=== PATIENT | male | born 1970 | race Caucasian/White ===

== ENCOUNTER 2020-08-19 16:12 | Outpatient (REF) | payer OTHER, SELFPAY | END 2020-08-19 16:13 | disposition home or self-care (01) | LOC: HO.LAB 16:12 | PROVIDERS: Visit Provider Internal Medicine | DX: Z20.828 Contact with and (suspected) exposure to other viral communicable diseases (principal) | CPT/HCPCS: C9803; U0003 ==

== ENCOUNTER 2021-03-09 08:42 | Outpatient (REF) | payer OTHER, SELFPAY ==
--- NOTE | ~2021-03-09 | XR_ITS ---
EXAMINATION: XR CHEST CLINICAL INFORMATION: Cough COMPARISON: None TECHNIQUE: 2 views of the chest were obtained. FINDINGS: No significant abnormality is noted involving the heart, lungs, mediastinum, bony thorax or soft tissues. XR/XR chest 2V IMPRESSION: Unremarkable examination.
[2021-03-09 09:56] LABS: Hematocrit 41.7 % (42-52); Mean Corpuscular HGB Conc 33.6 g/dl (31.0-36.0); Mean Corpuscular Volume 98.3 fL (80-98); Mean Platelet Volume 11.4 fL (9.4-12.4); Platelet Count 234 X10*3/uL (160-400); Red Blood Count 4.24 X10*6/uL (4.60-5.80); Red Cell Distribution Width 12.2 % (11.0-16.0); White Blood Count 4.5 X10*3/uL (4.8-10.8)
[2021-03-09 10:07] LABS: Estimated Average Glucose 85 mg/dL; Hemoglobin A1c % 4.6 %
[2021-03-09 10:30] LABS: Alanine Aminotransferase 34 U/L (0-40); Albumin Level 4.3 g/dL (3.5-5.0); Alkaline Phosphatase 73 U/L (39-117); Anion Gap 12 (12-20); Aspartate Amino Transferase 63 U/L (5-37); Bilirubin Total 1.2 mg/dL (0.0-1.0); Blood Urea Nitrogen 15 mg/dL (9-16); Calcium 9.4 mg/dL (8.4-10.2); Carbon Dioxide 26 mmol/L (22-29); Chloride 107 mmol/L (96-108); Cholesterol 158 mg/dL; Estimated Glomerular Filt Rate > 60; Glucose Fasting 99 mg/dL (60-99); HDL Cholesterol 75 mg/dL; LDL Cholesterol Calculated 62 mg/dl; Potassium 4.3 mmol/L (3.3-5.1); Sodium 141 mmol/L (135-145); Total Protein 7.3 g/dL (6.5-8.0); Triglycerides 107 mg/dL
[2021-03-09 10:43] LABS: TSH reflex Free T4 2.66 uIU/mL (0.32-4.0)
[2021-03-10 11:11] LABS: Immunoglobulin E 1002 kU/L (<OR=114)
== END 2021-03-09 08:43 | disposition home or self-care (01) ==
LOC: HO.XRAY 08:42
PROVIDERS: PCP Physician Assistant; Visit Provider Physician Assistant
DX: Z13.1 Encounter for screening for diabetes mellitus (principal); Z13.220 Encounter for screening for lipoid disorders; J45.20 Mild intermittent asthma, uncomplicated; R05 Cough; I10 Essential (primary) hypertension
CPT/HCPCS: 36415; 71046; 80053; 80061; 82785; 83036; 84443; 85027

== ENCOUNTER → 2021-05-18 13:00 | Outpatient (BNVA) | payer OTHER, SELFPAY | PROVIDERS: Referring Provider Physician Assistant; Visit Provider Nurse Practitioner Family ==

== ENCOUNTER 2021-08-17 07:23 | Day surgery (SDC) | payer OTHER, SELFPAY ==
[2021-06-30 16:10] VITALS: BMI 27.7
--- NOTE | 2021-08-16 10:30 | HO.ANESPROP2 ---
Documented by User: Martha Davison NP 08/16/21 10:30 HPI - Anesthesia Eval Consult details Narrative: 51yo M for Colonoscopy [facility] Active Problems Active Problems: All Active Problems (Updated 03/09/21 @ 11:29 by Hussain Arce PA-C) Colon cancer screening (Acute) Annual physical exam (Acute) Atopic eczema (Acute) Cough (Acute) Vaso vagal episode (Acute) Allergic conjunctivitis (Acute) Screening for hypothyroidism (Acute) Screening for hypercholesterolemia (Acute) Screening for diabetes mellitus (DM) (Acute) Asthma (Acute) Past Medical History Medical History Allergic conjunctivitis Asthma Atopic eczema Family History Family History Father No problems noted. Mother Rheumatoid arthritis Surgical History Surgical History No pertinent past surgical history Social History Social History Housing: Apartment Alcohol intake: current Patient Tobacco Use Status: Never used Tobacco e-Cigarette/Vaping Use: Never Used Second Hand Smoke Exposure: No Use of substances other than those prescribed or required for medical reasons: Yes Substance Use Frequency: Occasionally Are you DNR?: No Advance Directives: No Advance Directives Information Provided: Yes service: No Current occupational status: employed Current occupation: [employer]. Meds Allergies Allergy/AdvReac Type Severity Reaction Status Date / Time No Known Allergies Allergy Verified 08/17/21 07:35 Home Medications Medication Instructions Recorded Confirmed Last Taken Type fluorometholone 0.25 % eye 1 drp OPHTHALMIC (EYE) TID ml 02/09/21 07/21/21 Unknown History drops,suspension loteprednol etabonate 0.5 % eye drp OPHTHALMIC (EYE) 07/21/21 07/21/21 Unknown History gel drops pimecrolimus 1 % topical cream appl TOPICAL BEDTIME 07/21/21 07/21/21 Unknown History Exam Exam Date and Time: August 16, 2021 1030 Height,Weight and Vital Signs: Height 5 ft 7 in Weight 80.286 kg Assessment and Plan Assessment Anesthesia Assessment: Chart Reviewed Documented by User: Itz Hernandez 08/17/21 08:34 PMFSH Past Medical History Medical History Allergic conjunctivitis Asthma Atopic eczema Family History Family History Father No problems noted. Mother Rheumatoid arthritis Family history of problems with anesthesia: No Surgical History Surgical History No pertinent past surgical history History of Problems with Anesthesia: No Social History Social History Housing: Apartment Alcohol intake: current Patient Tobacco Use Status: Never used Tobacco e-Cigarette/Vaping Use: Never Used Second Hand Smoke Exposure: No Use of substances other than those prescribed or required for medical reasons: Yes Substance Use Frequency: Occasionally Are you DNR?: No Advance Directives: No Advance Directives Information Provided: Yes service: No Current occupational status: employed Current occupation: [employer]. Meds Allergies Allergy/AdvReac Type Severity Reaction Status Date / Time No Known Allergies Allergy Verified 08/17/21 07:35 Home Medications Medication Instructions Recorded Confirmed Last Taken Type fluorometholone 0.25 % eye 1 drp OPHTHALMIC (EYE) TID ml 02/09/21 07/21/21 Unknown History drops,suspension loteprednol etabonate 0.5 % eye drp OPHTHALMIC (EYE) 07/21/21 07/21/21 Unknown History gel drops pimecrolimus 1 % topical cream appl TOPICAL BEDTIME 07/21/21 07/21/21 Unknown History Exam Airway Mallampati Class: III TM Dist: >3cm Neck ROM: Full Loose/Missing/Broken Teeth: Yes Heart: rrr Lungs: bl breath sounds Other: eczema eye Assessment and Plan Final Anesthetic Review Family History of Problems with Anesthesia: No History of Problems with Anesthesia: No NPO: Yes Final Preanesthetic Review: Meds/Allgs Chart Reviewed Patient Risk: Intermediate Procedure Risk: Intermediate Anesthetic Plan Anesthetic Plan: MAC: Disposition: Standard PACU
[2021-08-17 07:48] VITALS: BP 122/84; PULSE 57; RESP 16; TEMP 36.2; O2SAT 96
[2021-08-17] MEDS: Lactated Ringers 1,000 ML 100 ML IVCONT (08:06)
--- NOTE | 2021-08-17 08:35 | P.HPSUR_ITS ---
Pre-Procedural Eval Section A Date of Service: 08/17/21 Section B Chief Complaint: Screening Relevant Family History (Specify if Yes): No Relevant Social History: None Present Medications: see Short Stay Collaborative assessment Medical History: Significant History (eczema, Hep C treated) History of Previous Operations: No relevant previous surgery Allergies: Allergies Allergy/AdvReac Type Severity Reaction Status Date / Time No Known Allergies Allergy Verified 08/17/21 07:35 Review of Systems Sugical H&P ROS: Negative: Constitution, Cardiovascular, Respiratory, Neurological, Psychiatric, Hem-Onc, Allergic/Immunologic, Gastrointestinal, Genitourinary, Musculoskeletal, Integumentary, Endocrine and Eyes/Ears/Nose/Throat Exam Surgical H&P Exam: Normal: HEENT, Normal: Heart, Normal: Lungs, Normal: Extrem ities, Normal: Abdomen, Normal: Skin and Normal: Neurological Plan Diagnosis/Plan: Unchanged I have reviewed the history and physical and performed a pertinent physical examination on my patient. No changes have occurred unless specified.
--- NOTE | 2021-08-17 08:44 | P.BOP_ITS ---
Brief Operative Note Date of Service: 08/17/21 Pre-op diagnosis: colon screen Post-op diagnosis: same Procedure: see op note Surgeon: America Sood MD Anesthesia: MAC Was an Quill Machine Tender used for this Procedure?: No Estimated blood loss (mL): 0 Condition: stable Disposition: PACU
--- NOTE | 2021-08-17 08:45 | W.PM.OPN ---
Operative Note Operative Note Date of Service: 08/17/21 Narrative: Operative Information Procedure Description: Colonoscopy COLONOSCOPY Instrument: Olympus variable stiffness pediatric scope 190L Colonoscopy Monitoring: Vital signs and clinical assessment, continuous EKG monitoring, Pulse oximetry, Carbon Dioxide monitoring and blood pressure monitoring were done throughout the procedure. Colon withdrawal time was 21 minutes. Procedure: The patient was placed in the left lateral decubitis position and pre-procedure medications were administered. After a digital rectal examination of the ano-rectum, the video colonoscope was inserted into the rectum and advanced through the colon to the cecum/TI. The colonoscope was slowly withdrawn in a retrograde panoramic fashion and the colon mucosa was carefully examined including a retroflexed view of the rectum. Findings and interventions are described below. Procedure Difficulty: easy Findings: Terminal Ileum-normal Cecum:normal Ascending Colon: normal Transverse Colon -normal Descending Colon: 7-9 mm sessile polyp removed with forceps, 3-4 mm sessile polyp removed with forceps Sigmoid Colon: 9-10 mm sessile polyp removed with cold snare (whole polyp not retirieved, only some small fragements in the trap) Rectum: Retroflexion with small internal hemorrhoids, grade I, x 3 sessile polyps 5-7 mm removed with forceps Anorectum - normal Colon preparation: [place] Bowel Preparation Scale Right colon; 2 Transverse colon: 3 Left colon; 2 (0 = Unprepared colon segment with mucosa not seen due to solid stool that cannot be cleared. 1 = Portion of mucosa of the colon segment seen, but other areas of the colon segment not well seen due to staining, residual stool and/or opaque liquid. 2 = Minor amount of residual staining, small fragments of stool and/or opaque liquid, but mucosa of colon segment seen well. 3 = Entire mucosa of colon segment seen well with no residual staining, small fragments of stool or opaque liquid) Impression and Post Procedure Diagnosis: polyps internal hemorrhoids Plan: High fiber diet leaflet Avoid straining at stool, epsom salts and sitz bath, anusol supps or cream Repeat Colonoscopy in 5 years due to polyps found today or earlier if clinically indicated Above findings were reviewed with the patient and relevant handouts were provided if indicated.
[2021-08-17 09:23] VITALS: BP 116/76; PULSE 63; RESP 15; TEMP 36.5; O2SAT 99
[2021-08-17 09:38] VITALS: BP 121/81; PULSE 64; RESP 16; O2SAT 97
[2021-08-17 09:53] VITALS: BP 131/87; PULSE 60; RESP 16; TEMP 36.5; O2SAT 98
== END 2021-08-17 10:47 | disposition home or self-care (01) ==
PROVIDERS: PCP Physician Assistant; Visit Provider Internal Medicine Gastroenterology
PROC: 0DJD8ZZ Inspection of Lower Intestinal Tract, Via Natural or Artificial Opening Endoscopic (ICD-10-PCS; CPT 45378; principal; 2021-08-17 08:30)
DX: Z12.11 Encounter for screening for malignant neoplasm of colon (principal); D12.4 Benign neoplasm of descending colon; K63.5 Polyp of colon; K62.1 Rectal polyp; K64.0 First degree hemorrhoids; J45.909 Unspecified asthma, uncomplicated; R74.8 Abnormal levels of other serum enzymes; Z86.19 Personal history of other infectious and parasitic diseases; Z79.899 Other long term (current) drug therapy
CPT/HCPCS: 45385; 45380; 88305

== ENCOUNTER 2021-08-31 08:01 | Outpatient (REF) | payer OTHER, SELFPAY ==
--- NOTE | ~2021-08-31 | XR_ITS ---
EXAMINATION: XR CHEST CLINICAL INFORMATION: Asthma exacerbation COMPARISON: None TECHNIQUE: 2 views of the chest were obtained. FINDINGS: No significant abnormality is noted involving the heart, lungs, mediastinum, bony thorax or soft tissues. XR/XR chest 2V IMPRESSION: Unremarkable examination.
== END 2021-08-31 08:02 | disposition home or self-care (01) ==
LOC: HO.XRAY 08:01
PROVIDERS: Absent Provider Physician Assistant; PCP Physician Assistant; Referring Provider Physician Assistant; Visit Provider Nurse Practitioner Family
DX: J45.21 Mild intermittent asthma with (acute) exacerbation (principal); D36.9 Benign neoplasm, unspecified site; Z98.890 Other specified postprocedural states
CPT/HCPCS: 71046

== ENCOUNTER 2021-11-04 13:55 | Outpatient (REF) | payer OTHER, SELFPAY | END 2021-11-04 13:56 | disposition home or self-care (01) | LOC: HO.LNP 13:55 | PROVIDERS: Visit Provider Hospitalist | DX: Z20.822 Contact with and (suspected) exposure to COVID-19 (principal); J06.9 Acute upper respiratory infection, unspecified; J45.901 Unspecified asthma with (acute) exacerbation | CPT/HCPCS: U0003; U0005 ==

== ENCOUNTER 2022-04-06 10:38 | Outpatient (REF) | payer OTHER, SELFPAY ==
[2022-04-06 12:52] LABS: Alanine Aminotransferase 23 U/L (0-40); Alkaline Phosphatase 68 U/L (39-117); Anion Gap 10 (12-20); Aspartate Amino Transferase 23 U/L (5-37); Bilirubin Total 0.8 mg/dL (0.0-1.0); Blood Urea Nitrogen 12 mg/dL (9-16); Calcium 8.8 mg/dL (8.4-10.2); Carbon Dioxide 25 mmol/L (22-29); Chloride 107 mmol/L (96-108); Estimated Glomerular Filt Rate > 60; Glucose Fasting 98 mg/dL (60-99); Potassium 3.8 mmol/L (3.3-5.1); Sodium 138 mmol/L (135-145); Total Protein 6.8 g/dL (6.5-8.0)
[2022-04-06 13:15] LABS: Prostate Specific Antigen Scr 0.19 ng/mL (<0.05-4.0)
== END 2022-04-06 10:39 | disposition home or self-care (01) ==
LOC: HO.LAB 10:38
PROVIDERS: PCP Physician Assistant; Visit Provider Physician Assistant
DX: Z12.5 Encounter for screening for malignant neoplasm of prostate (principal); Z13.29 Encounter for screening for other suspected endocrine disorder
CPT/HCPCS: 36415; 80053; 84153; 84443

== ENCOUNTER 2022-04-07 15:33 | Outpatient (REF) | payer OTHER, SELFPAY ==
[2022-04-07 15:49] LABS: MANUAL DIFF FLAG NO
[2022-04-07 15:56] LABS: Basophils Percent Auto 0.9 % (0-2); Eosinophils Absolute Auto 0.2 X10*3/uL (0.0-0.4); Eosinophils Percent Auto 3.3 % (0-4); Hematocrit 39.5 % (42.0-52.0); Hemoglobin 13.4 g/dl (14.0-18.0); Imm Gran Abs Auto 0.02 X10*3/uL (0.00-0.03); Imm Gran Pct Auto 0.4 % (0.0-0.4); Lymphocytes Absolute Auto 1.7 X10*3/uL (1.2-4.9); Lymphocytes Percent Auto 37.4 % (20-40); Mean Corpuscular HGB Conc 33.9 g/dl (31.0-36.0); Mean Corpuscular Hemoglobin 32.4 pg (27.0-33.0); Mean Corpuscular Volume 95.6 fL (80.0-98.0); Mean Platelet Volume 9.8 fL (9.4-12.4); Monocytes Absolute Auto 0.4 X10*3/uL (0.1-1.2); Monocytes Percent Auto 9.1 % (2-11); Neutrophils Absolute Auto 2.2 x10*3/uL (2.0-8.3); Neutrophils Percent Auto 48.9 % (45-73); Platelet Count 228 X10*3/uL (160-400); Red Blood Count 4.13 X10*6/uL (4.60-5.80); Red Cell Distribution Width 12.6 % (11.0-16.0); White Blood Count 4.5 X10*3/uL (4.8-10.8)
[2022-04-07 16:15] LABS: Anion Gap 13 (12-20); Blood Urea Nitrogen 15 mg/dL (9-16); Calcium 9.2 mg/dL (8.4-10.2); Carbon Dioxide 29 mmol/L (22-29); Chloride 103 mmol/L (96-108); Estimated Glomerular Filt Rate > 60; Glucose Random 119 mg/dL (60-115); Potassium 3.8 mmol/L (3.3-5.1); Sodium 141 mmol/L (135-145)
[2022-04-07 16:32] LABS: Erythrocyte Sedimentation Rate 5 MM/HR (0-15)
[2022-04-11 14:33] LABS: IgA 454 mg/dL (47-310); IgG 1242 mg/dL (600-1640); IgM 45 mg/dL (50-300)
== END 2022-04-07 15:34 | disposition home or self-care (01) ==
LOC: HO.LAB 15:33
PROVIDERS: PCP Physician Assistant; Visit Provider Hospitalist
DX: J45.40 Moderate persistent asthma, uncomplicated (principal); J30.9 Allergic rhinitis, unspecified
CPT/HCPCS: 36415; 80048; 82784; 82785; 85025; 85652; 86003

== ENCOUNTER 2022-05-12 16:02 | Outpatient (REF) | payer OTHER, SELFPAY ==
--- NOTE | 2022-05-12 17:11 | PFT_ITS ---
INDICATION: Dyspnea. SPIROMETRY: FEV1 to FVC of 82% with an FEV1 of 3.42 L, which is 98% predicted. An FVC of 4.15 L, which is 92% predicted. There was a significant response to bronchodilators noted. Maximum voluntary ventilation 101% predicted. LUNG VOLUMES: Total lung capacity 90% predicted. DIFFUSION CAPACITY: DLCO 103% predicted. COMPARISONS: None. INTERPRETATION: No obstructive nor restrictive ventilatory defects identified. No significant response to bronchodilators noted. The patient did have a significant response to bronchodilators noted. Normal lung volumes. In addition to that, normal diffusing capacity. If asthma is in differential, methacholine challenge may be helpful in assessing for hyper-reactive airways, otherwise clinical correlation warranted. Dennis Smith MD MR/MODL / [id number]
== END 2022-05-12 16:03 | disposition home or self-care (01) ==
LOC: HO.RESP 16:02
PROVIDERS: PCP Physician Assistant; Visit Provider Hospitalist
DX: J45.40 Moderate persistent asthma, uncomplicated (principal)
CPT/HCPCS: 94060; 94727; 94729

== ENCOUNTER → 2022-11-27 15:30 | Outpatient (BNVA) | payer OTHER, SELFPAY | PROVIDERS: PCP Physician Assistant; Visit Provider Hospitalist | DX: J34.2 Deviated nasal septum (principal) ==

== ENCOUNTER → 2023-02-12 14:28 | Outpatient (BNVA) | payer OTHER, SELFPAY | PROVIDERS: PCP Physician Assistant; Visit Provider Hospitalist ==

== ENCOUNTER 2023-03-23 13:25 | Outpatient (AMB) | payer OTHER, SELFPAY ==
--- NOTE | 2023-03-23 13:29 | A.OFFVIS_ITS ---
Intake Vital Signs 03/23/23 13:30 Height 5 ft 7 in Weight 185 lb BMI 29.0 Pulse 65 Pulse Source Pulse Oximeter Temp 65 F L Pulse Oximetry (%) 97 Oxygen Delivery Method Room Air Intake Visit Reasons: Asthma Electronic Typesetting Machine Operator Required: No Allergies No Known Allergies Allergy (Verified 03/23/23 13:31) HPI HPI Comments History of Present Illness Details The patient is a 52-year-old gentleman with a known history of asthma and severe a topic dermatitis and steroid dependent, who apparently has been having worsening respiratory symptoms for the last several months. he did have COVID that affected his respiratory capacity. The time he was finding in [facility]. However, after COVID in the worsening respiratory symptoms he was not able to continue regularly. In August he started developing worsening respiratory symptoms. He was evaluated at that point with a chest x-ray demonstrating no acute disease. Subsequently in the springtime again he had worsening respiratory symptoms and he went to an urgent care. He was given a rescue inhaler in addition to prednisone for an asthma exacerbation. He did not have a chest x-ray. He was tested for COVID again and he was negative. He was given a course of a signal mycin during time. At this point the patient is feeling better although he still having episodes of shortness of breath and wheezing at times. He had been prescribed Advair HFA which has been helping. He does use his rescue inhaler more than twice a week. Therefore he was sent to Pulmonary for further evaluation. On further questioning he denies any significant exposure to mold or past. He had been tested for allergy sit in the past and he was found to have many allergies any at some point he did receive allergy shots. I was many years ago. also to note in regards of the eczema the patient was evaluated by Dermatology in the past. He was placed on Dupixent which was extremely helpful clearing up his the topic dermatitis. However, he started developing back pain and some issues with kidneys and therefore he stopped the Dupixent. His side effects did improve but unfortunately the eczema return. 05/23/2022 the patient is here for a pulmonary follow-up visit. Overall the patient is doing a little better on the breztri inhaler. Although he continues to have chest tightness and wheezing. Symptoms are usually worse at nighttime. He responds to his albuterol therapy. The patient also had been using prednisone on a regular basis. He is finds that prednisone does help with his symptoms. His blood work has demonstrated evidence of eosinophilia. But now on the prednisone there is no evidence of any significant eosinophilia. He did undergo blood work demonstrating severe allergies to numerous items on the list. Some of the allergies that were most severe were to dogs, trees and dust mites. The patient has never had anaphylaxis although he has had significant swelling of his mucus membranes. Therefore I will send him to the pharmacy a epinephrine pen. We did instruct him and his significant other on how to use it correctly. the patient is IgE was close to 1000. Therefore with his chronic prednisone use his severe asthma in his severe allergies the patient needs to be placed on biologic therapy with the hope that we can wean him off the prednisone. Based on his laboratory data I do believe that Tezspire would be most effective for him. We also reviewed his pulmonary function studies demonstrating small airway disease consistent with his asthma history. 08/25/2022 the patient is here for a pulmonary follow-up visit. He still struggling with his asthma. He is not able to get off the prednisone due to his significant allergies and her significant chest tightness. The patient already tried and failed Dupixent. Although it improved his respiratory capacity it res ulting significant myalgias and arthralgias where he could not even walk. Those symptoms did get better once he stops the Dupixent. Does have the significant eosinophilia and significant elevations in his IgE. Therefore I do believe that the best option treated asthma would be to start Trezspire. however, it was denied by his insurance company. Will re-attempt to do so. If we cannot get him approved on Trezspire, then we can request and I will 5 inhibitor although it will not cover his significant allergic asthma completely. The main goal be to get him off the prednisone if able to do so. He has been on chronic prednisone and may have some degree of adrenal insufficiency. Therefore after very careful lowering the prednisone once he starts biologic therapy. Continues to use his respiratory inhalers with good adherence. 11/27/2022 the patient is here for a pulmonary follow-up visit. He is feeling a little better at this time. Unfortunately, he has not been able to start the biologic therapy. He still continues to be on prednisone. We try to get him on the new biologic, Tezspire, but was not covered by his insurance. Therefore will go ahead and try him on Xolair. He has already tried and failed multiple other biologics. The patient does have again severe asthma and requires chronic prednisone. He continues to use his maintenance inhalers with good effect. I did give information about the Xolair. I am hopeful that we can start that as soon as possible. Will still waiting for the approval from the insurance company. 02/12/2023 The patient is here for a follow up visit. Has been having worsening respiratory symptoms with chest tightness, wheezing and productive cough. Moderate in severity. No sleeping well. Using the nebulizer therapy several times a day. Has not started the biologic therapy. Will help him reach out to the pharmacy to start the process. In the meatime, he is on prednisone. We will have him start an antibiotics for bronchitis. 03/23/2023 the patient is here for pulmonary follow-up visit. He continues to wait for his biologic therapy. The patient actually has been doing fairly good. He is still on chronic prednisone however. Has been having his respiratory medications as prescribed. I did reach out to our nauseous see if she can help facilitate the process to try to get him his Xolair. The patient also may be a good candidate for Tezspire, bbut he was not from his insurance company unfortunately. No recent imaging studies to review. Will try to facilitate the biologic therapy as soon as possible. [facility] Medical History (Updated 02/12/23 @ 22:10 by Dennis Smith MD) Allergic conjunctivitis Asthma Atopic dermatitis Deviated septum Tubular adenoma Surgical History No pertinent past surgical history Family History Father No problems noted. Mother Rheumatoid arthritis Social History (Updated 03/15/22 @ 09:09 by Hussain Arce PA-C) Housing: Apartment Alcohol intake: current Alcohol intake frequency: a few times a week Alcohol type: beer Patient Tobacco Use Status: Never used Tobacco e-Cigarette/Vaping Use: Never Used Second Hand Smoke Exposure: No service: No Current occupational status: employed Current occupation: [employer] . Review of Systems Const Denies body aches, Denies chills, Denies excessive sweating, Denies fatigue, Denies fever(s) and Denies headache(s) Eyes Denies blurry vision ENT Denies dysphagia, Denies vertigo, Denies dizziness, Denies headache(s), Denies hearing loss, Reports nasal congestion, Reports nasal discharge and Denies tinnitus Card Denies chest pain, Denies chest pain with activity, Denies syncope, Denies irregular heart rhythm and Reports dyspnea on exertion Resp Reports chest congestion, Reports cough, Denies hemoptysis, Reports dyspnea on exertion and Reports wheezing GI Denies abdominal pain, Denies melena, Denies hematochezia, Denies coffee ground emesis, Denies dysphagia, Denies diarrhea, Denies nausea and Denies vomiting Musc Denies arthralgias, Denies limited range of motion, Denies muscle cramps and Denies muscle weakness Skin/Breast Denies rash and Denies skin ulcer Neuro Denies Abnormal speech present, Denies vertigo, Denies dizziness, Denies syncope, Denies headache(s), Denies memory loss and Denies seizure-like activity Psych Denies anxiety, Denies depression, Denies memory loss, Denies panic attacks and Denies paranoia Endo Denies excessive sweating, Denies fatigue, Denies flushing, Denies polydipsia and Denies polyuria Aller/Immun Reports wheezing Physical Exam Vital Signs: Last Vital Signs Temp 65 F L 03/23/23 13:30 Pulse 65 03/23/23 13:30 Pulse Ox 97 03/23/23 13:30 Oxygen Delivery Method Room Air 03/23/23 13:30 BMI result Body Mass Index 29.0 Const General: comfortable HEENT Head: Yes atraumatic Neck Neck: Yes supple Chest Chest palpation & inspection: normal inspection of the chest Resp Effort & Inspection: normal respiratory effort Auscultation: wheezes and diminished lung sounds Cardio Rate: regular rate Rhythm: regular rhythm Heart sounds: S1 normal heart sound present and S2 normal heart sound present GI Palpation (GI): Soft to palpation Skin Rashes: no rashes Neuro Speech: No Abnormal speech present Extrem General: Yes no clubbing, cyanosis or edema Assessment & Plan Assessment & Plan (1) Asthma: Comment: chronic prednisone to control symptoms Code(s): J45.909 - Unspecified asthma, uncomplicated Qualifiers: Asthma complication type: with acute exacerbation Asthma persistence: persistent Asthma severity: severe Qualified Code(s): J45.51 - Severe persistent asthma with (acute) exacerbation (2) Allergic rhinitis: Code(s): J30.9 - Allergic rhinitis, unspecified Qualifiers: Allergic rhinitis seasonality: non-seasonal Allergic rhinitis trigger: unspecified Qualified Code(s): J30.89 - Other allergic rhinitis (3) Atopic dermatitis: Code(s): L20.9 - Atopic dermatitis, unspecified Qualifiers: Atopic dermatitis type: unspecified Qualified Code(s): L20.9 - Atopic dermatitis, unspecified (4) Deviated septum: Code(s): J34.2 - Deviated nasal septum (5) Bronchitis: Code(s): J40 - Bronchitis, not specified as acute or chronic Plan continue Breztri 2 puffs twice a day short-acting beta agonist as needed continue Singulair continue prednisone with taper Still requesting Xolair, awaiting approval nebulizer provided F/U in 3-4 months Coding Level of Care Code Est Pt Level 4 (65162) Diagnoses Asthma J45.51 Asthma complication type: with acute exacerbation Asthma persistence: persistent Asthma severity: severe Allergic rhinitis J30.89 Allergic rhinitis seasonality: non-seasonal Allergic rhinitis trigger: unspecified Atopic dermatitis L20.9 Atopic dermatitis type: unspecified Deviated septum J34.2 Bronchitis J40 Time Spent (min) 18
[2023-03-23 13:30] VITALS: PULSE 65; TEMP 18.3; O2SAT 97; BMI 29.0
== END 2023-03-23 13:51 | disposition home or self-care (01) ==
PROVIDERS: PCP Physician Assistant; Visit Provider Hospitalist
DX: J45.51 Severe persistent asthma with (acute) exacerbation (principal); J30.89 Other allergic rhinitis; L20.9 Atopic dermatitis, unspecified; J34.2 Deviated nasal septum; J40 Bronchitis, not specified as acute or chronic
CPT/HCPCS: 99214

== ENCOUNTER → 2023-03-23 13:25 | Outpatient (BNVA) | payer OTHER, SELFPAY | PROVIDERS: Visit Provider Hospitalist | DX: J34.2 Deviated nasal septum (principal) ==

== ENCOUNTER 2023-05-24 08:45 | Outpatient (AMB) | payer OTHER, SELFPAY ==
[2023-05-24 08:57] VITALS: BP 122/82; PULSE 60; O2SAT 97; BMI 28.9
--- NOTE | 2023-05-24 08:57 | MHC.PC.OV ---
Vital Signs 05/24/23 08:57 Height 5 ft 7 in Weight 184 lb 8 oz BMI 28.9 BP 122/82 Blood Pressure Location Lt brachial Position Sitting Pulse 60 Pulse Source Pulse Oximeter Pulse Oximetry (%) 97 Oxygen Delivery Method Room Air Intake Visit Reasons: Annual Exam Intake Note: Patient is here today for a physical. 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 Accompanied by: Self / Same As Patient Allergies No Known Allergies Allergy (Verified 05/24/23 09:18) Medication List - Last Reconciled 05/24/23 by Hussain Arce PA-C albuterol sulfate 90 mcg/actuation 1 puff PO Q4H PRN albuterol sulfate 2.5 mg (3 mL) inhalation Q6H PRN 30 days bisacodyl (Dulcolax (bisacodyl)) 10 mg (2 x 5 mg) PO ONCE 1 day bwkyceuixf-rcfdvqex-czzpvdttjd 160-9-4.8 mcg/actuation (Breztri Aerosphere) 2 inhalations inhalation BID 30 days doxycycline monohydrate 100 mg PO BID 14 days epinephrine (EpiPen 2-Russ) 0.3 mg (0.3 mL) IM Q10M PRN 30 days fluorometholone 0.25% 1 drp ophthalmic (eye) TID fluticasone propion-salmeterol 115-21 mcg/actuation (Advair HFA) 2 puffs inhalation BID 30 days fluticasone propionate 110 mcg/actuation (Flovent HFA) 1 puff PO BID ipratropium bromide 2 sprays intranasal BID 30 days loteprednol etabonate 0.5% drps ophthalmic (eye) montelukast (Singulair) 10 mg PO BEDTIME 3 months pimecrolimus 1% 1 appl topical BEDTIME 30 days prednisone 10 mg PO DAILY triamcinolone acetonide 0.1% 1 appl topical DAILY 30 days Tobacco use date assessed: 05/24/23 Dental Screening Dental Screen Date: 05/24/23 Did you have a dental visit in the last 12 months?: Yes Did you have a dental problem in the last 6 months where you did not have access to dental care?: No Was dental information given to patient?: Patient has dentist HPI Annual Exam HPI Details Patient is a 52-year-old male here today for annual physical. Patient has a past medical history significant for moderate persistent asthma, moderate to severe atopic dermatitis. .. Atopic dermatitis: His atopic dermatitis has been fairly well controlled with topical agents. .. Moderate persistent asthma: He reports his asthma has been fairly well controlled now on new maintenance inhaler, followed by [facility] senior core java developer . .. Colorectal cancer screening: Had colonoscopy in 2019- tubular adenomatous polyp found needs repeat in 2024 Vaccines: Up-to-date with COVID vaccine, up-to-date with tetanus vaccine, UTD pneumonia vaccine, considering Shingles PFSH Medical History Deviated septum Atopic dermatitis Tubular adenoma Allergic conjunctivitis Asthma Surgical History No pertinent past surgical history Family History Father No problems noted. 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 Cognitive needs: No Hearing needs: No Vision needs: No Questionnaire PHQ-9 Over the last 2 weeks, how often have you been bothered by any of the following problems? 1. Little interest or pleasure in doing things: not at all 2. Feeling down, depressed, or hopeless: not at all 3. Trouble falling or staying asleep, or sleeping too much: not at all 4. Feeling tired or having little energy: not at all 5. Poor appetite or overeating: not at all 6. Feeling bad about yourself - or that you are a failure or have let yourself or your family down: not at all 7. Trouble concentrating on things, such as reading the newspaper or watching television: not at all 8. Moving or speaking so slowly that other people could have noticed. Or the opposite - being so fidgety or restless that you have been moving around a lot more than usual: not at all 9. Thoughts that you would be better off or of hurting yourself in some way: not at all Total score: 0 Depression Screening Interpretation: Negative [id number] - PHQ-9 Billing: Yes Source: Developed by Drs. Fco Riddle, Svetlana Desai, Earnest Henson and colleagues, with an educational gisell from [employer]. Thrive Questionnaire Date Thrive assessed: 05/24/23 I am a: Patient What is your living situation today?: I have a steady place to live Within the past 12 months, did the food you bought not last and you didn't have the money to get more?: Never true Within the past 12 months, did you worry whether your food would run out before you got money to buy more?: Never true Do you have trouble paying for medicines?: No Do you have trouble getting transportation to medical appointments?: No Do you have trouble paying your heating and electricity bill?: No Do you have trouble taking care of your child, family member or friend?: No Do you have trouble with day-to-day activities such as bathing, preparing meals, shopping, managing finances, etc.?: No Are you currently unemployed and looking for a job?: No Are you interested in more education?: No Please select the resources that you would like help with: None Currently or been in a relationship where the following occur: no concerns reported AUDIT C Alcohol Use Questionnaire (AUDIT-C) 1. How often do you have a drink containing alcohol?: Monthly or less 2. How many drinks containing alcohol do you have on a typical day when you are drinking?: 1 or 2 3. How often do you have six or more drinks on one occasion?: Never Total Score: 1 EVY-7 AMB Questionnaire EVY-7 Date EVY - 7 assessed: 05/24/23 Feeling nervous, anxious, or on edge: 0 = Not at all Not being able to stop or control worryin = Not at all Worrying too much about different things: 0 = Not at all Trouble relaxin = Not at all Being so restless that it is hard to sit still: 0 = Not at all Becoming easily annoyed or irritable: 0 = Not at all Feeling afraid as if something awful might happen: 0 = Not at all Total EVY-7 score (0-4 normal; 5-9 mild; 10-14 moderate; 15-21 severe): 0 Source: Developed by Drs. Fco Riddle, Svetlana Desai, Earnest Henson and colleagues, with an educational gisell from [employer]. EVY-7 Assessment Billing EVY-7 Assessment Tool: EVY-7 Assessment 66974 ACT Questionnaire In the past 4 weeks, how much of the time did your asthma keep you from getting as much done at work, school or at home?: None of the time During the past 4 weeks, how often have you had shortness of breath?: 1-2 times a week During the past 4 weeks, how often did your asthma symptoms wake you up at night or earlier than usual in the morning?: Not at all During the past 4 weeks, how often have you had to use your rescue inhaler or nebulizer medication?: Not at all How would you rate your asthma control during the past 4 weeks?: Completely controlled ACT Interpretation: Negative Score: 24 Review of Systems Const Denies body aches, Denies chills, Denies excessive sweating, Denies fatigue, Denies fever(s) and Denies headache(s) Eyes Denies blurry vision ENT Denies dysphagia, Denies vertigo, Denies dizziness, Denies headache(s), Denies hearing loss and Denies tinnitus Card Denies chest pain, Denies chest pain with activity, Denies syncope, Denies irregular heart rhythm and Denies dyspnea Resp Denies chest congestion, Denies cough, Denies hemoptysis, Denies dyspnea and Denies wheezing GI Denies abdominal pain, Denies melena, Denies hematochezia, Denies coffee ground emesis, Denies dysphagia, Denies diarrhea, Denies nausea and Denies vomiting Denies difficulty urinating, Denies dysuria, Denies urinary frequency, Denies urinary hesitancy and Denies urinary urgency Musc Denies arthralgias, Denies limited range of motion, Denies muscle cramps and Denies muscle weakness Skin/Breast Denies rash and Denies skin ulcer Neuro Denies Abnormal speech present, Denies confusion, Denies vertigo, Denies dizziness, Denies syncope, Denies headache(s), Denies memory loss and Denies seizure-like activity Psych Denies anxiety, Denies confusion, Denies depression, Denies memory loss, Denies panic attacks and Denies paranoia Endo Denies excessive sweating, Denies fatigue, Denies flushing, Denies polydipsia and Denies polyuria Aller/Immun Denies wheezing Physical exam (Primary Care) Vital Signs: Last Vital Signs Pulse 60 05/24/23 08:57 BP 122/82 05/24/23 08:57 Pulse Ox 97 05/24/23 08:57 Oxygen Delivery Method Room Air 05/24/23 08:57 BMI result Body Mass Index 28.9 Tobacco/Smoking Status: Tobacco use Status Tobacco use date assessed 05/24/23 05/24/23 09:03 Patient Tobacco Use Status Never used Tobacco 05/24/23 09:22 e-Cigarette/Vaping Use Never Used 05/24/23 09:22 PHQ-9: PHQ-9 Score PHQ-9: Total score 0 05/24/23 09:22 Depression Screening Interpretation: Negative Thrive Assessment: Date of Thrive Assessment Date Thrive assessed 05/24/23 05/24/23 09:03 Currently or been in a relationship where the following occur: no concerns reported Const General: cooperative, comfortable, no acute distress, alert and awake; No confusion Orientation/consciousness: oriented to person, oriented to place, patient oriented x3 and No confusion HENMT Head: Yes normocephalic Ears: external ears normal and TM's normal bilaterally Face and sinus: No sinus tenderness Mouth: Normal oral and palatal mucosa present and tongue normal Teeth and gingiva: dentition normal and gingiva normal Throat: Yes posterior oropharynx normal, Yes tonsils normal and Yes uvula midline Eyes Conjunctivae: conjunctivae normal Sclerae: sclerae normal Pupils: Equal, round and reactive pupils present EOM: EOMs intact bilaterally Direct Ophthalmoscopy: No no photophobia Neck Neck: Yes no lymphadenopathy, No tender and Yes no JVD Thyroid: Thyroid normal Carotids: no bruits Chest Chest palpation & inspection: no tenderness Resp Effort & Inspection: normal respiratory effort, no audible wheezes, not labored and no stridor Auscultation: no crackles, no rales, no rhonchi and no wheezes Cardio Jugular venous distension: no JVD Rate: regular rate, not bradycardic and not tachycardic Rhythm: regular rhythm Bruits: no carotid bruits Peripheral pulses: Peripheral pulses 2+ throughout GI Inspection: Yes normal to inspection, No abdominal wall ecchymosis and No visible herniation Palpation (GI): Soft to palpation, nontender, no guarding, not rigid and No hepatosplenomegaly present Auscultation: normoactive bowel sounds General: Yes no CVA tenderness Back/Spine/Pelvis Back: no CVA tenderness and No back tenderness Cervical Spine: cervical ROM normal Thoracic/Lumbar Spine: thoracic and lumbar spine normal to inspection, straight leg raise negative bilaterally, No thoraco-lumbar ROM limited and No lumbar spinal tenderness Skin Lesions: no lesions Rashes: no rashes Wounds: no wounds Neuro General: oriented to person, oriented to place, patient oriented x3, CN's II-XI intact bilaterally and No confusion Cranial nerves: Yes Equal, round and reactive pupils present and Yes Normal accommodation reflex present Cognition (Neuro): normal cognition Speech: No Abnormal speech present Gait exam (Neuro): Normal gait present Motor exam (neuro): 5/5 motor strength present throughout Extrem Right upper extremity: full ROM; no cyanosis Left upper extremity: full ROM; no cyanosis Right lower extremity: no edema Left lower extremity: no edema Psych Appearance: grossly normal Mental Status: mental status grossly normal Affect: normal affect Attitude: cooperative Thought process: Normal thought process present Assessment and Plan Assessment & Plan (1) Annual physical exam: Code(s): Z00.00 - Encounter for general adult medical examination without abnormal findings (2) Atopic dermatitis: Code(s): L20.9 - Atopic dermatitis, unspecified Qualifiers: Atopic dermatitis type: intrinsic Qualified Code(s): L20.84 - Intrinsic (allergic) eczema Plan: Patient seems to have moderate to severe atopic dermatitis over his palm and right heel. Was seen by dermatology in the past though lost follow-up. (3) Tubular adenoma: Code(s): D36.9 - Benign neoplasm, unspecified site Plan: Did have colonoscopy in 2019 found tubular adenomatous polyp, repeat colonoscopy in 5 years. (4) Asthma: Comment: chronic prednisone to control symptoms Code(s): J45.909 - Unspecified asthma, uncomplicated Qualifiers: Asthma complication type: with acute exacerbation Asthma persistence: persistent Asthma severity: severe Qualified Code(s): J45.51 - Severe persistent asthma with (acute) exacerbation Plan: Reports his asthma has been better controlled with maintenance inhaler only p.r.n. use of his albuterol inhaler. Now followed by senior core java developer. He denies any nighttime awakenings with asthma symptoms her recent asthma exacerbations. (5) Screening for diabetes mellitus (DM): Code(s): Z13.1 - Encounter for screening for diabetes mellitus Orders: Orders Prostate Specific Antigen Scr 05/24/23 Z12.5 - Encounter for screening for malignant neoplasm of prostate Comprehensive [place]. Panel Fast 05/24/23 Z13.1 - Encounter for screening for diabetes mellitus Complete Blood Count no Diff 05/24/23 J45.51 - Severe persistent asthma with (acute) exacerbation Coding Level of Care Code Est Pt Prev Care 40-64y(50720) Diagnoses Annual physical exam Z00.00 Intrinsic atopic dermatitis L20.84 Atopic dermatitis type: intrinsic Tubular adenoma D36.9 Severe persistent asthma with acute exacerbation J45.51 Asthma complication type: with acute exacerbation Asthma persistence: persistent Asthma severity: severe Screening for diabetes mellitus (DM) Z13.1 Additional Codes EVY-7 Assessment Billing - EVY-7 Assessment Tool: EVY-7 Assessment [id number] ([id number])
== END 2023-05-24 09:40 | disposition home or self-care (01) ==
PROVIDERS: PCP Physician Assistant; Visit Provider Physician Assistant
DX: Z00.00 Encounter for general adult medical examination without abnormal findings (principal); L20.84 Intrinsic (allergic) eczema; D36.9 Benign neoplasm, unspecified site; J45.51 Severe persistent asthma with (acute) exacerbation; Z13.1 Encounter for screening for diabetes mellitus
CPT/HCPCS: 99396

== ENCOUNTER 2023-05-24 09:38 | Outpatient (REF) | payer OTHER, SELFPAY ==
[2023-05-24 10:38] LABS: Hematocrit 39.5 % (42.0-52.0); Hemoglobin 13.4 g/dl (14.0-18.0); Mean Corpuscular HGB Conc 33.9 g/dl (31.0-36.0); Mean Corpuscular Hemoglobin 33.2 pg (27.0-33.0); Mean Corpuscular Volume 97.8 fL (80.0-98.0); Platelet Count 231 X10*3/uL (160-400); Red Blood Count 4.04 X10*6/uL (4.60-5.80); Red Cell Distribution Width 12.4 % (11.0-16.0); White Blood Count 4.5 X10*3/uL (4.8-10.8)
[2023-05-24 15:14] LABS: Alanine Aminotransferase 23 U/L (0-40); Alkaline Phosphatase 56 U/L (39-117); Anion Gap 10 (12-20); Aspartate Amino Transferase 31 U/L (5-37); Bilirubin Total 0.8 mg/dL (0.0-1.0); Blood Urea Nitrogen 13 mg/dL (9-16); Carbon Dioxide 25 mmol/L (22-29); Chloride 110 mmol/L (96-108); Estimated Glomerular Filt Rate > 60; Glucose Fasting 96 mg/dL (60-99); Potassium 3.6 mmol/L (3.3-5.1); Sodium 141 mmol/L (135-145); Total Protein 6.9 g/dL (6.5-8.0)
[2023-05-24 15:37] LABS: Prostate Specific Antigen Scr 0.48 ng/mL (<0.05-4.0)
== END 2023-05-24 09:39 | disposition home or self-care (01) ==
LOC: HO.LAB 09:38
PROVIDERS: PCP Physician Assistant; Visit Provider Physician Assistant
DX: Z12.5 Encounter for screening for malignant neoplasm of prostate (principal); Z13.1 Encounter for screening for diabetes mellitus; J45.51 Severe persistent asthma with (acute) exacerbation
CPT/HCPCS: 36415; 80053; 84153; 85027

== ENCOUNTER 2023-07-02 11:10 | Outpatient (AMB) | payer OTHER, SELFPAY ==
--- NOTE | 2023-07-02 12:32 | MHC.OFFWIV ---
Intake Vital Signs 07/02/23 12:33 Height 5 ft 7 in Weight 187 lb 2 oz BMI 29.3 BP 142/80 H Blood Pressure Location Lt brachial Position Sitting Pulse 78 Pulse Source Pulse Oximeter Temp 97.9 F Temp Source Temporal Artery Scan Pulse Oximetry (%) 98 Oxygen Delivery Method Room Air Intake Visit Reasons: EP, left side of hip pain [phone] Intake Note: pt is here for c/o left side hip pain for 1 week denies injury Patient Tobacco Use Status: Never used Tobacco Allergies No Known Allergies Allergy (Verified 07/02/23 12:33) Medication List - Last Reconciled 07/02/23 by Timoteo Zamorano MD albuterol sulfate 90 mcg/actuation 1 puff PO Q4H PRN albuterol sulfate 2.5 mg (3 mL) inhalation Q6H PRN 30 days bisacodyl (Dulcolax (bisacodyl)) 10 mg (2 x 5 mg) PO ONCE 1 day qdjsqcccii-lnovjvrl-xzaulmdldq 160-9-4.8 mcg/actuation (Breztri Aerosphere) 2 inhalations inhalation BID 30 days epinephrine (EpiPen 2-Russ) 0.3 mg (0.3 mL) IM Q10M PRN 30 days fluorometholone 0.25% 1 drp ophthalmic (eye) TID fluticasone propion-salmeterol 115-21 mcg/actuation (Advair HFA) 2 puffs inhalation BID 30 days fluticasone propionate 110 mcg/actuation (Flovent HFA) 1 puff PO BID ipratropium bromide 2 sprays intranasal BID 30 days loteprednol etabonate 0.5% drps ophthalmic (eye) montelukast (Singulair) 10 mg PO BEDTIME 3 months pimecrolimus 1% 1 appl topical BEDTIME 30 days prednisone 10 mg PO DAILY triamcinolone acetonide 0.1% 1 appl topical DAILY 30 days HPI EP, left side of hip pain [phone] HPI Details 53-year-old male presents to the office for a sick visit. 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 Approximately 2 weeks ago he hurt his left hip. He has pain around the left inguinal area and pain on bearing weight on the left leg. No urinary or fecal incontinence. [facility] Medical History Deviated septum Atopic dermatitis Tubular adenoma Allergic conjunctivitis Asthma Surgical History No pertinent past surgical history Family History Father No problems noted. 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 Cognitive needs: No Hearing needs: No Vision needs: No Physical Exam Vital Signs: Last Vital Signs Temp 97.9 F 07/02/23 12:33 Pulse 78 07/02/23 12:33 BP 142/80 H 07/02/23 12:33 Pulse Ox 98 07/02/23 12:33 Oxygen Delivery Method Room Air 07/02/23 12:33 BMI result Body Mass Index 29.3 Extrem Other: Left hip:: Pain on external rotation. Discomfort on internal rotation and abduction. Assessment & Plan Assessment & Plan (1) Strain of left hip: Code(s): S76.012A - Strain of muscle, fascia and tendon of left hip, initial encounter Plan: Meloxicam and cyclobenzaprine called in. If symptoms do not improve to follow-up here. Medications: New cyclobenzaprine 10 mg PO BEDTIME 14 tabs 0RF meloxicam 15 mg PO DAILY 14 tabs 0RF Coding Level of Care Code Est Pt Level 3 (82280) Diagnoses Strain of left hip S76.012A
[2023-07-02 12:33] VITALS: BP 142/80; PULSE 78; TEMP 36.6; O2SAT 98; BMI 29.3
== END 2023-07-02 13:18 | disposition home or self-care (01) ==
PROVIDERS: PCP Physician Assistant; Visit Provider Internal Medicine
DX: S76.012A Strain of muscle, fascia and tendon of left hip, initial encounter (principal)
CPT/HCPCS: 99213

== ENCOUNTER 2023-07-24 09:01 | Outpatient (AMB) | payer OTHER, SELFPAY ==
--- NOTE | 2023-07-24 09:55 | MHC.OFFWIV ---
Intake Vital Signs 07/24/23 09:58 Height 5 ft 7 in Weight 175 lb BMI 27.4 BP 112/68 Blood Pressure Location Rt brachial Position Sitting Pulse 94 Pulse Source Pulse Oximeter Temp 96.4 F L Temp Source Temporal Artery Scan Pulse Oximetry (%) 97 Oxygen Delivery Method Room Air Intake Visit Reasons: EST/left side hip pain [phone] Intake Note: Pt is here c/o left side hip pain. No falls or injuries. Pt states he is very active and his left side hip started hurting randomally. Patient Tobacco Use Status: Never used Tobacco Allergies No Known Allergies Allergy (Verified 07/24/23 10:28) Medication List - Last Reconciled 07/24/23 by Timoteo Zamorano MD albuterol sulfate 90 mcg/actuation 1 puff PO Q4H PRN albuterol sulfate 2.5 mg (3 mL) inhalation Q6H PRN 30 days bisacodyl (Dulcolax (bisacodyl)) 10 mg (2 x 5 mg) PO ONCE 1 day iknovazmam-pctxxiqq-znzndnjvue 160-9-4.8 mcg/actuation (Breztri Aerosphere) 2 inhalations inhalation BID 30 days epinephrine (EpiPen 2-Russ) 0.3 mg (0.3 mL) IM Q10M PRN 30 days fluorometholone 0.25% 1 drp ophthalmic (eye) TID fluticasone propion-salmeterol 115-21 mcg/actuation (Advair HFA) 2 puffs inhalation BID 30 days fluticasone propionate 110 mcg/actuation (Flovent HFA) 1 puff PO BID ipratropium bromide 2 sprays intranasal BID 30 days loteprednol etabonate 0.5% drps ophthalmic (eye) montelukast (Singulair) 10 mg PO BEDTIME 3 months pimecrolimus 1% 1 appl topical BEDTIME 30 days prednisone 10 mg PO DAILY triamcinolone acetonide 0.1% 1 appl topical DAILY 30 days Do you need a note to return to daycare/school/sports/work: No HPI EST/left side hip pain [phone] HPI Details [age] year male presents to the office for a sick visit. Patient was seen for left hip pain a few weeks ago. He reports on the medications his pain symptoms completely subsided. However after he has stop the pain medications he is beginning to get discomfort around the left hip. Sometimes he has pain while walking. [facility] Medical History Deviated septum Atopic dermatitis Tubular adenoma Allergic conjunctivitis Asthma Surgical History No pertinent past surgical history Family History Father No problems noted. 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 Cognitive needs: No Hearing needs: No Vision needs: No Physical Exam Vital Signs: Last Vital Signs Temp 96.4 F L 07/24/23 09:58 Pulse 94 07/24/23 09:58 BP 112/68 07/24/23 09:58 Pulse Ox 97 07/24/23 09:58 Oxygen Delivery Method Room Air 07/24/23 09:58 BMI result Body Mass Index 27.4 Extrem Other: Left hip: No bruising. Internal and external rotation of the leg at the hip elicits no discomfort. Abduction and adduction elicits minimal discomfort. Assessment & Plan Assessment & Plan (1) Strain of left hip: Code(s): S76.012A - Strain of muscle, fascia and tendon of left hip, initial encounter Plan: X-ray images were personally reviewed by me. Muscle relaxant and anti-inflammatory called in. Patient was advised to follow-up with his primary care provider for referral. Orders: Orders XR hip LT w PEL1V Today S76.012A - Strain of muscle, fascia and tendon of left hip, initial encounter Coding Level of Care Code Est Pt Level 4 (96563) Diagnoses Strain of left hip S76.012A
[2023-07-24 09:58] VITALS: BP 112/68; PULSE 94; TEMP 35.8; O2SAT 97; BMI 27.4
== END 2023-07-24 10:55 | disposition home or self-care (01) ==
PROVIDERS: PCP Physician Assistant; Visit Provider Internal Medicine
DX: S76.012A Strain of muscle, fascia and tendon of left hip, initial encounter (principal)
CPT/HCPCS: 99214

== ENCOUNTER 2023-07-24 10:25 | Outpatient (REF) | payer OTHER, SELFPAY ==
--- NOTE | ~2023-07-24 | XR_ITS ---
EXAMINATION: XR HIP, LEFT AND X-RAY PELVIS CLINICAL INFORMATION: Left hip strain COMPARISON: None available. TECHNIQUE: Frontal radiograph of the pelvis and frontal and frog lateral radiographs of the left hip. FINDINGS: The bony pelvis is intact. No fracture or dislocation is evident. There is unilateral left sacroiliitis. Mild bilateral superolateral degenerative changes of the hips are noted. No fracture or suspicious bone lesion is evident. XR/XR hip LT w PEL1V IMPRESSION: 1. Unilateral left sacroiliitis, which can be associated with seronegative spondyloarthropathy including psoriatic arthritis or Carie's syndrome. 2. Mild bilateral hip superolateral osteoarthrosis.
== END 2023-07-24 10:26 | disposition home or self-care (01) ==
LOC: HO.HMGCX 10:25
PROVIDERS: PCP Physician Assistant; Visit Provider Internal Medicine
DX: S76.012A Strain of muscle, fascia and tendon of left hip, initial encounter (principal); X58.XXXA Exposure to other specified factors, initial encounter; Y93.9 Activity, unspecified; Y92.9 Unspecified place or not applicable; Y99.9 Unspecified external cause status
CPT/HCPCS: 73502

== ENCOUNTER 2023-07-30 14:26 | Emergency (ER) | payer OTHER, SELFPAY ==
[2023-07-30 14:31] VITALS: BP 144/85; PULSE 77; RESP 16; TEMP 36.3; O2SAT 96; BMI 28.6
--- NOTE | 2023-07-30 14:31 | ED_ITS ---
HPI - General Adult General Chief complaint: Extremity Problem Stated complaint: l hip pain Time Seen by Provider: 07/30/23 14:30 Source: patient Mode of arrival: ambulatory Limitations: no limitations History of Present Illness HPI narrative: 53-year-old male presents with atraumatic left-sided hip pain for the past 6 weeks, patient reports he has been seen for this multiple times, he was prescribed muscle relaxers at Urgent Care with little to no relief. He reports pain is worse with movement better at rest. He had an x-ray done which he thinks was unremarkable. He denies any trauma to this hip. Patient denies fevers, chills, numbness, tingling, urinary symptoms, back pain, saddle paresthesias, changes in urination, urinary/bowel incontinence/retention. Related Data Home Medications Medication Instructions Recorded Confirmed fluorometholone 0.25 % eye 1 drp ophthalmic (eye) TID 02/09/21 07/02/23 drops,suspension loteprednol etabonate 0.5 % eye drp ophthalmic (eye) 07/21/21 07/02/23 gel drops Previous Rx's Medication Instructions Recorded bisacodyl 5 mg tablet,delayed 10 mg (2 x 5 mg) PO ONCE 1 day #2 05/18/21 release (Dulcolax (bisacodyl)) tabs fluticasone propionate 110 1 puff PO BID #12 grams 10/27/21 mcg/actuation HFA aerosol inhaler (Flovent HFA) fluticasone propionate 115 2 puff inhalation BID 30 days #12 03/15/22 mcg-salmeterol 21 mcg/actuation grams HFA inhaler (Advair HFA) ipratropium bromide 21 mcg (0.03 2 spray intranasal BID 30 days #30 05/01/ %) nasal spray mL epinephrine 0.3 mg/0.3 mL 0.3 mg (0.3 mL) IM Q10M PRN 05/23/22 injection, auto-injector (EpiPen anaphylaxis 30 days #2 ea 2-Russ) montelukast 10 mg tablet 10 mg PO BEDTIME 3 months #90 tabs 08/08/22 (Singulair) budesonide 160 mcg-glycopyr 9 2 inh inhalation BID 30 days #10.7 08/25/22 mcg-formot 4.8 mcg/actuation HFA grams inhaler (Breztri Aerosphere) albuterol sulfate 2.5 mg/3 mL 2.5 mg (3 mL) inhalation Q6H PRN 11/27/22 (0.083 %) solution for nebulization shortness of breath or wheezing 30 days #180 mL pimecrolimus 1 % topical cream 1 appl topical BEDTIME 30 days 04/25/23 #100 grams triamcinolone acetonide 0.1 % 1 appl topical DAILY 30 days #454 04/25/23 topical cream grams prednisone 10 mg tablet 10 mg PO DAILY #30 tabs 05/04/23 cyclobenzaprine 10 mg tablet 10 mg PO BEDTIME #14 tabs 07/24/23 meloxicam 15 mg tablet 15 mg PO DAILY #14 tabs 07/24/23 acetaminophen 325 mg capsule 325 mg PO Q4H PRN pain #30 caps 07/30/23 (Tylenol) albuterol sulfate 90 mcg/actuation 1 puff PO Q4H PRN for wheezing 07/30/23 aerosol inhaler #8.5 ea ketorolac 10 mg tablet 10 mg PO TID PRN pain 5 days #15 07/30/23 tabs lidocaine 5 % topical patch 1 patch topical DAILY PRN pain #15 07/30/23 ea Allergies Allergy/AdvReac Type Severity Reaction Status Date / Time No Known Allergies Allergy Verified 07/24/23 10:28 Review of Systems Review of Systems: Constitutional : No Weight loss, No Fever, No Chills, No Fatigue, No Malaise ENT/Mouth : No sore throat, No Rhinorrhea Eyes: No Eye Pain, No Swelling, No Redness Cardiovascular : No Chest Pain, No SOB, No Dyspnea on Exertion, No Orthopnea, No Edema, No Palpitations Respiratory : No Cough, No Sputum, No Wheezing Gastrointestinal : No Nausea, No Vomiting, No Diarrhea, No Constipation, No abdominal Pain, No Hematochezia, No Melena Genitourinary : No Dysuria, No Urinary Frequency, No Hematuria, Musculoskeletal : No joint pain, No Myalgias, No Joint Swelling, +hip pain Skin : No Skin Lesions, No rash Neuro : No Weakness, No Numbness, No Dizziness, No Headache Psych : No Anxiety/Panic, No Depression All other systems reviewed and are negative Yes all other systems are reviewed and are negative PMFSH Past Medical History Attestation statement: The following information was validated with the patient. Source: old records reviewed and nursing notes reviewed Medical History Deviated septum Atopic dermatitis Tubular adenoma Allergic conjunctivitis Asthma Surgical History No pertinent past surgical history Family History Family History Father No problems noted. 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 Cognitive needs: No Hearing needs: No Vision needs: No Physical Exam ED Vital Signs: Vital Signs - 24 hr 07/30/23 14:31 Temperature 97.4 F Pulse Rate 77 Respiratory Rate 16 Blood Pressure 144/85 H Pulse Oximetry 96 Oxygen Delivery Method Room Air BMI result Body Mass Index 28.6 vss Appearance: Alert.? Oriented X3.? No acute distress.? Head: Normocephalic, atraumatic, no step-offs or deformities Eyes: Pupils equal, round and reactive to light.? Neck: Normal inspection.? Neck supple.? CVS: Normal heart rate and rhythm.? Pulses normal.? Respiratory: No respiratory distress.? Breath sounds normal.? Abdomen: Soft and nontender.? Skin: Skin warm and dry.? Normal skin color.? Normal skin turgor.? Extremities: No lower extremity edema.? No calf ttp. 5/5 strength to bilateral upper and lower extremities No bruising. Internal and external rotation of the leg at the hip elicits no pain or discomfort. Abduction and adduction w/ minimal discomfort. 2+ DP,AT,PT equal and b/l no foot drop. Back: No midline tenderness, no C-spine tenderness, full range of motion, no CVA tenderness bilaterally Neuro: Oriented X 3.? No motor deficit.? No sensory deficit. CN 2-12 intact Ambulatory w/ steady gait . Course Course Course Narrative: RME performed by Phoebe Peralta PA-C. Patient is a 53 year old assigned male at presenting to the emergency department with left hip and low back pain. Patient states that he had an x-ray at the urgent care where he got muscle relaxers but he is still having pain. Patient placed back in the waiting room pending room availability. Medical Decision Making Medical Decision Making MDM Narrative: 53-year-old male presents with left-sided hip pain. Atraumatic. Going on for 6 weeks. Physical exam significant for No lower extremity edema.? No calf ttp. 5/5 strength to bilateral upper and lower extremities No bruising. Internal and external rotation of the leg at the hip elicits no pain or discomfort. Abduction and adduction w/ minimal discomfort. 2+ DP,AT,PT equal and b/l no foot drop. This is likely inflammatory arthritis versus bursitis versus osteoarthritis. Unlikely Carie's syndrome, septic joint, threat to Casas, neurovascular compromise, arterial or venous occlusion. Plan at this time will give Toradol, Lidoderm patch. Will give orthopedic follow-up. In Educated patient on diagnosis and treatment plan, answered all question, patient verbalizes understanding. At this time patient will be discharged home, advised to return with new or worsening symptoms. Educated on worrisome signs and symptoms and when to return. At this time I feel comfortable discharge home. Differential Diagnosis Differential Diagnoses: The differential diagnosis associated with the presentation includes This is likely inflammatory arthritis versus bursitis versus osteoarthritis. Unlikely Carie's syndrome, septic joint, threat to Casas, neurovascular compromise, arterial or venous occlusion. Admission/Observation Consideration of admission/observation: Escalation of care including admission/observation considered Unlikely Tests considered The following testing was considered but not selected: No indication for repeat x-ray patient had an x-ray done on 07/24/2023 results below. No trauma since. I do not suspect results change significantly since then. XR/XR hip LT w PEL1V IMPRESSION: 1. Unilateral left sacroiliitis, which can be associated with seronegative spondyloarthropathy including psoriatic arthritis or Carie's syndrome. 2. Mild bilateral hip superolateral osteoarthrosis. Discharge Plan Discharge Clinical Impression: OA (osteoarthritis) of hip Patient Disposition: Home, Self-Care Instructions: Osteoarthritis (ED) Additional Instructions: Take your medications as prescribed. If you were prescribed antibiotics today, it is important that you take your medication to their entirety, do not skip any doses, do not finish them early. Follow-up with your primary care provider this week. Return to the emergency department with new or worsening symptoms. Such as fevers, chills, chest pain, shortness of breath, nausea, vomiting, dizziness, headache, vision changes, lethargy In case of emergency call 911 Toradol has been sent to your pharmacy, you tolerated this well in the department. Please take this as prescribed do not take this with ibuprofen, or other NSAIDs such as meloxicam ( stop taking this) , do not mix this with alcohol. Side effects of this medication including increased risk for bleeding and possible kidney injury. Prescriptions: New ketorolac 10 mg tablet 10 mg PO TID PRN (Reason: pain) 5 Days Qty: 15 0RF lidocaine 5 % adhesive patch,medicated 1 patch topical DAILY PRN (Reason: pain) Qty: 15 0RF Rx Instructions: leave on most painful area for up to 12 hrs acetaminophen [Tylenol] 325 mg capsule 325 mg PO Q4H PRN (Reason: pain) Qty: 30 0RF No Action Flovent HFA 110 mcg/actuation HFA aerosol inhaler 1 puff PO BID Qty: 12 2RF Hold Instructions: Doctor's Order ipratropium bromide 21 mcg (0.03 %) spray,non-aerosol 2 spray intranasal BID 30 Days Qty: 30 3RF Rx Instructions: administer into each nostril montelukast [Singulair] 10 mg tablet 10 mg PO BEDTIME 90 Days Qty: 90 2RF pimecrolimus 1 % cream 1 appl topical BEDTIME 30 Days Qty: 100 1RF triamcinolone acetonide 0.1 % cream 1 appl topical DAILY 30 Days Qty: 454 3RF prednisone 10 mg tablet 10 mg PO DAILY Qty: 30 2RF albuterol sulfate 90 mcg/actuation HFA aerosol inhaler 1 puff PO Q4H PRN (Reason: for wheezing) Qty: 8.5 4RF [employer] Forte 0.25 % drops,suspension 1 drp ophthalmic (eye) TID Advair HFA 115-21 mcg/actuation HFA aerosol inhaler 2 puff inhalation BID 30 Days Qty: 12 2RF Rx Instructions: administer with spacer cyclobenzaprine 10 mg tablet 10 mg PO BEDTIME Qty: 14 0RF meloxicam 15 mg tablet 15 mg PO DAILY Qty: 14 0RF loteprednol etabonate 0.5 % drops,gel ophthalmic (eye) bisacodyl [Dulcolax (bisacodyl)] 5 mg tablet,delayed release (DR/EC) 10 mg PO ONCE 1 Days Qty: 2 0RF Rx Instructions: take 2 tabs at noon the day before your colonoscopy epinephrine [EpiPen 2-Russ] 0.3 mg/0.3 mL auto-injector 0.3 mg IM Q10M PRN (Reason: anaphylaxis) 30 Days Qty: 2 6RF Rx Instructions: for 2 doses Breztri Aerosphere 160-9-4.8 mcg/actuation HFA aerosol inhaler 2 inh inhalation BID 30 Days Qty: 10.7 11RF albuterol sulfate 2.5 mg /3 mL (0.083 %) solution for nebulization 2.5 mg inhalation Q6H PRN (Reason: shortness of breath or wheezing) 30 Days Qty: 180 11RF Referrals: Hussain Arce PA-C [Primary Care Provider] - 2 days [facility] [place] [facility] [Provider Group] - 1 week
[2023-07-30] MEDS: Acetaminophen 325 MG TABLET 975 MG PO (17:57)
[2023-07-30] MEDS: Ketorolac Tromethamine 15 MG/ML VIAL 30 MG IM (17:57)
[2023-07-30] MEDS: Lidocaine 4 % Patch ADH..PATCH 1 PATCH TRANSDERMA (18:00)
--- NOTE | 2023-07-30 18:02 | PC.NURSE ---
pt medicated per NOV for 9/10 lt hip pain.
== END 2023-07-30 18:03 | disposition home or self-care (01) ==
PROVIDERS: Emergency Provider Student in an Organized Health Care Education/Training Program; PCP Physician Assistant
DX: M16.12 Unilateral primary osteoarthritis, left hip (principal); M25.552 Pain in left hip
CPT/HCPCS: 96372; 99283; 99284; J1885

== ENCOUNTER 2023-10-04 15:43 | Outpatient (AMB) | payer OTHER, SELFPAY ==
[2023-10-04 15:46] VITALS: PULSE 90; O2SAT 95; BMI 28.6
--- NOTE | 2023-10-04 15:46 | MHC.OFFVIS ---
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 he did have COVID that affected his respiratory capacity. The time he was finding in [employer]. However, after COVID in the worsening respiratory symptoms he was not able to continue regularly. In August he started developing worsening respiratory symptoms. He was evaluated at that point with a chest x-ray demonstrating no acute disease. Subsequently in the springtime again he had worsening respiratory symptoms and he went to an urgent care. He was given a rescue inhaler in addition to prednisone for an asthma exacerbation. He did not have a chest x-ray. He was tested for COVID again and he was negative. He was given a course of a signal mycin during time. At this point the patient is feeling better although he still having episodes of shortness of breath and wheezing at times. He had been prescribed Advair HFA which has been helping. He does use his rescue inhaler more than twice a week. Therefore he was sent to Pulmonary for further evaluation. On further questioning he denies any significant exposure to mold or past. He had been tested for allergy sit in the past and he was found to have many allergies any at some point he did receive allergy shots. I was many years ago. also to note in regards of the eczema the patient was evaluated by Dermatology in the past. He was placed on Dupixent which was extremely helpful clearing up his the topic dermatitis. However, he started developing back pain and some issues with kidneys and therefore he stopped the Dupixent. His side effects did improve but unfortunately the eczema return. 05/23/2022 the patient is here for a pulmonary follow-up visit. Overall the patient is doing a little better on the breztri inhaler. Although he continues to have chest tightness and wheezing. Symptoms are usually worse at nighttime. He responds to his albuterol therapy. The patient also had been using prednisone on a regular basis. He is finds that prednisone does help with his symptoms. His blood work has demonstrated evidence of eosinophilia. But now on the prednisone there is no evidence of any significant eosinophilia. He did undergo blood work demonstrating severe allergies to numerous items on the list. Some of the allergies that were most severe were to dogs, trees and dust mites. The patient has never had anaphylaxis although he has had significant swelling of his mucus membranes. Therefore I will send him to the pharmacy a epinephrine pen. We did instruct him and his significant other on how to use it correctly. the patient is IgE was close to 1000. Therefore with his chronic prednisone use his severe asthma in his severe allergies the patient needs to be placed on biologic therapy with the hope that we can wean him off the prednisone. Based on his laboratory data I do believe that Tezspire would be most effective for him. We also reviewed his pulmonary function studies demonstrating small airway disease consistent with his asthma history. 08/25/2022 the patient is here for a pulmonary follow-up visit. He still struggling with his asthma. He is not able to get off the prednisone due to his significant allergies and her significant chest tightness. The patient already tried and failed Dupixent. Although it improved his respiratory capacity it resulting significant myalgias and arthralgias where he could not even walk. Those symptoms did get better once he stops the Dupixent. Does have the significant eosinophilia and significant elevations in his IgE. Therefore I do believe that the best option treated asthma would be to start Trezspire. however, it was denied by his insurance company. Will re-attempt to do so. If we cannot get him approved on Trezspire, then we can request and I will 5 inhibitor although it will not cover his significant allergic asthma completely. The main goal be to get him off the prednisone if able to do so. He has been on chronic prednisone and may have some degree of adrenal insufficiency. Therefore after very careful lowering the prednisone once he starts biologic therapy. Continues to use his respiratory inhalers with good adherence. 11/27/2022 the patient is here for a pulmonary follow-up visit. He is feeling a little better at this time. Unfortunately, he has not been able to start the biologic therapy. He still continues to be on prednisone. We try to get him on the new biologic, Tezspire, but was not covered by his insurance. Therefore will go ahead and try him on Xolair. He has already tried and failed multiple other biologics. The patient does have again severe asthma and requires chronic prednisone. He continues to use his maintenance inhalers with good effect. I did give information about the Xolair. I am hopeful that we can start that as soon as possible. Will still waiting for the approval from the insurance company. 02/12/2023 The patient is here for a follow up visit. Has been having worsening respiratory symptoms with chest tightness, wheezing and productive cough. Moderate in severity. No sleeping well. Using the nebulizer therapy several times a day. Has not started the biologic therapy. Will help him reach out to the pharmacy to start the process. In the meatime, he is on prednisone. We will have him start an antibiotics for bronchitis. 03/23/2023 the patient is here for pulmonary follow-up visit. He continues to wait for his biologic therapy. The patient actually has been doing fairly good. He is still on chronic prednisone however. Has been having his respiratory medications as prescribed. I did reach out to our nauseous see if she can help facilitate the process to try to get him his Xolair. The patient also may be a good candidate for Tezspire, bbut he was not from his insurance company unfortunately. No recent imaging studies to review. Will try to facilitate the biologic therapy as soon as possible. 10/04/2023 the patient is here for a pulmonary follow-up visit. He has been sick now for about a week. Complaint of URI like symptoms worsening cough and has hard time has not been able to sleep because of the coughing. Also having chest tightness and wheezing. He had some leftover prednisone he did started. In addition to that he has not start his biologic therapy. Apparently his insurance does not want approve it. Will go ahead and talk to our staff to see what else we can do to make sure that he gets the needed biologic therapies. The patient does require prednisone at this time for another exacerbation will give him also course of antibiotics for what appears to be a lower respiratory infection. The patient is also having significant left hip pain. He was referred to rheumatology. He is concerned that he is going to need some type of surgery. [facility] Medical History Deviated septum Atopic dermatitis Tubular adenoma Allergic conjunctivitis Asthma Surgical History No pertinent past surgical history Family History Father No problems noted. 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 Cognitive needs: No Hearing needs: No Vision needs: No Review of Systems Const Denies body aches, Denies chills, Reports difficulty sleeping, Denies excessive sweating, Denies fatigue, Denies fever(s), Denies headache(s) and Reports malaise Eyes Denies blurry vision ENT Denies dysphagia, Denies vertigo, Denies dizziness, Denies headache(s), Denies hearing loss, Reports nasal congestion, Reports nasal discharge and Denies tinnitus Card Reports chest pain, Denies chest pain with activity, Denies syncope, Denies irregular heart rhythm and Reports dyspnea on exertion Resp Reports chest congestion, Reports cough, Denies hemoptysis, Reports dyspnea on exertion and Reports wheezing GI Denies abdominal pain, Denies melena, Denies hematochezia, Denies coffee ground emesis, Denies dysphagia, Denies diarrhea, Denies nausea and Denies vomiting Musc Reports arthralgias, Reports limited range of motion, Denies muscle cramps and Denies muscle weakness Skin/Breast Denies rash and Denies skin ulcer Neuro Denies Abnormal speech present, Denies vertigo, Denies dizziness, Denies syncope, Denies headache(s), Denies memory loss and Denies seizure-like activity Psych Denies anxiety, Denies depression, Denies memory loss, Denies panic attacks and Denies paranoia Endo Denies excessive sweating, Denies fatigue, Denies flushing, Denies polydipsia and Denies polyuria Aller/Immun Reports wheezing Physical Exam Vital Signs: Last Vital Signs Pulse 90 10/04/23 15:46 Pulse Ox 95 10/04/23 15:46 Oxygen Delivery Method Room Air 10/04/23 15:46 BMI result Body Mass Index 28.6 Const General: comfortable HEENT Head: Yes atraumatic Neck Neck: Yes supple Chest Chest palpation & inspection: normal inspection of the chest Resp Effort & Inspection: normal respiratory effort Auscultation: wheezes and diminished lung sounds Cardio Rate: regular rate Rhythm: regular rhythm Heart sounds: S1 normal heart sound present and S2 normal heart sound present GI Palpation (GI): Soft to palpation Skin Rashes: no rashes Neuro Speech: No Abnormal speech present Extrem General: Yes no clubbing, cyanosis or edema Assessment & Plan Assessment & Plan (1) Asthma: Comment: chronic prednisone to control symptoms Code(s): J45.909 - Unspecified asthma, uncomplicated Qualifiers: Asthma severity: severe Asthma persistence: persistent Asthma complication type: with acute exacerbation Qualified Code(s): J45.51 - Severe persistent asthma with (acute) exacerbation (2) Allergic rhinitis: Code(s): J30.9 - Allergic rhinitis, unspecified Qualifiers: Allergic rhinitis trigger: unspecified Allergic rhinitis seasonality: non-seasonal Qualified Code(s): J30.89 - Other allergic rhinitis (3) Atopic dermatitis: Code(s): L20.9 - Atopic dermatitis, unspecified Qualifiers: Atopic dermatitis type: unspecified Qualified Code(s): L20.9 - Atopic dermatitis, unspecified (4) Deviated septum: Code(s): J34.2 - Deviated nasal septum (5) Bronchitis: Code(s): J40 - Bronchitis, not specified as acute or chronic Plan continue Breztri 2 puffs twice a day short-acting beta agonist as needed continue Singulair start prednisone with taper start Doxycycline CXR if no better Cough medicine Still requesting Xolair, awaiting approval nebulizer provided F/U in 3-4 months Medications: New doxycycline monohydrate 100 mg PO BID 14 days 28 tabs 0RF prednisone PO daily; Take 6 tabs daily x 3 days, then 5 tabs x 3 days, then 4 tabs x 3 days, then 3 tabs x 3 days, then 2 tabs daily x 3 days, then 1 tab x 3 days to complete. 18 days 63 tabs 0RF codeine-guaifenesin 10-100 mg/5 mL 10 mL PO Q6H 10 days PRN 300 mL 0RF cough Coding Level of Care Code Est Pt Level 4 (60997) Diagnoses Severe persistent asthma with acute exacerbation J45.51 Asthma severity: severe Asthma persistence: persistent Asthma complication type: with acute exacerbation Non-seasonal allergic rhinitis, unspecified trigger J30.89 Allergic rhinitis trigger: unspecified Allergic rhinitis seasonality: non-seasonal Atopic dermatitis, unspecified type L20.9 Atopic dermatitis type: unspecified Deviated septum J34.2 Bronchitis J40 Time Spent (min) 17
== END 2023-10-04 16:01 | disposition home or self-care (01) ==
PROVIDERS: PCP Physician Assistant; Visit Provider Hospitalist
DX: J45.51 Severe persistent asthma with (acute) exacerbation (principal); J30.89 Other allergic rhinitis; L20.9 Atopic dermatitis, unspecified; J34.2 Deviated nasal septum; J40 Bronchitis, not specified as acute or chronic
CPT/HCPCS: 99214

== ENCOUNTER → 2023-10-04 15:43 | Outpatient (BNVA) | payer OTHER, SELFPAY | PROVIDERS: PCP Physician Assistant; Visit Provider Hospitalist ==

== ENCOUNTER 2023-10-09 14:48 | Outpatient (AMB) | payer OTHER, SELFPAY ==
--- NOTE | 2023-10-09 14:51 | MHC.OFFVIS ---
Intake Vital Signs 10/09/23 14:53 Height 5 ft 7 in Weight 183 lb 13.848 oz BMI 28.8 BP 132/74 Blood Pressure Location Rt brachial Position Sitting Pulse 71 Pulse Source Pulse Oximeter Temp 97.5 F Temp Source Skin Pulse Oximetry (%) 95 Oxygen Delivery Method Room Air Intake Visit Reasons: Sacroiliitis Intake Note: New patient, internally referred, presents today for sacroiliitis. 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 Vela is a 53-year-old gentleman referred by the PCP for evaluation of left Sacroiliitis. He has a known history of asthma and severe atopic dermatitis/eczema and steroid dependent. Today his main concern is the significant left hip pain. 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 He has not been having too much pain in the last few months because he stopped doin those activities. He takes He denies uveiitis, tendonitis, Achilles tendonitis, crohn's UC or chronic diarrhea, mucous or blood in stool. [facility] Medical History (Updated 10/09/23 @ 15:23 by RANDI Menjivar) Chronic left sacroiliac joint pain Deviated septum Atopic dermatitis Tubular adenoma Allergic conjunctivitis Asthma Surgical History No pertinent past surgical history Family History Father No problems noted. 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 Cognitive needs: No Hearing needs: No Vision needs: No Review of Systems Const All systems reviewed & are unremarkable except as noted in HPI and below Physical Exam Vital Signs: Last Vital Signs Temp 97.5 F 10/09/23 14:53 Pulse 71 10/09/23 14:53 BP 132/74 10/09/23 14:53 Pulse Ox 95 10/09/23 14:53 Oxygen Delivery Method Room Air 10/09/23 14:53 BMI result Body Mass Index 28.8 APPEARANCE: Patient in no acute distress EYES no redness, eyelids normal EARS:? External ear normal, canal clear and tympanic membrane normal. NOSE/SINUS:? Airflow through both nares, no nasal discharge, no bleeding THROAT:? Oral mucosa moist, no ulcerations NECK:? No thyromegaly or masses, no adenopathy, trachea midline. HEART:? Regular rhythm, S1-S2 heard, no murmurs, rubs or gallops. LUNG:? Clear to percussion and auscultation, diminished in the bases. EXTREMITIES:? No edema, no calf tenderness, normal peripheral pulses. NEURO:? Oriented and alert x3.? No focal weakness.? Reflexes symmetric.? Gait normal. SKIN:?sNo objective signs of Raynaud's phenomenon. dry scaling to eyelids, scattered small patches of eczema generalized to body JOINT EXAM: ?? Cervical Spine:.? Full range of motion without pain; no tenderness. Thoracic Spine:.? No scoliosis.? No tenderness on palpation. Lumbar Spine:.? Alignment normal.? Full range of motion with mild pain, some tenderness. Chest Wall:.? No tenderness, swelling, increased warmth or erythema. Hands:.? Normal pain-free range of motion without tenderness, swelling, increased warmth or erythema. 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 Wrists:.? Normal pain-free range of motion without tenderness, swelling, increased warmth or erythema. Elbows:. Normal pain-free range of motion without tenderness, swelling, increased warmth or erythema. Shoulders:.?? Full range of motion without pain. No tenderness, weakness, swelling, increased warmth or erythema. Hips:.? Full range of motion without pain. Hip bursa:.? No tenderness. Knees:.?? Normal pain-free range of motion without tenderness, swelling, increased warmth or erythema.? There is no effusion or crepitation Ankles:.? Normal pain-free range of motion without tenderness, swelling, increased warmth or erythema. Feet:.? Normal pain-free range of motion without tenderness, swelling, increased warmth or erythema. ? Results Reviewed Results Reviewed: Ordering Physician: Timoteo Zamorano MD Date of Service: 07/24/23 Procedure(s): XR hip LT w PEL1V Accession Number(s): [id number] cc: Hussain Arce PA-C; Timoteo Zamorano MD~ EXAMINATION: XR HIP, LEFT AND X-RAY PELVIS CLINICAL INFORMATION: Left hip strain COMPARISON: None available. TECHNIQUE: Frontal radiograph of the pelvis and frontal and frog lateral radiographs of the left hip. FINDINGS: The bony pelvis is intact. No fracture or dislocation is evident. There is unilateral left sacroiliitis. Mild bilateral superolateral degenerative changes of the hips are noted. No fracture or suspicious bone lesion is evident. XR/XR hip LT w PEL1V IMPRESSION: 1. Unilateral left sacroiliitis, which can be associated with seronegative spondyloarthropathy including psoriatic arthritis or Carie's syndrome. 2. Mild bilateral hip superolateral osteoarthrosis. Assessment & Plan Assessment & Plan (1) Chronic left sacroiliac joint pain: Code(s): M53.3 - Sacrococcygeal disorders, not elsewhere classified; G89.29 - Other chronic pain Plan #SI Joint Pain: Mr Vela, 53 yoM, is here for evaluation of SI joint pain. Xray's have identified left sacroiliitis. Sacroiliitis is often linked to inflammatory arthritis of the spine. The inflammation may have different causes, including autoimmunity, microtrauma, exercise, and in some cases, infections. Sacroiliitis can also be associated with Crohn?s disease, inflammatory bowel disease, ulcerative colitis, and gout. 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 Additonally, he does not have IBD, any other accompanying symptoms for SpA and denies any past episodes of uveiitis, achilles tenodintis, plantar fasciitis. I discussed with patient that his pain can be helped with corticosteroids injection through pain management. He reports has not been able to do his activities because of the pain and as long as he is sedentary he feels no pain. He currently takes chronic doses of prednisone 20mg or more daily for Asthma and denies any improvement to the SI joint pain. He can continue Meloxicam 15mg Daily, and Tylenol as needed. I will obtain labs and lumbar xray for further evaluation. An MRI of the Thoracic and lumbar Spine and Pelvic may also help to exclude SpA diagnosis. Chart and diagnostic review, history and patient evaluation and documentation took 40 minutes Follow-up in 3 weeks. Orders: Orders HLA B27 10/09/23 G89.29 - Other chronic pain, M53.3 - Sacrococcygeal disorders, not elsewhere classified Erythrocyte Sedimentation Rate 10/09/23 G89.29 - Other chronic pain, M53.3 - Sacrococcygeal disorders, not elsewhere classified C Reactive Protein 10/09/23 G89.29 - Other chronic pain, M53.3 - Sacrococcygeal disorders, not elsewhere classified XR lumbar spine 2-3V 10/09/23 G89.29 - Other chronic pain, M53.3 - Sacrococcygeal disorders, not elsewhere classified Referrals Pain Management Referral G89.29 - Other chronic pain, M53.3 - Sacrococcygeal disorders, not elsewhere classified Physiatry Referral G89.29 - Other chronic pain, M53.3 - Sacrococcygeal disorders, not elsewhere classified Coding Level of Care Code New Pt Level 4 (93812) Diagnoses Chronic left sacroiliac joint pain M53.3; G89.29
[2023-10-09 14:53] VITALS: BP 132/74; PULSE 71; TEMP 36.4; O2SAT 95; BMI 28.8
== END 2023-10-09 15:37 | disposition home or self-care (01) ==
PROVIDERS: PCP Physician Assistant; Visit Provider Nurse Practitioner Family
DX: M53.3 Sacrococcygeal disorders, not elsewhere classified (principal); G89.29 Other chronic pain
CPT/HCPCS: 99204

== ENCOUNTER 2023-10-09 14:48 | Outpatient (REF) | payer OTHER, SELFPAY ==
--- NOTE | ~2023-10-09 | XR_ITS ---
EXAMINATION: XR LUMBOSACRAL SPINE CLINICAL INFORMATION: Sacrococcygeal disorders, not otherwise classified. COMPARISON: Radiographs dated 10/30/2016. TECHNIQUE: Three views of the lumbosacral spine. FINDINGS: Vertebral body heights and alignment are normal. There is mild to moderate disc space narrowing at L5-S1. The remaining disc spaces are relatively well-maintained. No acute fracture or spondylolisthesis is seen. There is multi-level mild lower thoracic and lumbar spondylosis. The posterior elements are intact. The paravertebral soft tissues are unremarkable. There are pelvic phleboliths. XR/XR lumbar spine 2-3V IMPRESSION: 1. There is mild to moderate degenerative disease at L5-S1. 2. There is multi-level thoracolumbar spondylosis.
[2023-10-09 16:37] LABS: C Reactive Protein 0.49 mg/dL (< or = 0.50)
[2023-10-09 17:24] LABS: Erythrocyte Sedimentation Rate 12 MM/HR (0-15)
[2023-10-13 23:38] LABS: HLA B27 Negative (Negative)
== END 2023-10-09 14:49 | disposition home or self-care (01) ==
LOC: HO.XRAY 14:48
PROVIDERS: PCP Physician Assistant; Visit Provider Nurse Practitioner Family
DX: M53.3 Sacrococcygeal disorders, not elsewhere classified (principal); G89.29 Other chronic pain
CPT/HCPCS: 36415; 72100; 85652; 86140; 86812

== ENCOUNTER 2023-11-16 14:41 | Outpatient (AMB) | payer OTHER, SELFPAY ==
--- NOTE | 2023-11-16 14:40 | MHC.OFFVIS ---
Intake Vital Signs 11/16/23 14:46 Height 5 ft 7 in Weight 182 lb 12.211 oz BMI 28.6 BP 108/92 H Blood Pressure Location Rt brachial Position Sitting Pulse 64 Pulse Source Pulse Oximeter Temp 97 F Temp Source Skin Pulse Oximetry (%) 97 Oxygen Delivery Method Room Air Intake Visit Reasons: Si joint Intake Note: Patient last seen 10/09/23 by Velasquez, presents today for follow up and test results. 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 Vela is a 53-year-old gentleman returns for follow-up to discuss results of evaluation for left Sacroiliitis. He continues with much the same pain. Initial History: Mr. Vela is a 53-year-old gentleman referred by the PCP for evaluation of left Sacroiliitis. He has a known history of asthma and severe atopic dermatitis/eczema and steroid dependent. Today his main concern is the significant left hip pain. This prevents him from being as active as he used to be - does [employer] martial arts and regularly works out at the gym. He has not been having too much pain in the last few months because he stopped doin those activities. He takes He denies uveiitis, tendonitis, Achilles tendonitis, crohn's UC or chronic diarrhea, mucous or blood in stool. Initial Assessment #SI Joint Pain: Mr Vela, 53 yoM, is here for evaluation of SI joint pain. Xray's have identified left sacroiliitis. Sacroiliitis is often linked to inflammatory arthritis of the spine. The inflammation may have different causes, including autoimmunity, microtrauma, exercise, and in some cases, infections. Sacroiliitis can also be associated with Crohn?s disease, inflammatory bowel disease, ulcerative colitis, and gout. 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 Additonally, he does not have IBD, any other accompanying symptoms for SpA and denies any past episodes of uveiitis, achilles tenodintis, plantar fasciitis. I discussed with patient that his pain can be helped with corticosteroids injection through pain management. He reports has not been able to do his activities because of the pain and as long as he is sedentary he feels no pain. He currently takes chronic doses of prednisone 20mg or more daily for Asthma and denies any improvement to the SI joint pain. He can continue Meloxicam 15mg Daily, and Tylenol as needed. [facility] Medical History (Updated 11/16/23 @ 15:14 [facility] Arthritis, lumbar spine Chronic left sacroiliac joint pain Deviated septum Atopic dermatitis Tubular adenoma Allergic conjunctivitis Asthma Surgical History No pertinent past surgical history Family History Father No problems noted. 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 Cognitive needs: No Hearing needs: No Vision needs: No Physical Exam Vital Signs: Last Vital Signs Temp 97 F 11/16/23 14:46 Pulse 64 11/16/23 14:46 BP 108/92 H 11/16/23 14:46 Pulse Ox 97 11/16/23 14:46 Oxygen Delivery Method Room Air 11/16/23 14:46 BMI result Body Mass Index 28.6 APPEARANCE: Patient in no acute distress EYES no redness, eyelids normal EARS:? External ear normal, canal clear and tympanic membrane normal. NOSE/SINUS:? Airflow through both nares, no nasal discharge, no bleeding THROAT:? Oral mucosa moist, no ulcerations NECK:? No thyromegaly or masses, no adenopathy, trachea midline. HEART:? Regular rhythm, S1-S2 heard, no murmurs, rubs or gallops. LUNG:? Clear to percussion and auscultation. EXTREMITIES:? No edema, no calf tenderness, normal peripheral pulses. NEURO:? Oriented and alert x3.? No focal weakness.? Reflexes symmetric.? Gait normal. SKIN:?sNo objective signs of Raynaud's phenomenon. dry scaling to eyelids, scattered small patches of eczema generalized to body JOINT EXAM: ?? Cervical Spine:.? Full range of motion without pain; no tenderness. Thoracic Spine:.? No scoliosis.? No tenderness on palpation. Lumbar Spine:.? Alignment normal.? Full range of motion with mild pain, some tenderness. Chest Wall:.? No tenderness, swelling, increased warmth or erythema. Hands:.? Normal pain-free range of motion without tenderness, swelling, increased warmth or erythema. 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 Wrists:.? Normal pain-free range of motion without tenderness, swelling, increased warmth or erythema. Elbows:. Normal pain-free range of motion without tenderness, swelling, increased warmth or erythema. Shoulders:.?? Full range of motion without pain. No tenderness, weakness, swelling, increased warmth or erythema. Hips:.? Full range of motion without pain. Hip bursa:.? No tenderness. Knees:.?? Normal pain-free range of motion without tenderness, swelling, increased warmth or erythema.? There is no effusion or crepitation Ankles:.? Normal pain-free range of motion without tenderness, swelling, increased warmth or erythema. Feet:.? Normal pain-free range of motion without tenderness, swelling, increased warmth or erythema. ? Results Reviewed Results Reviewed: [address] [address] XRay Report Signed Patient: Shaw Vela Jr MR#: [id number] : 1970 Acct:[id number] Age/Sex: 53 / M ADM Date: 10/09/23 Loc: [facility] Attending Dr: Noelle BRYAN Ordering Physician: Noelle Eng Date of Service: 10/09/23 Procedure(s): XR lumbar spine 2-3V Accession Number(s): [id number] cc: Hussain Arce PA-C; Noelle Eng~ EXAMINATION: XR LUMBOSACRAL SPINE CLINICAL INFORMATION: Sacrococcygeal disorders, not otherwise classified. COMPARISON: Radiographs dated 10/30/2016. TECHNIQUE: Three views of the lumbosacral spine. FINDINGS: Vertebral body heights and alignment are normal. There is mild to moderate disc space narrowing at L5-S1. The remaining disc spaces are relatively well-maintained. No acute fracture or spondylolisthesis is seen. There is multi-level mild lower thoracic and lumbar spondylosis. The posterior elements are intact. The paravertebral soft tissues are unremarkable. There are pelvic phleboliths. XR/XR lumbar spine 2-3V IMPRESSION: 1. There is mild to moderate degenerative disease at L5-S1. 2. There is multi-level thoracolumbar spondylosis. Dictated By: Pablo Fall MD Signed By: <Electronically signed by Pablo Fall MD in OV> 10/11/231918 Assessment & Plan Assessment & Plan (1) Chronic left sacroiliac joint pain: Code(s): M53.3 - Sacrococcygeal disorders, not elsewhere classified; G89.29 - Other chronic pain (2) Arthritis, lumbar spine: Code(s): M47.816 - Spondylosis without myelopathy or radiculopathy, lumbar region Plan #SI Joint Pain: Mr Vela, 53 yoM, returns to discuss results for ESR/CRP and HLA B27 whcih were within normal range. Lumbar Xray's have identified moderate lumbar DDD. I discussed with patient that his pain can be helped with corticosteroids injection through pain management. He reports has not been able to do his activities because of the pain and as long as he is sedentary he feels no pain. He can continue Meloxicam 15mg Daily, and Tylenol as needed. I have placed a referral to pain management. I also think we can learn more from an MRI lumbar and SI joint to also see if inflammation is present. Chart and diagnostic review, history and patient evaluation and documentation took 20 minutes Follow-up in 4 months. Orders: Orders MR lumbar spine wo con Today G89.29 - Other chronic pain, M53.3 - Sacrococcygeal disorders, not elsewhere classified MR sacroiliac joint ESTIVEN wo con Today G89.29 - Other chronic pain, M53.3 - Sacrococcygeal disorders, not elsewhere classified Coding Level of Care Code Est Pt Level 3 (40932) Diagnoses Chronic left sacroiliac joint pain M53.3; G89.29 Arthritis, lumbar spine M47.814
[2023-11-16 14:46] VITALS: BP 108/92; PULSE 64; TEMP 36.1; O2SAT 97; BMI 28.6
== END 2023-11-16 15:07 | disposition home or self-care (01) ==
PROVIDERS: PCP Physician Assistant; Visit Provider Nurse Practitioner Family
DX: M53.3 Sacrococcygeal disorders, not elsewhere classified (principal); G89.29 Other chronic pain; M47.816 Spondylosis without myelopathy or radiculopathy, lumbar region
CPT/HCPCS: 99213

== ENCOUNTER → 2023-11-16 14:41 | Outpatient (BNVA) | payer OTHER, SELFPAY | PROVIDERS: PCP Physician Assistant; Visit Provider Nurse Practitioner Family ==

== ENCOUNTER 2023-11-29 10:54 | Outpatient (AMB) | payer OTHER, SELFPAY ==
[2023-11-29 11:31] VITALS: BMI 27.4
--- NOTE | 2023-11-29 11:31 | MHC.OFFVIS ---
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 States his pain started about 6 months to 1 year on and off. 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 He feels discomfort and pressure on his groin area. He has pain his his left buttock/tailbone pain that at times radiates down his leg. He has been seen by his rhumatologist who ref patient for an MRI study. Pending study. Tg prior back treatment. Allergies grass pollen Allergy (Mild, Verified 11/29/23 11:37) Itchy Eyes Medication List - Last Reconciled 11/29/23 by Tran Llamas MD acetaminophen (Tylenol) 325 mg PO Q4H PRN albuterol sulfate 90 mcg/actuation 1 puff PO Q4H PRN albuterol sulfate 2.5 mg (3 mL) inhalation Q6H PRN 30 days bisacodyl (Dulcolax (bisacodyl)) 10 mg (2 x 5 mg) PO ONCE 1 day exsxvqkwlq-apxqeciw-dooigjhami 160-9-4.8 mcg/actuation (Breztri Aerosphere) 2 inhalations PO BID cyclobenzaprine 10 mg PO BEDTIME epinephrine (EpiPen 2-Russ) 0.3 mg (0.3 mL) IM Q10M PRN 30 days fluorometholone 0.25% 1 drp ophthalmic (eye) TID fluticasone propion-salmeterol 115-21 mcg/actuation (Advair HFA) 2 puffs inhalation BID 30 days fluticasone propionate 110 mcg/actuation (Flovent HFA) 1 puff PO BID ipratropium bromide 2 sprays intranasal BID 30 days lidocaine 5% 1 patch topical DAILY PRN loteprednol etabonate 0.5% drps ophthalmic (eye) meloxicam 15 mg PO DAILY montelukast (Singulair) 10 mg PO BEDTIME 3 months pimecrolimus 1% 1 appl topical BEDTIME 30 days prednisone 10 mg PO DAILY triamcinolone acetonide 0.1% 1 appl topical DAILY 30 days HPI HPI Comments History of Present Illness Details Over a year of gradually worsening, worse 8 months ago, possibly better 2 months ago. Perhaps the severe pain was going up/down stairs, buildling something in basement, 8 months ago. Still bothers him daily, starts left groin, wrapping towards left hip and goes to back. Worse with almost any activity. May shoot to left knee but not to foot. When he sits for too long, foot numbness; but this is not related to the pain. No weakness. No bladder/bowel changes. Treatment done so far: NSAIDs He is still on daily prednisone - he is taking both asthma and pain [facility] Medical History (Updated 11/29/23 @ 11:58 by Tran Llamas MD) Arthritis, lumbar spine Chronic left sacroiliac joint pain Deviated septum Atopic dermatitis Tubular adenoma Allergic conjunctivitis Asthma Surgical History No pertinent past surgical history Family History Father No problems noted. 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 Cognitive needs: No Hearing needs: No Vision needs: No Review of Systems Const All systems reviewed & are unremarkable except as noted in HPI and below Physical Exam Vital Signs: BMI result Body Mass Index 27.4 Constitutional: Patient appears to be in no acute distress, well nourished and well developed. Patient was appropriately conversant and oriented. Good historian. MSK: No specific abnormalities found on inspection of the spine and all extremities. No pain with palpation over the lumbar area. Left SI joint tender. No tenderness over quad or adductor tendons. No GT tenderness. Lumbar ROM was full. Bilateral hip, knee and ankle ROM WNL. No ligamentous laxity or crepitance. No increased effusion. Straight-leg raising test negative. FABERE test left groin pain. [place] showed stiffness on both SI joints. Strength is 5/5 in all muscle groups tested. No increased tone noted. Neurological: Neurologic examination of the upper and lower extremities was nonfocal with intact sensation, muscle stretch reflexes and without focal motor deficits . Irene?s negative bilaterally. Babinski was down going bilaterally. Clonus was negative. Gait is non-antalgic without loss of balance. Results Reviewed Results Reviewed: I independently reviewed the results of the following: Lumbar xray reviewed - decreased disc space L5-S1; endplat spurs but no bamboo spine Ordering Physician: Timoteo Zamorano MD Date of Service: 07/24/23 Procedure(s): XR hip LT w PEL1V Accession Number(s): [id number] cc: Hussain Arce PA-C; Timoteo Zamorano MD~ EXAMINATION: XR HIP, LEFT AND X-RAY PELVIS CLINICAL INFORMATION: Left hip strain COMPARISON: None available. TECHNIQUE: Frontal radiograph of the pelvis and frontal and frog lateral radiographs of the left hip. FINDINGS: The bony pelvis is intact. No fracture or dislocation is evident. There is unilateral left sacroiliitis. Mild bilateral superolateral degenerative changes of the hips are noted. No fracture or suspicious bone lesion is evident. XR/XR hip LT w PEL1V IMPRESSION: 1. Unilateral left sacroiliitis, which can be associated with seronegative spondyloarthropathy including psoriatic arthritis or Carie's syndrome. 2. Mild bilateral hip superolateral osteoarthrosis. Ordering Physician: Noelle Eng Date of Service: 10/09/23 Procedure(s): XR lumbar spine 2-3V Accession Number(s): [id number] cc: Hussain Arce PA-C; Noelle Eng~ EXAMINATION: XR LUMBOSACRAL SPINE CLINICAL INFORMATION: Sacrococcygeal disorders, not otherwise classified. COMPARISON: Radiographs dated 10/30/2016. TECHNIQUE: Three views of the lumbosacral spine. FINDINGS: Vertebral body heights and alignment are normal. There is mild to moderate disc space narrowing at L5-S1. The remaining disc spaces are relatively well-maintained. No acute fracture or spondylolisthesis is seen. There is multi-level mild lower thoracic and lumbar spondylosis. The posterior elements are intact. The paravertebral soft tissues are unremarkable. There are pelvic phleboliths. XR/XR lumbar spine 2-3V IMPRESSION: 1. There is mild to moderate degenerative disease at L5-S1. 2. There is multi-level thoracolumbar spondylosis. HLA B27 negative I reviewed records from the following: Rheumatology Assessment & Plan Assessment & Plan (1) Chronic left sacroiliac joint pain: Code(s): M53.3 - Sacrococcygeal disorders, not elsewhere classified; G89.29 - Other chronic pain (2) Sacroiliac joint dysfunction: Code(s): M53.3 - Sacrococcygeal disorders, not elsewhere classified (3) Arthritis of left hip: Code(s): M16.12 - Unilateral primary osteoarthritis, left hip Plan Left SI joint pain with sacroiliac joint dysfunction bilateral. Left groin pain could also come from hip DJD. Recommended physical therapy for SI joint realignment and pelvic stabilization. He also wants to get injections done, therefore referring to pain management for left SI joint injection. MRI lumbar and SI joint were ordered by Rheumatology, still pending. Assessment and plan discussed with patient, and patient was agreeable. All questions were answered thoroughly. Follow-up after injection. Tran Llamas MD, THERESA Board Certified, [place] Board of Physical Medicine and Rehabilitation (ABPMR) Board Certified, [place] Board of Electrodiagnostic Medicine (ABEM) Coding Level of Care Code New Pt Level 4 (63785) Diagnoses Chronic left sacroiliac joint pain M53.3; G89.29 Sacroiliac joint dysfunction M53.3 Arthritis of left hip M16.12
== END 2023-11-29 11:57 | disposition home or self-care (01) ==
PROVIDERS: PCP Physician Assistant; Visit Provider Physical Medicine & Rehabilitation
DX: M53.3 Sacrococcygeal disorders, not elsewhere classified (principal); G89.29 Other chronic pain; M16.12 Unilateral primary osteoarthritis, left hip
CPT/HCPCS: 99204

== ENCOUNTER → 2023-11-29 10:54 | Outpatient (BNVA) | payer OTHER, SELFPAY | PROVIDERS: PCP Physician Assistant; Visit Provider Physical Medicine & Rehabilitation ==

== ENCOUNTER 2024-01-02 19:51 | Outpatient (REF) | payer OTHER, SELFPAY ==
--- NOTE | ~2024-01-02 | MR_ITS ---
EXAMINATION: MR LUMBAR SPINE WITHOUT CONTRAST CLINICAL INFORMATION: Chronic low back pain COMPARISON: Lumbar spine x-ray on 10/09/2023 TECHNIQUE: MRI of the lumbar spine was obtained using routine sequences without contrast. FINDINGS: The visualized lumbar vertebrae are intact with normal alignment. No focal bone lesion with abnormal signal can be seen. Evaluation of the intervertebral discs show: T12/L1: Intervertebral disc height is normal, with normal T2 signal. No focal disc herniation is seen. Bilateral T12/L1 neuroforamina are patent. Bilateral apophyseal joints are intact with normal alignment. L-1/L-2: Intervertebral disc height is mildly decreased, with mild loss of T2 signal. Mild broad-based disc bulge is seen. Anterior bridging syndesmophytes are present. Bilateral L1-L2 neuroforamina are patent. Bilateral apophyseal joints are intact with normal alignment. L2/L3: Intervertebral disc height is normal, with normal T2 signal. No focal disc herniation is seen. Bilateral L2-L3 neuroforamina are patent. Bilateral apophyseal joints are intact with normal alignment. L3/L4: Intervertebral disc height is mildly decreased, with mild loss of T2 signal. Mild posterior disc protrusion is seen. Bilateral L3-L4 neuroforamina are patent. Bilateral apophyseal joints are intact with normal alignment. L4/L5: Intervertebral disc height is moderately decreased, with mild loss of T2 signal. Mild posterior and asymmetric left foraminal disc protrusion is seen. There is mild asymmetric left L4-L5 neuroforaminal stenosis. Bilateral apophyseal joints are intact with normal alignment. L5/S1: Intervertebral disc height is moderately decreased, with mild loss of T2 signal. Moderate posterior and bilateral foraminal disc protrusion is seen. There are marked asymmetric right and moderate left L5-S1 neuroforamina stenosis. Bilateral apophyseal joints are intact with normal alignment. Conus medullaris is seen normally at L1 level. MR/MR lumbar spine wo con IMPRESSION: 1. Moderate L5-S1 degenerative disc disease with moderate posterior and bilateral foraminal disc protrusion. There are marked asymmetric right and moderate left L5-S1 neuroforamina stenosis. 2. Mild L4-L5 degenerative disc disease with mild posterior and asymmetric left foraminal disc protrusion. There is mild asymmetric left L4-L5 neuroforaminal stenosis. 3. Mild L3-L4 degenerative disc disease with mild posterior disc protrusion. 4. Mild L1-L2 degenerative disc disease with mild broad-based disc bulge.
== END 2024-01-02 19:52 | disposition home or self-care (01) ==
LOC: HO.MRI 19:51
PROVIDERS: PCP Physician Assistant; Visit Provider Nurse Practitioner Family
DX: M53.3 Sacrococcygeal disorders, not elsewhere classified (principal); G89.29 Other chronic pain
CPT/HCPCS: 72148

== ENCOUNTER 2024-01-25 13:14 | Outpatient (AMB) | payer OTHER, SELFPAY ==
--- NOTE | 2024-01-25 13:17 | MHC.OFFVIS ---
Vital Signs 01/25/24 13:21 Height 5 ft 7 in Weight 166 lb BMI 26.0 BP 138/94 H Blood Pressure Location Lt brachial Position Sitting Pulse 83 Pulse Source Pulse Oximeter Pulse Oximetry (%) 99 Oxygen Delivery Method Room Air Intake Visit Reasons: Chronic Left Sacroiliac Joint Pain Intake Note: Pain today 04/19 Staff Certified Nurse Midwife Required: No Accompanied by: Spouse Allergies grass pollen Allergy (Mild, Verified 11/29/23 11:37) Itchy Eyes HPI HPI Chronic Left Sacroiliac Joint Pain: Details: Patient is a pleasant 53 years old male presents today for initial evaluation of left low back and left hip pain. He was referred to us by [facility] Physiatry Dr. Llamas for left sacroiliac joint injection. Patient denies any recent or past trauma, injury or falls. 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 Patient reports axial low back pain with radiation into his left sacral and left lateral hip and significant left groin and upper medial-anterior thigh pain on the left. His exam is consistent with significant left hip and groin pain and mild-moderate left SIJ pain. He denies any symptoms on the right. Pain affects his daily functioning, mobility, sleep, social interactions and quality of life. Most recent lumbar spine xrays and MRI and hip xrays were reviewed with patient today and are noted below. Patient denies any fever, chills, weight loss, abdominal pain, foot drop, weakness, bladder or bowel dysfunction or saddle anesthesia. Location: Left lower back radiates to left sacral and left lateral hip and groin Duration: Chronic pain about 1 year Characteristics of symptom or complaint: Sharp, burning, stabbing, sharp, throbbing, tiring Aggravating or associated factors: Walking, moving wrong weightbearing, climbing stairs, heavy lifting Relieving factors: Tylenol, NSAIDs, lidocaine patch, ice/heat, rest, activity modifications Treatment: Massages, chiropractic therapy [facility] Medical History Arthritis, lumbar spine Chronic left sacroiliac joint pain Deviated septum Atopic dermatitis Tubular adenoma Allergic conjunctivitis Asthma Surgical History No pertinent past surgical history Family History Father No problems noted. 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 Cognitive needs: No Hearing needs: No Vision needs: No Review of Systems Const All systems reviewed & are unremarkable except as noted in HPI and below Physical Exam Vital Signs: Last Vital Signs Pulse 83 01/25/24 13:21 BP 138/94 H 01/25/24 13:21 Pulse Ox 99 01/25/24 13:21 Oxygen Delivery Method Room Air 01/25/24 13:21 BMI result Body Mass Index 26.0 General: Appears afebrile. Alert and oriented. Mood and affect appropriate. Follows and participates in conversation appropriately. Respiratory effort is unlabored. No cough. Able to transition from sit to stand unassisted. Ambulates with bilaterally normal heel strike and toe off, reports difficulty raising left leg due to pain. Back/Spine/Pelvis Other: Limited lumbar ROM. Mildly antalgic gait with limping favoring right side. Demonstrates 5/5 right and 4/5 left due to pain strength of quadriceps bilaterally as well as flexion/dorsiflexion of bilateral feet against resistance. 2+ pedal pulses bilaterally. Straight leg rise with dorsiflexion is negative bilaterally. +2 patellar and achilles reflexes bilaterally. Facet loading test positive bilaterally. North sign, Pelvic compression and Stinchfield tests are positive on the left. Steve's test reproduces left groin, low back and left lateral hip pain. Moderate groin pain with internal left hip rotations. No ligamentous laxity or crepitance. Valsalva maneuver negative. Cervical Spine: cervical ROM normal and No Cervical spine tenderness Thoracic/Lumbar Spine: thoracic and lumbar spine normal to inspection, No Thoracic/lumbar spine scar(s), Lasegue's sign negative, straight leg raise negative bilaterally, pain with thoraco-lumbar ROM, paraspinal muscle tenderness, No thoracic spinal tenderness and lumbar spinal tenderness (L4-S1) Pelvis: buttock tenderness on the left Sacroiliac joints: on the right nontender and on the left tender to palpation Results Reviewed Results Reviewed: MR LUMBAR SPINE WITHOUT CONTRAST 01/02/24 CLINICAL INFORMATION: Chronic low back pain COMPARISON: Lumbar spine x-ray on 10/09/2023 TECHNIQUE: MRI of the lumbar spine was obtained using routine sequences without contrast. FINDINGS: The visualized lumbar vertebrae are intact with normal alignment. No focal bone lesion with abnormal signal can be seen. Evaluation of the intervertebral discs show: T12/L1: Intervertebral disc height is normal, with normal T2 signal. No focal disc herniation is seen. Bilateral T12/L1 neuroforamina are patent. Bilateral apophyseal joints are intact with normal alignment. L-1/L-2: Intervertebral disc height is mildly decreased, with mild loss of T2 signal. Mild broad-based disc bulge is seen. Anterior bridging syndesmophytes are present. Bilateral L1-L2 neuroforamina are patent. Bilateral apophyseal joints are intact with normal alignment. L2/L3: Intervertebral disc height is normal, with normal T2 signal. No focal disc herniation is seen. Bilateral L2-L3 neuroforamina are patent. Bilateral apophyseal joints are intact with normal alignment. L3/L4: Intervertebral disc height is mildly decreased, with mild loss of T2 signal. Mild posterior disc protrusion is seen. Bilateral L3-L4 neuroforamina are patent. Bilateral apophyseal joints are intact with normal alignment. L4/L5: Intervertebral disc height is moderately decreased, with mild loss of T2 signal. Mild posterior and asymmetric left foraminal disc protrusion is seen. There is mild asymmetric left L4-L5 neuroforaminal stenosis. Bilateral apophyseal joints are intact with normal alignment. L5/S1: Intervertebral disc height is moderately decreased, with mild loss of T2 signal. Moderate posterior and bilateral foraminal disc protrusion is seen. There are marked asymmetric right and moderate left L5-S1 neuroforamina stenosis. Bilateral apophyseal joints are intact with normal alignment. Conus medullaris is seen normally at L1 level. IMPRESSION: 1. Moderate L5-S1 degenerative disc disease with moderate posterior and bilateral foraminal disc protrusion. There are marked asymmetric right and moderate left L5-S1 neuroforamina stenosis. 2. Mild L4-L5 degenerative disc disease with mild posterior and asymmetric left foraminal disc protrusion. There is mild asymmetric left L4-L5 neuroforaminal stenosis. 3. Mild L3-L4 degenerative disc disease with mild posterior disc protrusion. 4. Mild L1-L2 degenerative disc disease with mild broad-based disc bulge. XR LUMBOSACRAL SPINE 10/09/23 CLINICAL INFORMATION: Sacrococcygeal disorders, not otherwise classified. COMPARISON: Radiographs dated 10/30/2016. FINDINGS: Vertebral body heights and alignment are normal. There is mild to moderate disc space narrowing at L5-S1. The remaining disc spaces are relatively well-maintained. No acute fracture or spondylolisthesis is seen. There is multi-level mild lower thoracic and lumbar spondylosis. The posterior elements are intact. The paravertebral soft tissues are unremarkable. There are pelvic phleboliths. IMPRESSION: 1. There is mild to moderate degenerative disease at L5-S1. 2. There is multi-level thoracolumbar spondylosis. XR HIP, LEFT AND X-RAY PELVIS 07/24/24 CLINICAL INFORMATION: Left hip strain TECHNIQUE: Frontal radiograph of the pelvis and frontal and frog lateral radiographs of the left hip. FINDINGS: The bony pelvis is intact. No fracture or dislocation is evident. There is unilateral left sacroiliitis. Mild bilateral superolateral degenerative changes of the hips are noted. No fracture or suspicious bone lesion is evident. IMPRESSION: 1. Unilateral left sacroiliitis, which can be associated with seronegative spondyloarthropathy including psoriatic arthritis or Carie's syndrome. 2. Mild bilateral hip superolateral osteoarthrosis. Assessment & Plan Assessment & Plan (1) Arthritis, lumbar spine: Code(s): M47.816 - Spondylosis without myelopathy or radiculopathy, lumbar region Category: Medical (2) Arthritis of left hip: Code(s): M16.12 - Unilateral primary osteoarthritis, left hip Category: Medical (3) Chronic left sacroiliac joint pain: Code(s): M53.3 - Sacrococcygeal disorders, not elsewhere classified; G89.29 - Other chronic pain Category: Medical (4) Lumbar degenerative disc disease: Code(s): M51.36 - Other intervertebral disc degeneration, lumbar region Category: Medical (5) Sacroiliitis: Code(s): M46.1 - Sacroiliitis, not elsewhere classified Category: Medical Plan Schedule Left Diagnostic SIJ injection with local and fluoroscopy. If positive response, will consider therapeutic injections, Curonix PNS, SI joint stabilization or RFA procedures. Informational pamphlets were provided to patient. Expectations, risks and benefits were reviewed. Patient is aware he will be contacted to schedule this procedure. If no pain relief, we will proceed with Left therapeutic intra-articular hip steroid injection. Patient has significant left groin pain with internal right hip rotation and xray findings for mild OA. He also has moderate L5-S1 degenerative disc disease with moderate posterior and bilateral foraminal disc protrusion. There are marked asymmetric right and moderate left L5-S1 neuroforamina stenosis per recent lumbar spine MRI results. All questions and concerns have been answered and patient agreed with the plan. Follow up after injection and sooner as needed. Medications: Discontinued meloxicam Discontinued Reason: Patient Completed Course 15 mg PO DAILY 14 tabs 0RF Coding Level of Care Code New Pt Level 4 (33670) Diagnoses Arthritis, lumbar spine M47.816 Arthritis of left hip M16.12 Chronic left sacroiliac joint pain M53.3; G89.29 Lumbar degenerative disc disease M51.36 Sacroiliitis M46.1
[2024-01-25 13:21] VITALS: BP 138/94; PULSE 83; O2SAT 99; BMI 26.0
== END 2024-01-25 14:02 | disposition home or self-care (01) ==
PROVIDERS: PCP Physician Assistant; Referring Provider Nurse Practitioner Family; Visit Provider Nurse Practitioner Family
DX: M47.816 Spondylosis without myelopathy or radiculopathy, lumbar region (principal); M16.12 Unilateral primary osteoarthritis, left hip; M53.3 Sacrococcygeal disorders, not elsewhere classified; G89.29 Other chronic pain; M51.36 Other intervertebral disc degeneration, lumbar region; M46.1 Sacroiliitis, not elsewhere classified
CPT/HCPCS: 99204

== ENCOUNTER → 2024-01-25 13:14 | Outpatient (BNVA) | payer OTHER, SELFPAY | PROVIDERS: PCP Physician Assistant; Referring Provider Nurse Practitioner Family; Visit Provider Nurse Practitioner Family ==

== ENCOUNTER 2024-01-31 15:47 | Outpatient (AMB) | payer OTHER, SELFPAY ==
--- NOTE | 2024-01-31 15:52 | A.OFFVIS_ITS ---
Vital Signs 01/31/24 15:53 Height 5 ft 7 in Weight 165 lb 12.602 oz BMI 26.0 Pulse 81 Pulse Source Pulse Oximeter Pulse Oximetry (%) 96 Oxygen Delivery Method Room Air Intake Visit Reasons: Asthma Document Improvement Specialist Required: No Allergies grass pollen Allergy (Mild, Verified 01/31/24 15:53) Itchy Eyes HPI Comments Details: The patient is a 53-year-old gentleman with a known history of asthma and severe a topic dermatitis and steroid dependent, who apparently has been having worsening respiratory symptoms for the last several months. he did have COVID that affected his respiratory capacity. The time he was finding in [place]. However, after COVID in the worsening respiratory symptoms he was not able to continue regularly. In August he started developing worsening respiratory symptoms. He was evaluated at that point with a chest x-ray demonstrating no acute disease. Subsequently in the springtime again he had worsening respiratory symptoms and he went to an urgent care. He was given a rescue inhaler in addition to prednisone for an asthma exacerbation. He did not have a chest x-ray. He was tested for COVID again and he was negative. He was given a course of a signal mycin during time. At this point the patient is feeling better although he still having episodes of shortness of breath and wheezing at times. He had been prescribed Advair HFA which has been helping. He does use his rescue inhaler more than twice a week. Therefore he was sent to Pulmonary for further evaluation. On further questioning he denies any significant exposure to mold or past. He had been tested for allergy sit in the past and he was found to have many allergies any at some point he did receive allergy shots. I was many years ago. also to note in regards of the eczema the patient was evaluated by Dermatology in the past. He was placed on Dupixent which was extremely helpful clearing up his the topic dermatitis. However, he started developing back pain and some issues with kidneys and therefore he stopped the Dupixent. His side effects did improve but unfortunately the eczema return. 05/23/2022 the patient is here for a pulmonary follow-up visit. Overall the patient is doing a little better on the breztri inhaler. Although he continues to have chest tightness and wheezing. Symptoms are usually worse at nighttime. He responds to his albuterol therapy. The patient also had been using prednisone on a regular basis. He is finds that prednisone does help with his symptoms. His blood work has demonstrated evidence of eosinophilia. But now on the prednisone there is no evidence of any significant eosinophilia. He did undergo blood work demonstrating severe allergies to numerous items on the list. Some of the allergies that were most severe were to dogs, trees and dust mites. The patient has never had anaphylaxis although he has had significant swelling of his mucus membranes. Therefore I will send him to the pharmacy a epine phrine pen. We did instruct him and his significant other on how to use it correctly. the patient is IgE was close to 1000. Therefore with his chronic prednisone use his severe asthma in his severe allergies the patient needs to be placed on biologic therapy with the hope that we can wean him off the prednisone. Based on his laboratory data I do believe that Tezspire would be most effective for him. We also reviewed his pulmonary function studies demonstrating small airway disease consistent with his asthma history. 08/25/2022 the patient is here for a pulmonary follow-up visit. He still struggling with his asthma. He is not able to get off the prednisone due to his significant allergies and her significant chest tightness. The patient already tried and failed Dupixent. Although it improved his respiratory capacity it resulting significant myalgias and arthralgias where he could not even walk. Those symptoms did get better once he stops the Dupixent. Does have the signif icant eosinophilia and significant elevations in his IgE. Therefore I do believe that the best option treated asthma would be to start Trezspire. however, it was denied by his insurance company. Will re-attempt to do so. If we cannot get him approved on Trezspire, then we can request and I will 5 inhibitor although it will not cover his significant allergic asthma completely. The main goal be to get him off the prednisone if able to do so. He has been on chronic prednisone and may have some degree of adrenal insufficiency. Therefore after very careful lowering the prednisone once he starts biologic therapy. Continues to use his respiratory inhalers with good adherence. 11/27/2022 the patient is here for a pulmonary follow-up visit. He is feeling a little better at this time. Unfortunately, he has not been able to start the biologic therapy. He still continues to be on prednisone. We try to get him on the new biologic, Tezspire, but was not covered by his insurance. Therefore will go ahead and try him on Xolair. He has already tried and failed multiple other biologics. The patient does have again severe asthma and requires chronic prednisone. He continues to use his maintenance inhalers with good effect. I did give information about the Xolair. I am hopeful that we can start that as soon as possible. Will still waiting for the approval from the insurance company. 02/12/2023 The patient is here for a follow up visit. Has been having worsening respiratory symptoms with chest tightness, wheezing and productive cough. Moderate in severity. No sleeping well. Using the nebulizer therapy several times a day. Has not started the biologic therapy. Will help him reach out to the pharmacy to start the process. In the meatime, he is on prednisone. We will have him start an antibiotics for bronchitis. 03/23/2023 the patient is here for pulmonary follow-up visit. He continues to wait for his biologic therapy. The patient actually has been doing fairly good. He is still on chronic prednisone however. Has been having his respiratory medications as prescribed. I did reach out to our nauseous see if she can help facilitate the process to try to get him his Xolair. The patient also may be a good candidate for Tezspire, bbut he was not from his insurance company unfortunately. No recent imaging studies to review. Will try to facilitate the biologic therapy as soon as possible. 10/04/2023 the patient is here for a pulmonary follow-up visit. He has been sick now for about a week. Complaint of URI like symptoms worsening cough and has hard time has not been able to sleep because of the coughing. Also having chest tightness and wheezing. He had some leftover prednisone he did started. In addition to that he has not start his biologic therapy. Apparently his insurance does not want approve it. Will go ahead and talk to our staff to see what else we can do to make sure that he gets the needed biologic therapies. The patient does require prednisone at this time for another exacerbation will give him also course of antibiotics for what appears to be a lower respiratory infection. The patient is also having significant left hip pain. He was referred to rheumatology. He is concerned that he is going to need some type of surgery. 02/01/2024 the patient is here for a pulmonary follow-up visit. Overall he has doing a little better. The patient has been able to be off the prednisone which is reassuring. He has been followed closely by allergy and has been getting allergy shots. The patient also has been using his respiratory medications with good effect. At least from a respiratory status doing better than he has not long time. Although he has been losing weight. He has been trying to exercise more regularly although he has significant arthritic 80s due to his previous traumas. Will continue with current respiratory therapy. I will send him prednisone for him to hold. [facility] Medical History Arthritis, lumbar spine Chronic left sacroiliac joint pain Deviated septum Atopic dermatitis Tubular adenoma Allergic conjunctivitis Asthma Surgical History No pertinent past surgical history Family History Father No problems noted. 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 Cognitive needs: No Hearing needs: No Vision needs: No Review of Systems Const Denies body aches, Denies chills, Reports difficulty sleeping, Denies excessive sweating, Denies fatigue, Denies fever(s), Denies headache(s) and Reports weight loss Eyes Denies blurry vision ENT Denies dysphagia, Denies vertigo, Denies dizziness, Denies headache(s), Denies hearing loss, Reports nasal congestion, Reports nasal discharge and Denies tinnitus Card Denies chest pain with activity, Denies syncope, Denies irregular heart rhythm and Reports dyspnea on exertion Resp Reports chest congestion, Reports cough, Denies hemoptysis, Reports dyspnea on exertion and Reports wheezing GI Denies abdominal pain, Denies melena, Denies hematochezia, Denies coffee ground emesis, Denies dysphagia, Denies diarrhea, Denies nausea and Denies vomiting Musc Reports arthralgias, Reports limited range of motion, Denies muscle cramps, Denies muscle weakness and Reports stiffness Skin/Breast Denies rash and Denies skin ulcer Neuro Denies Abnormal speech present, Denies vertigo, Denies dizziness, Denies syncope, Denies headache(s), Denies memory loss and Denies seizure-like activity Psych Denies anxiety, Denies depression, Denies memory loss, Denies panic attacks and Denies paranoia Endo Denies excessive sweating, Denies fatigue, Denies flushing, Denies polydipsia and Denies polyuria Aller/Immun Reports wheezing Physical Exam Vital Signs: Last Vital Signs Pulse 81 01/31/24 15:53 Pulse Ox 96 01/31/24 15:53 Oxygen Delivery Method Room Air 01/31/24 15:53 BMI result Body Mass Index 26.0 Const General: comfortable HEENT Head: Yes atraumatic Neck Neck: Yes supple Chest Chest palpation & inspection: normal inspection of the chest Resp Effort & Inspection: normal respiratory effort Auscultation: no wheezes and diminished lung sounds Cardio Rate: regular rate Rhythm: regular rhythm Heart sounds: S1 normal heart sound present and S2 normal heart sound present GI Palpation (GI): Soft to palpation Skin Rashes: no rashes Neuro Speech: No Abnormal speech present Extrem General: Yes no clubbing, cyanosis or edema Assessment & Plan Assessment & Plan (1) Asthma: Comment: chronic prednisone to control symptoms Code(s): J45.909 - Unspecified asthma, uncomplicated Category: Medical Qualifiers: Asthma complication type: uncomplicated Asthma persistence: persistent Asthma severity: severe Qualified Code(s): J45.50 - Severe persistent asthma, uncomplicated (2) Allergic rhinitis: Code(s): J30.9 - Allergic rhinitis, unspecified Category: Medical Qualifiers: Allergic rhinitis seasonality: non-seasonal Allergic rhinitis trigger: unspecified Qualified Code(s): J30.89 - Other allergic rhinitis (3) Atopic dermatitis: Code(s): L20.9 - Atopic dermatitis, unspecified Category: Medical Qualifiers: Atopic dermatitis type: unspecified Qualified Code(s): L20.9 - Atopic dermatitis, unspecified (4) Deviated septum: Code(s): J34.2 - Deviated nasal septum Category: Medical (5) Bronchitis: Code(s): J40 - Bronchitis, not specified as acute or chronic Category: Medical Plan continue Breztri 2 puffs twice a day short-acting beta agonist as needed continue Singulair Still requesting Xolair, awaiting approval nebulizer therapy F/U in 4-6 months Medications: New prednisone PO daily; Take 6 tabs daily x 3 days, then 5 tabs x 3 days, then 4 tabs x 3 days, then 3 tabs x 3 days, then 2 tabs daily x 3 days, then 1 tab x 3 days to complete. 63 tabs 0RF 18 days Changed From hqopbesiln-smhsfumn-jcnjmtnozn 160-9-4.8 mcg/actuation (Breztri Aerosphere) 2 inhalations PO BID 10.7 ea 11RF To popeqdzchn-iwjjntaq-efsbllmjvp 160-9-4.8 mcg/actuation (Breztri Aerosphere) 2 inhalations inhalation BID 10.7 ea 11RF 30 days From albuterol sulfate 90 mcg/actuation 1 puff PO Q4H PRN 8.5 ea 4RF for wheezing To albuterol sulfate 90 mcg/actuation 1 puff PO Q4H PRN 8.5 ea 12RF for wheezing 30 days Refilled montelukast (Singulair) 10 mg PO BEDTIME 90 tabs 3RF 3 months J45.20 - Mild intermittent asthma, uncomplicated Coding Level of Care Code Est Pt Level 4 (38430) Diagnoses Severe persistent asthma without complication J45.50 Asthma complication type: uncomplicated Asthma persistence: persistent Asthma severity: severe Non-seasonal allergic rhinitis, unspecified trigger J30.89 Allergic rhinitis seasonality: non-seasonal Allergic rhinitis trigger: unspecified Atopic dermatitis, unspecified type L20.9 Atopic dermatitis type: unspecified Deviated septum J34.2 Bronchitis J40 Time Spent (min) 16
[2024-01-31 15:53] VITALS: PULSE 81; O2SAT 96; BMI 26.0
== END 2024-01-31 16:07 | disposition home or self-care (01) ==
PROVIDERS: PCP Physician Assistant; Visit Provider Hospitalist
DX: J45.50 Severe persistent asthma, uncomplicated (principal); J30.89 Other allergic rhinitis; L20.9 Atopic dermatitis, unspecified; J34.2 Deviated nasal septum; J40 Bronchitis, not specified as acute or chronic
CPT/HCPCS: 99214

== ENCOUNTER → 2024-01-31 15:47 | Outpatient (BNVA) | payer OTHER, SELFPAY | PROVIDERS: PCP Physician Assistant; Visit Provider Hospitalist ==

== ENCOUNTER 2024-02-11 08:17 | Outpatient (AMB) | payer OTHER, SELFPAY ==
[2024-02-11 08:39] VITALS: BP 110/80; PULSE 71; O2SAT 96; BMI 25.8
--- NOTE | 2024-02-11 08:39 | MHC.OFFVIS ---
Vital Signs 02/11/24 08:39 Height 5 ft 7 in Weight 165 lb BMI 25.8 BP 110/80 Blood Pressure Location Rt brachial Position Sitting Pulse 71 Pulse Oximetry (%) 96 Intake Visit Reasons: discuss results Intake Note: Patient presents today to discuss test results. Allergies grass pollen Allergy (Mild, Verified 02/26/24 09:00) Itchy Eyes HPI Comments Details: Mr. Vela is a 53-year-old gentleman returns for follow-up to discuss results of MRI of lower back for evaluation for left Sacroiliitis. He continues with much the same pain. Since last visit he had met with pain management and will be following up with them for proposed LINQ procedure. Initial History:10/09/2023 Mr. Vela is a 53-year-old gentleman referred by the PCP for evaluation of left Sacroiliitis. He has a known history of asthma and severe atopic dermatitis/eczema and steroid dependent. Today his main concern is the significant left hip pain. 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 He has not been having too much pain in the last few months because he stopped doin those activities. He takes He denies uveiitis, tendonitis, Achilles tendonitis, crohn's UC or chronic diarrhea, mucous or blood in stool. Initial Assessment #SI Joint Pain: Mr Vela, 53 yoM, is here for evaluation of SI joint pain. Xray's have identified left sacroiliitis. Sacroiliitis is often linked to inflammatory arthritis of the spine. The inflammation may have different causes, including autoimmunity, microtrauma, exercise, and in some cases, infections. Sacroiliitis can also be associated with Crohn?s disease, inflammatory bowel disease, ulcerative colitis, and gout. 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 Additonally, he does not have IBD, any other accompanying symptoms for SpA and denies any past episodes of uveiitis, achilles tenodintis, plantar fasciitis. I discussed with patient that his pain can be helped with corticosteroids injection through pain management. He reports has not been able to do his activities because of the pain and as long as he is sedentary he feels no pain. He currently takes chronic doses of prednisone 20mg or more daily for Asthma and denies any improvement to the SI joint pain. He can continue Meloxicam 15mg Daily, and Tylenol as needed. [facility] Medical History Arthritis, lumbar spine Chronic left sacroiliac joint pain Deviated septum Atopic dermatitis Tubular adenoma Allergic conjunctivitis Asthma Surgical History No pertinent past surgical history Family History Father No problems noted. 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 Cognitive needs: No Hearing needs: No Vision needs: No Physical Exam Vital Signs: Last Vital Signs Pulse 71 02/11/24 08:39 BP 110/80 02/11/24 08:39 Pulse Ox 96 02/11/24 08:39 BMI result Body Mass Index 25.8 Results Reviewed Results Reviewed: MR LUMBAR SPINE WITHOUT CONTRAST 01/02/24 CLINICAL INFORMATION: Chronic low back pain COMPARISON: Lumbar spine x-ray on 10/09/2023 TECHNIQUE: MRI of the lumbar spine was obtained using routine sequences without contrast. FINDINGS: The visualized lumbar vertebrae are intact with normal alignment. No focal bone lesion with abnormal signal can be seen. Evaluation of the intervertebral discs show: T12/L1: Intervertebral disc height is normal, with normal T2 signal. No focal disc herniation is seen. Bilateral T12/L1 neuroforamina are patent. Bilateral apophyseal joints are intact with normal alignment. L-1/L-2: Intervertebral disc height is mildly decreased, with mild loss of T2 signal. Mild broad-based disc bulge is seen. Anterior bridging syndesmophytes are present. Bilateral L1-L2 neuroforamina are patent. Bilateral apophyseal joints are intact with normal alignment. L2/L3: Intervertebral disc height is normal, with normal T2 signal. No focal disc herniation is seen. Bilateral L2-L3 neuroforamina are patent. Bilateral apophyseal joints are intact with normal alignment. L3/L4: Intervertebral disc height is mildly decreased, with mild loss of T2 signal. Mild posterior disc protrusion is seen. Bilateral L3-L4 neuroforamina are patent. Bilateral apophyseal joints are intact with normal alignment. L4/L5: Intervertebral disc height is moderately decreased, with mild loss of T2 signal. Mild posterior and asymmetric left foraminal disc protrusion is seen. There is mild asymmetric left L4-L5 neuroforaminal stenosis. Bilateral apophyseal joints are intact with normal alignment. L5/S1: Intervertebral disc height is moderately decreased, with mild loss of T2 signal. Moderate posterior and bilateral foraminal disc protrusion is seen. There are marked asymmetric right and moderate left L5-S1 neuroforamina stenosis. Bilateral apophyseal joints are intact with normal alignment. Conus medullaris is seen normally at L1 level. IMPRESSION: 1. Moderate L5-S1 degenerative disc disease with moderate posterior and bilateral foraminal disc protrusion. There are marked asymmetric right and moderate left L5-S1 neuroforamina stenosis. 2. Mild L4-L5 degenerative disc disease with mild posterior and asymmetric left foraminal disc protrusion. There is mild asymmetric left L4-L5 neuroforaminal stenosis. 3. Mild L3-L4 degenerative disc disease with mild posterior disc protrusion. 4. Mild L1-L2 degenerative disc disease with mild broad-based disc bulge. XR LUMBOSACRAL SPINE 10/09/23 CLINICAL INFORMATION: Sacrococcygeal disorders, not otherwise classified. COMPARISON: Radiographs dated 10/30/2016. FINDINGS: Vertebral body heights and alignment are normal. There is mild to moderate disc space narrowing at L5-S1. The remaining disc spaces are relatively well-maintained. No acute fracture or spondylolisthesis is seen. There is multi-level mild lower thoracic and lumbar spondylosis. The posterior elements are intact. The paravertebral soft tissues are unremarkable. There are pelvic phleboliths. IMPRESSION: 1. There is mild to moderate degenerative disease at L5-S1. 2. There is multi-level thoracolumbar spondylosis. XR HIP, LEFT AND X-RAY PELVIS 07/24/24 CLINICAL INFORMATION: Left hip strain TECHNIQUE: Frontal radiograph of the pelvis and frontal and frog lateral radiographs of the left hip. FINDINGS: The bony pelvis is intact. No fracture or dislocation is evident. There is unilateral left sacroiliitis. Mild bilateral superolateral degenerative changes of the hips are noted. No fracture or suspicious bone lesion is evident. IMPRESSION: 1. Unilateral left sacroiliitis, which can be associated with seronegative spondyloarthropathy including psoriatic arthritis or Carie's syndrome. 2. Mild bilateral hip superolateral osteoarthrosis. Assessment & Plan Assessment & Plan (1) Chronic left sacroiliac joint pain: Code(s): M53.3 - Sacrococcygeal disorders, not elsewhere classified; G89.29 - Other chronic pain Category: Medical (2) Arthritis, lumbar spine: Code(s): M47.816 - Spondylosis without myelopathy or radiculopathy, lumbar region Category: Medical Plan #SI Joint Pain/Spine DD: Mr Vela, 53 yoM, returns to discuss results MRI. The MRI report identify anterior bridging syndesmophytes, which is typically seen in the context of inflammatory back arthritis such as ankylosing spondylitis. I explained that the bridging of vertebrae (bamboo spine) would lead him having decreased flexibility and range of motion in the spine, since the vertebrae brace would be fused together. I made the patient aware that if this is in fact a result of ankylosing spondylitis he would require immunosuppressive medication to address. At this time patient wants to pursue the LINQ procedure with pain management as he was told it could give him relief for about a year. He will follow-up with this office if he chooses to proceed further. Chart and diagnostic review, history and patient evaluation and documentation took 15 minutes Follow-up as needed Coding Level of Care Code Est Pt Level 2 (47630) Diagnoses Chronic left sacroiliac joint pain M53.3; G89.29 Arthritis, lumbar spine M47.816
== END 2024-02-11 08:58 | disposition home or self-care (01) ==
LOC: HO.RHE 08:17
PROVIDERS: PCP Physician Assistant; Visit Provider Nurse Practitioner Family
DX: M53.3 Sacrococcygeal disorders, not elsewhere classified (principal); G89.29 Other chronic pain; M47.816 Spondylosis without myelopathy or radiculopathy, lumbar region
CPT/HCPCS: 99212

== ENCOUNTER → 2024-02-11 08:17 | Outpatient (BNVA) | payer OTHER, SELFPAY | PROVIDERS: PCP Physician Assistant; Visit Provider Nurse Practitioner Family ==

== ENCOUNTER 2024-02-19 06:20 | Outpatient (REF) | payer OTHER, SELFPAY ==
--- NOTE | ~2024-02-19 | FL_ITS ---
EXAMINATION: XR FLUOROSCOPY WITH IMAGES CLINICAL INFORMATION: Sacroiliitis. COMPARISON: None available. TECHNIQUE: Fluoroscopy Supervised By: Dr. Abran Garcia. Fluoroscopy Time: 0.1 minute. Cumulative Dose: 1.13 mGy. DAP: 0.0140 Gycm2. Images: 1. FINDINGS: Intraoperative fluoroscopy and spot films were performed during a procedure in the OR. Needle seen in the region of the left mid SI joint with contrast surrounding the needle tip. Please correlate with Dr. Abran Garcia's report for complete details. FL/FL guidance in treatment room IMPRESSION: Intraoperative fluoroscopy and spot films were obtained. Please see Dr. Abran Garcia's report for complete details.
== END 2024-02-19 06:21 | disposition home or self-care (01) ==
LOC: CF 06:20
PROVIDERS: Visit Provider Anesthesiology
DX: M46.1 Sacroiliitis, not elsewhere classified (principal); M47.816 Spondylosis without myelopathy or radiculopathy, lumbar region; M16.12 Unilateral primary osteoarthritis, left hip; M53.3 Sacrococcygeal disorders, not elsewhere classified; M51.36 Other intervertebral disc degeneration, lumbar region; G89.29 Other chronic pain
CPT/HCPCS: 27096; J2795; Q9967

== ENCOUNTER 2024-02-19 14:39 | Outpatient (AMB) | payer OTHER, SELFPAY ==
[2024-02-19 14:48] VITALS: BP 144/70; PULSE 70; RESP 18; O2SAT 96; BMI 25.8
--- NOTE | 2024-02-19 14:48 | A.OFFVIS_ITS ---
Vital Signs 02/19/24 14:48 02/19/24 15:15 Height 5 ft 7 in Weight 165 lb BMI 25.8 BP 144/70 H 140/76 H Blood Pressure Location Lt brachial Lt brachial Position Sitting Sitting Respiration 18 18 Pulse 70 84 Pulse Source Pulse Oximeter Pulse Oximeter Pulse Oximetry (%) 96 95 Oxygen Delivery Method Room Air Room Air Comment Pre-Op Post-Op Intake Visit Reasons: Left Diagnostic SIJ injection Allergies grass pollen Allergy (Mild, Verified 02/11/24 08:40) Itchy Eyes PFSH Medical History Arthritis, lumbar spine Chronic left sacroiliac joint pain Deviated septum Atopic dermatitis Tubular adenoma Allergic conjunctivitis Asthma Surgical History No pertinent past surgical history Family History Father No problems noted. 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 Cognitive needs: No Hearing needs: No Vision needs: No Physical Exam Vital Signs: Last Vital Signs Pulse 84 02/19/24 15:15 Resp 18 02/19/24 15:15 BP 140/76 H 02/19/24 15:15 Pulse Ox 95 02/19/24 15:15 Oxygen Delivery Method Room Air 02/19/24 15:15 BMI result Body Mass Index 25.8 Assessment & Plan Assessment & Plan (1) Arthritis, lumbar spine: Code(s): M47.816 - Spondylosis without myelopathy or radiculopathy, lumbar region Category: Medical (2) Arthritis of left hip: Code(s): M16.12 - Unilateral primary osteoarthritis, left hip Category: Medical (3) Chronic left sacroiliac joint pain: Code(s): M53.3 - Sacrococcygeal disorders, not elsewhere classified; G89.29 - Other chronic pain Category: Medical Plan: Left diagnostic sacroiliac joint injection. Informed consent was explained thoroughly to the patient. All questions about benefits and risks for the procedure were answered. Patient came to the operating room and was positioned prone on the operating table with the pillow under the pelvis. Time out was performed delineating name and of the patient, allergies and th e nature of the procedure. The lower back and buttocks of the patient were prepped with ChloraPrep prepped and draped with sterile utility towels. C-arm was brought over the operating field and sq picture of patient's pelvis was demonstrated on the screen. For the left joint tilting C-arm contralateral to the site of the joint the most posterior portion of the joints was superimposed with anterior silhouette of the joint. Skin was injected in the projection of the joint slightly medial to the location of the joint with 25 gauge 1/2 inch needle using local lidocaine 2% .After that 22 gauge 3 and 1/2 inch needle was driven to the right joint in tunnel vision fashion. When needle entered the joint capsule injection of the contrast was performed demonstrating intra-articular and minimally periarticular spread of the contrast. After that 5 cc. of ropivacaine 0.5% was injected into the joint. Upon completion of the injections the needle was removed Sterile dressing was applied. Upon completion of the injection patient was taken outside of the operating room to the recovery room where recovered uneventfully. (4) Lumbar degenerative disc disease: Code(s): M51.36 - Other intervertebral disc degeneration, lumbar region Category: Medical (5) Sacroiliitis: Code(s): M46.1 - Sacroiliitis, not elsewhere classified Category: Medical Plan Schedule Left Diagnostic SIJ injection with local and fluoroscopy. If positive response, will consider therapeutic injections, Curonix PNS, SI joint stabilization or RFA procedures. Informational pamphlets were provided to patient. Expectations, risks and benefits were reviewed. Patient is aware he will be contacted to schedule this procedure. If no pain relief, we will proceed with Left therapeutic intra-articular hip steroid injection. Patient has significant left groin pain with internal right hip rotation and xray findings for mild OA. He also has moderate L5-S1 degenerative disc disease with moderate posterior and bilateral foraminal disc protrusion. There are marked asymmetric right and moderate left L5-S1 neuroforamina stenosis per recent lumbar spine MRI results. All questions and concerns have been answered and patient agreed with the plan. Follow up after injection and sooner as needed. Coding Level of Care Code Procedure Only Diagnoses Arthritis, lumbar spine M47.816 Arthritis of left hip M16.12 Chronic left sacroiliac joint pain M53.3; G89.29 Lumbar degenerative disc disease M51.36 Sacroiliitis M46.1
[2024-02-19 15:15] VITALS: BP 140/76; PULSE 84; RESP 18; O2SAT 95
== END 2024-02-19 15:06 | disposition home or self-care (01) ==
LOC: HO.PMCPRC 14:39
PROVIDERS: PCP Physician Assistant; Visit Provider Anesthesiology
DX: M53.3 Sacrococcygeal disorders, not elsewhere classified (principal); M46.1 Sacroiliitis, not elsewhere classified
CPT/HCPCS: 27096

== ENCOUNTER 2024-02-26 08:53 | Outpatient (AMB) | payer OTHER, SELFPAY ==
--- NOTE | 2024-02-26 08:56 | MHC.OFFVIS ---
Vital Signs 02/26/24 08:59 Height 5 ft 7 in Weight 167 lb BMI 26.2 BP 156/89 H Blood Pressure Location Lt brachial Position Sitting Pulse 65 Pulse Source Pulse Oximeter Pulse Oximetry (%) 100 Oxygen Delivery Method Room Air Intake Visit Reasons: left Diagnostic SIJ Intake Note: Pain today 12/18 Editor Map Required: No Accompanied by: Spouse Allergies grass pollen Allergy (Mild, Verified 02/26/24 09:00) Itchy Eyes HPI Comments Details: Patient presents today to assess response to Left Diagnostic Sacroiliac Joint Injection on 02/19/[address] Garcia. Patient reports 60% pain relief for 6 hours since procedure with partial improvement in his daily functioning and no pain improvement with walking or sleeping. He also reports transient left leg numbness posteriorly following the injection which resolved on its own in several hours. Patient reports left sided low back pain with radiation into his left buttock and left posterior thigh and outer calf and foot with associated numbness, tingling and occasional heaviness. He has been taking gabapentin with good tolerance and no known side effects, he would like to increase this to TID to improve his sleep. Patient also suffers from left hip with groin pain. Denies any fever, chills, bladder or bowel dysfunction or saddle anesthesia. Past Procedures: 02/19/24: Left Diagnostic SIJ injection-60% pain relief for 6 hours PRIOR: Patient is a pleasant 53 years old male presents today for initial evaluation of left low back and left hip pain. He was referred to us by [facility] Physiatry Dr. Llamas for left sacroiliac joint injection. Patient denies any recent or past trauma, injury or falls. 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 Patient reports axial low back pain with radiation into his left sacral and left lateral hip and significant left groin and upper medial-anterior thigh pain on the left. His exam is consistent with significant left hip and groin pain and mild-moderate left SIJ pain. He denies any symptoms on the right. Pain affects his daily functioning, mobility, sleep, social interactions and quality of life. Most recent lumbar spine xrays and MRI and hip xrays were reviewed with patient today and are noted below. Patient denies any fever, chills, weight loss, abdominal pain, foot drop, weakness, bladder or bowel dysfunction or saddle anesthesia. Location: Left lower back radiates to left sacral and left lateral hip and groin Duration: Chronic pain about 1 year Characteristics of symptom or complaint: Sharp, burning, stabbing, sharp, throbbing, tiring Aggravating or associated factors: Walking, moving wrong weightbearing, climbing stairs, heavy lifting Relieving factors: Tylenol, NSAIDs, lidocaine patch, ice/heat, rest, activity modifications Treatment: Massages, chiropractic therapy [facility] Medical History Arthritis, lumbar spine Chronic left sacroiliac joint pain Deviated septum Atopic dermatitis Tubular adenoma Allergic conjunctivitis Asthma Surgical History No pertinent past surgical history Family History Father No problems noted. 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 Cognitive needs: No Hearing needs: No Vision needs: No Review of Systems Const All systems reviewed & are unremarkable except as noted in HPI and below Physical Exam Vital Signs: Last Vital Signs Pulse 65 02/26/24 08:59 BP 156/89 H 02/26/24 08:59 Pulse Ox 100 02/26/24 08:59 Oxygen Delivery Method Room Air 02/26/24 08:59 BMI result Body Mass Index 26.2 General: Appears afebrile. No acute distress. Alert and oriented. Mood and affect appropriate. Follows and participates in conversation appropriately. Respiratory effort is unlabored. No cough. Able to transition from sit to stand unassisted. Ambulates with bilaterally normal heel strike and toe off, reports LLE leg pain. General: Yes no CVA tenderness Back/Spine/Pelvis Other: Limited lumbar ROM. Mildly antalgic gait with limping favoring right side. Demonstrates 5/5 right and 4/5 left due to pain strength of quadriceps bilaterally as well as flexion/dorsiflexion of bilateral feet against resistance. 2+ pedal pulses bilaterally. Straight leg rise with dorsiflexion is positive on the left. +2 patellar and achilles reflexes bilaterally. Facet loading test positive bilaterally. North sign, Pelvic compression and Stinchfield tests are positive on the left. Steve's test reproduces left groin, low back and left lateral hip pain. Mild to moderate groin pain with internal left hip rotations. Valsalva maneuver negative. Back: no CVA tenderness Cervical Spine: cervical ROM normal and No Cervical spine tenderness Thoracic/Lumbar Spine: thoracic and lumbar spine normal to inspection, No Thoracic/lumbar spine scar(s), Lasegue's sign positive on the left and localized, pain with thoraco-lumbar ROM, paraspinal muscle tenderness, No thoracic spinal tenderness and lumbar spinal tenderness (L4-S1) Pelvis: buttock tenderness on the left Sacroiliac joints: on the right nontender and on the left tender to palpation Extrem General: Yes capillary refill normal, Yes no clubbing, cyanosis or edema and Yes no calf tenderness Results Reviewed Results Reviewed: MR LUMBAR SPINE WITHOUT CONTRAST 01/02/24 CLINICAL INFORMATION: Chronic low back pain COMPARISON: Lumbar spine x-ray on 10/09/2023 TECHNIQUE: MRI of the lumbar spine was obtained using routine sequences without contrast. FINDINGS: The visualized lumbar vertebrae are intact with normal alignment. No focal bone lesion with abnormal signal can be seen. Evaluation of the intervertebral discs show: T12/L1: Intervertebral disc height is normal, with normal T2 signal. No focal disc herniation is seen. Bilateral T12/L1 neuroforamina are patent. Bilateral apophyseal joints are intact with normal alignment. L-1/L-2: Intervertebral disc height is mildly decreased, with mild loss of T2 signal. Mild broad-based disc bulge is seen. Anterior bridging syndesmophytes are present. Bilateral L1-L2 neuroforamina are patent. Bilateral apophyseal joints are intact with normal alignment. L2/L3: Intervertebral disc height is normal, with normal T2 signal. No focal disc herniation is seen. Bilateral L2-L3 neuroforamina are patent. Bilateral apophyseal joints are intact with normal alignment. L3/L4: Intervertebral disc height is mildly decreased, with mild loss of T2 signal. Mild posterior disc protrusion is seen. Bilateral L3-L4 neuroforamina are patent. Bilateral apophyseal joints are intact with normal alignment. L4/L5: Intervertebral disc height is moderately decreased, with mild loss of T2 signal. Mild posterior and asymmetric left foraminal disc protrusion is seen. There is mild asymmetric left L4-L5 neuroforaminal stenosis. Bilateral apophyseal joints are intact with normal alignment. L5/S1: Intervertebral disc height is moderately decreased, with mild loss of T2 signal. Moderate posterior and bilateral foraminal disc protrusion is seen. There are marked asymmetric right and moderate left L5-S1 neuroforamina stenosis. Bilateral apophyseal joints are intact with normal alignment. Conus medullaris is seen normally at L1 level. IMPRESSION: 1. Moderate L5-S1 degenerative disc disease with moderate posterior and bilateral foraminal disc protrusion. There are marked asymmetric right and moderate left L5-S1 neuroforamina stenosis. 2. Mild L4-L5 degenerative disc disease with mild posterior and asymmetric left foraminal disc protrusion. There is mild asymmetric left L4-L5 neuroforaminal stenosis. 3. Mild L3-L4 degenerative disc disease with mild posterior disc protrusion. 4. Mild L1-L2 degenerative disc disease with mild broad-based disc bulge. XR LUMBOSACRAL SPINE 10/09/23 CLINICAL INFORMATION: Sacrococcygeal disorders, not otherwise classified. COMPARISON: Radiographs dated 10/30/2016. FINDINGS: Vertebral body heights and alignment are normal. There is mild to moderate disc space narrowing at L5-S1. The remaining disc spaces are relatively well-maintained. No acute fracture or spondylolisthesis is seen. There is multi-level mild lower thoracic and lumbar spondylosis. The posterior elements are intact. The paravertebral soft tissues are unremarkable. There are pelvic phleboliths. IMPRESSION: 1. There is mild to moderate degenerative disease at L5-S1. 2. There is multi-level thoracolumbar spondylosis. XR HIP, LEFT AND X-RAY PELVIS 07/24/24 CLINICAL INFORMATION: Left hip strain TECHNIQUE: Frontal radiograph of the pelvis and frontal and frog lateral radiographs of the left hip. FINDINGS: The bony pelvis is intact. No fracture or dislocation is evident. There is unilateral left sacroiliitis. Mild bilateral superolateral degenerative changes of the hips are noted. No fracture or suspicious bone lesion is evident. IMPRESSION: 1. Unilateral left sacroiliitis, which can be associated with seronegative spondyloarthropathy including psoriatic arthritis or Carie's syndrome. 2. Mild bilateral hip superolateral osteoarthrosis. Assessment & Plan Assessment & Plan (1) Chronic left sacroiliac joint pain: Code(s): M53.3 - Sacrococcygeal disorders, not elsewhere classified; G89.29 - Other chronic pain Category: Medical (2) Lumbar degenerative disc disease: Code(s): M51.36 - Other intervertebral disc degeneration, lumbar region Category: Medical (3) Sacroiliitis: Code(s): M46.1 - Sacroiliitis, not elsewhere classified Category: Medical (4) Muscle spasm of back: Code(s): M62.830 - Muscle spasm of back Category: Medical (5) Arthritis of left hip: Code(s): M16.12 - Unilateral primary osteoarthritis, left hip Category: Medical (6) Lumbar radiculopathy: Code(s): M54.16 - Radiculopathy, lumbar region Category: Medical (7) Arthritis, lumbar spine: Code(s): M47.816 - Spondylosis without myelopathy or radiculopathy, lumbar region Category: Medical Plan Patient is status post left diagnostic SIJ injection with 60% pain relief for 6 hours but minimal overall improvement in his functioning or pain reduction. He also suffers from left hip OA and has moderate L5-S1 degenerative disc disease with moderate posterior and bilateral foraminal disc protrusion. There are marked asymmetric right and moderate left L5-S1 neuroforamina stenosis per recent lumbar spine MRI results. Patient denies any symptoms on the right. Today's exam most consistent with Left L5-S1 radicular symptoms and minimal left hip/groin pain. Schedule Left L5-S1 TFESI injection with local and fluoroscopy. Expectations, risks and benefits were reviewed. Patient is aware he will be contacted to schedule this procedure. Refills provided for gabapentin with increase to TID and cyclobenzaprine. Patient will continue to monitor for any side effects. Precautions reviewed with patient and his . All questions and concerns have been answered and patient agreed with the plan. Follow up after injection and sooner as needed. Medications: Changed From gabapentin 300 mg PO BID 30 days 60 caps 0RF pain M16.12 - Unilateral primary osteoarthritis, left hip, M46.1 - Sacroiliitis, not elsewhere classified, M51.36 - Other intervertebral disc degeneration, lumbar region, M53.3 - Sacrococcygeal disorders, not elsewhere classified To gabapentin 300 mg PO TID 30 days 90 caps 3RF pain M16.12 - Unilateral primary osteoarthritis, left hip, M46.1 - Sacroiliitis, not elsewhere classified, M51.36 - Other intervertebral disc degeneration, lumbar region, M53.3 - Sacrococcygeal disorders, not elsewhere classified From cyclobenzaprine 10 mg PO BEDTIME 14 tabs 0RF G89.29 - Other chronic pain, M46.1 - Sacroiliitis, not elsewhere classified, M51.36 - Other intervertebral disc degeneration, lumbar region, M53.3 - Sacrococcygeal disorders, not elsewhere classified, M62.830 - Muscle spasm of back To cyclobenzaprine 10 mg (2 x 5 mg) PO BEDTIME 30 days PRN 60 tabs 0RF muscle spasm G89.29 - Other chronic pain, M46.1 - Sacroiliitis, not elsewhere classified, M51.36 - Other intervertebral disc degeneration, lumbar region, M53.3 - Sacrococcygeal disorders, not elsewhere classified, M62.830 - Muscle spasm of back Coding Level of Care Code Est Pt Level 4 (31346) Diagnoses Chronic left sacroiliac joint pain M53.3; G89.29 Lumbar degenerative disc disease M51.36 Sacroiliitis M46.1 Muscle spasm of back M62.830 Arthritis of left hip M16.12 Lumbar radiculopathy M54.16 Arthritis, lumbar spine M47.816
[2024-02-26 08:59] VITALS: BP 156/89; PULSE 65; O2SAT 100; BMI 26.2
== END 2024-02-26 09:28 | disposition home or self-care (01) ==
PROVIDERS: PCP Physician Assistant; Visit Provider Nurse Practitioner Family
DX: M53.3 Sacrococcygeal disorders, not elsewhere classified (principal); G89.29 Other chronic pain; M51.36 Other intervertebral disc degeneration, lumbar region; M46.1 Sacroiliitis, not elsewhere classified; M62.830 Muscle spasm of back; M16.12 Unilateral primary osteoarthritis, left hip; M54.16 Radiculopathy, lumbar region; M47.816 Spondylosis without myelopathy or radiculopathy, lumbar region
CPT/HCPCS: 99214

== ENCOUNTER → 2024-02-26 08:53 | Outpatient (BNVA) | payer OTHER, SELFPAY | PROVIDERS: PCP Physician Assistant; Visit Provider Nurse Practitioner Family ==

== ENCOUNTER 2024-03-20 09:41 | Outpatient (AMB) | payer OTHER, SELFPAY ==
--- NOTE | 2024-03-20 09:48 | MHC.OFFVIS ---
Vital Signs 03/20/24 09:53 Height 5 ft 7 in Weight 167 lb 5.294 oz BMI 26.2 BP 130/80 Blood Pressure Location Rt brachial Position Sitting Respiration 18 Pulse 74 Pulse Source Pulse Oximeter Pulse Oximetry (%) 98 Oxygen Delivery Method Room Air Intake Visit Reasons: SI joint/CM Intake Note: Patient presents for SI joint. In a lot of pain. Allergies grass pollen Allergy (Mild, Verified 03/20/24 09:53) Itchy Eyes Medication List - Last Reconciled 03/20/24 by Fab Jones MD acetaminophen (Tylenol) 325 mg PO Q4H PRN albuterol sulfate 2.5 mg (3 mL) inhalation Q6H PRN 30 days albuterol sulfate 90 mcg/actuation 1 puff PO Q4H PRN 30 days bisacodyl (Dulcolax (bisacodyl)) 10 mg (2 x 5 mg) PO ONCE 1 day [id number]-xogpthib-cefxbrszyh 160-9-4.8 mcg/actuation (Breztri Aerosphere) 2 inhalations inhalation BID 30 days cyclobenzaprine 10 mg (2 x 5 mg) PO BEDTIME PRN 30 days cyclosporine 0.09% (Cequa) 1 drp ophthalmic (eye) BID epinephrine (EpiPen 2-Russ) 0.3 mg (0.3 mL) IM Q10M PRN 30 days fluorometholone 0.25% 1 drp ophthalmic (eye) TID fluticasone propion-salmeterol 115-21 mcg/actuation (Advair HFA) 2 puffs inhalation BID 30 days fluticasone propionate 110 mcg/actuation (Flovent HFA) 1 puff PO BID gabapentin 300 mg PO TID 30 days ipratropium bromide 2 sprays intranasal BID 30 days ketotifen fumarate 0.025%(0.035%) 1 drp ophthalmic (eye) BID lidocaine 5% 1 patch topical DAILY PRN loteprednol etabonate 0.5% drps ophthalmic (eye) montelukast (Singulair) 10 mg PO BEDTIME 3 months pimecrolimus 1% 1 appl topical BEDTIME 30 days prednisone PO daily; Take 6 tabs daily x 3 days, then 5 tabs x 3 days, then 4 tabs x 3 days, then 3 tabs x 3 days, then 2 tabs daily x 3 days, then 1 tab x 3 days to complete. 18 days prednisone 10 mg PO DAILY triamcinolone acetonide 0.1% 1 appl topical DAILY 30 days HPI Comments Details: This is a 53-year-old man who returns for evaluation of sacroiliitis. Patient has done numerous different martial arts note his life such as [employer], [employer], and others. He has had intermittent back pain through the years however over the last 1-2 and half years he has been having more severe left lower back, hip, groin pain. Morning stiffness of his back lasts at least 1 hour. Improved with walking around and stretching. SI joint x-rays showed left sacroiliitis, L-spine MRI showed bridging syndesmophytes. He was evaluated by Pain Management recently and had left SI joint injection with little relief. He is scheduled for left transforaminal epidural injection L5-S1 on 04/01. Patient has known history of severe eczema, asthma, eczema of his eyes. He was recently started on allergy shots by Dr. Smith. He denies any history suggestive of uveitis, inflammatory bowel disease. His mother had rheumatoid arthritis [facility] Medical History Arthritis, lumbar spine Chronic left sacroiliac joint pain Deviated septum Atopic dermatitis Tubular adenoma Allergic conjunctivitis Asthma Surgical History No pertinent past surgical history Family History Father No problems noted. 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 Cognitive needs: No Hearing needs: No Vision needs: No Review of Systems Musc Reports back pain, Reports arthralgias, Reports radiating pain into limb and Reports stiffness Skin/Breast Reports pruritus and Reports rash Physical Exam Vital Signs: Last Vital Signs Pulse 74 03/20/24 09:53 Resp 18 07/11/24 09:53 BP 130/80 03/20/24 09:53 Pulse Ox 98 03/20/24 09:53 Oxygen Delivery Method Room Air 03/20/24 09:53 BMI result Body Mass Index 26.2 Const Other: Muscular General: cooperative, healthy appearing and comfortable Nutritional Appearance: average body habitus Orientation/consciousness: patient oriented x3 Limitations: no limitations HEENT Other: Erythematous discoloration of his eyelids Head: Yes normocephalic and Yes atraumatic Mouth: moist mucous membranes Resp Effort & Inspection: normal respiratory effort and able to speak in complete sentences Auscultation: clear to auscultation bilaterally Cardio Rate: regular rate Rhythm: regular rhythm Skin Other: Eczematous rashes on his hands Neuro General: patient oriented x3 Extrem Other: Mild prominence of right ulnar styloid but no significant swelling Osteoarthritic changes of both hands with no active synovitis Normal nailfold capillaroscopy No nail pitting Positive straight leg raise test on the left Balwinder test 10-15 cm Negative Fabere test bilaterally Left groin pain with left foot inversion Results Reviewed Results Reviewed: MR LUMBAR SPINE WITHOUT CONTRAST 01/02/24 CLINICAL INFORMATION: Chronic low back pain COMPARISON: Lumbar spine x-ray on 10/09/2023 TECHNIQUE: MRI of the lumbar spine was obtained using routine sequences without contrast. FINDINGS: The visualized lumbar vertebrae are intact with normal alignment. No focal bone lesion with abnormal signal can be seen. Evaluation of the intervertebral discs show: T12/L1: Intervertebral disc height is normal, with normal T2 signal. No focal disc herniation is seen. Bilateral T12/L1 neuroforamina are patent. Bilateral apophyseal joints are intact with normal alignment. L-1/L-2: Intervertebral disc height is mildly decreased, with mild loss of T2 signal. Mild broad-based disc bulge is seen. Anterior bridging syndesmophytes are present. Bilateral L1-L2 neuroforamina are patent. Bilateral apophyseal joints are intact with normal alignment. L2/L3: Intervertebral disc height is normal, with normal T2 signal. No focal disc herniation is seen. Bilateral L2-L3 neuroforamina are patent. Bilateral apophyseal joints are intact with normal alignment. L3/L4: Intervertebral disc height is mildly decreased, with mild loss of T2 signal. Mild posterior disc protrusion is seen. Bilateral L3-L4 neuroforamina are patent. Bilateral apophyseal joints are intact with normal alignment. L4/L5: Intervertebral disc height is moderately decreased, with mild loss of T2 signal. Mild posterior and asymmetric left foraminal disc protrusion is seen. There is mild asymmetric left L4-L5 neuroforaminal stenosis. Bilateral apophyseal joints are intact with normal alignment. L5/S1: Intervertebral disc height is moderately decreased, with mild loss of T2 signal. Moderate posterior and bilateral foraminal disc protrusion is seen. There are marked asymmetric right and moderate left L5-S1 neuroforamina stenosis. Bilateral apophyseal joints are intact with normal alignment. Conus medullaris is seen normally at L1 level. IMPRESSION: 1. Moderate L5-S1 degenerative disc disease with moderate posterior and bilateral foraminal disc protrusion. There are marked asymmetric right and moderate left L5-S1 neuroforamina stenosis. 2. Mild L4-L5 degenerative disc disease with mild posterior and asymmetric left foraminal disc protrusion. There is mild asymmetric left L4-L5 neuroforaminal stenosis. 3. Mild L3-L4 degenerative disc disease with mild posterior disc protrusion. 4. Mild L1-L2 degenerative disc disease with mild broad-based disc bulge. XR LUMBOSACRAL SPINE 10/09/23 CLINICAL INFORMATION: Sacrococcygeal disorders, not otherwise classified. COMPARISON: Radiographs dated 10/30/2016. FINDINGS: Vertebral body heights and alignment are normal. There is mild to moderate disc space narrowing at L5-S1. The remaining disc spaces are relatively well-maintained. No acute fracture or spondylolisthesis is seen. There is multi-level mild lower thoracic and lumbar spondylosis. The posterior elements are intact. The paravertebral soft tissues are unremarkable. There are pelvic phleboliths. IMPRESSION: 1. There is mild to moderate degenerative disease at L5-S1. 2. There is multi-level thoracolumbar spondylosis. XR HIP, LEFT AND X-RAY PELVIS 07/24/24 CLINICAL INFORMATION: Left hip strain TECHNIQUE: Frontal radiograph of the pelvis and frontal and frog lateral radiographs of the left hip. FINDINGS: The bony pelvis is intact. No fracture or dislocation is evident. There is unilateral left sacroiliitis. Mild bilateral superolateral degenerative changes of the hips are noted. No fracture or suspicious bone lesion is evident. IMPRESSION: 1. Unilateral left sacroiliitis, which can be associated with seronegative spondyloarthropathy including psoriatic arthritis or Carie's syndrome. 2. Mild bilateral hip superolateral osteoarthrosis. Assessment & Plan Assessment & Plan (1) Ankylosing spondylitis: Code(s): M45.9 - Ankylosing spondylitis of unspecified sites in spine Category: Medical Qualifiers: Ankylosing spondylitis location: sacrococcygeal region Qualified Code(s): M45.8 - Ankylosing spondylitis sacral and sacrococcygeal region Plan: This is a 53-year-old male who presents for evaluation of about 2 year history of left lower back, left hip pain and stiffness. Left SI joint x-rays consistent with sacroiliitis. L-spine MRI shows bridging syndesmophytes. HLA B27 is negative. Clinical picture consistent with ankylosing spondylitis. Patient also has degenerative disease of his L-spine. He had left SI joint injection with mild short-lived relief and is planned for left L5-S1 transforaminal epidural injection. I think however that his ankylosing spondylitis should be treated. At this time patient has failed 6 weeks of meloxicam last year. Next step would be a TNF inhibitors such as Enbrel. Discussed risks and benefits of Enbrel. Patient agreed to proceed. To prevent any confounding factors with regards to his different back pain treatments. I will wait 2 weeks after his epidural injection and reassess. If ongoing back pain, I will start prior authorization for Enbrel Plan I spent 45 minutes reviewing patient's chart, evaluating patient, counseling patient and documenting in the chart Coding Level of Care Code Est Pt Level 4 (06611) Diagnoses Ankylosing spondylitis of sacrococcygeal region M45.8 Ankylosing spondylitis location: sacrococcygeal region
[2024-03-20 09:53] VITALS: BP 130/80; PULSE 74; RESP 18; O2SAT 98; BMI 26.2
== END 2024-03-20 10:29 | disposition home or self-care (01) ==
PROVIDERS: PCP Physician Assistant; Visit Provider Student in an Organized Health Care Education/Training Program
DX: M45.8 Ankylosing spondylitis sacral and sacrococcygeal region (principal)
CPT/HCPCS: 99214

== ENCOUNTER → 2024-03-20 09:41 | Outpatient (BNVA) | payer OTHER, SELFPAY | PROVIDERS: PCP Physician Assistant; Visit Provider Student in an Organized Health Care Education/Training Program ==

== ENCOUNTER 2024-04-01 06:22 | Outpatient (REF) | payer OTHER, SELFPAY ==
--- NOTE | ~2024-04-01 | FL_ITS ---
EXAMINATION: XR FLUOROSCOPY WITH IMAGES CLINICAL INFORMATION: Radiculopathy left lumbar region. COMPARISON: 02/19/2024. TECHNIQUE: Fluoroscopy provided to: Dr. Chaudhary Fluoroscopy time: 0.2 minutes DAP: 0.0522 mGycm2 Images: 3 FINDINGS: Sequential imaging demonstrating injection of the exiting left L5 nerve root sheath with contrast. FL/FL guidance in treatment room IMPRESSION: Fluoroscopic guidance. Please refer to the full operative report for details. Electronically signed by: Jorge Luis Dobbins MD 06/03/2024 11:38 AM EDT
== END 2024-04-01 06:23 | disposition home or self-care (01) ==
LOC: CF 06:22
PROVIDERS: Visit Provider Anesthesiology
DX: M54.16 Radiculopathy, lumbar region (principal); M53.3 Sacrococcygeal disorders, not elsewhere classified; M51.36 Other intervertebral disc degeneration, lumbar region; M46.1 Sacroiliitis, not elsewhere classified; M62.830 Muscle spasm of back; M16.12 Unilateral primary osteoarthritis, left hip; M47.816 Spondylosis without myelopathy or radiculopathy, lumbar region
CPT/HCPCS: 64483; J3301; Q9967

== ENCOUNTER 2024-04-01 10:51 | Outpatient (AMB) | payer OTHER, SELFPAY ==
--- NOTE | 2024-04-01 10:50 | A.OFFVIS_ITS ---
Vital Signs 04/01/24 10:56 04/01/24 11:35 Height 5 ft 7 in Weight 167 lb 5 oz BMI 26.2 BP 135/86 Blood Pressure Location Rt brachial Position Sitting Respiration 17 Pulse 79 Pulse Source Pulse Oximeter Pulse Oximetry (%) 97 Oxygen Delivery Method Room Air Comment pre-op post-op Intake Visit Reasons: Left L5-S1 TFESI Allergies grass pollen Allergy (Mild, Verified 04/01/24 11:36) Itchy Eyes PFSH Medical History Arthritis, lumbar spine Chronic left sacroiliac joint pain Deviated septum Atopic dermatitis Tubular adenoma Allergic conjunctivitis Asthma Surgical History No pertinent past surgical history Family History Father No problems noted. 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 Cognitive needs: No Hearing needs: No Vision needs: No Physical Exam Vital Signs: Last Vital Signs Pulse 79 04/01/24 10:56 Resp 17 04/01/24 10:56 BP 135/86 04/01/24 10:56 Pulse Ox 97 04/01/24 10:56 Oxygen Delivery Method Room Air 04/01/24 10:56 BMI result Body Mass Index 26.2 Assessment & Plan Assessment & Plan (1) Chronic left sacroiliac joint pain: Code(s): M53.3 - Sacrococcygeal disorders, not elsewhere classified; G89.29 - Other production hand kiran pain Category: Medical (2) Lumbar degenerative disc disease: Code(s): M51.36 - Other intervertebral disc degeneration, lumbar region Category: Medical (3) Sacroiliitis: Code(s): M46.1 - Sacroiliitis, not elsewhere classified Category: Medical (4) Muscle spasm of back: Code(s): M62.830 - Muscle spasm of back Category: Medical (5) Arthritis of left hip: Code(s): M16.12 - Unilateral primary osteoarthritis, left hip Category: Medical (6) Lumbar radiculopathy: Code(s): M54.16 - Radiculopathy, lumbar region Category: Medical Plan: Transforaminal L5-S1 left epidural steroid injection. Informed consent was thoroughly explained to the patient before the procedure.? The patient came to the operating room.? He was positioned prone on operating table with a pillow under his abdomen.? Time-out was performed delineating correct site and side of the procedure, nature of the injection, name and date of of the patient. The lower back of the patient was prepped with ChloraPrep and draped with sterile utility towels.? C-arm was brought over the operating field and sq picture of L5 vertebra were demonstrated on the screen.? Th left side was chosen as the side of the injection.? Tilting machine ipsilateral to the left the most prominent picture of the right pedicle was obtained on the screen.? 3 mm below the level of the lowest point of the pedicle projection to the skin small amount of lidocaine 1% 3-4 cc was injected to anesthetize the skin.? After that 5 in 22 gauge Quincke point needle was inserted through the skin wheal and was advanced to were the L4-5 foramina on anterior posterior , lateral and oblique views intermittently.? When tip of the needle entered foramina projection on AP view injection of the contrast was performed demonstrating epidural and perineural spread of the contrast.? On the lateral view contrast was spread in the epidural fashion. After that injection of the treatment medicine 4 cc of lidocaine 1% mixed with Kenalog 40 mg was injected into the foramina.? Injection of the contrast and injection of the treatment medicine was observed live on the screen.? No intrathecal and no intravascular spread of the contrast was noted. Upon completion of the procedure sterile Band-Aids were applied. Patient tolerated procedure well he was taken outside of the operating room where he recovered uneventfully.? He went home without immediate complications. (7) Arthritis, lumbar spine: Code(s): M47.816 - Spondylosis without myelopathy or radiculopathy, lumbar region Category: Medical Plan Patient is status post left diagnostic SIJ injection with 60% pain relief for 6 hours but minimal overall improvement in his functioning or pain reduction. He also suffers from left hip OA and has moderate L5-S1 degenerative disc disease with moderate posterior and bilateral foraminal disc protrusion. There are marked asymmetric right and moderate left L5-S1 neuroforamina stenosis per re cent lumbar spine MRI results. Patient denies any symptoms on the right. Today's exam most consistent with Left L5-S1 radicular symptoms and minimal left hip/groin pain. Schedule Left L5-S1 TFESI injection with local and fluoroscopy. Expectations, risks and benefits were reviewed. Patient is aware he will be contacted to schedule this procedure. Refills provided for gabapentin with increase to TID and cyclobenzaprine. Patient will continue to monitor for any side effects. Precautions reviewed with patient and his . All questions and concerns have been answered and patient agreed with the plan. Follow up after injection and sooner as needed. Orders: Orders FL guidance in treatment room Today M54.16 - Radiculopathy, lumbar region Coding Level of Care Code Procedure Only Diagnoses Chronic left sacroiliac joint pain M53.3; G89.29 Lumbar degenerative disc disease M51.36 Sacroiliitis M46.1 Muscle spasm of back M62.830 Arthritis of left hip M16.12 Lumbar radiculopathy M54.16 Arthritis, lumbar spine M47.816
[2024-04-01 10:56] VITALS: BP 135/86; PULSE 79; RESP 17; O2SAT 97; BMI 26.2
== END 2024-04-01 11:34 | disposition home or self-care (01) ==
LOC: HO.PMCPRC 10:51
PROVIDERS: PCP Physician Assistant; Visit Provider Anesthesiology
DX: M54.16 Radiculopathy, lumbar region (principal)
CPT/HCPCS: 64483

== ENCOUNTER 2024-04-14 12:55 | Outpatient (AMB) | payer OTHER, SELFPAY ==
[2024-04-14 12:56] VITALS: BP 134/84; PULSE 64; O2SAT 97; BMI 25.5
--- NOTE | 2024-04-14 12:56 | MHC.PC.OV ---
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 Accompanied by: Self / Same As Patient Allergies grass pollen Allergy (Mild, Verified 04/14/24 13:06) Itchy Eyes Medication List - Last Reconciled 04/14/24 by Hussain Arce PA-C acetaminophen (Tylenol) 325 mg PO Q4H PRN albuterol sulfate 2.5 mg (3 mL) inhalation Q6H PRN 30 days albuterol sulfate 90 mcg/actuation 1 puff PO Q4H PRN 30 days bisacodyl (Dulcolax (bisacodyl)) 10 mg (2 x 5 mg) PO ONCE 1 day nagafmacrm-ukdnljyd-whmxikovcg 160-9-4.8 mcg/actuation (Breztri Aerosphere) 2 inhalations inhalation BID 30 days cyclobenzaprine 10 mg (2 x 5 mg) PO BEDTIME PRN 30 days cyclosporine 0.09% (Cequa) 1 drp ophthalmic (eye) BID epinephrine (EpiPen 2-Russ) 0.3 mg (0.3 mL) IM Q10M PRN 30 days fluorometholone 0.25% 1 drp ophthalmic (eye) TID fluticasone propion-salmeterol 115-21 mcg/actuation (Advair HFA) 2 puffs inhalation BID 30 days fluticasone propionate 110 mcg/actuation (Flovent HFA) 1 puff PO BID gabapentin 300 mg PO TID 30 days ipratropium bromide 2 sprays intranasal BID 30 days ketotifen fumarate 0.025%(0.035%) 1 drp ophthalmic (eye) BID lidocaine 5% 1 patch topical DAILY PRN montelukast (Singulair) 10 mg PO BEDTIME 3 months pimecrolimus 1% 1 appl topical BEDTIME 30 days triamcinolone acetonide 0.1% 1 appl topical DAILY 30 days Tobacco use date assessed: 04/14/24 Dental Screening Dental Screen Date: 04/14/24 Did you have a dental visit in the last 12 months?: Yes Did you have a dental problem in the last 6 months where you did not have access to dental care?: No Was dental information given to patient?: Patient has dentist HPI return to work eval/Form HPI Details Patient is a 53-year-old male here today fora follow up visit. Patient has a past medical history significant for moderate persistent asthma, moderate to severe atopic dermatitis, chronic lower back pain. He has been following both Rheumatology and being management clinic here in [place] for his chronic low back pain. X-rays of his low back are consistent with ankylosing spondylitis. He has received injections in his lower back which have helped particularly. He is talking to Rheumatology about perhaps starting Humira for rheumatology etiology of his back pain. Continues to use a cane for ambulation support. He continues to have back pain and does have restrictions at work including inability to stand or walk for long periods of time, no bending or crouching at the waist. .. [facility] Medical History Arthritis, lumbar spine Chronic left sacroiliac joint pain Deviated septum Atopic dermatitis Tubular adenoma Allergic conjunctivitis Asthma Surgical History No pertinent past surgical history Family History Father No problems noted. 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 Cognitive needs: No Hearing needs: No Vision needs: No Questionnaire PHQ-9 Over the last 2 weeks, how often have you been bothered by any of the following problems? 1. Little interest or pleasure in doing things: not at all 2. Feeling down, depressed, or hopeless: not at all 3. Trouble falling or staying asleep, or sleeping too much: not at all 4. Feeling tired or having little energy: not at all 5. Poor appetite or overeating: not at all 6. Feeling bad about yourself - or that you are a failure or have let yourself or your family down: not at all 7. Trouble concentrating on things, such as reading the newspaper or watching television: not at all 8. Moving or speaking so slowly that other people could have noticed. Or the opposite - being so fidgety or restless that you have been moving around a lot more than usual: not at all 9. Thoughts that you would be better off or of hurting yourself in some way: not at all Total score: 0 Depression Screening Interpretation: Negative Depression Screening Done: Yes 84722 - PHQ-9 Billing: Yes Source: Developed by Drs. Fco Riddle, Svetlana Desai, Earnest Henson and colleagues, with an educational gisell from [employer]. Thrive Questionnaire Date Thrive assessed: 04/14/24 I am a: Patient What is your living situation today?: I have a steady place to live Within the past 12 months, did the food you bought not last and you didn't have the money to get more?: Never true Within the past 12 months, did you worry whether your food would run out before you got money to buy more?: Never true Do you have trouble paying for medicines?: No Do you have trouble getting transportation to medical appointments?: No Do you have trouble paying your heating and electricity bill?: No Do you have trouble taking care of your child, family member or friend?: No Do you have trouble with day-to-day activities such as bathing, preparing meals, shopping, managing finances, etc.?: No Are you currently unemployed and looking for a job?: No Are you interested in more education?: No Please select the resources that you would like help with: None Currently or been in a relationship where the following occur: No concerns reported THRIVE Score: 0 AUDIT C Alcohol Use Questionnaire (AUDIT-C) 1. How often do you have a drink containing alcohol?: Monthly or less 2. How many drinks containing alcohol do you have on a typical day when you are drinking?: 1 or 2 3. How often do you have six or more drinks on one occasion?: Never Total Score: 1 EVY-7 AMB Questionnaire EVY-7 Date EVY - 7 assessed: 04/14/24 Feeling nervous, anxious, or on edge: 0 = Not at all Not being able to stop or control worryin = Not at all Worrying too much about different things: 0 = Not at all Trouble relaxin = Not at all Being so restless that it is hard to sit still: 0 = Not at all Becoming easily annoyed or irritable: 0 = Not at all Feeling afraid as if something awful might happen: 0 = Not at all Total EVY-7 score (0-4 normal; 5-9 mild; 10-14 moderate; 15-21 severe): 0 Source: Developed by Drs. Fco Riddle, Svetlana Desai, Earnest Henson and colleagues, with an educational gisell from [employer]. EVY-7 Assessment Billing EVY-7 Assessment Tool: EVY-7 Assessment 81142 Review of Systems Const Denies headache(s) Eyes Denies loss of vision ENT Denies vertigo, Denies dizziness, Denies headache(s) and Denies sore throat Card Denies chest pain, Denies leg edema and Denies lightheadedness Resp Denies cough, Denies hemoptysis and Denies wheezing GI Denies abdominal pain, Denies melena, Denies constipation, Denies diarrhea and Denies vomiting Denies dysuria, Denies urinary frequency and Denies urinary urgency Musc Denies arthralgias, Denies joint swelling, Denies numbness and Denies tingling Neuro Denies Abnormal speech present, Denies behavioral changes, Denies vertigo, Denies dizziness, Denies headache(s), Denies loss of vision, Denies memory loss, Denies numbness and Denies tingling Psych Denies anxiety, Denies behavioral changes, Denies depression, Denies memory loss and Denies panic attacks Charli/Lymph Denies easy bleeding and Denies easy bruising Aller/Immun Denies wheezing Physical exam (Primary Care) Vital Signs: Last Vital Signs Pulse 64 04/14/24 12:56 BP 134/84 04/14/24 12:56 Pulse Ox 97 04/14/24 12:56 Oxygen Delivery Method Room Air 04/14/24 12:56 BMI result Body Mass Index 25.5 Tobacco/Smoking Status: Tobacco use Status Tobacco use date assessed 04/14/24 04/14/24 13:03 Patient Tobacco Use Status Never used Tobacco 04/14/24 12:56 e-Cigarette/Vaping Use Never Used 04/14/24 12:56 PHQ-9: PHQ-9 Score PHQ-9: Total score 0 04/14/24 13:03 Depression Screening Interpretation: Negative Thrive Assessment: Date of Thrive Assessment Date Thrive assessed 04/14/24 04/14/24 13:03 Currently or been in a relationship where the following occur: No concerns reported Const General: healthy appearing, no acute distress, alert and awake Nutritional Appearance: well nourished Orientation/consciousness: oriented to person, oriented to place and oriented to time HENMT Ears: TM's normal bilaterally General nose exam: Normal nasal mucous membranes and turbinates present Eyes Conjunctivae: conjunctivae normal Sclerae: sclerae normal Pupils: Equal, round and reactive pupils present Neck Neck: Yes no lymphadenopathy and Yes no JVD Thyroid: Thyroid normal Carotids: no bruits Resp Effort & Inspection: normal respiratory effort and not tachypneic Auscultation: no crackles, no rales, no rhonchi and no wheezes Cardio Rate: regular rate Rhythm: regular rhythm Heart sounds: no murmurs and normal S1 and S2 GI Palpation (GI): Soft to palpation, nontender, no hepatomegaly and no splenomegaly Auscultation: normal bowel sounds Skin General skin exam: no rashes or lesions noted and dry skin Neuro General: oriented to person, oriented to place and oriented to time Cranial nerves: Yes Equal, round and reactive pupils present Speech: No Abnormal speech present Gait exam (Neuro): Normal gait present Motor exam (neuro): no tremor noted Extrem Right upper extremity: full ROM Left upper extremity: full ROM Right lower extremity: full ROM; no edema Left lower extremity: full ROM; no edema Psych Mental Status: mental status grossly normal Speech and movement: Normal speech and movement present Affect: normal affect Attitude: cooperative Thought process: Normal thought process present Assessment and Plan Assessment & Plan (1) Ankylosing spondylitis: Code(s): M45.9 - Ankylosing spondylitis of unspecified sites in spine Qualifiers: Ankylosing spondylitis location: sacrococcygeal region Qualified Code(s): M45.8 - Ankylosing spondylitis sacral and sacrococcygeal region Plan: As per HPI filled out returning to work paperwork Willing to start humira if back injection are not helpful. (2) Sacroiliitis: Code(s): M46.1 - Sacroiliitis, not elsewhere classified Orders: Orders Comprehensive [place]. Panel Fast Today Z13.1 - Encounter for screening for diabetes mellitus Complete Blood Count no Diff Today J45.50 - Severe persistent asthma, uncomplicated Prostate Specific Antigen Scr Today Z12.5 - Encounter for screening for malignant neoplasm of prostate, Z13.1 - Encounter for screening for diabetes mellitus Coding Level of Care Code Est Pt Level 3 (54961) Diagnoses Ankylosing spondylitis of sacrococcygeal region M45.8 Ankylosing spondylitis location: sacrococcygeal region Sacroiliitis M46.1 Additional Codes EVY-7 Assessment Billing - EVY-7 Assessment Tool: EVY-7 Assessment 55713 ([id number])
== END 2024-04-14 14:25 | disposition home or self-care (01) ==
PROVIDERS: PCP Physician Assistant; Visit Provider Physician Assistant
DX: M45.8 Ankylosing spondylitis sacral and sacrococcygeal region (principal); M46.1 Sacroiliitis, not elsewhere classified
CPT/HCPCS: 99213

== ENCOUNTER 2024-04-17 11:39 | Outpatient (AMB) | payer OTHER, SELFPAY ==
--- NOTE | 2024-04-17 11:41 | A.OFFVIS_ITS ---
Vital Signs 04/17/24 11:44 Height 5 ft 7 in Weight 164 lb 3.91 oz BMI 25.7 BP 124/80 Blood Pressure Location Lt brachial Position Sitting Respiration 18 Pulse 68 Pulse Source Pulse Oximeter Pulse Oximetry (%) 95 Oxygen Delivery Method Room Air Intake Visit Reasons: /Cm Intake Note: Patient presents for . Allergies grass pollen Allergy (Mild, Verified 04/17/24 11:44) Itchy Eyes Medication List - Last Reconciled 04/17/24 by Fab Jones MD acetaminophen (Tylenol) 325 mg PO Q4H PRN albuterol sulfate 2.5 mg (3 mL) inhalation Q6H PRN 30 days albuterol sulfate 90 mcg/actuation 1 puff PO Q4H PRN 30 days bisacodyl (Dulcolax (bisacodyl)) 10 mg (2 x 5 mg) PO ONCE 1 day seqhaajskv-fxtoiree-dgtmhgajbk 160-9-4.8 mcg/actuation (Breztri Aerosphere) 2 inhalations inhalation BID 30 days cyclobenzaprine 10 mg (2 x 5 mg) PO BEDTIME PRN 30 days cyclosporine 0.09% (Cequa) 1 drp ophthalmic (eye) BID Enbrel SureClick (etanercept) 50 mg subcut QWEEK NS epinephrine (EpiPen 2-Russ) 0.3 mg (0.3 mL) IM Q10M PRN 30 days fluorometholone 0.25% 1 drp ophthalmic (eye) TID fluticasone propion-salmeterol 115-21 mcg/actuation (Advair HFA) 2 puffs inhalation BID 30 days fluticasone propionate 110 mcg/actuation (Flovent HFA) 1 puff PO BID gabapentin 300 mg PO TID 30 days ipratropium bromide 2 sprays intranasal BID 30 days ketotifen fumarate 0.025%(0.035%) 1 drp ophthalmic (eye) BID lidocaine 5% 1 patch topical DAILY PRN montelukast (Singulair) 10 mg PO BEDTIME 3 months pimecrolimus 1% 1 appl topical BEDTIME 30 days triamcinolone acetonide 0.1% 1 appl topical DAILY 30 days HPI Comments Details: 53-year-old male with ankylosing spondylitis returns for follow-up. He was evaluated by pain management and had an epidural injection, states that it provided minimal relief, he was told that it might week up to 6 weeks for full effect. Continues to have back pain. Initial history: This is a 53-year-old man who returns for evaluation of sacroiliitis. Patient has done numerous different martial arts note his life such as [employer], [employer], and others. He has had intermittent back pain through the years however over the last 1-2 and half years he has been having more severe left lower back, hip, groin pain. Morning stiffness of his back lasts at least 1 hour. Improved with walking around and stretching. SI joint x-rays luis wed left sacroiliitis, L-spine MRI showed bridging syndesmophytes. He was evaluated by Pain Management recently and had left SI joint injection with little relief. He is scheduled for left transforaminal epidural injection L5-S1 on 04/01. Patient has known history of severe eczema, asthma, eczema of his eyes. He was recently started on allergy shots by Dr. Smith. He denies any history suggestive of uveitis, inflammatory bowel disease. His mother had rheumatoid arthritis [facility] Medical History Arthritis, lumbar spine Chronic left sacroiliac joint pain Deviated septum Atopic dermatitis Tubular adenoma Allergic conjunctivitis Asthma Surgical History No pertinent past surgical history Family History Father No problems noted. 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 Cognitive needs: No Hearing needs: No Vision needs: No Review of Systems Musc Reports back pain, Reports arthralgias, Reports radiating pain into limb and Reports stiffness Skin/Breast Reports pruritus and Reports rash Physical Exam Vital Signs: Last Vital Signs Pulse 68 04/17/24 11:44 Resp 18 04/17/24 11:44 BP 124/80 04/17/24 11:44 Pulse Ox 95 04/17/24 11:44 Oxygen Delivery Method Room Air 04/17/24 11:44 BMI result Body Mass Index 25.7 Const Other: Muscular General: cooperative, healthy appearing and comfortable Nutritional Appearance: average body habitus Orientation/consciousness: patient oriented x3 Limitations: no limitations HEENT Other: Erythematous discoloration of his eyelids Head: Yes normocephalic and Yes atraumatic Mouth: moist mucous membranes Resp Effort & Inspection: normal respiratory effort and able to speak in complete sentences Auscultation: clear to auscultation bilaterally Cardio Rate: regular rate Rhythm: regular rhythm Skin Other: Eczematous rashes on his hands Neuro General: patient oriented x3 Extrem Other: Mild prominence of right ulnar styloid but no significant swelling Osteoarthritic changes of both hands with no active synovitis Normal nailfold capillaroscopy No nail pitting Positive straight leg raise test on the left Balwinder test 10-15 cm Negative Fabere test bilaterally Left groin pain with left foot inversion Results Reviewed Results Reviewed: MR LUMBAR SPINE WITHOUT CONTRAST 01/02/24 CLINICAL INFORMATION: Chronic low back pain COMPARISON: Lumbar spine x-ray on 10/09/2023 TECHNIQUE: MRI of the lumbar spine was obtained using routine sequences without contrast. FINDINGS: The visualized lumbar vertebrae are intact with normal alignment. No focal bone lesion with abnormal signal can be seen. Evaluation of the intervertebral discs show: T12/L1: Intervertebral disc height is normal, with normal T2 signal. No focal disc herniation is seen. Bilateral T12/L1 neuroforamina are patent. Bilateral apophyseal joints are intact with normal alignment. L-1/L-2: Intervertebral disc height is mildly decreased, with mild loss of T2 signal. Mild broad-based disc bulge is seen. Anterior bridging syndesmophytes are present. Bilateral L1-L2 neuroforamina are patent. Bilateral apophyseal joints are intact with normal alignment. L2/L3: Intervertebral disc height is normal, with normal T2 signal. No focal disc herniation is seen. Bilateral L2-L3 neuroforamina are patent. Bilateral apophyseal joints are intact with normal alignment. L3/L4: Intervertebral disc height is mildly decreased, with mild loss of T2 signal. Mild posterior disc protrusion is seen. Bilateral L3-L4 neuroforamina are patent. Bilateral apophyseal joints are intact with normal alignment. L4/L5: Intervertebral disc height is moderately decreased, with mild loss of T2 signal. Mild posterior and asymmetric left foraminal disc protrusion is seen. There is mild asymmetric left L4-L5 neuroforaminal stenosis. Bilateral apophyseal joints are intact with normal alignment. L5/S1: Intervertebral disc height is moderately decreased, with mild loss of T2 signal. Moderate posterior and bilateral foraminal disc protrusion is seen. There are marked asymmetric right and moderate left L5-S1 neuroforamina stenosis. Bilateral apophyseal joints are intact with normal alignment. Conus medullaris is seen normally at L1 level. IMPRESSION: 1. Moderate L5-S1 degenerative disc disease with moderate posterior and bilateral foraminal disc protrusion. There are marked asymmetric right and moderate left L5-S1 neuroforamina stenosis. 2. Mild L4-L5 degenerative disc disease with mild posterior and asymmetric left foraminal disc protrusion. There is mild asymmetric left L4-L5 neuroforaminal stenosis. 3. Mild L3-L4 degenerative disc disease with mild posterior disc protrusion. 4. Mild L1-L2 degenerative disc disease with mild broad-based disc bulge. XR LUMBOSACRAL SPINE 10/09/23 CLINICAL INFORMATION: Sacrococcygeal disorders, not otherwise classified. COMPARISON: Radiographs dated 10/30/2016. FINDINGS: Vertebral body heights and alignment are normal. There is mild to moderate disc space narrowing at L5-S1. The remaining disc spaces are relatively well-maintained. No acute fracture or spondylolisthesis is seen. There is multi-level mild lower thoracic and lumbar spondylosis. The posterior elements are intact. The paravertebral soft tissues are unremarkable. There are pelvic phleboliths. IMPRESSION: 1. There is mild to moderate degenerative disease at L5-S1. 2. There is multi-level thoracolumbar spondylosis. XR HIP, LEFT AND X-RAY PELVIS 07/24/24 CLINICAL INFORMATION: Left hip strain TECHNIQUE: Frontal radiograph of the pelvis and frontal and frog lateral radiographs of the left hip. FINDINGS: The bony pelvis is intact. No fracture or dislocation is evident. There is unilateral left sacroiliitis. Mild bilateral superolateral degenerative changes of the hips are noted. No fracture or suspicious bone lesion is evident. IMPRESSION: 1. Unilateral left sacroiliitis, which can be associated with seronegative spondyloarthropathy including psoriatic arthritis or Carie's syndrome. 2. Mild bilateral hip superolateral osteoarthrosis. Assessment & Plan Assessment & Plan (1) Ankylosing spondylitis: Comment: HLA b27 -ve dx 03/2024 Code(s): M45.9 - Ankylosing spondylitis of unspecified sites in spine Category: Medical Qualifiers: Ankylosing spondylitis location: sacrococcygeal region Qualified Code(s): M45.8 - Ankylosing spondylitis sacral and sacrococcygeal region Plan: This is a 53-year-old male who presents for evaluation of about 2 year history of left lower back, left hip pain and stiffness. Left SI joint x-rays consistent with sacroiliitis. L-spine MRI shows bridging syndesmophytes. HLA B27 is negative. Clinical picture consistent with ankylosing spondylitis. Patient also has degenerative disease of his L-spine. Need to start treatment. Patient has tried and failed 6 weeks of meloxicam last year. Next step would be a TNF inhibitors such as Enbrel. Discussed risks and benefits of Enbrel. Patient agreed to proceed. We will start prior authorization for Enbrel Patient has done his work capability assessment with his PCP, he states that according to this form he may not be able to go back to work. Advised patient to bring another black form and we will redo it. Labs before next visit in 3 months Plan I spent 25 minutes reviewing patient's chart, evaluating patient, counseling patient, ordering diagnostic workup and documenting in the chart Orders: Orders Comprehensive Met. Panel 3 Months M45.8 - Ankylosing spondylitis sacral and sacrococcygeal region C Reactive Protein 3 Months M45.8 - Ankylosing spondylitis sacral and sacrococcygeal region Erythrocyte Sedimentation Rate 3 Months M45.8 - Ankylosing spondylitis sacral and sacrococcygeal region Complete Blood Count Auto Diff 3 Months M45.8 - Ankylosing spondylitis sacral and sacrococcygeal region Medications: New Enbrel SureClick (etanercept) 50 mg subcut QWEEK 4 mL 2RF NS Coding Level of Care Code Est Pt Level 4 (18766) Diagnoses Ankylosing spondylitis of sacrococcygeal region M45.8 Ankylosing spondylitis location: sacrococcygeal region
[2024-04-17 11:44] VITALS: BP 124/80; PULSE 68; RESP 18; O2SAT 95; BMI 25.7
== END 2024-04-17 12:05 | disposition home or self-care (01) ==
PROVIDERS: PCP Physician Assistant; Visit Provider Student in an Organized Health Care Education/Training Program
DX: M45.8 Ankylosing spondylitis sacral and sacrococcygeal region (principal)
CPT/HCPCS: 99214

== ENCOUNTER → 2024-04-17 11:39 | Outpatient (BNVA) | payer OTHER, SELFPAY | PROVIDERS: PCP Physician Assistant; Visit Provider Student in an Organized Health Care Education/Training Program ==

== ENCOUNTER 2024-05-05 12:57 | Outpatient (AMB) | payer OTHER, SELFPAY ==
--- NOTE | 2024-05-05 13:03 | A.OFFVIS_ITS ---
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 Garcia. Patient reports 20% pain relief since procedure with minimal improvement in his daily functioning and no pain or functioninig improvement with walking, standing or sleeping. Reports 3/10 with rest or sitting and 8/10 with walking, standing or bending. Patient reports left sided low back pain with radiation into his left buttock and left posterior thigh and outer calf and foot with associated numbness, tingling and occasional heaviness. He is concerned for limping and antalgic gait. Patient reports increased pain affects his daily activities, mobility and sleep. He requests refills for gabapentin and cyclobenzaprine. He also suffers from left hip with groin pain. 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 He is also interested in undergoing Neurosurgical evaluation. Denies any fever, chills, bladder or bowel dysfunction or saddle anesthesia. Past Procedures: 04/01/24: Left L5-S1 TFESI-20% pain relief 02/19/24: Left Diagnostic SIJ injection-60% pain relief for 6 hours PRIOR: Patient is a pleasant 53 years old male presents today for initial evaluation of left low back and left hip pain. He was referred to us by [facility] [place] Physiatry Dr. Llamas for left sacroiliac joint injection. Patient denies any recent or past trauma, injury or falls. 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 Patient reports axial low back pain with radiation into his left sacral and left lateral hip and significant left groin and upper medial-anterior thigh pain on the left. His exam is consistent with significant left hip and groin pain and mild-moderate left SIJ pain. He denies any symptoms on the right. Pain affects his daily functioning, mobility, sleep, social interactions and quality of life. Most recent lumbar spine xrays and MRI and hip xrays were reviewed with patient today and are noted below. Patient denies any fever, chills, weight loss, abdominal pain, foot drop, weakness, bladder or bowel dysfunction or saddle anesthesia. Location: Left lower back radiates to left sacral and left lateral hip and groin Duration: Chronic pain about 1 year Characteristics of symptom or complaint: Sharp, burning, stabbing, sharp, throbbing, tiring Aggravating or associated factors: Walking, moving wrong weightbearing, climbing stairs, heavy lifting Relieving factors: Tylenol, NSAIDs, lidocaine patch, ice/heat, rest, activity modifications Treatment: Massages, chiropractic therapy ON LICENSE OF [facility] Medical History Arthritis, lumbar spine Chronic left sacroiliac joint pain Deviated septum Atopic dermatitis Tubular adenoma Allergic conjunctivitis Asthma Surgical History No pertinent past surgical history Family History Father No problems noted. Mother Rheumatoid arthritis Social History Housing: Apartment Alcohol intake: current Alcohol intake frequency: a few times a week Alcohol type: beer Patient Tobacco Use Status: Never used Tobacco e-Cigarette/Vaping Use: Never Used Second Hand Smoke Exposure: No Substance Use Type: Marijuana service: No Current occupational status: employed Current occupation: [employer] . Cognitive needs: No Hearing needs: No Vision needs: No Review of Systems Const All systems reviewed & are unremarkable except as noted in HPI and below Physical Exam Vital Signs: Last Vital Signs Pulse 84 05/05/24 13:06 BP 135/85 05/05/24 13:06 Pulse Ox 98 05/05/24 13:06 Oxygen Delivery Method Room Air 05/05/24 13:06 BMI result Body Mass Index 25.4 General: Appears afebrile. Alert and oriented. Mood and affect appropriate. Follows and participates in conversation appropriately. Respiratory effort is unlabored. No cough. Able to transition from sit to stand unassisted. Ambulates with bilaterally normal heel strike and toe off, reports LLE leg pain. General: Yes no CVA tenderness Back/Spine/Pelvis Other: Limited lumbar ROM with lumbar flexion and bending reproducing significant pain. Mildly antalgic gait with limping favoring right side. Demonstrates 5/5 right and 4/5 left due to pain strength of quadriceps bilaterally as well as flexion/dorsiflexion of bilateral feet against resistance. 2+ pedal pulses bilaterally. Straight leg rise with dorsiflexion is positive on the left. +2 patellar and achilles reflexes bilaterally. Facet loading test positive bilaterally. Pelvic compression and Stinchfield tests are positive on the left. Steve's test reproduces left groin, low back and left lateral hip pain. Mild to moderate groin pain with internal left hip rotations. Valsalva maneuver negative. Back: no CVA tenderness Cervical Spine: cervical ROM normal and No Cervical spine tenderness Thoracic/Lumbar Spine: thoracic and lumbar spine normal to inspection, No Thoracic/lumbar spine scar(s), Lasegue's sign positive on the left and localized, pain with thoraco-lumbar ROM, paraspinal muscle tenderness, No thoracic spinal tenderness and lumbar spinal tenderness (L4-S1) Pelvis: buttock tenderness on the left Sacroiliac joints: on the right nontender and on the left tender to palpation Extrem General: Yes capillary refill normal, Yes no clubbing, cyanosis or edema and Yes no calf tenderness Results Reviewed Results Reviewed: MR LUMBAR SPINE WITHOUT CONTRAST 01/02/24 CLINICAL INFORMATION: Chronic low back pain COMPARISON: Lumbar spine x-ray on 10/09/2023 TECHNIQUE: MRI of the lumbar spine was obtained using routine sequences without contrast. FINDINGS: The visualized lumbar vertebrae are intact with normal alignment. No focal bone lesion with abnormal signal can be seen. Evaluation of the intervertebral discs show: T12/L1: Intervertebral disc height is normal, with normal T2 signal. No focal disc herniation is seen. Bilateral T12/L1 neuroforamina are patent. Bilateral apophyseal joints are intact with normal alignment. L-1/L-2: Intervertebral disc height is mildly decreased, with mild loss of T2 signal. Mild broad-based disc bulge is seen. Anterior bridging syndesmophytes are present. Bilateral L1-L2 neuroforamina are patent. Bilateral apophyseal joints are intact with normal alignment. L2/L3: Intervertebral disc height is normal, with normal T2 signal. No focal disc herniation is seen. Bilateral L2-L3 neuroforamina are patent. Bilateral apophyseal joints are intact with normal alignment. L3/L4: Intervertebral disc height is mildly decreased, with mild loss of T2 signal. Mild posterior disc protrusion is seen. Bilateral L3-L4 neuroforamina are patent. Bilateral apophyseal joints are intact with normal alignment. L4/L5: Intervertebral disc height is moderately decreased, with mild loss of T2 signal. Mild posterior and asymmetric left foraminal disc protrusion is seen. There is mild asymmetric left L4-L5 neuroforaminal stenosis. Bilateral apophyseal joints are intact with normal alignment. L5/S1: Intervertebral disc height is moderately decreased, with mild loss of T2 signal. Moderate posterior and bilateral foraminal disc protrusion is seen. There are marked asymmetric right and moderate left L5-S1 neuroforamina stenosis. Bilateral apophyseal joints are intact with normal alignment. Conus medullaris is seen normally at L1 level. IMPRESSION: 1. Moderate L5-S1 degenerative disc disease with moderate posterior and bilateral foraminal disc protrusion. There are marked asymmetric right and moderate left L5-S1 neuroforamina stenosis. 2. Mild L4-L5 degenerative disc disease with mild posterior and asymmetric left foraminal disc protrusion. There is mild asymmetric left L4-L5 neuroforaminal stenosis. 3. Mild L3-L4 degenerative disc disease with mild posterior disc protrusion. 4. Mild L1-L2 degenerative disc disease with mild broad-based disc bulge. XR LUMBOSACRAL SPINE 10/09/23 CLINICAL INFORMATION: Sacrococcygeal disorders, not otherwise classified. COMPARISON: Radiographs dated 10/30/2016. FINDINGS: Vertebral body heights and alignment are normal. There is mild to moderate disc space narrowing at L5-S1. The remaining disc spaces are relatively well-maintained. No acute fracture or spondylolisthesis is seen. There is multi-level mild lower thoracic and lumbar spondylosis. The posterior elements are intact. The paravertebral soft tissues are unremarkable. There are pelvic phleboliths. IMPRESSION: 1. There is mild to moderate degenerative disease at L5-S1. 2. There is multi-level thoracolumbar spondylosis. XR HIP, LEFT AND X-RAY PELVIS 07/24/24 CLINICAL INFORMATION: Left hip strain TECHNIQUE: Frontal radiograph of the pelvis and frontal and frog lateral radiographs of the left hip. FINDINGS: The bony pelvis is intact. No fracture or dislocation is evident. There is unilateral left sacroiliitis. Mild bilateral superolateral degenerative changes of the hips are noted. No fracture or suspicious bone lesion is evident. IMPRESSION: 1. Unilateral left sacroiliitis, which can be associated with seronegative spondyloarthropathy including psoriatic arthritis or Carie's syndrome. 2. Mild bilateral hip superolateral osteoarthrosis. Assessment & Plan Assessment & Plan (1) Lumbar degenerative disc disease: Code(s): M51.36 - Other intervertebral disc degeneration, lumbar region Category: Medical (2) Lumbar radiculopathy: Code(s): M54.16 - Radiculopathy, lumbar region Category: Medical (3) Neuroforaminal stenosis of lumbosacral spine: Code(s): M48.07 - Spinal stenosis, lumbosacral region Category: Medical (4) Chronic left sacroiliac joint pain: Code(s): M53.3 - Sacrococcygeal disorders, not elsewhere classified; G89.29 - Other chronic pain Category: Medical (5) Ankylosing spondylitis: Comment: HLA b27 -ve dx 03/2024 Code(s): M45.9 - Ankylosing spondylitis of unspecified sites in spine Category: Medical Qualifiers: Ankylosing spondylitis location: sacrococcygeal region Qualified Code(s): M45.8 - Ankylosing spondylitis sacral and sacrococcygeal region Plan Patient is one month status post left L5-S1 TFESI with minimal pain relief. He continues to experienced left sided low back pain with left sided radiculopathy and left SIJ joint pain with sacroiliitis. Patient has discussed to start treatment with his Rheumatology provider for ankylosing spondylitis. Patient also had left diagnostic SIJ injection providing him 60% pain relief. He is interested to undergo Neurosurgery evaluation to address left sided radiculopathy. Referral placed today. Short script provided for Tylenol #3 for moderate-severe pain. Side effects and precauations discussed with patient and his . Narcan provided with opioid script, discussed administration and use of it. Refills provided for gabapentin and cyclobenzaprine per patient's request. All questions and concerns have been answered and patient agreed with the plan. Follow up after Neurosurgery evaluation and sooner as needed. Orders: Referrals Neurosurgery Referral G89.29 - Other chronic pain, M48.07 - Spinal stenosis, lumbosacral region, M53.3 - Sacrococcygeal disorders, not elsewhere classified, M54.16 - Radiculopathy, lumbar region Medications: New acetaminophen-codeine 300-30 mg 1 tab PO Q8H 10 days PRN 30 tabs 0RF pain (scale score 7-10) M51.36 - Other intervertebral disc degeneration, lumbar region, M54.16 - Radiculopathy, lumbar region naloxone 4 mg/actuation (Narcan) spray 1 dose into ONE nostril; alternate nostrils w each dose until help arrives 4 mg intranasal Q2M PRN 2 ea 0RF opioid overdose Refilled cyclobenzaprine 10 mg (2 x 5 mg) PO BEDTIME 30 days PRN 60 tabs 0RF muscle spasm G89.29 - Other chronic pain, M46.1 - Sacroiliitis, not elsewhere classified, M51.36 - Other intervertebral disc degeneration, lumbar region, M53.3 - Sacrococcygeal disorders, not elsewhere classified, M62.830 - Muscle spasm of back gabapentin 300 mg PO TID 30 days 90 caps 3RF pain M16.12 - Unilateral primary osteoarthritis, left hip, M46.1 - Sacroiliitis, not elsewhere classified, M51.36 - Other intervertebral disc degeneration, lumbar region, M53.3 - Sacrococcygeal disorders, not elsewhere classified Coding Level of Care Code Est Pt Level 4 (29348) Diagnoses Lumbar degenerative disc disease M51.36 Lumbar radiculopathy M54.16 Neuroforaminal stenosis of lumbosacral spine M48.07 Chronic left sacroiliac joint pain M53.3; G89.29 Ankylosing spondylitis of sacrococcygeal region M45.8 Ankylosing spondylitis location: sacrococcygeal region
[2024-05-05 13:06] VITALS: BP 135/85; PULSE 84; O2SAT 98; BMI 25.4
== END 2024-05-05 13:25 | disposition home or self-care (01) ==
PROVIDERS: PCP Physician Assistant; Visit Provider Nurse Practitioner Family
DX: M48.07 Spinal stenosis, lumbosacral region (principal); M53.3 Sacrococcygeal disorders, not elsewhere classified; G89.29 Other chronic pain; M45.8 Ankylosing spondylitis sacral and sacrococcygeal region
CPT/HCPCS: 99214

== ENCOUNTER → 2024-05-05 12:57 | Outpatient (BNVA) | payer OTHER, SELFPAY | PROVIDERS: PCP Physician Assistant; Visit Provider Nurse Practitioner Family ==

== ENCOUNTER 2024-05-08 13:21 | Outpatient (AMB) | payer OTHER, SELFPAY ==
--- NOTE | 2024-05-08 13:35 | A.SPINEOV_ITS ---
Intake Visit Reasons: chronic back pain Intake Note: Mr. Vela is here today c/o low back pain that radiates down to both legs. 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 He is a very nice 53-year-old gentleman presents to the office today for evaluation of a left buttock, left anterior groin pain and left lateral hip pain that started about 6 or 8 months ago. The onset of the symptoms were rather abrupt. He is a gentleman who is very active, physically fit at the gym, participates in martial arts and up until the time this symptoms started was otherwise fully functional. When it began, he was not sure exactly what was going on, he went to urgent Care. He was trialed on steroids I believe 2 or 3 times. It did not help at all. The pain has only steadily gotten worse over time. At this point, he continues to work but tells me it is absolutely brutal trying to get out of bed in the morning and move around. Currently at his job, he is very limited with what he can do. He is gotten to the point now where he started to walk with a cane. He occasionally will get shooting pain down his leg but the primary symptoms are as outlined above in the buttock, anterior groin and on the lateral hip. He will take [id number] medications like Motrin, Tylenol, as well as prescription Tylenol with codeine as needed. He also try cyclobenzaprine. He has not yet been through any physical therapy. He is seen numerous specialists about this. He was seen in the rheumatology office, diagnosed with ankylosing spondylitis, and they anticipate to be started on Enbrel or 1 of these other Humira type medications that affects the body's immune system. He was also seen in your office, underwent cortisone injections in the left SI joint and an L5-S1 TFESI. Neither of these things gave him any significant relief. He is here today to be evaluated with a lumbar spine MRI showing some mild degenerative disc disease. PMH: He is otherwise healthy, he has some eczema, but no major medical problems Social hx: He does not smoke, occasionally uses alcohol, no marijuana Medications: He has eye drops, fluticasone inhaler, gabapentin, ipratropium, lidocaine patches, Singulair, pimecrolimus, triamcinolone topical, cyclobenzaprine, Tylenol, Tylenol with codeine, albuterol Allergies: None Physical exam: He is awake alert oriented, he is very uncomfortable trying to stand and move. When I watch him walk down the hallway he is unable to bear any weight on his left leg, keeps his leg externally rotated. When I ask him to walk without his cane he has a very unsteady gait. It is almost as if any weight applied the left leg will make him have to fall down. On static motor testing, I am unable to manipulate his left leg in any way proximally toward the hip flexion without inducing tremendous pain in his lateral hip. His distal motor strength is normal. Reflexes are normal. He has some reproducible pain with SHAUN testing but external rotation makes some grimace very uncomfortably. SI joint tests are negative including Gaenslen and compression testing. Imaging review: He has a lumbar MRI which shows mild spondylosis. There is some diffuse degeneration of the discs throughout the lower lumbar spine. Nothing severe however. I do not see any evidence of nerve compression anywhere on the imaging. Impression: 53-year-old male, active involved in martial arts, independent until about 6-8 months ago when he developed spontaneous onset of pain in his left hip, left buttock and left anterior groin region. He does not recall any specific event that started it. He did end up in urgent care and I believe he tells me he was placed on prednisone multiple times. It has gotten to the point now where he can barely get up and stand and walk. He is gone from being extremely active to now needing a cane just to get out of a chair. He was sent here for evaluation of his lumbar spine but I do not see any significant degeneration that would explain this degree of pain. What he has is mild disc degeneration which could cause slow developing chronic back pain but not abrupt onset of left hip, left buttock and left anterior groin pain. That would be something more like a herniated disc which he does not have on his imaging. Also, he did not respond to any of the lumbar injections or SI joint injections. His physical exam testing reveals a tremendous amount of discomfort with any attempts of hip flexion as well as external rotation passively makes him almost jumped off the examining table. He walks with his hip externally rotated. I am suspicious what we could be dealing with here is some kind of hip pathology. First on the list would be avascular necrosis secondary to the multiple rounds of oral steroids that he was on when this 1st started. Secondly, he may have so me kind of tear in the hip. He is heavily involved in martial arts and could have developed that as a side effect of all the kicks and forces used during sparring. I am going to get a plain x-ray of his hip and subsequent hip MRI. I told him to hold off on starting the immunosuppressant drugs for the previous diagnosis of ankylosing spondylitis until we can rule out the avascular necrosis in the hip. I will call him when I see the results of the x-rays in the MRI. Thank you for allowing us to care for your patient. The total time spent with this visit with this patient was 45 minutes reviewing history, physical exam, lumbar imaging review, and implementation of treatment plan or further diagnostic testing Bob Acosta MD,PhD [facility] Orders: Orders MR hip LT wo/w con Today M25.552 - Pain in left hip XR hip LT min 2V Today M25.552 - Pain in left hip Coding Level of Care Code New Pt Level 4 (76128) Diagnoses Left hip pain M25.552
== END 2024-05-08 15:19 | disposition home or self-care (01) ==
PROVIDERS: PCP Physician Assistant; Referring Provider Nurse Practitioner Family; Visit Provider Physician Assistant
DX: M25.552 Pain in left hip (principal)
CPT/HCPCS: 99204

== ENCOUNTER 2024-05-08 13:21 | Outpatient (REF) | payer OTHER, SELFPAY ==
--- NOTE | ~2024-05-08 | XR_ITS ---
EXAMINATION: XR HIP, LEFT CLINICAL INFORMATION: Left hip pain. COMPARISON: Radiographs dated 07/24/2023. TECHNIQUE: AP and frog-leg lateral views of the left hip. FINDINGS: Bony alignment and mineralization are normal. The left acetabular roof shows mild articular surface irregularity and a small peripheral osteophyte. The left acetabular joint space compartment is well-maintained. There is mild peripheral osteophyte formation of the anteroinferior margin of the left femoral head. The left femoral head is smooth. No fracture or dislocation is seen. The pubic symphysis is intact. There are left pelvic phleboliths. XR/XR hip LT min 2V IMPRESSION: There is very mild osteoarthritic change of the left hip. No fracture or dislocation is seen. Electronically signed by: Pablo Fall MD 05/23/2024 08:01 PM EDT
== END 2024-05-08 13:22 | disposition home or self-care (01) ==
LOC: HO.XRAY 13:21
PROVIDERS: PCP Physician Assistant; Visit Provider Physician Assistant
DX: M25.552 Pain in left hip (principal)
CPT/HCPCS: 73502

== ENCOUNTER 2024-05-29 10:18 | Outpatient (AMB) | payer OTHER, SELFPAY ==
--- NOTE | 2024-05-29 10:21 | MHC.PC.OV ---
Vital Signs 05/29/24 10:25 Height 5 ft 7 in Weight 166 lb 6 oz BMI 26.1 BP 112/80 Blood Pressure Location Lt brachial Position Sitting Pulse 84 Pulse Source Pulse Oximeter Pulse Oximetry (%) 96 Oxygen Delivery Method Room Air Intake Visit Reasons: pe Intake Note: Patient is here today for a physical. 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 Required: No Accompanied by: Self / Same As Patient Allergies grass pollen Allergy (Mild, Verified 05/29/24 10:50) Itchy Eyes Medication List - Last Reconciled 05/29/24 by Hussain Arce PA-C acetaminophen (Tylenol) 325 mg PO Q4H PRN acetaminophen-codeine 300-30 mg 1 tab PO Q8H PRN 10 days adalimumab-aqvh (Yusimry(CF) Pen) 40 mg (0.8 mL) subcut Q2W albuterol sulfate 2.5 mg (3 mL) inhalation Q6H PRN 30 days albuterol sulfate 90 mcg/actuation 1 puff PO Q4H PRN 30 days bisacodyl (Dulcolax (bisacodyl)) 10 mg (2 x 5 mg) PO ONCE 1 day lrwqgredkf-ojbjhkrv-slpqdnayjs 160-9-4.8 mcg/actuation (Breztri Aerosphere) 2 inhalations inhalation BID 30 days cyclobenzaprine 10 mg (2 x 5 mg) PO BEDTIME PRN 30 days cyclosporine 0.09% (Cequa) 1 drp ophthalmic (eye) BID epinephrine (EpiPen 2-Russ) 0.3 mg (0.3 mL) IM Q10M PRN 30 days fluorometholone 0.25% 1 drp ophthalmic (eye) TID fluticasone propion-salmeterol 115-21 mcg/actuation (Advair HFA) 2 puffs inhalation BID 30 days fluticasone propionate 110 mcg/actuation (Flovent HFA) 1 puff PO BID gabapentin 300 mg PO TID 30 days ipratropium bromide 2 sprays intranasal BID 30 days ketotifen fumarate 0.025%(0.035%) 1 drp ophthalmic (eye) BID lidocaine 5% 1 patch topical DAILY PRN montelukast (Singulair) 10 mg PO BEDTIME 3 months naloxone 4 mg/actuation (Narcan) 4 mg intranasal Q2M PRN pimecrolimus 1% 1 appl topical BEDTIME 30 days triamcinolone acetonide 0.1% 1 appl topical DAILY 30 days Tobacco use date assessed: 04/14/24 Dental Screening Dental Screen Date: 04/14/24 HPI pe HPI Details Patient is a 53-year-old male here today for annual physical. Patient has a past medical history significant for moderate persistent asthma, moderate to severe atopic dermatitis. .. Atopic dermatitis: His atopic dermatitis has been fairly well controlled with topical agents. Also suffers with allergic conjunctivitis to which he uses eyedrops for. He has ran out eyedrops and does not see his eye doctor told July in [place]. Needs refill on his eyedrops temporarily. .. Moderate persistent asthma: He reports his asthma has been fairly well controlled now on new maintenance inhaler, followed by [place] data integration developer . .. Ankylosing spondylitis: Patient now followed by Rheumatology and is looking to start disease modifying drug although was also seeing a artificial intelligence specialist about his lower back and hip pain in his waiting MRI of his low back and hip before starting disease modifying drug, waiting on insurance coverage. .. Colorectal cancer screening: Had colonoscopy in 2019- tubular adenomatous polyp found needs repeat in 2024 Vaccines: Up-to-date with COVID vaccine, up-to-date with tetanus vaccine, UTD pneumonia vaccine, considering Shingles vaccine. [facility] Medical History Allergic conjunctivitis Arthritis, lumbar spine Chronic left sacroiliac joint pain Deviated septum Atopic dermatitis Tubular adenoma Asthma Surgical History No pertinent past surgical history Family History Father No problems noted. 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 Cognitive needs: No Hearing needs: No Vision needs: No Questionnaire PHQ-9 Over the last 2 weeks, how often have you been bothered by any of the following problems? 1. Little interest or pleasure in doing things: not at all 2. Feeling down, depressed, or hopeless: not at all 3. Trouble falling or staying asleep, or sleeping too much: not at all 4. Feeling tired or having little energy: not at all 5. Poor appetite or overeating: not at all 6. Feeling bad about yourself - or that you are a failure or have let yourself or your family down: not at all 7. Trouble concentrating on things, such as reading the newspaper or watching television: not at all 8. Moving or speaking so slowly that other people could have noticed. Or the opposite - being so fidgety or restless that you have been moving around a lot more than usual: not at all 9. Thoughts that you would be better off or of hurting yourself in some way: not at all Total score: 0 Depression Screening Interpretation: Negative Depression Screening Done: Yes 29212 - PHQ-9 Billing: Yes Source: Developed by Drs. Fco Riddle, Svetlana Desai, Earnest Henson and colleagues, with an educational gisell from [employer]. Thrive Questionnaire Date Thrive assessed: 05/29/24 I am a: Patient What is your living situation today?: I have a steady place to live Within the past 12 months, did the food you bought not last and you didn't have the money to get more?: I choose not to answer this question Within the past 12 months, did you worry whether your food would run out before you got money to buy more?: I choose not to answer this question Do you have trouble paying for medicines?: I choose not to answer this question Do you have trouble getting transportation to medical appointments?: I choose not to answer this question Do you have trouble paying your heating and electricity bill?: I choose not to answer this question Do you have trouble taking care of your child, family member or friend?: I choose not to answer this question Do you have trouble with day-to-day activities such as bathing, preparing meals, shopping, managing finances, etc.?: I choose not to answer this question Are you currently unemployed and looking for a job?: I choose not to answer this question Are you interested in more education?: I choose not to answer this question Please select the resources that you would like help with: None Currently or been in a relationship where the following occur: I choose not to answer THRIVE Score: 0 AUDIT C Alcohol Use Questionnaire (AUDIT-C) 1. How often do you have a drink containing alcohol?: 4 or more times a week 2. How many drinks containing alcohol do you have on a typical day when you are drinking?: 5 or 6 3. How often do you have six or more drinks on one occasion?: Weekly Total Score: 9 EVY-7 AMB Questionnaire EVY-7 Date EVY - 7 assessed: 05/29/24 Feeling nervous, anxious, or on edge: 0 = Not at all Not being able to stop or control worryin = Not at all Worrying too much about different things: 0 = Not at all Trouble relaxin = Not at all Being so restless that it is hard to sit still: 0 = Not at all Becoming easily annoyed or irritable: 0 = Not at all Feeling afraid as if something awful might happen: 0 = Not at all Total EVY-7 score (0-4 normal; 5-9 mild; 10-14 moderate; 15-21 severe): 0 Source: Developed by Drs. Fco Riddle, Svetlana Desai, Earnest Henson and colleagues, with an educational gisell from [employer]. EVY-7 Assessment Billing EVY-7 Assessment Tool: EVY-7 Assessment 29623 Review of Systems Const Denies body aches, Denies chills, Denies excessive sweating, Denies fatigue, Denies fever(s) and Denies headache(s) Eyes Denies blurry vision ENT Denies dysphagia, Denies vertigo, Denies dizziness, Denies headache(s), Denies hearing loss and Denies tinnitus Card Denies chest pain, Denies chest pain with activity, Denies syncope, Denies irregular heart rhythm and Denies dyspnea Resp Denies chest congestion, Denies cough, Denies hemoptysis, Denies dyspnea and Denies wheezing GI Denies abdominal pain, Denies melena, Denies hematochezia, Denies coffee ground emesis, Denies dysphagia, Denies diarrhea, Denies nausea and Denies vomiting Denies difficulty urinating, Denies dysuria, Denies urinary frequency, Denies urinary hesitancy and Denies urinary urgency Musc Reports back pain, Reports arthralgias, Reports limited range of motion, Denies muscle cramps and Denies muscle weakness Skin/Breast Denies rash and Denies skin ulcer Neuro Denies Abnormal speech present, Denies confusion, Denies vertigo, Denies dizziness, Denies syncope, Denies headache(s), Denies memory loss and Denies seizure-like activity Psych Denies anxiety, Denies confusion, Denies depression, Denies memory loss, Denies panic attacks and Denies paranoia Endo Denies excessive sweating, Denies fatigue, Denies flushing, Denies polydipsia and Denies polyuria Aller/Immun Denies wheezing Physical exam (Primary Care) Vital Signs: Last Vital Signs Pulse 84 05/29/24 10:25 BP 112/80 05/29/24 10:25 Pulse Ox 96 05/29/24 10:25 Oxygen Delivery Method Room Air 05/29/24 10:25 BMI result Body Mass Index 26.1 Tobacco/Smoking Status: Tobacco use Status Tobacco use date assessed 04/14/24 05/29/24 10:23 Patient Tobacco Use Status Never used Tobacco 05/29/24 10:53 e-Cigarette/Vaping Use Never Used 05/29/24 10:53 PHQ-9: PHQ-9 Score PHQ-9: Total score 0 05/29/24 10:56 Depression Screening Interpretation: Negative Thrive Assessment: Date of Thrive Assessment Date Thrive assessed 05/29/24 05/29/24 10:23 Currently or been in a relationship where the following occur: I choose not to answer Const General: cooperative, comfortable, no acute distress, alert and awake; No confusion Orientation/consciousness: oriented to person, oriented to place, patient oriented x3 and No confusion HENMT Head: Yes normocephalic Ears: external ears normal and TM's normal bilaterally Face and sinus: No sinus tenderness Mouth: Normal oral and palatal mucosa present and tongue normal Teeth and gingiva: dentition normal and gingiva normal Throat: Yes posterior oropharynx normal, Yes tonsils normal and Yes uvula midline Eyes Conjunctivae: conjunctivae normal Sclerae: sclerae normal Pupils: Equal, round and reactive pupils present EOM: EOMs intact bilaterally Direct Ophthalmoscopy: No no photophobia Neck Neck: Yes no lymphadenopathy, No tender and Yes no JVD Thyroid: Thyroid normal Carotids: no bruits Chest Chest palpation & inspection: no tenderness Resp Effort & Inspection: normal respiratory effort, no audible wheezes, not labored and no stridor Auscultation: no crackles, no rales, no rhonchi and no wheezes Cardio Jugular venous distension: no JVD Rate: regular rate, not bradycardic and not tachycardic Rhythm: regular rhythm Bruits: no carotid bruits Peripheral pulses: Peripheral pulses 2+ throughout GI Inspection: Yes normal to inspection, No abdominal wall ecchymosis and No visible herniation Palpation (GI): Soft to palpation, nontender, no guarding, not rigid and No hepatosplenomegaly present Auscultation: normoactive bowel sounds General: Yes no CVA tenderness Back/Spine/Pelvis Back: no CVA tenderness and No back tenderness Cervical Spine: cervical ROM normal Thoracic/Lumbar Spine: thoracic and lumbar spine normal to inspection, straight leg raise negative bilaterally, No thoraco-lumbar ROM limited and No lumbar spinal tenderness Skin Lesions: no lesions Rashes: no rashes Wounds: no wounds Neuro General: oriented to person, oriented to place, patient oriented x3, CN's II-XI intact bilaterally and No confusion Cranial nerves: Yes Equal, round and reactive pupils present and Yes Normal accommodation reflex present Cognition (Neuro): normal cognition Speech: No Abnormal speech present Gait exam (Neuro): Normal gait present Motor exam (neuro): 5/5 motor strength present throughout Extrem Right upper extremity: full ROM; no cyanosis Left upper extremity: full ROM; no cyanosis Right lower extremity: no edema Left lower extremity: no edema Psych Appearance: grossly normal Mental Status: mental status grossly normal Affect: normal affect Attitude: cooperative Thought process: Normal thought process present Assessment and Plan Assessment & Plan (1) Annual physical exam: Code(s): Z00.00 - Encounter for general adult medical examination without abnormal findings (2) Ankylosing spondylitis: Comment: HLA b27 -ve dx 03/2024 Code(s): M45.9 - Ankylosing spondylitis of unspecified sites in spine Qualifiers: Ankylosing spondylitis location: sacrococcygeal region Qualified Code(s): M45.8 - Ankylosing spondylitis sacral and sacrococcygeal region Plan: As per HPI Will continue to follow rheumatology. Will consider starting a disease modifying drugs to reduce his pain. He is awaiting MRI of his lower lumbar spine and hips (3) Allergic rhinitis: Code(s): J30.9 - Allergic rhinitis, unspecified Qualifiers: Allergic rhinitis seasonality: non-seasonal Allergic rhinitis trigger: unspecified Qualified Code(s): J30.89 - Other allergic rhinitis Plan: Continues with daily inhalers and allergy medication. (4) Asthma: Comment: chronic prednisone to control symptoms Code(s): J45.909 - Unspecified asthma, uncomplicated Qualifiers: Asthma complication type: uncomplicated Asthma persistence: persistent Asthma severity: severe Qualified Code(s): J45.50 - Severe persistent asthma, uncomplicated Plan: Patient reports his asthma has been fairly stable. Does use an maintenance inhaler and albuterol inhaler on an as needed basis. Continues on daily allergy medication which has been. (5) Allergic conjunctivitis: Code(s): H10.10 - Acute atopic conjunctivitis, unspecified eye Qualifiers: Laterality: bilateral Qualified Code(s): H10.13 - Acute atopic conjunctivitis, bilateral Plan: Will be following up with an search marketing specialist in [place]. Does have a few eyedrops specialist for his allergic conjunctivitis. Needs refills on these eyedrops until he is able to see his eye doctor. Orders: Orders Comprehensive [place]. Panel Fast 05/29/24 Z13.1 - Encounter for screening for diabetes mellitus Complete Blood Count no Diff 05/29/24 J45.21 - Mild intermittent asthma with (acute) exacerbation Magnesium 05/29/24 M53.3 - Sacrococcygeal disorders, not elsewhere classified Medications: Changed From ketotifen fumarate 0.025%(0.035%) 1 drp ophthalmic (eye) BID H10.13 - Acute atopic conjunctivitis, bilateral To ketotifen fumarate 0.025%(0.035%) 1 drp ophthalmic (eye) BID 5 mL 0RF 30 days H10.13 - Acute atopic conjunctivitis, bilateral Coding Level of Care Code Est Pt Prev Care 40-64y(00444) Diagnoses Annual physical exam Z00.00 Ankylosing spondylitis of sacrococcygeal region M45.8 Ankylosing spondylitis location: sacrococcygeal region Non-seasonal allergic rhinitis, unspecified trigger J30.89 Allergic rhinitis seasonality: non-seasonal Allergic rhinitis trigger: unspecified Severe persistent asthma without complication J45.50 Asthma complication type: uncomplicated Asthma persistence: persistent Asthma severity: severe Allergic conjunctivitis of both eyes H10.13 Laterality: bilateral Additional Codes EVY-7 Assessment Billing - EVY-7 Assessment Tool: EVY-7 Assessment 97812 ([id number])
[2024-05-29 10:25] VITALS: BP 112/80; PULSE 84; O2SAT 96; BMI 26.1
== END 2024-05-29 11:35 | disposition home or self-care (01) ==
PROVIDERS: PCP Physician Assistant; Visit Provider Physician Assistant
DX: Z00.00 Encounter for general adult medical examination without abnormal findings (principal); M45.8 Ankylosing spondylitis sacral and sacrococcygeal region; J30.89 Other allergic rhinitis; J45.50 Severe persistent asthma, uncomplicated; H10.13 Acute atopic conjunctivitis, bilateral

== ENCOUNTER → 2024-05-29 10:18 | Outpatient (BNVA) | payer OTHER, SELFPAY | PROVIDERS: PCP Physician Assistant; Visit Provider Physician Assistant | DX: Z00.00 Encounter for general adult medical examination without abnormal findings (principal); J30.89 Other allergic rhinitis; J45.50 Severe persistent asthma, uncomplicated; H10.13 Acute atopic conjunctivitis, bilateral; M45.8 Ankylosing spondylitis sacral and sacrococcygeal region | CPT/HCPCS: 96127 ==

== ENCOUNTER 2024-06-10 10:49 | Outpatient (REF) | payer OTHER, SELFPAY ==
--- NOTE | ~2024-06-10 | MR_ITS ---
EXAMINATION: MR HIP WITHOUT AND WITH CONTRAST, LEFT CLINICAL INFORMATION: Severe left hip pain. COMPARISON: Left hip radiographs dated 05/08/2024. TECHNIQUE: MRI of the left hip was performed before and after the intravenous administration of 7.5 mL Gadavist on a high-field scanner. FINDINGS: ACETABULAR LABRUM: Linear fluid signal within the undersurface of the lateral labrum, consistent with a nondisplaced tear. Mild degenerative signal throughout the remaining labrum. ARTICULAR CARTILAGE/BONE: Geographic area of low T1/low T2 signal within the anterosuperior aspect of the femoral head measuring approximately 3.6 x 3.4 cm (AP x ML). There are small central areas of normal fat marrow signal. Mild adjacent marrow edema with minimal cortical depression along the periphery of the lesion measuring up to 0.1 cm, consistent with minimal cortical collapse. There is degenerative cystic change along the lateral aspect. Mild edema and enhancement extending into the femoral neck. Findings are consistent with acute on chronic avascular necrosis with minimal cortical collapse. Small focus of chronic avascular necrosis within the anterior aspect of the right femoral head on the large [id number] imaging measuring up to 1.4 cm. No additional lytic or blastic osseous lesion. MUSCLES/TENDONS: Mild proximal left hamstring tendinosis. No transverse tendon tear or tendon retraction. JOINT FLUID/BURSA: Small left hip joint effusion with mild synovitis. INTRAPELVIC STRUCTURES: Unremarkable. MR/MR hip LT wo/w con IMPRESSION: 1. Acute on chronic avascular necrosis within the anterosuperior aspect of the left femoral head measuring up to 3.6 cm with minimal cortical collapse. Degenerative cystic change along the lateral aspect of the femoral head as well as a small joint effusion and mild synovitis. 2. Small focus of chronic avascular necrosis within the anterior aspect of the right femoral head measuring up to 1.4 cm. 3. Nondisplaced undersurface tear of the lateral labrum with degenerative signal throughout the remaining labrum. 4. Mild proximal left hamstring tendinosis. No transverse tendon tear or tendon retraction. Electronically signed by: Boston Muir MD 06/12/2024 02:26 PM EDT
[2024-06-10] MEDS: gadobutroL 7.5 ML VIAL IVPUSH (11:54)
== END 2024-06-10 10:50 | disposition home or self-care (01) ==
LOC: HO.MRI 10:49
PROVIDERS: PCP Physician Assistant; Visit Provider Physician Assistant
DX: M25.552 Pain in left hip (principal)
CPT/HCPCS: 73723; A9585

== ENCOUNTER 2024-06-17 14:05 | Outpatient (AMB) | payer OTHER, SELFPAY ==
[2024-06-17 14:12] VITALS: BP 128/70; PULSE 61; O2SAT 98; BMI 25.4
--- NOTE | 2024-06-17 14:12 | A.OFFVIS_ITS ---
Vital Signs 06/17/24 14:12 Height 5 ft 7 in Weight 162 lb BMI 25.4 BP 128/70 Blood Pressure Location Lt brachial Position Sitting Pulse 61 Pulse Source Pulse Oximeter Pulse Oximetry (%) 98 Oxygen Delivery Method Room Air Intake Visit Reasons: Asthma Survey Crew Chief Required: No Allergies grass pollen Allergy (Mild, Verified 06/17/24 14:15) Itchy Eyes HPI Comments Details: The patient is a 53-year-old gentleman with a known history of asthma and severe a topic dermatitis and steroid dependent, who apparently has been having worsening respiratory symptoms for the last several months. he did have COVID that affected his respiratory capacity. The time he was finding in [place]. However, after COVID in the worsening respiratory symptoms he was not able to continue regularly. In August he started developing worsening respiratory symptoms. He was evaluated at that point with a chest x-ray demonstrating no acute disease. Subsequently in the springtime again he had worsening respiratory symptoms and he went to an urgent care. He was given a rescue inhaler in addition to prednisone for an asthma exacerbation. He did not have a chest x-ray. He was tested for COVID again and he was negative. He was given a course of a signal mycin during time. At this point the patient is feeling better although he still having episodes of shortness of breath and wheezing at times. He had been prescribed Advair HFA which has been helping. He does use his rescue inhaler more than twice a week. Therefore he was sent to Pulmonary for further evaluation. On further questioning he denies any significant exposure to mold or past. He had been tested for allergy sit in the past and he was found to have many allergies any at some point he did receive allergy shots. I was many years ago. also to note in regards of the eczema the patient was evaluated by Dermatology in the past. He was placed on Dupixent which was extremely helpful clearing up his the topic dermatitis. However, he started developing back pain and some issues with kidneys and therefore he stopped the Dupixent. His side effects did improve but unfortunately the eczema return. 05/23/2022 the patient is here for a pulmonary follow-up visit. Overall the patient is doing a little better on the breztri inhaler. Although he continues to have chest tightness and wheezing. Symptoms are usually worse at nighttime. He responds to his albuterol therapy. The patient also had been using prednisone on a regular basis. He is finds that prednisone does help with his symptoms. His blood work has demonstrated evidence of eosinophilia. But now on the prednisone there is no evidence of any significant eosinophilia. He did undergo blood work demonstrating severe allergies to numerous items on the list. Some of the allergies that were most severe were to dogs, trees and dust mites. The patient has never had anaphylaxis although he has had significant swelling of his mucus membranes. Therefore I will send him to the pharmacy a epinephrine pen. We did instruct him and his significant other on how to use it correctly. the patient is IgE was close to 1000. Therefore with his chronic prednisone use his severe asthma in his severe allergies the patient needs to be placed on biologic therapy with the hope that we can wean him off the prednisone. Based on his laboratory data I do believe that Tezspire would be most effective for him. We also reviewed his pulmonary function studies demonst rating small airway disease consistent with his asthma history. 08/25/2022 the patient is here for a pulmonary follow-up visit. He still struggling with his asthma. He is not able to get off the prednisone due to his significant allergies and her significant chest tightness. The patient already tried and failed Dupixent. Although it improved his respiratory capacity it resulting significant myalgias and arthralgias where he could not even walk. Those symptoms did get better once he stops the Dupixent. Does have the significant eosinophilia and significant elevations in his IgE. Therefore I do believe that the best option treated asthma would be to start Trezspire. however, it was denied by his insurance company. Will re-attempt to do so. If we cannot get him approved on Trezspire, then we can request and I will 5 inhibitor although it will not cover his significant allergic asthma completely. The main goal be to get him off the prednisone if able to do so. He has been on chronic prednisone and may have some degree of adrenal insufficiency. Therefore after very careful lowering the prednisone once he starts biologic therapy. Continues to use his respiratory inhalers with good adherence. 11/27/2022 the patient is here for a pulmonary follow-up visit. He is feeling a little better at this time. Unfortunately, he has not been able to start the biologic therapy. He still continues to be on prednisone. We try to get him on the new biologic, Tezspire, but was not covered by his insurance. Therefore will go ahead and try him on Xolair. He has already tried and failed multiple other biologics. The patient does have again severe asthma and requires chronic prednisone. He continues to use his maintenance inhalers with good effect. I did give information about the Xolair. I am hopeful that we can start that as soon as possible. Will still waiting for the approval from the insurance company. 02/12/2023 The patient is here for a follow up visit. Has been having worsening respiratory symptoms with chest tightness, wheezing and productive cough. Moderate in severity. No sleeping well. Using the nebulizer therapy several times a day. Has not started the biologic therapy. Will help him reach out to the pharmacy to start the process. In the meatime, he is on prednisone. We will have him start an antibiotics for bronchitis. 03/23/2023 the patient is here for pulmonary follow-up visit. He continues to wait for his biologic therapy. The patient actually has been doing fairly good. He is still on chronic prednisone however. Has been having his respiratory medications as prescribed. I did reach out to our nauseous see if she can help facilitate the process to try to get him his Xolair. The patient also may be a good candidate for Tezspire, bbut he was not from his insurance company unfortunately. No recent imaging studies to review. Will try to facilitate the biologic therapy as soon as possible. 10/04/2023 the patient is here for a pulmonary follow-up visit. He has been sick now for about a week. Complaint of URI like symptoms worsening cough and has hard time has not been able to sleep because of the coughing. Also having chest tightness and wheezing. He had some leftover prednisone he did started. In addition to that he has not start his biologic therapy. Apparently his insurance does not want approve it. Will go ahead and talk to our staff to see what else we can do to make sure that he gets the needed biologic therapies. The patient does require prednisone at this time for another exacerbation will give him also course of antibiotics for what appears to be a lower respiratory infection. The patient is also having significant left hip pain. He was referred to rheumatology. He is concerned that he is going to need some type of surgery. 02/01/2024 the patient is here for a pulmonary follow-up visit. Overall he has doing a little better. The patient has been able to be off the prednisone which is reassuring. He has been followed closely by allergy and has been getting allergy shots. The patient also has been using his respiratory medications with good effect. At least from a respiratory status doing better than he has not long time. Although he has been losing weight. He has been trying to exercise more regularly although he has significant arthritic changes due to his previous traumas. Will continue with current respiratory therapy. I will send him prednisone for him to hold. 06/17/2024 the patient is here for a pulmonary follow-up visit. He continues on his respiratory therapy. He has been able to be off the prednisone which is good. The patient did get a diagnosis of avascular necrosis of the hip. This is causing significant pain. Explained to him this is likely from the chronic prednisone use. The patient needs to find alternative therapies for severe asthma. We have been trying to get him on Xolair, but, been difficult to get it approved. Therefore we try getting him on Tezspire. Although that medication was not in the formulary. Therefore, will go ahead and request additional blood work and will request these Xolair as the best option for him. He has already tried and failed Fasenra in addition to Dupixent. He does have significant allergies with an elevated IgE level. [facility] Medical History Allergic conjunctivitis Arthritis, lumbar spine Chronic left sacroiliac joint pain Deviated septum Atopic dermatitis Tubular adenoma Asthma Surgical History No pertinent past surgical history Family History Father No problems noted. 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 Cognitive needs: No Hearing needs: No Vision needs: No Review of Systems Const Denies body aches, Denies chills, Reports difficulty sleeping, Denies excessive sweating, Denies fatigue, Denies fever(s), Denies headache(s) and Reports weight loss Eyes Denies blurry vision ENT Denies dysphagia, Denies vertigo, Denies dizziness, Denies headache(s), Denies hearing loss, Reports nasal congestion, Reports nasal discharge and Denies tinnitus Card Denies chest pain with activity, Denies syncope, Denies irregular heart rhythm and Reports dyspnea on exertion Resp Reports chest congestion, Reports cough, Denies hemoptysis, Reports dyspnea on exertion and Reports wheezing GI Denies abdominal pain, Denies melena, Denies hematochezia, Denies coffee ground emesis, Denies dysphagia, Denies diarrhea, Denies nausea and Denies vomiting Musc Reports abnormal gait, Reports arthralgias, Reports limited range of motion, Denies muscle cramps, Denies muscle weakness and Reports stiffness Skin/Breast Denies rash and Denies skin ulcer Neuro Denies Abnormal speech present, Reports abnormal gait, Denies vertigo, Denies dizziness, Denies syncope, Denies headache(s), Denies memory loss and Denies seizure-like activity Psych Denies anxiety, Denies depression, Denies memory loss, Denies panic attacks and Denies paranoia Endo Denies excessive sweating, Denies fatigue, Denies flushing, Denies polydipsia and Denies polyuria Aller/Immun Reports wheezing Physical Exam Vital Signs: Last Vital Signs Pulse 61 06/17/24 14:12 BP 128/70 06/17/24 14:12 Pulse Ox 98 06/17/24 14:12 Oxygen Delivery Method Room Air 06/17/24 14:12 BMI result Body Mass Index 25.4 Const General: comfortable HEENT Head: Yes atraumatic Neck Neck: Yes supple Chest Chest palpation & inspection: normal inspection of the chest Resp Effort & Inspection: normal respiratory effort Auscultation: no wheezes and diminished lung sounds Cardio Rate: regular rate Rhythm: regular rhythm Heart sounds: S1 normal heart sound present and S2 normal heart sound present GI Palpation (GI): Soft to palpation Skin Rashes: no rashes Neuro Speech: No Abnormal speech present Extrem General: Yes no clubbing, cyanosis or edema Assessment & Plan Assessment & Plan (1) Asthma: Comment: chronic prednisone to control symptoms Code(s): J45.909 - Unspecified asthma, uncomplicated Category: Medical Qualifiers: Asthma severity: severe Asthma persistence: persistent Asthma complication type: uncomplicated Qualified Code(s): J45.50 - Severe persistent asthma, uncomplicated (2) Allergic rhinitis: Code(s): J30.9 - Allergic rhinitis, unspecified Category: Medical Qualifiers: Allergic rhinitis trigger: unspecified Allergic rhinitis seasonality: non-seasonal Qualified Code(s): J30 - Other allergic rhinitis (3) Atopic dermatitis: Code(s): L20.9 - Atopic dermatitis, unspecified Category: Medical Qualifiers: Atopic dermatitis type: unspecified Qualified Code(s): L20.9 - Atopic dermatitis, unspecified (4) Deviated septum: Code(s): J34.2 - Deviated nasal septum Category: Medical (5) Bronchitis: Code(s): J40 - Bronchitis, not specified as acute or chronic Category: Medical Plan continue Breztri 2 puffs twice a day short-acting beta agonist as needed continue Singulair Still requesting Xolair, awaiting approval nebulizer therapy F/U in 4-6 months Orders: Orders Immunoglobulin E Today J45.50 - Severe persistent asthma, uncomplicated Erythrocyte Sedimentation Rate Today J45.50 - Severe persistent asthma, uncomplicated Complete Blood Count Auto Diff Today J45.50 - Severe persistent asthma, uncomplicated Medications: New epinephrine (EpiPen 2-Russ) for 2 doses 0.3 mg (0.3 mL) IM Q10M 30 days PRN 2 ea 6RF anaphylaxis J45.40 - Moderate persistent asthma, uncomplicated Coding Level of Care Code Est Pt Level 4 (57448) Diagnoses Severe persistent asthma without complication J45.50 Asthma severity: severe Asthma persistence: persistent Asthma complication type: uncomplicated Non-seasonal allergic rhinitis, unspecified trigger J30.89 Allergic rhinitis trigger: unspecified Allergic rhinitis seasonality: non-seasonal Atopic dermatitis, unspecified type L20.9 Atopic dermatitis type: unspecified Deviated septum J34.2 Bronchitis J40 Time Spent (min) 16
== END 2024-06-17 14:47 | disposition home or self-care (01) ==
PROVIDERS: PCP Physician Assistant; Visit Provider Hospitalist
DX: J45.50 Severe persistent asthma, uncomplicated (principal); J30.89 Other allergic rhinitis; L20.9 Atopic dermatitis, unspecified; J34.2 Deviated nasal septum; J40 Bronchitis, not specified as acute or chronic
CPT/HCPCS: 99214

== ENCOUNTER → 2024-06-17 14:05 | Outpatient (BNVA) | payer OTHER, SELFPAY | PROVIDERS: PCP Physician Assistant; Visit Provider Hospitalist ==

== ENCOUNTER 2024-06-25 07:48 | Outpatient (REF) | payer OTHER, SELFPAY ==
[2024-06-25 08:15] LABS: MANUAL DIFF FLAG NO
[2024-06-25 08:44] LABS: Hematocrit 40.5 % (42.0-52.0); Hemoglobin 13.6 g/dl (14.0-18.0); Mean Corpuscular HGB Conc 33.6 g/dl (31.0-36.0); Mean Corpuscular Hemoglobin 33.1 pg (27.0-33.0); Mean Corpuscular Volume 98.5 fL (80.0-98.0); Mean Platelet Volume 10.9 fL (9.4-12.4); Platelet Count 211 X10*3/uL (160-400); Red Blood Count 4.11 X10*6/uL (4.60-5.80); Red Cell Distribution Width 11.9 % (11.0-16.0); White Blood Count 5.4 X10*3/uL (4.8-10.8)
[2024-06-25 08:45] LABS: Basophils Percent Auto 0.8 % (0-2); Eosinophils Absolute Auto 0.2 X10*3/uL (0.0-0.4); Eosinophils Percent Auto 3.4 % (0-4); Hematocrit 40.9 % (42.0-52.0); Hemoglobin 13.5 g/dl (14.0-18.0); Imm Gran Abs Auto 0.01 X10*3/uL (0.00-0.03); Imm Gran Pct Auto 0.2 % (0.0-0.4); Lymphocytes Absolute Auto 1.5 X10*3/uL (1.2-4.9); Lymphocytes Percent Auto 27.6 % (20-40); Mean Corpuscular Hemoglobin 32.6 pg (27.0-33.0); Mean Corpuscular Volume 98.8 fL (80.0-98.0); Mean Platelet Volume 10.6 fL (9.4-12.4); Monocytes Absolute Auto 0.4 X10*3/uL (0.1-1.2); Monocytes Percent Auto 7.9 % (2-11); Neutrophils Absolute Auto 3.2 x10*3/uL (2.0-8.3); Neutrophils Percent Auto 60.1 % (45-73); Platelet Count 221 X10*3/uL (160-400); Red Blood Count 4.14 X10*6/uL (4.60-5.80); Red Cell Distribution Width 11.9 % (11.0-16.0); White Blood Count 5.3 X10*3/uL (4.8-10.8)
[2024-06-25 09:14] LABS: Alanine Aminotransferase 17 U/L (0-40); Albumin Level 4.1 g/dL (3.5-5.0); Alkaline Phosphatase 62 U/L (39-117); Anion Gap 11 (12-20); Aspartate Amino Transferase 18 U/L (5-37); Blood Urea Nitrogen 10 mg/dL (9-16); Calcium 9.4 mg/dL (8.4-10.2); Carbon Dioxide 26 mmol/L (22-29); Chloride 108 mmol/L (96-108); Estimated Glomerular Filt Rate > 60; Glucose Fasting 97 mg/dL (60-99); Magnesium 2.2 mg/dL (1.6-2.6); Potassium 3.6 mmol/L (3.3-5.1); Sodium 141 mmol/L (135-145); Total Protein 7.1 g/dL (6.5-8.0)
[2024-06-25 09:22] LABS: Erythrocyte Sedimentation Rate 23 MM/HR (0-15)
[2024-06-25 09:33] LABS: Prostate Specific Antigen Scr 0.22 ng/mL (<0.05-4.0)
[2024-06-26 22:14] LABS: Immunoglobulin E 847 kU/L (<OR=114)
== END 2024-06-25 07:49 | disposition home or self-care (01) ==
LOC: HO.LAB 07:48
PROVIDERS: Hospitalist; PCP Physician Assistant; Visit Provider Physician Assistant
DX: Z13.1 Encounter for screening for diabetes mellitus (principal); J45.21 Mild intermittent asthma with (acute) exacerbation; Z12.5 Encounter for screening for malignant neoplasm of prostate; M53.3 Sacrococcygeal disorders, not elsewhere classified; J45.50 Severe persistent asthma, uncomplicated
CPT/HCPCS: 36415; 80053; 82785; 83735; 84153; 85025; 85027; 85652

== ENCOUNTER 2024-07-04 11:19 | Outpatient (AMB) | payer OTHER, SELFPAY ==
[2024-07-04 11:29] VITALS: BMI 25.4
--- NOTE | 2024-07-04 11:29 | MHC.OFFVIS ---
Vital Signs 07/04/24 11:29 Height 5 ft 7 in Weight 162 lb BMI 25.4 Intake Visit Reasons: New Pt - Left Hip Pain Intake Note: Shaw is a 54 year old male who presents today as a new patient with complaints of left hip pain. Patient has reviously been seen with pain mgmt, Left L5-S1 TFESI injection on 04/01/24 and was prescribed Tylenol #. He has also seen spine who referred him for concerns of possible labral tear. IMPRESSION: 1. Acute on chronic avascular necrosis within the anterosuperior aspect of the left femoral head measuring up to 3.6 cm with minimal cortical collapse. Degenerative cystic change along the lateral aspect of the femoral head as well as a small joint effusion and mild synovitis. 2. Small focus of chronic avascular necrosis within the anterior aspect of the right femoral head measuring up to 1.4 cm. 3. Nondisplaced undersurface tear of the lateral labrum with degenerative signal throughout the remaining labrum. 4. Mild proximal left hamstring tendinosis. No transverse tendon tear or tendon retraction. Allergies grass pollen Allergy (Mild, Verified 07/04/24 11:29) Itchy Eyes HPI HPI New Pt - Left Hip Pain: Details: Shaw is a 54 year old male who presents today as a new patient with complaints of left hip pain. Patient has previously been seen with pain mgmt, Left L5-S1 TFESI injection on 04/01/24 and was prescribed Tylenol #3. He has also seen spine who referred him for concerns of possible labral tear. His MRI demonstrates avascular necrosis bilateral hips left greater than right. He describes severe and constant pain that has been present for at least 6 months. This compromises his ability to engage in daily activities. He has difficulty walking. He uses a cane. He has difficulty with stairs and getting into and out of automobiles as well as standing from a seated position. The pain localizes to his left groin and extends deep around his left hip. He has ankylosing spondylitis and a history of asthma and has taken steroids off and on for years including high-dose oral steroids. [facility] Medical History Allergic conjunctivitis Arthritis, lumbar spine Chronic left sacroiliac joint pain Deviated septum Atopic dermatitis Tubular adenoma Asthma Surgical History No pertinent past surgical history Family History Father No problems noted. 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 Cognitive needs: No Hearing needs: No Vision needs: No Physical Exam Vital Signs: BMI result Body Mass Index 25.4 Extrem Other: On exam he has a positive impingement test on the left hip with severe gait antalgia. Results Reviewed Results Reviewed: I personally reviewed the MR images. IMPRESSION: 1. Acute on chronic avascular necrosis within the anterosuperior aspect of the left femoral head measuring up to 3.6 cm with minimal cortical collapse. Degenerative cystic change along the lateral aspect of the femoral head as well as a small joint effusion and mild synovitis. 2. Small focus of chronic avascular necrosis within the anterior aspect of the right femoral head measuring up to 1.4 cm. 3. Nondisplaced undersurface tear of the lateral labrum with degenerative signal throughout the remaining labrum. 4. Mild proximal left hamstring tendinosis. No transverse tendon tear or tendon retraction. Assessment & Plan Assessment & Plan (1) Avascular necrosis of bone of left hip: Code(s): M87.052 - Idiopathic aseptic necrosis of left femur Category: Medical Plan: This is a 54-year-old gentleman with left hip avascular necrosis. He has been seen frequently by spine and does have spine pathology but his symptoms and gait and complaints all suggest hip pathology. This is consistent with his imaging. I reviewed his imaging with him and I recommend hip arthroplasty. I discussed the risks, benefits and alternatives combing moving but not limited to, the risk of infection, aseptic necrosis, fracture, need for further surgery, dislocation as well as medical complications associated with surgery. I suspect that the vast majority of his pain will improve with arthroplasty but given his long history SI joint and lumbar back pain it is not realistic to think that he will be pain free. He understands this and would like to proceed forward. I will begin the preoperative clearance process. Coding Level of Care Code New Pt Level 4 (26811) Diagnoses Avascular necrosis of bone of left hip M87.052
== END 2024-07-04 14:18 | disposition home or self-care (01) ==
PROVIDERS: PCP Physician Assistant; Visit Provider Orthopaedic Surgery
DX: M87.052 Idiopathic aseptic necrosis of left femur (principal)
CPT/HCPCS: 99204

== ENCOUNTER → 2024-07-04 11:19 | Outpatient (BNVA) | payer OTHER, SELFPAY | PROVIDERS: PCP Physician Assistant; Visit Provider Orthopaedic Surgery ==

== ENCOUNTER 2024-07-08 14:01 | Outpatient (AMB) | payer OTHER, SELFPAY ==
--- NOTE | 2024-07-08 14:04 | A.OFFVIS_ITS ---
Vital Signs 07/08/24 14:07 Height 5 ft 7 in Weight 174 lb 9.698 oz BMI 27.3 BP 122/70 Blood Pressure Location Lt brachial Position Sitting Pulse 69 Pulse Source Pulse Oximeter Pulse Oximetry (%) 98 Oxygen Delivery Method Room Air Intake Visit Reasons: RA/medical clearance/CM Intake Note: Patient presents for RA and medical clearance. Allergies grass pollen Allergy (Mild, Verified 07/08/24 14:07) Itchy Eyes Medication List - Last Reconciled 07/08/24 by Fab Jones MD acetaminophen (Tylenol) 325 mg PO Q4H PRN acetaminophen-codeine 300-30 mg 1 tab PO Q8H PRN 10 days albuterol sulfate 2.5 mg (3 mL) inhalation Q6H PRN 30 days albuterol sulfate 90 mcg/actuation 1 puff PO Q4H PRN 30 days amoxicillin-pot clavulanate 875-125 mg 1 tab PO BID 10 days bisacodyl (Dulcolax (bisacodyl)) 10 mg (2 x 5 mg) PO ONCE 1 day zvumaxvdny-rfrychuo-cofeonsxew 160-9-4.8 mcg/actuation (Breztri Aerosphere) 2 inhalations inhalation BID 30 days cyclobenzaprine 10 mg (2 x 5 mg) PO BEDTIME cyclosporine 0.09% (Cequa) 1 drp ophthalmic (eye) BID epinephrine (EpiPen 2-Russ) 0.3 mg (0.3 mL) IM Q10M PRN 30 days epinephrine (EpiPen 2-Russ) 0.3 mg (0.3 mL) IM Q10M PRN 30 days fluorometholone 0.25% 1 drp ophthalmic (eye) TID fluticasone propion-salmeterol 115-21 mcg/actuation (Advair HFA) 2 puffs inhalation BID 30 days fluticasone propionate 110 mcg/actuation (Flovent HFA) 1 puff PO BID gabapentin 300 mg PO TID 30 days ipratropium bromide 2 sprays intranasal BID 30 days ketotifen fumarate 0.025%(0.035%) 1 drp ophthalmic (eye) BID 30 days lidocaine 5% 1 patch topical DAILY PRN montelukast (Singulair) 10 mg PO BEDTIME 3 months naloxone 4 mg/actuation (Narcan) 4 mg intranasal Q2M PRN nebulizers As directed pimecrolimus 1% 1 appl topical BEDTIME 30 days prednisone PO daily; Take 2 tabs daily x 5 days, then 1 tablet daily x 5 days 10 days triamcinolone acetonide 0.1% 1 appl topical DAILY 30 days HPI Comments Details: 54-year-old male with ankylosing spondylitis returns for follow-up. Patient was evaluated by spine surgeon and had left hip MRI which showed a labral tear as well as avascular necrosis. He was evaluated by Orthopedics and left hip arthroplasty was recommended. He is scheduled for surgery on 09/24/2024. Patient stated that he just received his adalimumab bio similar a few days ago. He has not started it yet. He is referred here for preop clearance. He states that his left hip pain is improving now that he is using a cane. Initial history: This is a 53-year-old man who returns for evaluation of sacroiliitis. Patient has done numerous different martial arts note his life such as [employer], [employer], and others. He has had intermittent back pain through the years however over the last 1-2 and half years he has been having more severe left lower back, hip, groin pain. Morning stiffness of his back lasts at least 1 hour. Improved with walking around and stretching. SI joint x-rays showed left sacroiliitis, L-spine MRI showed bridging syndesmophytes. He was evaluated by Pain Management recently and had left SI joint injection with little relief. He is scheduled for left transforaminal epidural injection L5-S1 on 04/01. Patient has known history of severe eczema, asthma, eczema of his eyes. He was recently started on allergy shots by Dr. Smith. He denies any history suggestive of uveitis, inflammatory bowel disease. His mother had rheumatoid arthritis [facility] Medical History (Updated 07/08/24 @ 14:28 by Fab Jones MD) Allergic conjunctivitis Arthritis, lumbar spine Chronic left sacroiliac joint pain Deviated septum Atopic dermatitis Tubular adenoma Asthma Surgical History No pertinent past surgical history Family History Father No problems noted. Mother Rheumatoid arthritis Social History Housing: Apartment Alcohol intake: current Alcohol intake frequency: a few times a week Alcohol type: beer Patient Tobacco Use Status: Never used Tobacco e-Cigarette/Vaping Use: Never Used Second Hand Smoke Exposure: No Substance Use Type: Marijuana service: No Current occupational status: employed Current occupation: [employer] AT [id number] . Cognitive needs: No Hearing needs: No Vision needs: No Review of Systems Musc Reports back pain, Reports arthralgias and Reports stiffness Physical Exam Vital Signs: Last Vital Signs Pulse 69 07/08/24 14:07 BP 122/70 07/08/24 14:07 Pulse Ox 98 07/08/24 14:07 Oxygen Delivery Method Room Air 07/08/24 14:07 BMI result Body Mass Index 27.3 Const Other: Muscular General: cooperative, healthy appearing and comfortable Nutritional Appearance: average body habitus Orientation/consciousness: patient oriented x3 Limitations: no limitations HEENT Other: Erythematous discoloration of his eyelids Head: Yes normocephalic and Yes atraumatic Resp Effort & Inspection: normal respiratory effort and able to speak in complete sentences Skin Other: Eczematous rashes on his hands Neuro General: patient oriented x3 Extrem Other: Significantly antalgic gait Mild prominence of right ulnar styloid but no significant swelling Osteoarthritic changes of both hands with no active synovitis Normal nailfold capillaroscopy No nail pitting Assessment & Plan Assessment & Plan (1) Avascular necrosis of bone of left hip: Code(s): M87.052 - Idiopathic aseptic necrosis of left femur Category: Medical Plan: This is a 54-year-old male who presents for follow-up. I had a suspicion of ankylosing spondylitis based on left sacroiliitis on SI joint x-rays as well as bridging syndesmophytes on his L-spine MRI. Patient however was found to have left hip avascular necrosis. This likely explains his left hip symptomatology. This may be related to repeated courses of prednisone for his asthma and hip pains. He is here for preop clearance for hip arthroplasty. We discussed starting treatment with TNF therapy as patient had failed meloxicam. At this time I would like to hold off. Patient received his adalimumab bio similar shipment. Advised patient to hold off on treatment. Patient should proceed with his left hip replacement followed up by rehabilitation. Follow-up with us if he continues to have left hip symptomatology, to be re-evaluated for inflammatory arthritis. From Rheumatology standpoint, patient is not on any immune suppression. No objection to left hip replacement. Patient to get clearance from his strength and conditioning coach and PCP Plan I spent 15 minutes reviewing patient's chart, evaluating patient, counseling patient and documenting in the chart Medications: Discontinued adalimumab-aqvh (Yusimry(CF) Pen) Discontinued Reason: Doctor's Order 40 mg (0.8 mL) subcut Q2W 1.6 mL 2RF M45.8 - Ankylosing spondylitis sacral and sacrococcygeal region adalimumab-aqvh (Yusimry(CF) Pen) Discontinued Reason: Doctor's Order 40 mg (0.8 mL) subcut Q14D 1.6 mL 2RF Coding Level of Care Code Est Pt Level 3 (46550) Diagnoses Avascular necrosis of bone of left hip M87.052
[2024-07-08 14:07] VITALS: BP 122/70; PULSE 69; O2SAT 98; BMI 27.3
== END 2024-07-08 14:21 | disposition home or self-care (01) ==
LOC: HO.RHE 14:02
PROVIDERS: PCP Physician Assistant; Visit Provider Student in an Organized Health Care Education/Training Program
DX: M87.052 Idiopathic aseptic necrosis of left femur (principal)
CPT/HCPCS: 99213

== ENCOUNTER → 2024-07-08 14:01 | Outpatient (BNVA) | payer OTHER, SELFPAY | PROVIDERS: PCP Physician Assistant; Visit Provider Student in an Organized Health Care Education/Training Program ==

== ENCOUNTER → 2024-07-28 08:46 | Outpatient (BNVA) | payer OTHER, SELFPAY | PROVIDERS: PCP Physician Assistant | DX: Z01.818 Encounter for other preprocedural examination (principal) ==

== ENCOUNTER 2024-08-06 14:49 | Outpatient (AMB) | payer OTHER, SELFPAY ==
--- NOTE | 2024-08-06 12:55 | A.OFFPC_ITS ---
Vital Signs 08/06/24 14:51 Height 5 ft 7 in Weight 166 lb BMI 26.0 BP 122/70 Blood Pressure Location Lt brachial Position Sitting Pulse 69 Pulse Source Pulse Oximeter Pulse Oximetry (%) 98 Oxygen Delivery Method Room Air Intake Visit Reasons: [facility] w/Dr. Dubose 09/24/24 Intake Note: Patient is here for a Pre-op for L PETER scheduled with Dr. Dubose on 09/24/2024 Allergies grass pollen Allergy (Mild, Verified 08/06/24 15:10) Itchy Eyes Medication List - Last Reconciled 08/06/24 by Darby Monzon PA-C acetaminophen (Tylenol) 325 mg PO Q4H PRN acetaminophen-codeine 300-30 mg 1 tab PO Q8H PRN 10 days albuterol sulfate 2.5 mg (3 mL) inhalation Q6H PRN 30 days albuterol sulfate 90 mcg/actuation 1 puff PO Q4H PRN 30 days yfgjuzoqox-rptickvb-nrhruxiukd 160-9-4.8 mcg/actuation (Breztri Aerosphere) 2 inhalations inhalation BID 30 days cyclobenzaprine 10 mg (2 x 5 mg) PO BEDTIME cyclosporine 0.09% (Cequa) 1 drp ophthalmic (eye) BID epinephrine (EpiPen 2-Russ) 0.3 mg (0.3 mL) IM Q10M PRN 30 days epinephrine (EpiPen 2-Russ) 0.3 mg (0.3 mL) IM Q10M PRN 30 days fluorometholone 0.25% 1 drp ophthalmic (eye) TID fluticasone propion-salmeterol 115-21 mcg/actuation (Advair HFA) 2 puffs inhalation BID 30 days fluticasone propionate 110 mcg/actuation (Flovent HFA) 1 puff PO BID gabapentin 300 mg PO TID 30 days ketotifen fumarate 0.025%(0.035%) 1 drp ophthalmic (eye) BID 30 days lidocaine 5% 1 patch topical DAILY PRN montelukast (Singulair) 10 mg PO BEDTIME 3 months naloxone 4 mg/actuation (Narcan) 4 mg intranasal Q2M PRN nebulizers As directed pimecrolimus 1% 1 appl topical BEDTIME 30 days triamcinolone acetonide 0.1% 1 appl topical DAILY 30 days walker Folding front wheeled walker Tobacco use date assessed: 04/14/24 Dental Screening Dental Screen Date: 04/14/24 HPI L PETER w/Dr. Dubose 09/24/24 HPI Details 54-year-old male with past medical histo ry of moderate persistent asthma and severe atopic dermatitis last seen by [facility] coming in for preoperative v isit. Patient is scheduled for left total hip replacement with Dr. Dubose 09/24/2024. Patient has no acute concerns today. [facility] Medical History Allergic conjunctivitis Arthritis, lumbar spine Chronic left sacroiliac joint pain Deviated septum Atopic dermatitis Tubular adenoma Asthma Surgical History No pertinent past surgical history Family History Father No problems noted. Mother Rheumatoid arthritis Social History Housing: Apartment Alcohol intake: current Alcohol intake frequency: a few times a week Alcohol type: beer Patient Tobacco Use Status: Never used Tobacco e-Cigarette/Vaping Use: Never Used Second Hand Smoke Exposure: No Substance Use Type: Marijuana service: No Current occupational status: employed Current occupation: [employer] B[employer] . Cognitive needs: No Hearing needs: No Vision needs: No Questionnaire Thrive Questionnaire Date Thrive assessed: 05/29/24 AUDIT C Alcohol Use Questionnaire (AUDIT-C) 1. How often do you have a drink containing alcohol?: 4 or more times a week 2. How many drinks containing alcohol do you have on a typical day when you are drinking?: 5 or 6 3. How often do you have six or more drinks on one occasion?: Weekly Total Score: 9 EVY-7 AMB Questionnaire EVY-7 Date EVY - 7 assessed: 05/29/24 Source: Developed by Drs. Fco Riddle, Svetlana Desai, Earnest Henson and colleagues, with an educational gisell from [employer]. Review of Systems Const Denies body aches, Denies fatigue, Denies fever(s), Denies frequent falls, Denies headache(s) and Denies weakness Eyes Reports no additional complaints and Denies change in vision ENT Denies dysphagia, Denies dizziness, Denies facial pain, Denies headache(s), Denies nasal congestion and Denies odynophagia Card Denies chest pain, Denies syncope, Denies irregular heart rhythm, Denies leg edema, Denies lightheadedness and Denies dyspnea Resp Denies cough and Denies dyspnea GI Denies constipation, Denies dysphagia, Denies dyspepsia, Denies diarrhea, Denies nausea, Denies odynophagia and Denies vomiting Denies dysuria, Denies urinary frequency, Denies urinary hesitancy and Denies urinary urgency Musc Denies back pain and Denies myalgias Skin/Breast Reports system reviewed and no additional complaints, except as documented Neuro Denies dizziness, Denies syncope, Denies frequent falls, Denies headache(s) and Denies weakness Psych Reports no additional complaints Endo Denies fatigue Physical exam (Primary Care) Vital Signs: Last Vital Signs Pulse 69 08/06/24 14:51 BP 122/70 08/06/24 14:51 Pulse Ox 98 08/06/24 14:51 Oxygen Delivery Method Room Air 08/06/24 14:51 BMI result Body Mass Index 26.0 Tobacco/Smoking Status: Tobacco use Status Tobacco use date assessed 04/14/24 08/06/24 12:56 Patient Tobacco Use Status Never used Tobacco 08/06/24 12:56 e-Cigarette/Vaping Use Never Used 08/06/24 12:56 Thrive Assessment: Date of Thrive Assessment Date Thrive assessed 05/29/24 08/06/24 12:56 Const General: cooperative, healthy appearing, comfortable and no acute distress Orientation/consciousness: patient oriented x3 HENMT Head: Yes normocephalic Ears: hearing grossly normal bilaterally, TM's normal bilaterally and EAC's normal General nose exam: Normal external nose present Mouth: Normal oral and palatal mucosa present and oropharynx normal Throat: Yes posterior oropharynx normal Eyes General: appearance normal, both eyes and all related structures Conjunctivae: conjunctivae normal Neck Neck: Yes full ROM and Yes no lymphadenopathy Resp Effort & Inspection: normal respiratory effort Auscultation: clear to auscultation bilaterally, no crackles, no rales, no rhonchi and no wheezes Cardio Rate: regular rate Rhythm: regular rhythm Skin General skin exam: no rashes or lesions noted Neuro General: patient oriented x3 Gait exam (Neuro): Normal gait present Extrem General: Yes normal to inspection, Yes full ROM and No edema Psych Affect: normal affect Attitude: cooperative Insight: Good insight present (Psych) Judgement: Good judgement present (Psych) Coding Level of Care Code Est Pt Level 3 (59457) Diagnoses Pre-op exam Z01.818 Assessment & Plan Assessment & Plan (1) Pre-op exam: Code(s): Z01.818 - Encounter for other preprocedural examination Category: Medical Plan: Regarding preop clearance, the patient is at low-moderate risk for proposed surgery due to age and comorbidities. Reviewed with the patient that no surgery is completely free of risk and that this examination is to assist the surgeon in reviewing informed consent. Patient's medications were appropriate and discussed that all medications may be taken up until the day of the procedure. On the morning of the procedure all medications can be held with the exception of inhalers. As always please defer to the surgeon for discontinuation of medications. Patient is not on any disease modifying drugs, anticoagulants or antiplatelet medications. Ordered for updated blood work and EKG and addendum will be added to this note for surgical clearance once they have been reviewed. Plan This note was constructed using voice recognition software. While every effort has been made to ensure accuracy and client success specialist, still areas may have been included sometimes these areas may affect the content or meeting of the given symptoms. Total time spent caring for the patient today was 30 minutes. This includes time spent before the visit reviewing the chart, time spent during the visit, and time spent after the visit and documentation. Orders: Orders Complete Blood Count Auto Diff Today Z00.00 - Encounter for general adult medical examination without abnormal findings, Z01.818 - Encounter for other preprocedural examination Comprehensive Met. Panel Today Z00.00 - Encounter for general adult medical examination without abnormal findings, Z.818 - Encounter for other preprocedural examination ECG 12 lead EKG Today Z.818 - Encounter for other preprocedural examination Medications: Changed From acetaminophen (Tylenol) 325 mg PO Q4H PRN 30 caps 0RF pain Z.818 - Encounter for other preprocedural examination To acetaminophen 325 mg PO Q4H PRN 30 caps 0RF pain Z.818 - Encounter for other preprocedural examination
[2024-08-06 14:51] VITALS: BP 122/70; PULSE 69; O2SAT 98; BMI 26.0
== END 2024-08-06 15:27 | disposition home or self-care (01) ==
PROVIDERS: PCP Physician Assistant
DX: Z01.818 Encounter for other preprocedural examination (principal)

== ENCOUNTER → 2024-08-14 14:59 | Outpatient (REF) | payer OTHER, SELFPAY ==
--- NOTE | 2024-08-14 15:05 | ECG_ITS ---
Test Reason : pre op Blood Pressure : / mmHG Vent. Rate : 067 BPM Atrial Rate : 067 BPM P-R Int : 128 ms QRS Dur : 084 ms QT Int : 374 ms P-R-T Axes : 068 049 -04 degrees QTc Int : 395 ms Normal sinus rhythm Normal ECG When compared with ECG of 06-SEP-2009 11:51, No significant change was found Referred By: Darby Monzon Electronically Signed By:Jose Luis Regalado
[2024-08-14 15:28] LABS: MANUAL DIFF FLAG NO
[2024-08-14 15:38] LABS: Basophils Percent Auto 0.8 % (0-2); Eosinophils Absolute Auto 0.2 X10*3/uL (0.0-0.4); Eosinophils Percent Auto 2.9 % (0-4); Hematocrit 41.5 % (42.0-52.0); Hemoglobin 14.3 g/dl (14.0-18.0); Imm Gran Abs Auto 0.01 X10*3/uL (0.00-0.03); Imm Gran Pct Auto 0.2 % (0.0-0.4); Lymphocytes Absolute Auto 2.7 X10*3/uL (1.2-4.9); Lymphocytes Percent Auto 52.4 % (20-40); Mean Corpuscular HGB Conc 34.5 g/dl (31.0-36.0); Mean Corpuscular Hemoglobin 32.9 pg (27.0-33.0); Mean Corpuscular Volume 95.6 fL (80.0-98.0); Mean Platelet Volume 10.3 fL (9.4-12.4); Monocytes Absolute Auto 0.5 X10*3/uL (0.1-1.2); Monocytes Percent Auto 10.5 % (2-11); Neutrophils Absolute Auto 1.7 x10*3/uL (2.0-8.3); Neutrophils Percent Auto 33.2 % (45-73); Platelet Count 260 X10*3/uL (160-400); Red Blood Count 4.34 X10*6/uL (4.60-5.80); Red Cell Distribution Width 11.4 % (11.0-16.0); White Blood Count 5.1 X10*3/uL (4.8-10.8)
[2024-08-14 16:14] LABS: Alanine Aminotransferase 20 U/L (0-40); Albumin Level 4.2 g/dL (3.5-5.0); Alkaline Phosphatase 56 U/L (39-117); Anion Gap 11 (12-20); Aspartate Amino Transferase 21 U/L (5-37); Bilirubin Total 0.8 mg/dL (0.0-1.0); Blood Urea Nitrogen 10 mg/dL (9-16); Carbon Dioxide 28 mmol/L (22-29); Chloride 105 mmol/L (96-108); Estimated Glomerular Filt Rate > 60; Glucose Random 90 mg/dL (60-115); Potassium 3.9 mmol/L (3.3-5.1); Sodium 140 mmol/L (135-145); Total Protein 7.2 g/dL (6.5-8.0)
--- OUTSIDE RECORDS SUMMARY | 2024-08-20 04:13 | XMS_ITS | Continuity of Care Document ---
Author Organization [place] - [facility], Allergy Address [address] [place] [id number] Care Team Providers Care [employer] Operator Name Role Phone HERMELINDO JORGE Primary Care Provider Assessment Encounter Date Assessment Date Assessment LastModified by Organization Details LastModified Time 08/14/2024 08/14/2024 Administered By: KISHORE Sewell Use of Antihistamines: No If yes: Vial Test Change in medications: No If yes ?? Increase in asthma symptoms If yes, inhaler use: Reaction to last injections: No If yes: ?? Allergy Symptoms: Other: ?? Missed 1 week Dose Notes:?? [email or web address] Not available 08/14/2024 14:21:32 Plan of Treatment Reminders Order Date Submit Date Provider Last Modified By Organization Details Last Modified Time Details Appointments [facility]- Allergy f-up 6mon 2024 01:00P M BRIGITTE HANNA MD Not available Not available Not available Lab None recorded . Referral None recorded . Procedures None recorded . Surgeries None recorded . Imaging None recorded . Medication Orders None recorded . Patient TargetsNo targets recorded. Patient InstructionsNo instructions recorded. Reason for Referral None Reported. Problems Name Problem SNOMED Code Status Onset Date Resolution Date Notes Provider Name and Address Organization Details Recorded Time Chronic rhinitis 48258155 Active 2022 Chronic rhinitis; Note: Date Diagnosed : 03/01/2023 6:05 PM (J31.0) Not [facility] 02:25:39 Allergic rhinitis [id number] Active 2023 Allergic rhinitis: Due to other allergen; Note: Date Diagnosed : 09/28/2023 2:57 PM (477.8) Note: Date Diagnosed : 09/28/2023 2:57 PM (477.8) Allergi c rhinitis: Due to other allergen; Note: Date Diagnosed : 09/20/2023 11:26 AM (477.8) Note: Date Diagnosed : 09/20/2023 11:26 AM (477.8) ; Start Date : 4 Allergi c rhinitis: Due to other allergen; Note: Date Diagnosed : 3 3:53 PM (477.8) Note: Date Diagnosed : 3 3:53 PM (477.8) ; Start Date : 3 Other allergic rhinitis; Note: Date Diagnosed : 07/19/2023 3:30 PM (J30.89) Note: Date Diagnosed : 07/19/2023 3:30 PM (J30.89) ; Start Date : 3 Not Available [facility] 4 00:58:12 Perennial allergic rhinitis [id number] Active 2023 ROSA CELESTE, [facility] 100 [facility],[address], [address] , [facility] - [facility] 4 14:21:13 Problem Notes None recorded. Procedures Surgical History Date Name Laterality Status Provider Name and Address Organization Details Recorded Time 08/14/20 24 Allergy Immunotherapy Injections completed ROSA CELESTE [facility] [place], [address], [facility] - [facility] 08/14/2024 14:21:22 08/01/20 24 Allergy Immunotherapy Injections completed ROSA BUTTERFIELD [address] [place],[address], [address], [facility] - [facility] 08/01/2024 12:27:05 07/24/20 24 Allergy Immunotherapy Injections completed TULIO HYDE RN 100 [facility],[address], [address], [facility] - [facility] 07/24/2024 13:49:19 07/17/20 24 Allergy Immunotherapy Injections completed SAMANTHA SMITH [facility] 100 [facility],[address], [address], [place] - [facility] [place] [facility] 07/17/2024 11:15:01 07/10/20 24 Allergy Immunotherapy Injections completed GLADYS GARCIAA [address], [place], [address], [place] - [facility] [place] [facility] 07/10/2024 15:03:55 07/03/20 24 Allergy Immunotherapy Injections completed ROSA BUTTERFIELD RMA [address], [place], [address], [place] [facility] 07/03/2024 13:16:15 06/26/20 24 Allergy Immunotherapy Injections completed SAMANTHA SMITH RMA [address], [place], [address], [place] [facility] 2024 13:40:24 06/12/20 24 Allergy Immunotherapy Injections completed SAMANTHA SMITH RMA [address], [place], [address], [place] [facility] 06/12/2024 12:05:34 06/05/20 24 Allergy Immunotherapy Injections completed SAMANTHA SMITH RMA [address], [place], [address], [place] [facility] 06/05/2024 13:48:08 05/29/20 24 Allergy Immunotherapy Injections completed ROSA BUTTERFIELD RMA [address],[place] [address] [place] [address], [address], [place] [facility] 05/29/2024 11:48:28 05/23/20 24 Allergy Immunotherapy Injections completed TULIO HYDE, RESHMA [address], [place], [address], [place] [facility] 05/23/2024 15:43:37 05/16/20 24 Allergy Immunotherapy Injections completed ROSA BUTTERFIELD RMA [address], [place], [address], [place] [facility] 05/16/2024 14:12:21 05/09/20 24 Allergy Immunotherapy Injections completed SAMANTHA SMITH RMA [address], [place], [address], [place] [facility] 05/09/2024 14:23:57 04/18/20 24 Allergy Immunotherapy Injections completed KISHORE GARCIA [address], [place], [address], [place] [facility] 04/18/2024 14:58:29 04/08/20 24 Allergy Immunotherapy Injections completed TULIO HYDE RN [address], [place], [address], [place] [facility] 04/08/2024 14:53:53 03/25/20 24 Allergy Immunotherapy Injections completed KISHORE GARCIA [address], [place], [address], [place] [facility] 03/25/2024 14:50:22 03/14/20 24 Allergy Immunotherapy Injections completed ROSA BUTTERFIELD RMA [address], [place], [address], [place] [facility] 03/14/2024 14:07:58 02/28/20 24 Allergy Immunotherapy Injections completed KISHORE GARCIA [address], [place], [address], [place] [facility] 02/28/2024 13:06:11 02/21/20 24 Allergy Immunotherapy Injections completed KISHORE GARCIA [address], [place], [address], [place] [facility] 02/21/2024 11:27:51 02/12/20 24 Allergy Immunotherapy Injections completed ROSA BUTTERFIELD RMA [address], [place], [address], [place] [facility] 02/12/2024 14:32:23 02/01/20 24 Allergy Immunotherapy Injections completed GLADYS GARCIAA [address], [place], [address], [place] [facility] 02/01/2024 14:19:44 01/24/20 24 Allergy Immunotherapy Injections completed ROSA BUTTERFIELD RMA [address], [place], [address], [facility] - [facility] 01/24/2024 14:21:37 Imaging Results None recorded. Procedure Notes None recorded. Medical Equipment None Reported. Allergies No known drug allergies Medications Name Sig Start Date Stop Date Status Note LastModified by Organization Details LastModified Time cyclobenz aprine 10 mg tablet TAKE 1 TABLET BY MOUTH EVERYDAY AT BEDTIME active Not Available Not Available No t Available acetamino phen 325 mg tablet TAKE 1 TABLET ORALLY EVERY 4 HOURS NEEDED FOR PAIN 02/14 completed Not Available Not Available Not Available prednison e 10 mg tablet PLEASE SEE ATTACHED FOR DETAILED DIRECTIO NS active Not Available Not Available No t Available albuterol sulfate 2.5 mg/3 mL (0.083 %) solution for nebulizat ion INHALE 1 VIAL EVERY 6 HOURS NEEDED FOR SHORTNES S OF BREATH OR WHEEZING FOR 30 DAYS active Not Available Not Available No t Available ketotifen 0.025 % (0.035 %) eye drops PLACE 1 DROP INTO THE EYE(S) 2 TIMES A DAY FOR 30 DAYS active Not Available Not Available No t Available meloxicam 15 mg tablet TAKE 1 TABLET BY MOUTH EVERY DAY 02/14 completed Not Available Not Available Not Available acetamino phen 300 mg-codein e 30 mg tablet TAKE 1 TABLET BY MOUTH EVERY 8 HOURS NEEDED FOR PAIN 7 TO 10 ON PAIN SCALE active Not Available Not Available No t Available doxycycli ne monohydra te 100 mg tablet TAKE 1 TABLET BY MOUTH TWICE A DAY FOR 14 DAYS 02/14 completed Not Available Not Available Not Available triamcino lone acetonide 0.1 % topical cream APPLY TO AFFECTED AREA EVERY DAY active Not Available Not Available No t Available ketorolac 10 mg tablet TAKE 1 TABLET BY MOUTH THREE TIMES A DAY NEEDED FOR PAIN FOR 5 DAYS active Not Available Not Available No t Available lidocaine 5 % topical patch PLACE 1 PATCH TOPICALL Y DAILY NEEDED FOR PAIN LEAVE ON MOST PAINFUL AREA FOR UP TO 12 HRS active Not Available Not Available No t Available gabapenti n 300 mg capsule TAKE 1 CAPSULE BY MOUTH THREE TIMES A DAY NEEDED FOR PAIN active Not Available Not Available No t Available mont[address] st 10 mg tablet TAKE 1 TABLET BY MOUTH AT BEDTIME active Not Available Not Available No t Available lotepredn ol etabonate 0.5 % eye drops,wilfredo pension INSTILL 1 DROP INTO BOTH EYES DAILY active Not Available Not Available No t Available epinephri ne 0.3 mg/0.3 mL injection , auto-inje ctor 0.3 MG (0.3 ML) INTRAMUS CULARLY EVERY 10 MINUTES NEEDED FOR ANAPHYLA XIS FOR 30 DAYS FOR 2 DOSES active Not Available Not Available No t Available albuterol sulfate HFA 90 mcg/actua tion aerosol inhaler INHALE 1 PUFF ORALLY EVERY 4 HOURS NEEDED FOR WHEEZING active Not Available Not Available No t Available amoxicill in 875 mg-potass ium clavulana te 125 mg tablet TAKE 1 TABLET BY MOUTH TWICE A DAY X10 DAYS active Not Available Not Available No t Available cyclobenz aprine 5 mg tablet TAKE 2 TABLETS ORALLY BEDTIME FOR FOR MUSCLE SPASM active Not Available Not Available No t Available naloxone 4 mg/actuat ion nasal spray PLEASE SEE ATTACHED FOR DETAILED DIRECTIO NS active Not Available Not Available No t Available Cequa 0.09 % eye drops in a dropperet te INSTILL 1 DROP INTO BOTH EYES TWICE A DAY active Not Available Not Available No t Available Breztri Aerospher e 160 mcg-9mcg- 4.8mcg/ac tuation HFA aerosol inhaler active Medicati on ID: [id number] B rand Name: Lorenzaztri Aerosphe re Send Method: E-Prescr ibed Sub s Allowed: subs OK Speci al Instruct ion: TAKE 2 PUFFS BY MOUTH TWICE A DAY Medi cationGe nericNam e: Breztri Aerosphe re Not Available Not Available Not Available Vitals None Recorded Social History None recorded. Functional Status None recorded. Mental Status None recorded. Family History Nothing Reported. Medical History No medical history recorded. Past Encounters Encounter ID Performer Location Encounter Start Date Encounter Closed Date Diagnosis/Indication Diagnosis SNOMED-CT Code Diagnosis ICD10 Code [id number] KISHORE GARCIA Allergy 100 [facility] 100 [facility] [place] [address] 07/17/2024 10:59:58 07/17/2024 11:25:55 Perennial allergic rhinitis [id number] J30.89 [id number] TULIO HYDE RN Allergy 100 [facility],[place] [address] [address] [facility] [place] [address] 07/24/2024 13:28:27 07/24/2024 13:49:36 Perennial allergic rhinitis [id number] J30.89 [id number] ROSA CELESTE, RMA Allergy 100 [facility],[place] [address] [place] [address] 08/01/2024 12:25:52 08/01/2024 12:28:26 Perennial allergic rhinitis [id number] J30.89 [id number] ROSA CELESTE, RMA Allergy 100 [facility], [address] [place] [address] 08/14/2024 13:53:09 08/14/2024 14:24:50 Perennial allergic rhinitis [id number] J30.89 Health Concerns Section Related Observation LastModified by Organization Detai ls LastModified Time None Recorded Concern Status LastModified by Organization Details LastModified Time None Recorded Payers Encounter Date Sequence Insurance Name Policy Number Policy Elizabeth Covered Member ID Elizabeth Member ID Guarantor Name 08/14/2024 1 [facility] Shaw Vela [id number] Shaw Vela
--- OUTSIDE RECORDS SUMMARY | 2024-08-20 04:13 | XMS_ITS | Data Portability ---
Author Organization [place] - [facility], Allergy Address [address] [address] Care Team Providers Care Sales Attendant [employer] Name Role Phone HERMELINDO JORGE Primary Care Provider [phone] Assessment Encounter Date Assessment Date Assessment LastModified by Organization Details LastModified Time 07/10/2024 07/10/2024 Administered By: Giselle Pastrana Use of Antihistamines: Yes If yes: Daily Vial Test Change in medications: No If yes ?? Increase in asthma symptoms If yes, inhaler use: Reaction to last injections: No If yes: ?? Allergy Symptoms: Other: ?? Missed 1 week Dose Notes:?? [email or web address] Not available 07/10/2024 15:04:04 07/17/2024 07/17/2024 Administered By: Giselle Pastrana Use of Antihistamines: Yes If yes: Daily Vial Test Change in medications: No If yes ?? Increase in asthma symptoms If yes, inhaler use: Reaction to last injections: No If yes: ?? Allergy Symptoms: Other: ?? Missed 1 week Dose Notes:?? Not available 07/17/2024 11:15:07 07/24/2024 07/24/2024 Administered By: Tulio Hyde RN Use of Antihistamines: Yes If yes: Vial Test Change in medications: No If yes ?? Increase in asthma symptoms No If yes, inhaler use: Reaction to last injections: No If yes: ?? Allergy Symptoms: Other: ?? Missed 1 week Dose Notes:?? [email or web address] Not available 07/24/2024 13:48:23 07/31/2024 07/31/2024 Administered By: KISHORE Sewell Use of Antihistamines: Yes If yes: Vial Test Change in medications: No If yes ?? Increase in asthma symptoms If yes, inhaler use: Reaction to last injections: No If yes: ?? Allergy Symptoms: Other: ?? Missed 1 week Dose Notes:?? [email or web address] Not available 08/01/2024 12:27:16 08/14/2024 08/14/2024 Administered By: KISHORE Sewell Use of Antihistamines: No If yes: Vial Test Change in medications: No If yes ?? Increase in asthma symptoms If yes, inhaler use: Reaction to last injections: No If yes: ?? Allergy Symptoms: Other: ?? Missed 1 week Dose Notes:?? [email or web address] Not available 08/14/2024 14:21:32 Plan of Treatment Reminders Order Date Submit Date Provider Last Modified By Organization Details Last Modified Time Details Appointments [facility]- Allergy f-up 6mon 2024 01:00P M BRIGITTE [...] Address Organization Details Recorded Time Chronic rhinitis 25858860 Active 2022 Chronic rhinitis; Note: Date Diagnosed : 03/01/2023 6:05 PM (J31.0) Not Available [facility] 4 02:25:39 Allergic rhinitis 82909302 Active 2023 Allergic rhinitis: Due to other allergen; Note: Date Diagnosed : 09/28/2023 2:57 PM (477.8) Note: Date Diagnosed : 09/28/2023 2:57 PM (477.8) Allergi c rhinitis: Due to other allergen; Note: Date Diagnosed : 09/20/2023 11:26 AM (477.8) Note: Date Diagnosed : 09/20/2023 11:26 AM (477.8) ; Start Date : Allergi c rhinitis: Due to other allergen; Note: Date Diagnosed : 3 3:53 PM (477.8) Note: Date Diagnosed : 3 3:53 PM (477.8) ; Start Date : 3 Other allergic rhinitis; Note: Date Diagnosed : 07/19/2023 3:30 PM (J30.89) Note: Date Diagnosed : 07/19/2023 3:30 PM (J30.89) ; Start Date : 3 Not Available [facility] 4 00:58:12 Perennial allergic rhinitis 800123039 Active 2023 ROSA BUTTERFIELD, RMA [address], [place], [address] , [facility] 4 14:21:13 Problem Notes None recorded. Procedures Surgical History Date Name Laterality Status Provider Name and Address Organization Details Recorded Time 08/14/20 24 Allergy Immunotherapy Injections completed ROSA BUTTERFIELD RMA [address] [place] [address], [address], [facility] 08/14/2024 14:21:22 08/01/20 24 Allergy Immunotherapy Injections completed ROSA BUTTERFIELD RMA [address] [place] [address], [address], [facility] 08/01/2024 12:27:05 07/24/20 24 Allergy Immunotherapy Injections completed TULIO HYDE RN [address] [place] [address], [address], [facility] 07/24/2024 13:49:19 07/17/20 24 Allergy Immunotherapy Injections completed KISHORE GARCIA [address], [place], [address], [facility] 07/17/2024 11:15:01 07/10/20 24 Allergy Immunotherapy Injections completed KISHORE GARCIA [address], [place], [address], [facility] 07/10/2024 15:03:55 07/03/20 24 Allergy Immunotherapy Injections completed ROSA BUTTERFIELD RMA [address], [place], [address], [place] [facility] 07/03/2024 13:16:15 06/26/20 24 Allergy Immunotherapy Injections completed KISHORE GARCIA [address], [place], [address], [place] [facility] 2024 13:40:24 06/12/20 24 Allergy Immunotherapy Injections completed KISHORE GARCIA [address], [place], [address], [place] [facility] 06/12/2024 12:05:34 06/05/20 24 Allergy Immunotherapy Injections completed GISELLE PASTRANA RMA [address], [place], [address], [place] [facility] 06/05/2024 13:48:08 05/29/20 24 Allergy Immunotherapy Injections completed ROSA BUTTERFIELD RMA [address], [place], [address], [place] [facility] 05/29/2024 11:48:28 05/23/20 24 Allergy Immunotherapy Injections completed TULIO HYDE RN [address] [place] [address], [address], [place] [facility] 05/23/2024 15:43:37 05/16/20 24 Allergy Immunotherapy Injections completed ROSA BUTTERFIELD RMA [address] [place] [address], [address], [place] [facility] 05/16/2024 14:12:21 05/09/20 24 Allergy Immunotherapy Injections completed KISHORE GARCIA [address], [place], [address], [place] [facility] 05/09/2024 14:23:57 04/18/20 24 Allergy Immunotherapy Injections completed KISHORE GARCIA [address], [place], [address], [place] [facility] 04/18/2024 14:58:29 04/08/20 24 Allergy Immunotherapy Injections completed TULIO HYDE RN [address], [place], [address], [facility] 04/08/2024 14:53:53 03/25/20 24 Allergy Immunotherapy Injections completed KISHORE GARCIA [address], [place], [address], [facility] 03/25/2024 14:50:22 03/14/20 24 Allergy Immunotherapy Injections completed ROSA BUTTERFIELD RMA [address], [place], [address], [place] [facility] 03/14/2024 14:07:58 02/28/20 24 Allergy Immunotherapy Injections completed GISELLE PASTRANA GLADYSA [address], [place], [address], [facility] 02/28/2024 13:06:11 02/21/20 24 Allergy Immunotherapy Injections completed GLADYS GARCIAA [address], [place], [address], [facility] 02/21/2024 11:27:51 02/12/20 24 Allergy Immunotherapy Injections completed ROSA BUTTERFIELD RMA [address], [place], [address], [facility] 02/12/2024 14:32:23 02/01/20 24 Allergy Immunotherapy Injections completed GLADYS GARCIAA [address], [place], [address], [facility] 02/01/2024 14:19:44 01/24/20 24 Allergy Immunotherapy Injections completed ROSA BUTTERFIELD RMA [address], [place], [address], [facility] 01/24/2024 14:21:37 Imaging Results None recorded. Procedure [...] HFA aerosol inhaler active Medicati on ID: [id number] B rand Name: Haleytri Annalisephe re Send Method: E-Prescr ibed Sub s [...] Diagnosis/Indication Diagnosis SNOMED-CT Code Diagnosis ICD10 Code 562 HEATHER WILLIAMSON MD Allergy [address] [place] [address] 01/24/2024 14:19:11 01/25/2024 12:36:37 Perennial allergic rhinitis 287727951 J30.89 1526 GISELLE PASTRANA [facility] Allergy [address] [place] [address] 02/01/2024 14:18:47 02/01/2024 14:32:52 Perennial allergic rhinitis 287428983 J30.89 2723 ROSA BUTTERFIELD [facility] Allergy [address] [place] [address] 02/12/2024 13:35:10 02/12/2024 16:19:08 Perennial allergic rhinitis 305609588 J30.89 3173 BRIGITTE HANNA MD [facility] [address] [address] 02/15/2024 16:05:12 02/15/2024 16:58:27 Allergic rhinitis 43972708 J30.89 3934 GISELLE PASTRANA [address] [place] [address] 02/21/2024 10:37:54 02/21/2024 11:33:26 Perennial allergic rhinitis 640119386 J30.89 4928 GISELLE PASTRANA [facility] Allergy [address] [place] [address] [address] [place] [address] 02/28/2024 12:20:55 02/28/2024 12:26:50 Perennial allergic rhinitis [id number] J30.89 6692 [facility], [facility] Allergy [address] [place] [address] [address] [place] [address] 03/14/2024 13:09:40 03/14/2024 15:30:28 Perennial allergic rhinitis [id number] J30.89 8107 GISELLE PASTRANA [facility] Allergy [address] [place] [address] [address] [place] [address] 03/25/2024 14:43:48 03/26/2024 13:21:56 Perennial allergic rhinitis 474475145 J30.89 91019 TULIO HYDE RN Allergy [address] [place] [address] [address] [place] [address] 04/08/2024 13:17:46 04/08/2024 14:54:36 Perennial allergic rhinitis 104418038 J30.89 01054 GISELLE PASTRANA [facility] Allergy [address] [place] [address] [address] [place] [address] 04/18/2024 14:21:19 04/18/2024 15:35:40 Perennial allergic rhinitis 058930790 J30.89 45115 GISELLE PASTRANA [facility] Allergy [address] [place] [address],[place] [address] [place] [address] 05/09/2024 14:15:20 05/09/2024 15:19:41 Perennial allergic rhinitis 822392356 J30.89 [address]5097 [facility], [facility] Allergy [address] [place] [address] [address] [place] [address] 05/16/2024 14:06:07 05/16/2024 14:32:31 Perennial allergic rhinitis 279873768 J30.89 51414 TULIO HYDE RN Allergy [address] [place] [address],[place] [address] [place] [address] 05/23/2024 14:49:32 05/23/2024 15:43:57 Perennial allergic rhinitis 643178998 J30.89 69165 [facility] Allergy [address] [place] [address],[place] [address] [place] [address] 05/29/2024 11:37:06 05/29/2024 11:49:49 Perennial allergic rhinitis 662097274 J30.89 03434 GISELLE PASTRANA [facility] All[facility] [address] [place] [address],[place] [address] [place] [address] 06/05/2024 13:47:09 06/05/2024 13:50:45 Perennial allergic rhinitis 590676056 J30.89 48669 GISELLE PASTRANA [facility] Allergy [address] [place] [address], [address] [place] [address] 06/12/2024 12:04:31 06/12/2024 12:08:16 Perennial allergic rhinitis 159451098 J30.89 89354 GISELLE PASTRANA [facility] Allergy [address] [place] [address],[place] [address] [place] [address] 2024 13:08:56 2024 13:40:46 Perennial allergic rhinitis 913945784 J30.89 81270 [facility] Allergy [address] [place] [address],[place] [address] [place] [address] 07/03/2024 12:28:14 07/03/2024 13:16:56 Perennial allergic rhinitis 480572767 J30.89 89563 GISELLE PASTRANA [facility] All[facility] [address] [place] [address],[place] [address] [place] [address] 07/10/2024 14:55:43 07/10/2024 16:16:17 Perennial allergic rhinitis 543877847 J30.89 62752 GISELLE PASTRANA [facility] All[facility] [address] [place] [address],[place] [address] [place] [address] 07/17/2024 10:59:58 07/17/2024 11:25:55 Perennial allergic rhinitis 270561172 J30.89 68603 TULIO HYDE RN Allergy 100 [facility],[place] [address] [place] [address] 07/24/2024 13:28:27 07/24/2024 13:49:36 Perennial allergic rhinitis 560129765 J30.89 82374 ROSA CELESTE, [facility] Allergy 100 [facility],[place] [address] [place] [address] 08/01/2024 12:25:52 08/01/2024 12:28:26 Perennial allergic rhinitis 159121222 J30.89 [id number] ROSA CELESTE, [facility] Allergy 100 [facility], [address] [place] [address] 08/14/2024 13:53:09 08/14/2024 14:24:50 Perennial allergic rhinitis 433224536 J30.89 Health Concerns Section Related Observation LastModified by Organization Detai ls LastModified Time None Recorded Concern Status LastModified by Organization Details LastModified Time None Recorded Advance Directives Directive None Recorded Payers Encounter Date Sequence Insurance Name Policy Number Policy Elizabeth Covered Member ID Elizabeth Member ID Guarantor Name 07/10/2024 2 [employer] [facility] Vela [id number] Shaw Vela 07/17/2024 1 [employer] Shaw Vela [id number] Shaw Vela 07/24/2024 1 [employer] Shaw Vela [id number] Shaw Vela 07/31/2024 1 [employer] Shaw Vela [id number] Shaw Vela 08/14/2024 1 [employer] Shaw Vela [id number] Shaw Vela
== END ==
LOC: HO.CARD 14:59
PROVIDERS: PCP Physician Assistant
DX: Z01.818 Encounter for other preprocedural examination (principal)
CPT/HCPCS: 36415; 80053; 85025; 93005

== ENCOUNTER → 2024-08-14 15:05 | Outpatient (BNV) | payer OTHER, SELFPAY | PROVIDERS: PCP Physician Assistant; Visit Provider Internal Medicine Cardiovascular Disease | DX: Z01.810 Encounter for preprocedural cardiovascular examination (principal) | CPT/HCPCS: 93010 ==

== ENCOUNTER 2024-08-21 10:02 | Outpatient (AMB) | payer OTHER, SELFPAY ==
--- NOTE | 2024-08-21 10:04 | A.OFFVIS_ITS ---
Vital Signs 08/21/24 10:05 Height 5 ft 7 in Weight 170 lb 13.732 oz BMI 26.8 BP 140/88 H Blood Pressure Location Rt brachial Position Sitting Pulse 68 Pulse Source Pulse Oximeter Pulse Oximetry (%) 96 Oxygen Delivery Method Room Air Intake Visit Reasons: [facility]Dr. Dubose 09/24/24 Allergies grass pollen Allergy (Mild, Verified 08/21/24 10:10) Itchy Eyes HPI Comments Details: The patient is a 54-year-old gentleman with a known history of asthma and severe a topic dermatitis and steroid dependent, who apparently has been having worsening respiratory symptoms for the last several months. he did have COVID that affected his respiratory capacity. The time he was finding in [employer]. However, after COVID in the worsening respiratory symptoms he was not able to continue regularly. In August he started developing worsening respiratory symptoms. He was evaluated at that point with a chest x-ray demo nstrating no acute disease. Subsequently in the springtime again he had worsening respiratory symptoms and he went to an urgent care. He was given a rescue inhaler in addition to prednisone for an asthma exacerbation. He did not have a chest x-ray. He was tested for COVID again and he was negative. He was given a course of a signal mycin during time. At this point the patient is feeling better although he still having episodes of shortness of breath and wheezing at times. He had been prescribed Advair HFA which has been helping. He does use his rescue inhaler more than twice a week. Therefore he was sent to Pulmonary for further evaluation. On further questioning he denies any significant exposure to mold or past. He had been tested for allergy sit in the past and he was found to have many allergies any at some point he did receive allergy shots. I was many years ago. also to note in regards of the eczema the patient was evaluated by Dermatology in the past. He was placed on Dupixent which was extremely helpful clearing up his the topic dermatitis. However, he started developing back pain and some issues with kidneys and therefore he stopped the Dupixent. His side effects did improve but unfortunately the eczema return. 10/04/2023 the patient is here for a pulmonary follow-up visit. He has been sick now for about a week. Complaint of URI like symptoms worsening cough and has hard time has not been able to sleep because of the coughing. Also having chest tightness and wheezing. He had some leftover prednisone he did started. In addition to that he has not start his biologic therapy. Apparently his insurance does not want approve it. Will go ahead and talk to our staff to see what else we can do to make sure that he gets the needed biologic therapies. The patient does require prednisone at this time for another exacerbation will give him also course of antibiotics for what appears to be a lower respiratory infection. The patient is also having significant left hip pain. He was referred to rheumatology. He is concerned that he is going to need some type of surgery. 02/01/2024 the patient is here for a pulmonary follow-up visit. Overall he has doing a little better. The patient has been able to be off the prednisone which is reassuring. He has been followed closely by allergy and has been getting allergy shots. The patient also has been using his respiratory medications with good effect. At least from a respiratory status doing better than he has not long time. Although he has been losing weight. He has been trying to exercise more regularly although he has significant arthritic changes due to his previous traumas. Will continue with current respiratory therapy. I will send him prednisone for him to hold. 06/17/2024 the patient is here for a pulmonary follow-up visit. He continues on his respiratory therapy. He has been able to be off the prednisone which is good. The patient did get a diagnosis of avascular necrosis of the hip. This is causing significant pain. Explained to him this is likely from the chronic prednisone use. The patient needs to find alternative therapies for severe asthma. We have been trying to get him on Xolair, but, been difficult to get it approved. Therefore we try getting him on Tezspire. Although that medication was not in the formulary. Therefore, will go ahead and request additional blood work and will request these Xolair as the best option for him. He has already tried and failed Fasenra in addition to Dupixent. He does have significant allergies with an elevated IgE level. 08/21/2024 the patient is here for preoperative evaluation. Overall he is doing about the same. Still having some chest tightness at times. Does uses nebulizer. He has been using it a little more regularly the last week. Feels some chest congestion. He does have evidence of chronic bronchitis. Also has significant allergies likely contributing. He already tried and failed multiple biologic regimens. Now dealing with significant hip arthritis. He is going to need a total hip replacement. He continues to be on prednisone 10 mg. Will try to wean it off slowly so he can minimize on the prednisone effect and allow for better recovery and tissue healing after his surgery. In the meantime will continue to optimize his respiratory regimen. The patient is doing well from a pulmonary standpoint may be able to proceed with anesthesia and surgery at this time. [facility] Medical History Allergic conjunctivitis Arthritis, lumbar spine Chronic left sacroiliac joint pain Deviated septum Atopic dermatitis Tubular adenoma Asthma Surgical History No pertinent past surgical history Family History Father No problems noted. Mother Rheumatoid arthritis Social History Housing: Apartment Alcohol intake: current Alcohol intake frequency: a few times a week Alcohol type: beer Patient Tobacco Use Status: Never used Tobacco e-Cigarette/Vaping Use: Never Used Second Hand Smoke Exposure: No Substance Use Type: Marijuana service: No Current occupational status: employed Current occupation: [employer]- [employer] AT [employer] . Cognitive needs: No Hearing needs: No Vision needs: No Review of Systems Const Denies body aches, Denies chills, Reports difficulty sleeping, Denies excessive sweating, Denies fatigue, Denies fever(s), Denies headache(s) and Reports weight loss Eyes Denies blurry vision ENT Denies dysphagia, Denies vertigo, Denies dizziness, Denies headache(s), Denies hearing loss, Reports nasal congestion, Reports nasal discharge and Denies tinnitus Card Denies chest pain with activity, Denies syncope, Denies irregular heart rhythm and Reports dyspnea on exertion Resp Reports chest congestion, Reports cough, Denies hemoptysis, Reports dyspnea on exertion and Reports wheezing GI Denies abdominal pain, Denies melena, Denies hematochezia, Denies coffee ground emesis, Denies dysphagia, Denies diarrhea, Denies nausea and Denies vomiting Musc Reports abnormal gait, Reports arthralgias, Reports limited range of motion, Denies muscle cramps, Denies muscle weakness and Reports stiffness Skin/Breast Denies rash and Denies skin ulcer Neuro Denies Abnormal speech present, Reports abnormal gait, Denies vertigo, Denies dizziness, Denies syncope, Denies headache(s), Denies memory loss and Denies seizure-like activity Psych Denies anxiety, Denies depression, Denies memory loss, Denies panic attacks and Denies paranoia Endo Denies excessive sweating, Denies fatigue, Denies flushing, Denies polydipsia and Denies polyuria Aller/Immun Reports wheezing Physical Exam Vital Signs: Last Vital Signs Pulse 68 08/21/24 10:05 BP 140/88 H 08/21/24 10:05 Pulse Ox 96 08/21/24 10:05 Oxygen Delivery Method Room Air 08/21/24 10:05 BMI result Body Mass Index 26.8 Const General: comfortable HEENT Head: Yes atraumatic Neck Neck: Yes supple Chest Chest palpation & inspection: normal inspection of the chest Resp Effort & Inspection: normal respiratory effort Auscultation: no wheezes and diminished lung sounds Cardio Rate: regular rate Rhythm: regular rhythm Heart sounds: S1 normal heart sound present and S2 normal heart sound present GI Palpation (GI): Soft to palpation Skin Rashes: no rashes Neuro Speech: No Abnormal speech present Extrem General: Yes no clubbing, cyanosis or edema Assessment & Plan Assessment & Plan (1) Pre-op chest exam: Code(s): Z01.811 - Encounter for preprocedural respiratory examination Category: Medical (2) Asthma: Comment: chronic prednisone to control symptoms Code(s): J45.909 - Unspecified asthma, uncomplicated Category: Medical Qualifiers: Asthma complication type: uncomplicated Asthma persistence: persistent Asthma severity: severe Qualified Code(s): J45.50 - Severe persistent asthma, uncomplicated (3) Allergic rhinitis: Code(s): J30.9 - Allergic rhinitis, unspecified Category: Medical Qualifiers: Allergic rhinitis seasonality: non-seasonal Allergic rhinitis trigger: unspecified Qualified Code(s): J30.89 - Other allergic rhinitis (4) Atopic dermatitis: Code(s): L20.9 - Atopic dermatitis, unspecified Category: Medical Qualifiers: Atopic dermatitis type: unspecified Qualified Code(s): L20.9 - Atopic dermatitis, unspecified (5) Deviated septum: Code(s): J34.2 - Deviated nasal septum Category: Medical Plan The patient seems to be doing well from a pulmonary standpoint may be able to proceed with anesthesia and Orthopedic surgery at this time. The patient does carry moderate risk for perioperative pulmonary complications which include; bronchospasms and wheezing, atelectasis, hypoxia, pneumonia. Patient will be medically optimize at this time and may be able to proceed with surgery Prednisone taper taking 10 mg at baseline. Will taper down to 5 mg then 5 mg every other day until off completely Start budesonide via nebulizer plus or minus albuterol Start azithromycin Sunday for chronic bronchitis for 6-8 weeks Breztri 2 puffs twice a day short-acting beta agonist as needed continue Singulair Still requesting Xolair, awaiting approval nebulizer therapy F/U in 3-4 months Medications: New budesonide 0.5 mg (2 mL) inhalation BID 120 mL 11RF 30 days J44.9 - Chronic obstructive pulmonary disease, unspecified azithromycin Take 1 tablet on Sunday/Sunday/Sunday 250 mg PO 3XW 12 tabs 6RF 28 days K21.9 - Gastro-esophageal reflux disease without esophagitis Refilled [id number]-[id number] 160-9-4.8 mcg/actuation (Breztri Aerosphere) 2 inhalations inhalation BID 10.7 ea 11RF 30 days Coding Level of Care Code Est Pt Level 4 (04051) Diagnoses Pre-op chest exam Z01.811 Severe persistent asthma without complication J45.50 Asthma complication type: uncomplicated Asthma persistence: persistent Asthma severity: severe Non-seasonal allergic rhinitis, unspecified trigger J30.89 Allergic rhinitis seasonality: non-seasonal Allergic rhinitis trigger: unspecified Atopic dermatitis, unspecified type L20.9 Atopic dermatitis type: unspecified Deviated septum J34.2 Time Spent (min) 16
[2024-08-21 10:05] VITALS: BP 140/88; PULSE 68; O2SAT 96; BMI 26.8
--- OUTSIDE RECORDS SUMMARY | 2024-08-21 10:10 | XMS_ITS | Continuity of Care Document ---
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 Missed 1 week Dose Notes:?? [email or web address] Not available 07/10/2024 15:04:04 Plan of Treatment Reminders Order Date Submit Date Provider Last Modified By Organization Details Last Modified Time Details Appointments [facility]- Allergy f-up 6mon 2024 01:00P M BRIGITTE [...] Address Organization Details Recorded Time Chronic rhinitis 28170274 Active 2022 Chronic rhinitis; Note: Date Diagnosed : 03/01/2023 6:05 PM (J31.0) Not Available [facility] 02:25:39 Allergic rhinitis 15367943 Active 2023 Allergic rhinitis: Due to other [...] ; Start Date : 3 Not Available [facility] hospital 4 00:58:12 Perennial allergic rhinitis 396556094 Active 2023 ROSA CELESTE, [facility] [place],[address], [address] , [facility] - [facility] 4 14:21:13 Problem Notes None recorded. Procedures Surgical History Date Name Laterality Status Provider Name and Address Organization Details Recorded Time 08/14/20 24 Allergy Immunotherapy Injections completed ROSA BUTTERFIELD [facility] [place] [address] [place] [address], [phone], [facility] - [facility] 08/14/2024 14:21:22 08/01/20 24 Allergy Immunotherapy Injections completed ROSA BUTTERFIELD [facility] [place],[address], [address], [facility] - [facility] 08/01/2024 12:27:05 07/24/20 24 Allergy Immunotherapy Injections completed TULIO HYDE RN 100 [facility],[address], [address], [facility] - [facility] 07/24/2024 13:49:19 07/17/20 24 Allergy Immunotherapy Injections completed GISELLE PASTRANA Carlos [facility] [place],[address], [address], [place] - [facility] 07/17/2024 11:15:01 07/10/20 24 Allergy Immunotherapy Injections completed GLADYS GARCIAA [address],[place] [address], [place], [address], [place] - [facility] 07/10/2024 15:03:55 07/03/20 24 Allergy Immunotherapy Injections completed ROSA BUTTERFIELD RMA [address],[place] [address], [place], [address], [place] - [facility] 07/03/2024 13:16:15 06/26/20 24 Allergy Immunotherapy Injections completed GISELLE PASTRANA RMA [address],[place] [address], [place], [address], [place] - [facility] 2024 13:40:24 06/12/20 24 Allergy Immunotherapy Injections completed GISELLE PASTRANA RMA [address],[place] [address], [place], [address], [place] - [facility] 06/12/2024 12:05:34 06/05/20 24 Allergy Immunotherapy Injections completed GISELLE PASTRANA RMA [address],[place] [facility], [place], [address], [place] - [facility] 06/05/2024 13:48:08 05/29/20 24 Allergy Immunotherapy Injections completed ROSA BUTTERFIELD RMA [address] [address], [place], [address], [place] - [facility] 05/29/2024 11:48:28 05/23/20 24 Allergy Immunotherapy Injections completed TULIO HYDE RN [address] [address], [place], [address], [place] - [facility] 05/23/2024 15:43:37 05/16/20 24 Allergy Immunotherapy Injections completed ROSA BUTTERFIELD RMA [address] [address], [place], [address], [place] - [facility] 05/16/2024 14:12:21 05/09/20 24 Allergy Immunotherapy Injections completed GISELLE PASTRANA RMA [address] [address], [place], [address], [place] - [facility] 05/09/2024 14:23:57 04/18/20 24 Allergy Immunotherapy Injections completed KISHORE GARCIA [address],[place] [address], [place], [address], [place] - [facility] 04/18/2024 14:58:29 04/08/20 24 Allergy Immunotherapy Injections completed TULIO HYDE RN [address] [address], [place], [address], [place] - [facility] 04/08/2024 14:53:53 03/25/20 24 Allergy Immunotherapy Injections completed KISHORE GARCIA [address],[place] [address], [place], [address], [place] - [facility] 03/25/2024 14:50:22 03/14/20 24 Allergy Immunotherapy Injections completed ROSA BUTTERFIELD RMA [address] [address], [place], [address], [place] - [facility] 03/14/2024 14:07:58 02/28/20 24 Allergy Immunotherapy Injections completed KISHORE GARCIA [address] [address], [place], [address], [place] - [facility] 02/28/2024 13:06:11 02/21/20 24 Allergy Immunotherapy Injections completed KISHORE GARCIA [address] [address], [place], [address], [place] - [facility] 02/21/2024 11:27:51 02/12/20 24 Allergy Immunotherapy Injections completed ROSA BUTTERFIELD RMA [address] [address], [place], [address], [place] - [facility] 02/12/2024 14:32:23 02/01/20 24 Allergy Immunotherapy Injections completed KISHORE GARCIA [address] [address], [place], [address], [place] - [facility] 02/01/2024 14:19:44 01/24/20 24 Allergy Immunotherapy Injections completed ROSA BUTTERFIELD RMA [address], [place], [address], [facility] - [facility] 01/24/2024 14:21:37 Imaging Results None recorded. [...] HFA aerosol inhaler active Medicati on ID: [id number] B rand Name: Haleytri Aerosphe re Send Method: E-Prescr ibed Sub [...] Diagnosis/Indication Diagnosis SNOMED-CT Code Diagnosis ICD10 Code [id number] KISHORE GARCIA Allergy 100 [facility] 100 [place] [address] 06/12/2024 12:04:31 06/12/2024 12:08:16 Perennial allergic rhinitis 881280406 J30.89 [id number] KISHORE GARCIA Allergy 100 [facility], [place] 100 [place] [address] 2024 13:08:56 2024 13:40:46 Perennial allergic rhinitis 143287471 J30.89 63711 ROSA CELESTEKelsi, A Allergy 100 [facility],[place] [address] [place] [address] 07/03/2024 12:28:14 07/03/2024 13:16:56 Perennial allergic rhinitis 454970479 J30.89 83448 GISELLECarlos PASTRANA A Allergy 100 [facility],[place] [address] [place] [address] 07/10/2024 14:55:43 07/10/2024 16:16:17 Perennial allergic rhinitis 284041718 J30.89 Health Concerns Section Related Observation LastModified by Organization Detai ls LastModified Time None Recorded Concern Status LastModified by Organization Details LastModified Time None Recorded Payers Encounter Date Sequence Insurance Name Policy Number Policy Elizabeth Covered Member ID Elizabeth Member ID Guarantor Name 07/10/2024 2 [employer] - [facility] Shaw Vela [id number] Shaw Vela
--- OUTSIDE RECORDS SUMMARY | 2024-08-21 10:10 | XMS_ITS | Data Portability ---
Author Organization [place] - [facility], Allergy Address [address] [address] Care Team Providers Care Musician Instrumental Name Role Phone HERMELINDO JORGE Primary Care [...] Missed 1 week Dose Notes:?? Not available 07/10/2024 15:04:04 07/17/2024 07/17/2024 Administered [...] Organization Details Last Modified Time Details Appointments [facility]- Allergy f-up 6mon 2024 01:00P [...] Address Organization Details Recorded Time Chronic rhinitis 85650124 Active 2022 Chronic rhinitis; Note: Date Diagnosed : 03/01/2023 6:05 PM (J31.0) Not Available [facility] 4 02:25:39 Allergic rhinitis 80006639 Active 2023 Allergic rhinitis: Due to other [...] ; Start Date : 3 Not Available [facility] 4 00:58:12 Perennial allergic rhinitis 572022164 Active 2023 ROSA BUTTERFILED, RMA [address], [place], [address] , [facility] - [facility] 4 14:21:13 Problem Notes None recorded. Procedures Surgical History Date Name Laterality Status Provider Name and Address Organization Details Recorded Time 08/14/20 24 Allergy Immunotherapy Injections completed ROSA BUTTERFIELD RMA [address],[place] [address] [place] [address], [phone], [facility] - [facility] 08/14/2024 14:21:22 08/01/20 24 Allergy Immunotherapy Injections completed ROSA BUTTERFIELD RMA [address],[place] [address] [place] [address], [phone], [facility] - [facility] 08/01/2024 12:27:05 07/24/20 24 Allergy Immunotherapy Injections completed TULIO HYDE RN [address],[place] [address] [place] [address], [address], [facility] - [facility] 07/24/2024 13:49:19 07/17/20 24 Allergy Immunotherapy Injections completed KISHORE GARCIA [address], [place], [address], [facility] - [facility] 07/17/2024 11:15:01 07/10/20 24 Allergy Immunotherapy Injections completed KISHORE GARCIA [address], [place], [address], [facility] - [facility] 07/10/2024 15:03:55 07/03/20 24 Allergy Immunotherapy Injections completed ROSA BUTTERFIELD RMA [address], [place], [address], [place] [facility] [place] 07/03/2024 13:16:15 06/26/20 24 Allergy Immunotherapy Injections completed KISHORE GARCIA [address], [place], [address], [place] [facility] [place] 2024 13:40:24 06/12/20 24 Allergy Immunotherapy Injections completed KISHORE GARCIA [address], [place], [address], [place] [facility] [place] 06/12/2024 12:05:34 06/05/20 24 Allergy Immunotherapy Injections completed GISELLE PASTRANA RMA [address], [place], [address], [place] [facility] [place] 06/05/2024 13:48:08 05/29/20 24 Allergy Immunotherapy Injections completed ROSA BUTTERFIELD RMA [address], [place], [address], [place] [facility] [place] 05/29/2024 11:48:28 05/23/20 24 Allergy Immunotherapy Injections completed TULIO HYDE RN [address] [place] [address], [address], [place] [facility] [place] 05/23/2024 15:43:37 05/16/20 24 Allergy Immunotherapy Injections completed ROSA BUTTERFIELD RMA [address] [place] [address], [address], [place] [facility] 05/16/2024 14:12:21 05/09/20 24 Allergy Immunotherapy Injections completed KISHORE GARCIA [address], [place], [address], [place] [facility] [place] 05/09/2024 14:23:57 04/18/20 24 Allergy Immunotherapy Injections completed KISHORE GARCIA [address], [place], [address], [place] [facility] [place] 04/18/2024 14:58:29 04/08/20 24 Allergy Immunotherapy Injections completed TULIO HYDE RN [address], [place], [address], [facility] - [facility] [place] 04/08/2024 14:53:53 03/25/20 24 Allergy Immunotherapy Injections completed KISHORE GARCIA [address], [place], [address], [facility] - [facility] [place] 03/25/2024 14:50:22 03/14/20 24 Allergy Immunotherapy Injections completed ROSA BUTTERFIELD RMA [address], [place], [address], [place] [facility] [place] 03/14/2024 14:07:58 02/28/20 24 Allergy Immunotherapy Injections completed GISELLE PASTRANA GLADYSA [address], [place], [address], [facility] - [facility] 02/28/2024 13:06:11 02/21/20 24 Allergy Immunotherapy Injections completed GLADYS GARCIAA [address], [place], [address], [facility] - [facility] 02/21/2024 11:27:51 02/12/20 24 Allergy Immunotherapy Injections completed ROSA BUTTERFIELD RMA [address], [place], [address], [facility] - [facility] 02/12/2024 14:32:23 02/01/20 24 Allergy Immunotherapy Injections completed GLADYS GARCIAA [address], [place], [address], [facility] - [facility] 02/01/2024 14:19:44 01/24/20 24 Allergy Immunotherapy Injections completed ROSA BUTTERFIELD RMA [address], [place], [address], [facility] - [facility] 01/24/2024 14:21:37 Imaging Results None recorded. [...] HFA aerosol inhaler active Medicati on ID: [id number] rand Name: Haleytri Annalisephe re Send [...] ICD10 Code 562 HEATHER WILLIAMSON MD Allergy [address] [place] [address] 01/24/2024 14:19:11 01/25/2024 12:36:37 Perennial allergic rhinitis 668308024 J30.89 1526 GISELLE PASTRANA [facility] Allergy [address] [place] [address] 02/01/2024 14:18:47 02/01/2024 14:32:52 Perennial allergic rhinitis 934061698 J30.89 2723 ROSA BUTTERFIELD [facility] Allergy [address] [place] [address] 02/12/2024 13:35:10 02/12/2024 16:19:08 Perennial allergic rhinitis 744508366 J30.89 3173 BRIGITTE HANNA MD [facility] [address] [address] 02/15/2024 16:05:12 02/15/2024 16:58:27 Allergic rhinitis 46558943 J30.89 3934 GIESLLE PASTRANA [address] [place] [address] 02/21/2024 10:37:54 02/21/2024 11:33:26 Perennial allergic rhinitis 932660058 J30.89 4928 GISELLE PASTRANA [facility] Allergy [address] [place] [address] [address] [place] [address] 02/28/2024 12:20:55 02/28/2024 12:26:50 Perennial allergic rhinitis 336040721 J30.[address] [facility], [facility] Allergy [address] [place] [address] [address] [place] [address] 03/14/2024 13:09:40 03/14/2024 15:30:28 Perennial allergic rhinitis 240106153 J30.89 8107 GISELLE PASTRANA [facility] Allergy [address] [place] [address] [address] [place] [address] 03/25/2024 14:43:48 03/26/2024 13:21:56 Perennial allergic rhinitis 122703106 J30.89 54879 TULIO HYDE RN Allergy [address] [place] [address] [address] [place] [address] 04/08/2024 13:17:46 04/08/2024 14:54:36 Perennial allergic rhinitis 706697059 J30.89 68065 GISELLE PASTRNAA [facility] Allergy [address] [place] [address] [address] [place] [address] 04/18/2024 14:21:19 04/18/2024 15:35:40 Perennial allergic rhinitis 615424626 J30.89 85879 GISELLE PASTRANA [facility] Allergy [address] [place] [address],[place] [address] [place] [address] 05/09/2024 14:15:20 05/09/2024 15:19:41 Perennial allergic rhinitis 860594996 J30.[address] [facility], [facility] Allergy [address] [place] [address] [address] [place] [address] 05/16/2024 14:06:07 05/16/2024 14:32:31 Perennial allergic rhinitis 131801822 J30.89 73928 TULIO HYDE RN Allergy [address] [place] [address],[place] [address] [place] [address] 05/23/2024 14:49:32 05/23/2024 15:43:57 Perennial allergic rhinitis 909722645 J30.89 [address] [facility] Allergy [address] [place] [address],[place] [address] [place] [address] 05/29/2024 11:37:06 05/29/2024 11:49:49 Perennial allergic rhinitis 891866680 J30.89 35568 GISELLE PASTRANA [facility] Allergy [address] [place] [address],[place] [address] [place] [address] 06/05/2024 13:47:09 06/05/2024 13:50:45 Perennial allergic rhinitis 385150361 J30.89 17265 GISELLE PASTRANA [facility] Allergy [address] [place] [address], [address] [place] [address] 06/12/2024 12:04:31 06/12/2024 12:08:16 Perennial allergic rhinitis 129654086 J30.89 17808 GISELLE PASTRANA [facility] Allergy [address] [place] [address],[place] [address] [place] [address] 2024 13:08:56 2024 13:40:46 Perennial allergic rhinitis 610219806 J30.89 28791 [facility] Allergy [address] [place] [address],[place] [address] [place] [address] 07/03/2024 12:28:14 07/03/2024 13:16:56 Perennial allergic rhinitis 054385139 J30.89 [id number] GISELLE PASTRANA [facility] Allergy [address] [place] [address],[place] [address] [place] [address] 07/10/2024 14:55:43 07/10/2024 16:16:17 Perennial allergic rhinitis 600451753 J30.89 47613 GISELLE PASTRANA [facility] Allergy [address] [place] [address],[place] [address] [place] [address] 07/17/2024 10:59:58 07/17/2024 11:25:55 Perennial allergic rhinitis 862285190 J30.89 42753 TULIO HYDE RN Allergy [address] [facility],[place] [address] [place] [address] 07/24/2024 13:28:27 07/24/2024 13:49:36 Perennial allergic rhinitis 086439656 J30.89 [id number] ROSA CELESTE, [facility] Allergy [address] [facility],[place] [address] [place] [address] 08/01/2024 12:25:52 08/01/2024 12:28:26 Perennial allergic rhinitis 229472361 J30.89 [id number] ROSA CELESTE, [facility] Allergy 100 [facility], [address] [place] [address] 08/14/2024 13:53:09 08/14/2024 14:24:50 Perennial allergic rhinitis 498978227 J30.89 Health Concerns Section Related Observation LastModified by Organization Detai ls LastModified Time None Recorded Concern Status LastModified by Organization Details LastModified Time None Recorded Advance Directives Directive None Recorded Payers Encounter Date Sequence Insurance Name Policy Number Policy Elizabeth Covered Member ID Elizabeth Member ID Guarantor Name 07/10/2024 2 [employer] [facility] Shaw Vela [id number] Shaw Vela 07/17/2024 1 [employer] Shaw Vela [id number] Shaw Vela 07/24/2024 1 [employer] Shaw Vela [id number] Shaw Vela 07/31/2024 1 [employer] Shaw Vela [id number] Shaw Vela 08/14/2024 1 [employer] Shaw Vela [id number] Shaw Vela
--- OUTSIDE RECORDS SUMMARY | 2024-08-21 10:10 | XMS_ITS | Continuity of Care Document ---
Author Organization [place] - [facility], Allergy Address [address] [place] [address] Care Team Providers Care Discotheque Dancer Name Role Phone HERMELINDO JORGE Primary Care Provider [phone] Assessment Encounter Date Assessment Date Assessment LastModified [...] Organization Details Last Modified Time Details Appointments [facility]- Allergy f-up 6mon 2024 01:00P [...] Address Organization Details Recorded Time Chronic rhinitis 12879075 Active 2022 Chronic rhinitis; Note: Date Diagnosed : 03/01/2023 6:05 PM (J31.0) Not Available [facility] 02:25:39 Allergic rhinitis 03320960 Active 2023 Allergic rhinitis: Due to other [...] ; Start Date : 3 Not Available [facility] 4 00:58:12 Perennial allergic rhinitis 457645535 Active 2023 ROSA CELESTE, [facility] 100 [facility],[address], [address] , [facility] - [facility] 4 14:21:13 Problem Notes None recorded. Procedures Surgical History Date Name Laterality Status Provider Name and Address Organization Details Recorded Time 08/14/20 24 Allergy Immunotherapy Injections completed ROSA CELESTE [facility], [address], [facility] - [facility] 08/14/2024 14:21:22 08/01/20 24 Allergy Immunotherapy Injections completed ROSA BUTTERFIELD [address] [place],[address], [address], [facility] - [facility] 08/01/2024 12:27:05 07/24/20 24 Allergy Immunotherapy Injections completed TULIO HYDE RN 100 [facility],[address], [address], [facility] - [facility] 07/24/2024 13:49:19 07/17/20 24 Allergy Immunotherapy Injections completed SAMANTHA SMITH [facility] 100 [facility],[address], [address], [place] - [facility] [place] 07/17/2024 11:15:01 07/10/20 24 Allergy Immunotherapy Injections completed GLADYS GARCIAA [address], [address], [place] [facility] [place] 07/10/2024 15:03:55 07/03/20 24 Allergy Immunotherapy Injections completed ROSA BUTTERFIELD RMA [address], [address], [place] [facility] [place] 07/03/2024 13:16:15 06/26/20 24 Allergy Immunotherapy Injections completed SAMANTHA SMITH RMA [address], [address], [place] [facility] [place] 2024 13:40:24 06/12/20 24 Allergy Immunotherapy Injections completed SAMANTHA SMITH RMA [address], [address], [place] [facility] [place] 06/12/2024 12:05:34 06/05/20 24 Allergy Immunotherapy Injections completed SAMANTHA SMITH RMA [address], [place], [address], [place] [facility] [place] 06/05/2024 13:48:08 05/29/20 24 Allergy Immunotherapy Injections completed ROSA BUTTERFIELD RMA [address] [place] [address], [address], [place] [facility] [place] 05/29/2024 11:48:28 05/23/20 24 Allergy Immunotherapy Injections completed TULIO HYDE, RESHMA [address], [place], [address], [place] [facility] [place] 05/23/2024 15:43:37 05/16/20 24 Allergy Immunotherapy Injections completed ROSA BUTTERFIELD RMA [address], [address], [place] [facility] [place] 05/16/2024 14:12:21 05/09/20 24 Allergy Immunotherapy Injections completed SAMANTHA SMITH RMA [address], [place], [address], [place] [facility] [place] 05/09/2024 14:23:57 04/18/20 24 Allergy Immunotherapy Injections completed KISHORE GARCIA [address], [address], [place] [facility] [place] 04/18/2024 14:58:29 04/08/20 24 Allergy Immunotherapy Injections completed TULIO HYDE RN [address], [address], [place] [facility] [place] 04/08/2024 14:53:53 03/25/20 24 Allergy Immunotherapy Injections completed KISHORE GARCIA [address], [address], [place] [facility] [place] 03/25/2024 14:50:22 03/14/20 24 Allergy Immunotherapy Injections completed ROSA BUTTERFIELD RMA [address], [address], [place] [facility] [place] 03/14/2024 14:07:58 02/28/20 24 Allergy Immunotherapy Injections completed KISHORE GARCIA [address], [address], [place] [facility] [place] 02/28/2024 13:06:11 02/21/20 24 Allergy Immunotherapy Injections completed KISHORE GARCIA [address], [address], [place] [facility] [place] 02/21/2024 11:27:51 02/12/20 24 Allergy Immunotherapy Injections completed ROSA BUTTERFIELD RMA [address], [address], [place] [facility] [place] 02/12/2024 14:32:23 02/01/20 24 Allergy Immunotherapy Injections completed GLADYS GARCIAA [address], [address], [place] [facility] [place] 02/01/2024 14:19:44 01/24/20 24 Allergy Immunotherapy Injections completed ROSA BUTTERFIELD RMA [address], [place], [address], [facility] - [facility] 01/24/2024 14:21:37 Imaging Results None recorded. Procedure [...] HFA aerosol inhaler active Medicati on ID: [id number] B rand Name: Lorenzaztri Aerosphe re Send [...] Diagnosis/Indication Diagnosis SNOMED-CT Code Diagnosis ICD10 Code 61324 KISHORE GARCIA Allergy 100 [facility] 100 [place] [address] 07/17/2024 10:59:58 07/17/2024 11:25:55 Perennial allergic rhinitis 449616017 J30.89 [id number] TULIO HYDE RN Allergy 100 [facility],[place] [address] [place] [address] 07/24/2024 13:28:27 07/24/2024 13:49:36 Perennial allergic rhinitis 142696851 J30.89 23581 ROSA CELESTE, RMA Allergy 100 [facility],[place] [address] [place] [address] 08/01/2024 12:25:52 08/01/2024 12:28:26 Perennial allergic rhinitis 014253047 J30.89 [id number] ROSA CELESTE, RMA Allergy 100 [facility], [address] [place] [address] 08/14/2024 13:53:09 08/14/2024 14:24:50 Perennial allergic rhinitis 221117584 J30.89 Health Concerns Section Related Observation LastModified by Organization Detai ls LastModified Time None Recorded Concern Status LastModified by Organization Details LastModified Time None Recorded Payers Encounter Date Sequence Insurance Name Policy Number Policy Elizabeth Covered Member ID Elizabeth Member ID Guarantor Name 08/14/2024 1 [facility] Shaw Vela [id number] Shaw Vela
--- OUTSIDE RECORDS SUMMARY | 2024-08-21 10:11 | XMS_ITS | Continuity of Care Document ---
Author Organization [place] - [facility], Allergy Address [address] [place] [address] Care Team Providers Care Marine Safety Officer Name Role Phone HERMELINDO JORGE Primary Care Provider Assessment Encounter Date Assessment Date Assessment LastModified by Organization Details LastModified Time 05/23/2024 05/23/2024 Administered By: Tulio Hyde RN Use of Antihistamines: No If yes: Vial Test Change in medications: No If yes ?? Increase in asthma symptoms No If yes, inhaler use: Reaction to last injections: No If yes: ?? Allergy Symptoms: Other: ?? Missed 1 week Dose Notes:?? [email or web address] Not available 05/23/2024 15:42:43 Plan of Treatment Reminders Order Date Submit Date Provider Last Modified By Organization Details Last Modified Time Details Appointments [facility]- Allergy f-up 6mon 2024 01:00P M BRIGITTE [...] Address Organization Details Recorded Time Chronic rhinitis 45830829 Active 2022 Chronic rhinitis; Note: Date Diagnosed : 03/01/2023 6:05 PM (J31.0) [facility] 02:25:39 Allergic rhinitis 43578070 Active 2023 Allergic rhinitis: Due to other [...] ; Start Date : 3 Not Available [facility] 4 00:58:12 Perennial allergic rhinitis 748315765 Active 2023 ROSA CELESTE, [facility] 100 [facility],[address], [address] , [facility] - [facility] 4 14:21:13 Problem Notes None recorded. Procedures Surgical History Date Name Laterality Status Provider Name and Address Organization Details Recorded Time 08/14/20 24 Allergy Immunotherapy Injections completed ROSA CELESTE [facility] [place], [address], [facility] - [facility] 08/14/2024 14:21:22 08/01/20 24 Allergy Immunotherapy Injections completed ROSA BUTTERFIELD [address] [place],[address], [address], [facility] - [facility] 08/01/2024 12:27:05 07/24/20 24 Allergy Immunotherapy Injections completed TULIO HYDE RN 100 [facility],[address], [address], [facility] - [facility] 07/24/2024 13:49:19 07/17/20 24 Allergy Immunotherapy Injections completed SAMANTHA SMITH [facility] 100 [facility],[address], [address], [place] - [facility] [place] 07/17/2024 11:15:01 07/10/20 24 Allergy Immunotherapy Injections completed GLADYS GARCIAA [address], [place], [address], [place] [facility] [place] 07/10/2024 15:03:55 07/03/20 24 Allergy Immunotherapy Injections completed ROSA BUTTERFIELD RMA [address], [place], [address], [place] [facility] [place] 07/03/2024 13:16:15 06/26/20 24 Allergy Immunotherapy Injections completed SAMANTHA SMITH RMA [address], [place], [address], [place] [facility] [place] 2024 13:40:24 06/12/20 24 Allergy Immunotherapy Injections completed SAMANTHA SMITH RMA [address], [place], [address], [place] [facility] [place] 06/12/2024 12:05:34 06/05/20 24 Allergy Immunotherapy Injections completed SAMANTHA SMITH RMA [address], [place], [address], [place] [facility] [place] 06/05/2024 13:48:08 05/29/20 24 Allergy Immunotherapy Injections completed ROSA BUTTERFIELD RMA [address] [place] [address], [address], [place] [facility] [place] 05/29/2024 11:48:28 05/23/20 24 Allergy Immunotherapy Injections completed TULIO HYDE, RESHMA [address], [place], [address], [place] [facility] [place] 05/23/2024 15:43:37 05/16/20 24 Allergy Immunotherapy Injections completed ROSA BUTTERFIELD RMA [address], [place], [address], [place] [facility] [place] 05/16/2024 14:12:21 05/09/20 24 Allergy Immunotherapy Injections completed SAMANTHA SMITH RMA [address], [place], [address], [place] [facility] [place] 05/09/2024 14:23:57 04/18/20 24 Allergy Immunotherapy Injections completed KISHORE GARCIA [address], [place], [address], [place] [facility] [place] 04/18/2024 14:58:29 04/08/20 24 Allergy Immunotherapy Injections completed TULIO HYDE RN [address], [place], [address], [place] [facility] [place] 04/08/2024 14:53:53 03/25/20 24 Allergy Immunotherapy Injections completed KISHORE GARCIA [address], [place], [address], [place] [facility] [place] 03/25/2024 14:50:22 03/14/20 24 Allergy Immunotherapy Injections completed ROSA BUTTERFIELD RMA [address], [place], [address], [place] [facility] [place] 03/14/2024 14:07:58 02/28/20 24 Allergy Immunotherapy Injections completed KISHORE GARCIA [address], [place], [address], [place] [facility] [place] 02/28/2024 13:06:11 02/21/20 24 Allergy Immunotherapy Injections completed KISHORE GARCIA [address], [place], [address], [place] [facility] [place] 02/21/2024 11:27:51 02/12/20 24 Allergy Immunotherapy Injections completed ROSA BUTTERFIELD RMA [address], [place], [address], [place] [facility] [place] 02/12/2024 14:32:23 02/01/20 24 Allergy Immunotherapy Injections completed GLADYS GARCIAA [address], [place], [address], [place] [facility] [place] 02/01/2024 14:19:44 01/24/20 24 Allergy Immunotherapy Injections completed ROSA BUTTERFIELD RMA [address], [place], [address], [facility] - [facility] 01/24/2024 14:21:37 Imaging Results None recorded. Procedure [...] HFA aerosol inhaler active Medicati on ID: [id number] rand Name: Lorenzaztri Aerosphe re Send [...] Diagnosis/Indication Diagnosis SNOMED-CT Code Diagnosis ICD10 Code [id number] SAMANTHA SMITH, RMA Allergy 100 [facility], [address] 100 [facility] [place] [address] 05/09/2024 14:15:20 05/09/2024 15:19:41 Perennial allergic rhinitis 589283121 J30.89 89497 ROSA BUTTERFIELD RMA Allergy 100 [facility],[place] [address] [place] [address] 05/16/2024 14:06:07 05/16/2024 14:32:31 Perennial allergic rhinitis 437539469 J30.89 11998 TULIO HYDE RN Allergy [address] [place] [address], [place] [address] 05/23/2024 14:49:32 05/23/2024 15:43:57 Perennial allergic rhinitis 532881807 J30.89 Health Concerns Section Related Observation LastModified by Organization Detai ls LastModified Time None Recorded Concern Status LastModified by Organization Details LastModified Time None Recorded Payers Encounter Date Sequence Insurance Name Policy Number Policy Elizabeth Covered Member ID Elizabeth Member ID Guarantor Name 05/23/2024 2 [employer] ([facility]) Shaw Vela [id number] Shaw Vela
--- OUTSIDE RECORDS SUMMARY | 2024-08-21 10:11 | XMS_ITS | Continuity of Care Document ---
Author Organization [place] - [facility], Allergy Address [address] [place] [address] Care Team Providers Care Coastal/Harbor Defense Officer Name Role Phone HERMELINDO JORGE Primary Care Provider [phone] Assessment Encounter Date Assessment Date Assessment LastModified by Organization Details LastModified Time 2024 2024 Administered By: Giselle Pastrana Use of Antihistamines: No If yes: Vial Test Yes Change in medications: No If yes ?? Increase in asthma symptoms If yes, inhaler use: Reaction to last injections: No If yes: ?? Allergy Symptoms: Other: ?? Missed 1 week Yes Dose Notes:?? [email or web address] Not available 2024 13:40:12 Plan of Treatment Reminders Order Date Submit Date Provider Last Modified By Organization Details Last Modified Time Details Appointments [facility]- Allergy f-up 6mon 2024 01:00P M BRIGITTE [...] Address Organization Details Recorded Time Chronic rhinitis 42728792 Active 2022 Chronic rhinitis; Note: Date Diagnosed : 03/01/2023 6:05 PM (J31.0) Not Available [facility] 02:25:39 Allergic rhinitis 96459789 Active 2023 Allergic rhinitis: Due to other [...] Start Date : 3 Not Available [facility] 4 00:58:12 Perennial allergic rhinitis 152953379 Active 2023 ROSA CELESTE, [facility] 100 [facility],[address], [address] , [facility] - [facility] 4 14:21:13 Problem Notes None recorded. Procedures Surgical History Date Name Laterality Status Provider Name and Address Organization Details Recorded Time 08/14/20 24 Allergy Immunotherapy Injections completed ROSA CELESTE [facility] 100 [facility] [place],[address], [address], [facility] - [facility] 08/14/2024 14:21:22 08/01/20 24 Allergy Immunotherapy Injections completed ROSA BUTTERFIELD [address] [place],[address], [address], [facility] - [facility] 08/01/2024 12:27:05 07/24/20 24 Allergy Immunotherapy Injections completed TULIO HYDE RN 100 [facility],[address], [address], [facility] - [facility] 07/24/2024 13:49:19 07/17/20 24 Allergy Immunotherapy Injections completed GISELLE PASTRANA [facility] 100 [facility],[address], [address], [place] [facility] 07/17/2024 11:15:01 07/10/20 24 Allergy Immunotherapy Injections completed GLADYS GARCIAA [address], [place], [address], [place] [facility] 07/10/2024 15:03:55 07/03/20 24 Allergy Immunotherapy Injections completed ROSA BUTTERFIELD RMA [address], [place], [address], [place] [facility] 07/03/2024 13:16:15 06/26/20 24 Allergy Immunotherapy Injections completed GISELLE PASTRANA RMA [address], [place], [address], [place] [facility] 2024 13:40:24 06/12/20 24 Allergy Immunotherapy Injections completed GISELLE PASTRANA RMA [address], [place], [address], [place] [facility] 06/12/2024 12:05:34 06/05/20 24 Allergy Immunotherapy Injections completed GISELLE PASTRANA RMA [address], [place], [address], [place] [facility] 06/05/2024 13:48:08 05/29/20 24 Allergy Immunotherapy Injections completed ROSA BUTTERFIELD RMA [address],[place] [address] [place] [address], [address], [place] [facility] 05/29/2024 11:48:28 05/23/20 24 Allergy Immunotherapy Injections completed TULIO HYDE, RESHMA [address], [place], [address], [place] [facility] 05/23/2024 15:43:37 05/16/20 24 Allergy Immunotherapy Injections completed ROSA BUTTERFIELD RMA [address], [place], [address], [place] [facility] 05/16/2024 14:12:21 05/09/20 24 Allergy Immunotherapy Injections completed GISELLE PASTRANA RMA [address], [place], [address], [place] [facility] 05/09/2024 14:23:57 04/18/20 24 Allergy Immunotherapy Injections completed KISHORE GARCIA [address], [place], [address], [place] [facility] 04/18/2024 14:58:29 04/08/20 24 Allergy Immunotherapy Injections completed TULIO HYDE RN [address], [place], [address], [place] [facility] 04/08/2024 14:53:53 03/25/20 24 Allergy Immunotherapy Injections completed KISHORE GARCIA [address], [place], [address], [place] [facility] 03/25/2024 14:50:22 03/14/20 24 Allergy Immunotherapy Injections completed ROSA BUTTERFIELD RMA [address], [place], [address], [place] [facility] 03/14/2024 14:07:58 02/28/20 24 Allergy Immunotherapy Injections completed KISHORE GARCIA [address], [place], [address], [place] [facility] 02/28/2024 13:06:11 02/21/20 24 Allergy Immunotherapy Injections completed KISHORE GARCIA [address], [place], [address], [place] [facility] 02/21/2024 11:27:51 02/12/20 24 Allergy Immunotherapy Injections completed ROSA BUTTERFIELD RMA [address], [place], [address], [place] [facility] 02/12/2024 14:32:23 02/01/20 24 Allergy Immunotherapy Injections completed GLADYS GARCIAA [address], [place], [address], [place] [facility] 02/01/2024 14:19:44 01/24/20 24 Allergy Immunotherapy Injections completed ROSA BUTTERFIELD RMA [address], [place], [address], [facility] - [facility] [...] HFA aerosol inhaler active Medicati on ID: [id number] B rand Name: Breztri Aerosphe re Send Method: E-Prescr ibed Sub [...] Diagnosis/Indication Diagnosis SNOMED-CT Code Diagnosis ICD10 Code [id number] ROSA BUTTERFIELD, R[facility] Allergy 100 [facility] 100 [place] [address] 05/29/2024 11:37:06 05/29/2024 11:49:49 Perennial allergic rhinitis 765319770 J30.89 14100 GISELLE PASTRANA RMA Allergy 100 [facility],[place] [address] [place] [address] 06/05/2024 13:47:09 06/05/2024 13:50:45 Perennial allergic rhinitis 219958222 J30.89 86412 GISELLE PASTRANA A Allergy 100 [facility],[place] [address] [place] [address] 06/12/2024 12:04:31 06/12/2024 12:08:16 Perennial allergic rhinitis 633299712 J30.89 02381 GISELLE PASTRANA A Allergy 100 [facility], [address] [place] [address] 2024 13:08:56 2024 13:40:46 Perennial allergic rhinitis 041501784 J30.89 Health Concerns Section Related Observation LastModified by Organization Detai ls LastModified Time None Recorded Concern Status LastModified by Organization Details LastModified Time None Recorded Payers Encounter Date Sequence Insurance Name Policy Number Policy Elizabeth Covered Member ID Elizabeth Member ID Guarantor Name 2024 1 [facility] Shaw Vela [id number] Shaw Vela 2024 2 [employer] - [facility] Shaw Vela [id number] Shaw Vela
--- OUTSIDE RECORDS SUMMARY | 2024-08-21 10:11 | XMS_ITS | Continuity of Care Document ---
Author Organization [place] - [facility], Allergy Address [address] [place] [address] Care Team Providers Care Asbestos Abatement Worker Name Role Phone HERMELINDO JORGE Primary Care Provider Assessment Encounter Date Assessment Date Assessment LastModified by Organization Details LastModified Time 06/05/2024 06/05/2024 Administered By: Giselle Pastrana Use of Antihistamines: Yes If yes: Vial Test Change in medications: No If yes ?? Increase in asthma symptoms If yes, inhaler use: Reaction to last injections: No If yes: ?? Allergy Symptoms: Other: ?? Missed 1 week Dose Notes:?? [email or web address] Not available 06/05/2024 13:48:29 Plan of Treatment Reminders Order Date Submit Date Provider Last Modified By Organization Details Last Modified Time Details Appointments [facility]- Allergy f-up 6mon 2024 01:00P [...] Address Organization Details Recorded Time Chronic rhinitis 81126662 Active 2022 Chronic rhinitis; Note: Date Diagnosed : 03/01/2023 6:05 PM (J31.0) Not Available [facility] 02:25:39 Allergic rhinitis 35677699 Active 2023 Allergic rhinitis: Due to other [...] ; Start Date : 3 Not Available [facility] 4 00:58:12 Perennial allergic rhinitis 530493066 Active 2023 ROSA BUTTERFIELD [facility] 100 [facility],[address], [address] , [facility] - [facility] 4 14:21:13 Problem Notes None recorded. Procedures Surgical History Date Name Laterality Status Provider Name and Address Organization Details Recorded Time 08/14/20 24 Allergy Immunotherapy Injections completed ROSA BUTTERFIELD [facility] 100 [facility] [place],[address], [address], [facility] - [facility] 08/14/2024 14:21:22 08/01/20 24 Allergy Immunotherapy Injections completed ROSA BUTTERFIELD [facility] 100 [facility] [place],[address], [address], [facility] - [facility] 08/01/2024 12:27:05 07/24/20 24 Allergy Immunotherapy Injections completed TULIO HYDE RN 100 [facility],[address], [address], [facility] - [facility] 07/24/2024 13:49:19 07/17/20 24 Allergy Immunotherapy Injections completed GISELLE PASTRANA [facility] 100 [facility],[address], [address], [place] - [facility] [place] 07/17/2024 11:15:01 07/10/20 24 Allergy Immunotherapy Injections completed KISHORE GARCIA [address], [place], [address], [place] [facility] [place] 07/10/2024 15:03:55 07/03/20 24 Allergy Immunotherapy Injections completed ROSA BUTTERFIELD RMA [address], [place], [address], [place] [facility] [place] 07/03/2024 13:16:15 06/26/20 24 Allergy Immunotherapy Injections completed GISELLE PASTRANA RMA [address], [place], [address], [place] [facility] [place] 2024 13:40:24 06/12/20 24 Allergy Immunotherapy Injections completed GISELLE PASTRANA RMA [address], [place], [address], [place] [facility] [place] 06/12/2024 12:05:34 06/05/20 24 Allergy Immunotherapy Injections completed GISELLE PASTRANA RMA [address] [place] [address], [address], [place] [facility] [place] 06/05/2024 13:48:08 05/29/20 24 Allergy Immunotherapy Injections completed ROSA BUTTERFIELD RMA [address], [place], [address], [place] [facility] [place] 05/29/2024 11:48:28 05/23/20 24 Allergy Immunotherapy Injections completed TULIO HYDE RN [address], [place], [address], [place] [facility] [place] 05/23/2024 15:43:37 05/16/20 24 Allergy Immunotherapy Injections completed ROSA BUTTERFIELD RMA [address], [place], [address], [place] [facility] [place] 05/16/2024 14:12:21 05/09/20 24 Allergy Immunotherapy Injections completed GISELLE PASTRANA RMA [address], [place], [address], [place] [facility] [place] 05/09/2024 14:23:57 04/18/20 24 Allergy Immunotherapy Injections completed KISHORE GARCIA [address], [place], [address], [place] [facility] [place] 04/18/2024 14:58:29 04/08/20 24 Allergy Immunotherapy Injections completed TULIO HYDE RN [address], [place], [address], [place] [facility] [place] 04/08/2024 14:53:53 03/25/20 24 Allergy Immunotherapy Injections completed KISHORE GARCIA [address], [place], [address], [place] [facility] [place] 03/25/2024 14:50:22 03/14/20 24 Allergy Immunotherapy Injections completed ROSA BUTTERFIELD RMA [address], [place], [address], [place] [facility] [place] 03/14/2024 14:07:58 02/28/20 24 Allergy Immunotherapy Injections completed KISHORE GARCIA [address], [place], [address], [place] [facility] [place] 02/28/2024 13:06:11 02/21/20 24 Allergy Immunotherapy Injections completed KISHORE GARCIA [address], [place], [address], [place] [facility] [place] 02/21/2024 11:27:51 02/12/20 24 Allergy Immunotherapy Injections completed ROSA BUTTERFIELD RMA [address], [place], [address], [place] [facility] [place] 02/12/2024 14:32:23 02/01/20 24 Allergy Immunotherapy Injections completed KISHORE GARCIA [address], [place], [address], [place] [facility] [place] 02/01/2024 14:19:44 01/24/20 24 Allergy Immunotherapy Injections completed ROSA BUTTERFIELD RMA [address], [place], [address], [facility] - [facility] [...] HFA aerosol inhaler active Medicati on ID: [id number] B rand Name: Haleytri Aerosphe re Send [...] Diagnosis/Indication Diagnosis SNOMED-CT Code Diagnosis ICD10 Code 00911 GISELLE PASTRANA, RMA Allergy 100 [facility], [address] 100 [place] [address] 05/09/2024 14:15:20 05/09/2024 15:19:41 Perennial allergic rhinitis 528498734 J30.89 22549 ROSA CELESTE RMA Allergy 100 [facility] [place] [address] [place] [address] 05/16/2024 14:06:07 05/16/2024 14:32:31 Perennial allergic rhinitis 266161568 J30.89 06705 TULIO HYDE RN Allergy 100 [facility],[place] [address] 100 [place] [address] 05/23/2024 14:49:32 05/23/2024 15:43:57 Perennial allergic rhinitis 537804715 J30.89 33854 ROSA BUTTERFIELD, [facility] Allergy 100 [facility],[place] [address] 100 [place] [address] 05/29/2024 11:37:06 05/29/2024 11:49:49 Perennial allergic rhinitis 021600650 J30.89 41001 GISELLE PASTRANA, [facility] Allergy [address] [facility],[place] [address] 100 [place] [address] 06/05/2024 13:47:09 06/05/2024 13:50:45 Perennial allergic rhinitis 069308915 J30.89 Health Concerns Section Related Observation LastModified by Organization Detai ls LastModified Time None Recorded Concern Status LastModified by Organization Details LastModified Time None Recorded Payers Encounter Date Sequence Insurance Name Policy Number Policy Elizabeth Covered Member ID Elizabeth Member ID Guarantor Name 06/05/2024 2 [employer] ([facility]) Shaw Vela [id number] Shaw Vela
--- OUTSIDE RECORDS SUMMARY | 2024-08-21 10:11 | XMS_ITS | Continuity of Care Document ---
Author Organization [place] - [facility], Allergy Address [address] [place] [address] Care Team Providers Care Couturiere Name Role Phone HERMELINDO JORGE Primary Care Provider Assessment Encounter Date Assessment Date Assessment LastModified by Organization Details LastModified Time 06/12/2024 06/12/2024 Administered By: Giselle Pastrana Use of Antihistamines: Yes If yes: Daily Vial Test Change in medications: No If yes ?? Increase in asthma symptoms If yes, inhaler use: Reaction to last injections: No If yes: ?? Allergy Symptoms: Other: ?? Missed 1 week Dose Notes:?? Not available 06/12/2024 12:05:40 Plan of Treatment Reminders Order Date Submit Date Provider Last Modified By Organization Details Last Modified Time Details Appointments [facility]- Allergy f-up 6mon 2024 01:00P M BRIGITTE [...] Address Organization Details Recorded Time Chronic rhinitis 40303570 Active 2022 Chronic rhinitis; Note: Date Diagnosed : 03/01/2023 6:05 PM (J31.0) [facility] Available [facility] 02:25:39 Allergic rhinitis 57817748 Active 2023 Allergic rhinitis: Due to other [...] ; Start Date : 3 Not Available [facility] 4 00:58:12 Perennial allergic rhinitis 918541630 Active 2023 ROSA CELESTE, [facility] [place],[address], [address] , [facility] - [facility] 4 14:21:13 Problem Notes None recorded. Procedures Surgical History Date Name Laterality Status Provider Name and Address Organization Details Recorded Time 08/14/20 24 Allergy Immunotherapy Injections completed ROSA BUTTERFIELD [facility] [place] [address] [place] [address], [address], [facility] - [facility] 08/14/2024 14:21:22 08/01/20 24 Allergy Immunotherapy Injections completed ROSA BUTTERFIELD [facility] [place],[address], [address], [facility] - [facility] 08/01/2024 12:27:05 07/24/20 24 Allergy Immunotherapy Injections completed TULIO HYDE RN 100 [facility],[address], [address], [facility] - [facility] 07/24/2024 13:49:19 07/17/20 24 Allergy Immunotherapy Injections completed GISELLE PASTRANA Carlos [facility] [place],[address], [address], [place] [facility] [place] 07/17/2024 11:15:01 07/10/20 24 Allergy Immunotherapy Injections completed GLADYS GARCIAA [address],[place] [address], [address], [place] [facility] [place] 07/10/2024 15:03:55 07/03/20 24 Allergy Immunotherapy Injections completed RSOA BUTTERFIELD RMA [address],[place] [address], [address], [place] [facility] [place] 07/03/2024 13:16:15 06/26/20 24 Allergy Immunotherapy Injections completed GISELLE PASTRANA RMA [address],[place] [address], [address], [place] [facility] [place] 2024 13:40:24 06/12/20 24 Allergy Immunotherapy Injections completed GISELLE PASTRANA RMA [address],[place] [address], [address], [place] [facility] [place] 06/12/2024 12:05:34 06/05/20 24 Allergy Immunotherapy Injections completed GISELLE PASTRANA RMA [address],AJ [facility], [place], [address], [place] [facility] [place] 06/05/2024 13:48:08 05/29/20 24 Allergy Immunotherapy Injections completed ROSA BUTTERFIELD RMA [address],[place] [address], [address], [place] [facility] [place] 05/29/2024 11:48:28 05/23/20 24 Allergy Immunotherapy Injections completed TULIO HYDE RN [address],[place] [address], [address], [place] [facility] [place] 05/23/2024 15:43:37 05/16/20 24 Allergy Immunotherapy Injections completed ROSA BUTTERFIELD RMA [address],[place] [address], [address], [place] [facility] [place] 05/16/2024 14:12:21 05/09/20 24 Allergy Immunotherapy Injections completed GISELLE PASTRANA RMA [address],[place] [address], [address], [place] [facility] [place] 05/09/2024 14:23:57 04/18/20 24 Allergy Immunotherapy Injections completed KISHORE GARCIA [address],[place] [address], [address], [place] [facility] [place] 04/18/2024 14:58:29 04/08/20 24 Allergy Immunotherapy Injections completed TULIO HYDE RN [address],[place] [address], [address], [place] [facility] [place] 04/08/2024 14:53:53 03/25/20 24 Allergy Immunotherapy Injections completed KISHORE GARCIA [address],[place] [address], [address], [place] [facility] [place] 03/25/2024 14:50:22 03/14/20 24 Allergy Immunotherapy Injections completed ROSA BUTTERFIELD RMA [address],[place] [address], [address], [place] [facility] [place] 03/14/2024 14:07:58 02/28/20 24 Allergy Immunotherapy Injections completed KISHORE GARCIA [address],[place] [address], [address], [place] [facility] [place] 02/28/2024 13:06:11 02/21/20 24 Allergy Immunotherapy Injections completed KISHORE GARCIA [address],[place] [address], [address], [place] [facility] [place] 02/21/2024 11:27:51 02/12/20 24 Allergy Immunotherapy Injections completed ROSA BUTTERFIELD RMA [address],[place] [address], [address], [place] [facility] [place] 02/12/2024 14:32:23 02/01/20 24 Allergy Immunotherapy Injections completed KISHORE GARCIA [address], [address], [place] [facility] [place] 02/01/2024 14:19:44 01/24/20 24 Allergy Immunotherapy Injections completed ROSA BUTTERFIELD RMA [address], [place], [address], [facility] - [facility] 01/24/2024 14:21:37 Imaging Results None recorded. [...] HFA aerosol inhaler active Medicati on ID: [id number] rand Name: Haleytri Aerosphe re Send [...] Diagnosis/Indication Diagnosis SNOMED-CT Code Diagnosis ICD10 Code 09126 ROSA BUTTERFIELD, RMA Allergy 100 [facility] 100 [place] [address] 05/16/2024 14:06:07 05/16/2024 14:32:31 Perennial allergic rhinitis 342637049 J30.89 08275 TULIO HYDE RN Allergy 100 [facility], ite 100 [place] [address] 05/23/2024 14:49:32 05/23/2024 15:43:57 Perennial allergic rhinitis 236014739 J30.89 55596 ROSA CELESTE, RMA Allergy 100 [facility],[place] [address] 100 [place] [address] 05/29/2024 11:37:06 05/29/2024 11:49:49 Perennial allergic rhinitis 494645337 J30.89 86307 GISELLE PASTRANA A Allergy 100 [facility],[place] [address] [place] [address] 06/05/2024 13:47:09 06/05/2024 13:50:45 Perennial allergic rhinitis 238708355 J30.89 24535 GISELLE PASTRANA [facility] Allergy 100 [facility],[place] [address] 100 [place] [address] 06/12/2024 12:04:31 06/12/2024 12:08:16 Perennial allergic rhinitis 463368892 J30.89 Health Concerns Section Related Observation LastModified by Organization Detai ls LastModified Time None Recorded Concern Status LastModified by Organization Details LastModified Time None Recorded Payers Encounter Date Sequence Insurance Name Policy Number Policy Elizabeth Covered Member ID Elizabeth Member ID Guarantor Name 06/12/2024 2 [employer] ([facility]) Shaw Vela [id number] Shaw Vela
--- OUTSIDE RECORDS SUMMARY | 2024-08-21 10:11 | XMS_ITS | Continuity of Care Document ---
Author Organization [place] - [facility], Allergy Address [address] [place] [address] Care Team Providers Care V Block Saw Operator Name Role Phone HERMELINDO JORGE Primary Care Provider Assessment Encounter Date Assessment Date Assessment LastModified by Organization Details LastModified Time 07/03/2024 07/03/2024 Administered By: KISHORE Sewell Use of Antihistamines: No If yes: Vial Test Change in medications: No If yes ?? Increase in asthma symptoms If yes, inhaler use: Reaction to last injections: No If yes: ?? Allergy Symptoms: Other: ?? Missed 1 week Dose Notes:?? [email or web address] Not available 07/03/2024 13:16:20 Plan of Treatment Reminders Order Date Submit Date Provider Last Modified By Organization Details Last Modified Time Details Appointments [facility]- Allergy f-up 6mon 2024 01:00P M [...] Address Organization Details Recorded Time Chronic rhinitis 83774635 Active 2022 Chronic rhinitis; Note: Date Diagnosed : 03/01/2023 6:05 PM (J31.0) Not Available [facility] 02:25:39 Allergic rhinitis 14991477 Active 2023 Allergic rhinitis: Due to other [...] ; Start Date : 3 Not Available [facility] 4 00:58:12 Perennial allergic rhinitis 848553190 Active 2023 ROSA CELESTE, [facility] 100 [facility],[address], [address] , [facility] - [facility] 4 14:21:13 Problem Notes None recorded. Procedures Surgical History Date Name Laterality Status Provider Name and Address Organization Details Recorded Time 08/14/20 24 Allergy Immunotherapy Injections completed ROSA CELESTE [facility] 100 [facility] [place],[address], [address], [facility] - [facility] 08/14/2024 14:21:22 08/01/20 24 Allergy Immunotherapy Injections completed ROSA BUTTERFIELD [address] [place],[address], [address], [facility] - [facility] 08/01/2024 12:27:05 07/24/20 24 Allergy Immunotherapy Injections completed TULIO HYDE RN 100 [facility],[address], [address], [facility] - [facility] 07/24/2024 13:49:19 07/17/20 24 Allergy Immunotherapy Injections completed SAMANTHA SMITH [facility] 100 [facility],[address], [address], [place] [facility] [place] 07/17/2024 11:15:01 07/10/20 24 Allergy Immunotherapy Injections completed GLADYS GARCIAA [address],[place] [address], [address], [place] [facility] [place] 07/10/2024 15:03:55 07/03/20 24 Allergy Immunotherapy Injections completed ROSA BUTTERFIELD RMA [address],[place] [address], [address], [place] [facility] [place] 07/03/2024 13:16:15 06/26/20 24 Allergy Immunotherapy Injections completed SAMANTHA SMITH RMA [address],[place] [address], [address], [place] [facility] [place] 2024 13:40:24 06/12/20 24 Allergy Immunotherapy Injections completed SAMANTHA SMITH RMA [address],[place] [address], [address], [place] [facility] [place] 06/12/2024 12:05:34 06/05/20 24 Allergy Immunotherapy Injections completed SAMANTHA SMITH RMA [address], [place], [address], [place] [facility] [place] 06/05/2024 13:48:08 05/29/20 24 Allergy Immunotherapy Injections completed ROSA BUTTERFIELD RMA [address],[place] [address] [place] [address], [address], [place] [facility] [place] 05/29/2024 11:48:28 05/23/20 24 Allergy Immunotherapy Injections completed TULIO HYDE, RESHMA [address], [place], [address], [place] [facility] [place] 05/23/2024 15:43:37 05/16/20 24 Allergy Immunotherapy Injections completed ROSA BUTTERFIELD RMA [address],[place] [address], [address], [place] [facility] [place] 05/16/2024 14:12:21 05/09/20 24 Allergy Immunotherapy Injections completed SAMANTHA SMITH RMA [address], [place], [address], [place] [facility] [place] 05/09/2024 14:23:57 04/18/20 24 Allergy Immunotherapy Injections completed KISHORE GARCIA [address],[place] [address], [address], [place] [facility] [place] 04/18/2024 14:58:29 04/08/20 24 Allergy Immunotherapy Injections completed TULIO HYDE RN [address], [address], [place] [facility] [place] 04/08/2024 14:53:53 03/25/20 24 Allergy Immunotherapy Injections completed KISHORE GARCIA [address],[place] [address], [address], [place] [facility] [place] 03/25/2024 14:50:22 03/14/20 24 Allergy Immunotherapy Injections completed ROSA BUTTERFIELD RMA [address],[place] [address], [place], [address], [place] [facility] [place] 03/14/2024 14:07:58 02/28/20 24 Allergy Immunotherapy Injections completed KISHORE GARCIA [address],[place] [address], [address], [place] [facility] [place] 02/28/2024 13:06:11 02/21/20 24 Allergy Immunotherapy Injections completed KISHORE GARCIA [address],[place] [address], [address], [place] [facility] [place] 02/21/2024 11:27:51 02/12/20 24 Allergy Immunotherapy Injections completed ROSA BUTTERFIELD RMA [address],[place] [address], [address], [place] [facility] [place] 02/12/2024 14:32:23 02/01/20 24 Allergy Immunotherapy Injections completed GLADYS GARCIAA [address], [address], [place] [facility] [place] 02/01/2024 14:19:44 01/24/20 24 Allergy Immunotherapy Injections completed ROSA BUTTERFIELD RMA [address], [place], [address], [facility] - [facility] 01/24/2024 14:21:37 Imaging Results None recorded. Procedure [...] HFA aerosol inhaler active Medicati on ID: [id number] rand Name: Lorenzaztri Aerosphe re Send [...] Diagnosis/Indication Diagnosis SNOMED-CT Code Diagnosis ICD10 Code 60424 KISHORE GARCIA Allergy 100 [facility] 100 [place] [address] 06/05/2024 13:47:09 06/05/2024 13:50:45 Perennial allergic rhinitis 428467408 J30.89 50340 KISHORE GARCIA Allergy 100 [facility],[place] [address] 100 [place] [address] 06/12/2024 12:04:31 06/12/2024 12:08:16 Perennial allergic rhinitis 845081182 J30.89 [id number] SAMANTHACarlos SMITH, A Allergy 100 [facility],[place] [address] [place] [address] 2024 13:08:56 2024 13:40:46 Perennial allergic rhinitis 913389067 J30.89 75240 ROSA BOOKERKelsi, A Allergy 100 [facility], [address] [place] [address] 07/03/2024 12:28:14 07/03/2024 13:16:56 Perennial allergic rhinitis 532539958 J30.89 Health Concerns Section Related Observation LastModified by Organization Detai ls LastModified Time None Recorded Concern Status LastModified by Organization Details LastModified Time None Recorded Payers Encounter Date Sequence Insurance Name Policy Number Policy Elizabeth Covered Member ID Elizabeth Member ID Guarantor Name 07/03/2024 2 [employer] [facility] Shaw Vela [id number] Shaw Vela
--- OUTSIDE RECORDS SUMMARY | 2024-08-21 10:11 | XMS_ITS | Continuity of Care Document ---
Author Organization [place] - [facility], Allergy Address [address] [place] [address] Care Team Providers Care Manager Bridge Name Role Phone HERMELINDO JORGE Primary Care Provider Assessment Encounter Date Assessment Date Assessment LastModified by Organization Details LastModified Time 05/29/2024 05/29/2024 Administered By: KISHORE Sewell Use of Antihistamines: No If yes: Vial Test Change in medications: No If yes ?? Increase in asthma symptoms If yes, inhaler use: Reaction to last injections: No If yes: ?? Allergy Symptoms: Other: ?? Missed 1 week Dose Notes:?? [email or web address] Not available 05/29/2024 11:48:35 Plan of Treatment Reminders Order Date Submit Date Provider Last Modified By Organization Details Last Modified Time Details Appointments [facility]- Allergy f-up 6mon 2024 01:00P M [...] Address Organization Details Recorded Time Chronic rhinitis 13030714 Active 2022 Chronic rhinitis; Note: Date Diagnosed : 03/01/2023 6:05 PM (J31.0) Not Available [facility] 02:25:39 Allergic rhinitis 40976696 Active 2023 Allergic rhinitis: Due to other [...] access hospital 4 00:58:12 Perennial allergic rhinitis 754944317 Active 2023 ROSA CELESTE, [facility] 100 [facility],[address], [address] , [facility] - [facility] 4 14:21:13 Problem Notes None recorded. Procedures Surgical History Date Name Laterality Status Provider Name and Address Organization Details Recorded Time 08/14/20 24 Allergy Immunotherapy Injections completed ROSA CELESTE [facility] [place],[address], [address], [facility] - [facility] 08/14/2024 14:21:22 08/01/20 24 Allergy Immunotherapy Injections completed ROSA BUTTERFIELD [address] [place],[address], [address], [facility] - [facility] 08/01/2024 12:27:05 07/24/20 24 Allergy Immunotherapy Injections completed TULIO HYDE RN 100 [facility],[address], [address], [facility] - [facility] 07/24/2024 13:49:19 07/17/20 24 Allergy Immunotherapy Injections completed SAMANTHA SMITH [facility] 100 [facility],[address], [address], [place] - [facility] [place] 07/17/2024 11:15:01 07/10/20 24 Allergy Immunotherapy Injections completed GLADYS GARCIAA [address],[place] [address], [address], [place] [facility] [place] 07/10/2024 15:03:55 07/03/20 24 Allergy Immunotherapy Injections completed ROSA BUTTERFIELD RMA [address],[place] [address], [address], [place] [facility] [place] 07/03/2024 13:16:15 06/26/20 24 Allergy Immunotherapy Injections completed SAMANTHA SMITH RMA [address], [address], [place] [facility] [place] 2024 13:40:24 06/12/20 24 Allergy Immunotherapy Injections completed SAMANTHA SMITH RMA [address], [address], [place] [facility] [place] 06/12/2024 12:05:34 06/05/20 24 Allergy Immunotherapy Injections completed SAMANTHA SMITH RMA [address], [place], [address], [place] [facility] [place] 06/05/2024 13:48:08 05/29/20 24 Allergy Immunotherapy Injections completed ROSA BUTTERFIELD RMA [address],[place] [address] [place] [address], [address], [place] [facility] [place] 05/29/2024 11:48:28 05/23/20 24 Allergy Immunotherapy Injections completed TULIO HYDE, RESHAM [address], [place], [address], [place] [facility] [place] 05/23/2024 15:43:37 05/16/20 24 Allergy Immunotherapy Injections completed ROSA BUTTERFIELD RMA [address], [address], [place] [facility] [place] 05/16/2024 14:12:21 05/09/20 24 Allergy Immunotherapy Injections completed SAMANTHA SMITH RMA [address], [place], [address], [place] [facility] [place] 05/09/2024 14:23:57 04/18/20 24 Allergy Immunotherapy Injections completed KISHORE GARCIA [address], [address], [place] [facility] [place] 04/18/2024 14:58:29 04/08/20 24 Allergy Immunotherapy Injections completed TULIO HYDE RN [address], [address], [place] [facility] [place] 04/08/2024 14:53:53 03/25/20 24 Allergy Immunotherapy Injections completed KISHORE GARCIA [address], [address], [place] [facility] [place] 03/25/2024 14:50:22 03/14/20 24 Allergy Immunotherapy Injections completed ROSA BUTTERFIELD RMA [address], [address], [place] [facility] [place] 03/14/2024 14:07:58 02/28/20 24 Allergy Immunotherapy Injections completed KISHORE GARCIA [address], [address], [place] [facility] [place] 02/28/2024 13:06:11 02/21/20 24 Allergy Immunotherapy Injections completed KISHORE GARCIA [address], [address], [place] [facility] [place] 02/21/2024 11:27:51 02/12/20 24 Allergy Immunotherapy Injections completed ROSA BUTTERFIELD RMA [address], [address], [place] [facility] [place] 02/12/2024 14:32:23 02/01/20 24 Allergy Immunotherapy Injections completed GLADYS GARCIAA [address], [address], [place] [facility] [place] 02/01/2024 14:19:44 01/24/20 24 Allergy Immunotherapy Injections completed ROSA BUTTERFIELD RMA [address], [place], [address], [facility] - [facility] 01/24/2024 14:21:37 Imaging Results None recorded. [...] HFA aerosol inhaler active Medicati on ID: [id number] B rand Name: Lorenzaztri Aerosphe re Send [...] Diagnosis/Indication Diagnosis SNOMED-CT Code Diagnosis ICD10 Code 10116 SAMANTHA SMITH, RMA Allergy 100 [facility], [address] 100 [place] [address] 05/09/2024 14:15:20 05/09/2024 15:19:41 Perennial allergic rhinitis 790866159 J30.89 02159 ROSA BUTTERFIELD RMA Allergy 100 [facility],[place] [address] [place] [address] 05/16/2024 14:06:07 05/16/2024 14:32:31 Perennial allergic rhinitis 432206012 J30.89 72262 TULIO HYDE RN Allergy 100 [facility], [address] [place] [address] 05/23/2024 14:49:32 05/23/2024 15:43:57 Perennial allergic rhinitis 937667854 J30.89 92980 KISHORE SEWELL Allergy 100 [facility], [address] [place] [address] 05/29/2024 11:37:06 05/29/2024 11:49:49 Perennial allergic rhinitis 057837672 J30.89 Health Concerns Section Related Observation LastModified by Organization Detai ls LastModified Time None Recorded Concern Status LastModified by Organization Details LastModified Time None Recorded Payers Encounter Date Sequence Insurance Name Policy Number Policy Elizabeth Covered Member ID Elizabeth Member ID Guarantor Name 05/29/2024 2 [employer] ([facility]) Shaw Vela [id number] Shaw Vela
== END 2024-08-21 10:31 | disposition home or self-care (01) ==
PROVIDERS: PCP Physician Assistant; Visit Provider Hospitalist
DX: Z01.811 Encounter for preprocedural respiratory examination (principal); J45.50 Severe persistent asthma, uncomplicated; J30.89 Other allergic rhinitis; L20.9 Atopic dermatitis, unspecified; J34.2 Deviated nasal septum
CPT/HCPCS: 99214

== ENCOUNTER 2024-09-18 09:00 | Outpatient (AMB) | payer OTHER, SELFPAY ==
--- OUTSIDE RECORDS SUMMARY | 2024-09-18 09:15 | XMS_ITS | Continuity of Care Document ---
Author Organization [place] - [facility], Allergy Address [address] [place] [address] Care Team Providers Care Leather Crafter Name Role Phone HERMELINDO JORGE Primary Care Provider [phone] Assessment Encounter Date Assessment Date Assessment LastModified by Organization Details LastModified Time 09/11/2024 09/11/2024 Visit With: Giselle Pastrana Use of Antihistamine s: Yes If yes: Vial Test Change in medications: No If yes ?? Increase in asthma symptoms If yes, inhaler use: Reaction to last injections: No If yes: ?? Allergy Symptoms: Other: ?? Missed: Dose Aware of Vial Test Notes:?? [email or web address] Not available 09/11/2024 16:26:07 Plan of Treatment Reminders Order Date Submit Date Provider Last Modified By Organization Details Last Modified Time Details Appointments [facility]- Allergy f-up 6mon 2024 01:00P M BRIGITTE [...] Address Organization Details Recorded Time Chronic rhinitis 92161753 Active 2022 Chronic rhinitis; Note: Date Diagnosed : 03/01/2023 6:05 PM (J31.0) Not Available [facility] 02:25:39 Allergic rhinitis 74943698 Active 2023 Allergic rhinitis: Due to other [...] Start Date : 3 Not Available Formerly [facility] 4 00:58:12 Perennial allergic rhinitis 460992251 Active 2023 KISHORE PAT 100 [facility],[address], [address] , [facility] - [facility] 4 14:21:13 Problem Notes None recorded. Procedures Surgical History Date Name Laterality Status Provider Name and Address Organization Details Recorded Time 09/11/19 25 Allergy Immunotherapy Injections completed KISHORE GARCIA 100 [facility],[address], [address], [facility] - [facility] 09/11/2024 16:26:25 09/05/20 24 Allergy Immunotherapy Injections completed TULIO HYDE RN 100 [facility],[address], [address], [facility] - [facility] 09/05/2024 11:35:54 08/21/20 24 Allergy Immunotherapy Injections completed KISHORE GARCIA 100 [facility] [place],[address], [address], [facility] - [facility] 08/21/2024 14:06:16 08/14/20 24 Allergy Immunotherapy Injections completed KISHORE PAT [address] [facility] [place],[address], [address], [place] [facility] [place] 08/14/2024 14:21:22 08/01/20 24 Allergy Immunotherapy Injections completed ROSA BUTTERFIELD RMA [address], [place], [address], [place] [facility] [place] 08/01/2024 12:27:05 07/24/20 24 Allergy Immunotherapy Injections completed TULIO HYDE RN [address], [place], [address], [place] [facility] [place] 07/24/2024 13:49:19 07/17/20 24 Allergy Immunotherapy Injections completed GISELLE PASTRANA RMA [address], [place], [address], [place] [facility] [place] 07/17/2024 11:15:01 07/10/20 24 Allergy Immunotherapy Injections completed GISELLE PASTRANA RMA [address], [place], [address], [place] [facility] [place] 07/10/2024 15:03:55 07/03/20 24 Allergy Immunotherapy Injections completed ROSA BUTTERFIELD RMA [address], [place], [address], [place] [facility] [place] 07/03/2024 13:16:15 06/26/20 24 Allergy Immunotherapy Injections completed GISELLE PASTRANA RMA [address], [place], [address], [place] [facility] [place] 2024 13:40:24 06/12/20 24 Allergy Immunotherapy Injections completed GISELLE PASTRANA RMA [address], [place], [address], [place] [facility] [place] 06/12/2024 12:05:34 06/05/20 24 Allergy Immunotherapy Injections completed GISELLE PASTRANA RMA [address], [place], [address], [place] [facility] [place] 06/05/2024 13:48:08 05/29/20 24 Allergy Immunotherapy Injections completed ROSA BUTTERFIELD, RMA [address], [place], [address], [place] [facility] [place] 05/29/2024 11:48:28 05/23/20 24 Allergy Immunotherapy Injections completed TULIO HYDE RN [address], [place], [address], [place] [facility] [place] 05/23/2024 15:43:37 05/16/20 24 Allergy Immunotherapy Injections completed ROSA BUTTERFIELD RMA [address], [place], [address], [place] [facility] [place] 05/16/2024 14:12:21 05/09/20 24 Allergy Immunotherapy Injections completed KISHORE GARCIA [address], [place], [address], [place] [facility] [place] 05/09/2024 14:23:57 04/18/20 24 Allergy Immunotherapy Injections completed KISHORE GARCIA [address] [place] [address], [address], [place] [facility] [place] 04/18/2024 14:58:29 04/08/20 24 Allergy Immunotherapy Injections completed TULIO HYDE RN [address] [place] [address], [address], [place] [facility] 04/08/2024 14:53:53 03/25/20 24 Allergy Immunotherapy Injections completed KISHORE GARCIA [address], [place], [address], [place] [facility] [place] 03/25/2024 14:50:22 03/14/20 24 Allergy Immunotherapy Injections completed ROSA BUTTERFIELD RMA [address], [place], [address], [place] [facility] 03/14/2024 14:07:58 02/28/20 24 Allergy Immunotherapy Injections completed KISHORE GARCIA [address], [place], [address], [place] [facility] [place] 02/28/2024 13:06:11 02/21/20 24 Allergy Immunotherapy Injections completed KISHORE GARCIA [address], [address], [facility] - [facility] [place] 02/21/2024 11:27:51 02/12/20 24 Allergy Immunotherapy Injections completed [facility] 100 [facility],[address], [address], [facility] - [facility] 02/12/2024 14:32:23 02/01/20 24 Allergy Immunotherapy Injections completed [facility]LE [facility]STRA[facility] [address] [place],[address], [address], [facility] - [facility] 02/01/2024 14:19:44 01/24/20 24 Allergy Immunotherapy Injections completed [facility]A [facility] 100 [facility],[address], [address], [facility] - [facility] 01/24/2024 14:21:37 Imaging Results None recorded. Procedure [...] MOUTH TWICE A DAY FOR 14 DAYS 06/07 /2024 completed Not Available Not Available Not Available [...] HFA aerosol inhaler active Medicati on ID: [id number] Hui armas Name: Manjinder Fitzgeralde re Send Method: E-Prescr ibed Sub s [...] Diagnosis/Indication Diagnosis SNOMED-CT Code Diagnosis ICD10 Code Diagnosis Note [id number] ROSA BUTTERFIELD, GLADYSA Allergy [address] [place],[address] [place] [address] 08/14/2024 13:53:09 08/14/2024 14:24:50 Perennial allergic rhinitis 703226781 J30.89 59632 [facility]ELLE PASTRANA [facility] All[facility] 100 [facility],[address] [place] [address] 08/21/2024 13:24:53 08/21/2024 14:06:50 Perennial allergic rhinitis 428854078 J30.89 15402 TULIO HYDE RN Allergy 100 [facility],[address] [place] [address] 09/05/2024 11:35:17 09/05/2024 11:36:22 Perennial allergic rhinitis 260461094 J30.89 56631 G[facility]ELLE PASTRANA [facility] All[facility] 100 [facility],[address] [place] [address] 09/11/2024 14:29:00 09/11/2024 16:26:45 Perennial allergic rhinitis [id number] J30.89 Health Concerns Section Related Observation LastModified by Organization Detai ls LastModified Time None Recorded Concern Status LastModified by Organization Details LastModified Time None Recorded Payers Encounter Date Sequence Insurance Name Policy Number Policy Elizabeth Covered Member ID Elizabeth Member ID Guarantor Name 09/11/2024 1 [facility] Shaw Vela [id number] [employer]
--- OUTSIDE RECORDS SUMMARY | 2024-09-18 09:15 | XMS_ITS | Data Portability ---
Author Organization [place] - [facility], Allergy Address [address] [place] [address] Care Team Providers Care Through Freight Engineer Name Role Phone HERMELINDO JORGE Primary Care Provider Assessment Encounter Date Assessment Date Assessment LastModified by Organization Details LastModified Time 07/31/2024 07/31/2024 Administered By: KISHORE Sewell Use [...] 1 week Dose Notes:?? [email or web address] Not available 08/14/2024 14:21:32 08/21/2024 08/21/2024 Administered By: Giselle Pastrana Use of Antihistamines: No If yes: Vial Test Change in medications: No If yes ?? Increase in asthma symptoms No If yes, inhaler use: Reaction to last injections: No If yes: ?? Allergy Symptoms: Other: ?? Missed 1 week Dose Notes:?? [email or web address] Not available 08/21/2024 14:06:31 09/05/2024 09/05/2024 Visit With: Tulio Hyde RN Use of Antihistamines: No If yes: Vial Test Change in medications: No If yes ?? Increase in asthma symptoms Yes If yes, inhaler use: Reaction to last injections: No If yes: ?? Allergy Symptoms: Other: ?? Missed: 1 week Dose Decreased Aware of Vial Test Notes:?? [email or web address] Not available 09/05/2024 11:36:07 09/11/2024 09/11/2024 Visit With: Giselle Pastrana Use of Antihistamines: Yes If yes: Vial Test Change in medications: No If yes ?? Increase in asthma symptoms If yes, inhaler use: Reaction to last injections: No If yes: ?? Allergy Symptoms: Other: ?? Missed: Dose Aware of Vial Test Notes:?? Not available 09/11/2024 16:26:07 Plan of Treatment Reminders Order Date Submit Date Provider Last Modified By Organization Details Last Modified Time Details Appointments [facility]- Allergy f-up 6mon 2024 01:00P M BRIGITTE [...] Address Organization Details Recorded Time Chronic rhinitis 77953903 Active 2022 Chronic rhinitis; Note: Date Diagnosed : 03/01/2023 6:05 PM (J31.0) Not Available [facility] 4 02:25:39 Allergic rhinitis 11554718 Active 2023 Allergic rhinitis: Due to other allergen; Note: Date Diagnosed : 09/28/2023 2:57 PM (477.8) Note: Date Diagnosed : 09/28/2023 2:57 PM (477.8) Allergi c rhinitis: Due to other allergen; Note: Date Diagnosed : 09/20/2023 11:26 AM (477.8) Note: Date Diagnosed : 09/20/2023 11:26 AM (477.8) ; Start Date : Allergi c rhinitis: Due to other allergen; Note: Date Diagnosed : 12/11/202 3 3:53 PM (477.8) Note: Date Diagnosed : 3 3:53 PM (477.8) ; Start Date : 3 Other allergic rhinitis; Note: Date Diagnosed : 07/19/2023 3:30 PM (J30.89) Note: Date Diagnosed : 07/19/2023 3:30 PM (J30.89) ; Start Date : 3 Not Available Formerly [facility] 4 00:58:12 Perennial allergic rhinitis 562005550 Active 2023 ROSA BUTTERFIELD, RMA [address], [place], [address] , [place] [facility] 4 14:21:13 Problem Notes None recorded. Procedures Surgical History Date Name Laterality Status Provider Name and Address Organization Details Recorded Time 09/11/19 25 Allergy Immunotherapy Injections completed KISHORE GARCIA [address] [place] [address], [address], [facility] - [facility] 09/11/2024 16:26:25 09/05/20 24 Allergy Immunotherapy Injections completed TULIO HYDE RN [address] [facility],[address] [place] [address], [address], [place] [facility] 09/05/2024 11:35:54 08/21/20 24 Allergy Immunotherapy Injections completed KISHORE GARCIA [address], [place], [address], [place] [facility] 08/21/2024 14:06:16 08/14/20 24 Allergy Immunotherapy Injections completed ROSA BUTTERFIELD RMA [address], [place], [address], [place] [facility] 08/14/2024 14:21:22 08/01/20 24 Allergy Immunotherapy Injections completed ROSA BUTTERFIELD RMA [address], [place], [address], [facility] - [facility] 08/01/2024 12:27:05 07/24/20 24 Allergy Immunotherapy Injections completed TULIO HYDE RN [address], [place], [address], [place] [facility] [place] 07/24/2024 13:49:19 07/17/20 24 Allergy Immunotherapy Injections completed KISHORE GARCIA [address], [place], [address], [place] [facility] [place] 07/17/2024 11:15:01 07/10/20 24 Allergy Immunotherapy Injections completed KISHORE GARCIA [address], [place], [address], [place] [facility] 07/10/2024 15:03:55 07/03/20 24 Allergy Immunotherapy Injections completed ROSA BUTTERFIELD RMA [address], [place], [address], [place] [facility] [place] 07/03/2024 13:16:15 06/26/20 24 Allergy Immunotherapy Injections completed KISHORE GARCIA [address], [place], [address], [place] [facility] [place] 2024 13:40:24 06/12/20 24 Allergy Immunotherapy Injections completed KISHORE GARCIA [address], [place], [address], [place] [facility] [place] 06/12/2024 12:05:34 06/05/20 24 Allergy Immunotherapy Injections completed GLADYS GARCIAA [address], [place], [address], [place] [facility] [place] 06/05/2024 13:48:08 05/29/20 24 Allergy Immunotherapy Injections completed ROSA BUTTERFIELD RMA [address], [place], [address], [place] [facility] [place] 05/29/2024 11:48:28 05/23/20 24 Allergy Immunotherapy Injections completed TULIO HYDE RN [address], [place], [address], [place] [facility] [place] 05/23/2024 15:43:37 05/16/20 24 Allergy Immunotherapy Injections completed ROSA BUTTERFIELD RMA [address], [place], [address], [place] [facility] 05/16/2024 14:12:21 05/09/20 24 Allergy Immunotherapy Injections completed KISHORE GARCIA [address], [place], [address], [place] [facility] [place] 05/09/2024 14:23:57 04/18/20 24 Allergy Immunotherapy Injections completed KISHORE GARCIA [address], [place], [address], [place] [facility] [place] 04/18/2024 14:58:29 04/08/20 24 Allergy Immunotherapy Injections completed TULIO HYDE RN [address] [facility],[address], [place], [address], [place] [facility] [place] 04/08/2024 14:53:53 03/25/20 24 Allergy Immunotherapy Injections completed KISHORE GARCIA [address] [facility] [address] [place] [address], [address], [place] [facility] [place] 03/25/2024 14:50:22 03/14/20 24 Allergy Immunotherapy Injections completed KISHORE SEWELL [address], [place], [address], [place] [facility] [place] 03/14/2024 14:07:58 02/28/20 24 Allergy Immunotherapy Injections completed KISHORE GARCIA [address], [place], [address], [place] [facility] [place] 02/28/2024 13:06:11 02/21/20 24 Allergy Immunotherapy Injections completed KISHORE GARCIA [address], [place], [address], [place] [facility] [place] 02/21/2024 11:27:51 02/12/20 24 Allergy Immunotherapy Injections completed ROSA BTUTERFIELD RMA [address], [place], [address], [place] [facility] [place] 02/12/2024 14:32:23 02/01/20 24 Allergy Immunotherapy Injections completed KISHORE GARCIA [address], [place], [address], [facility] - [facility] 02/01/2024 14:19:44 01/24/20 24 Allergy Immunotherapy Injections completed ROSA BUTTERFIELD, A 100 [facility] 100, [place], [address], [facility] - [facility] 01/24/2024 14:21:37 Imaging Results None recorded. [...] HFA aerosol inhaler active Medicati on ID: [id number] B rand Name: Haleytri Annalisephe re Send [...] SNOMED-CT Code Diagnosis ICD10 Code Diagnosis Note 562 HEATHER WILLIAMSON MD Allergy [address] [place] [address], [place] [address] 01/24/2024 14:19:11 01/25/2024 12:36:37 Perennial allergic rhinitis [id number] J30.89 1526 GISELLE PASTRANA A Allergy 100 [facility],[address] [place] [address] 02/01/2024 14:18:47 02/01/2024 14:32:52 Perennial allergic rhinitis [id number] J30.89 2723 [facility], [facility] Allergy 100 [facility],[address] [place] [address] 02/12/2024 13:35:10 02/12/2024 16:19:08 Perennial allergic rhinitis 625121200 J30.89 3173 BRIGITTE HANNA MD [facility] Nasreenannmarie chambers 100 [facility] [place] [address] 02/15/2024 16:05:12 02/15/2024 16:58:27 Allergic rhinitis 75723095 J30.89 53-year-ol d male with allergies and asthma, clinically improving on IT. He is still using montelukas t and Zyrtec with decongesta nt. He does not tolerate nasal sprays. 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 Follow-up 6 months. 3934 GISELLE SARAH A Allergy 100 [facility],[address] [place] [address] 02/21/2024 10:37:54 02/21/2024 11:33:26 Perennial allergic rhinitis 134212260 J30.89 4928 GISELLE SARAH A Allergy 100 [facility],[address] [place] [address] 02/28/2024 12:20:55 02/28/2024 12:26:50 Perennial allergic rhinitis 442713320 J30.89 6692 [facility], A Allergy 100 [facility],[address] [place] [address] 03/14/2024 13:09:40 03/14/2024 15:30:28 Perennial allergic rhinitis [id number] J30.89 8107 GISELLE PASTRANA A Allergy 100 [facility],[address] [place] [address] 03/25/2024 14:43:48 03/26/2024 13:21:56 Perennial allergic rhinitis 711942937 J30.89 68371 TULIO HYDE RN Allergy [address] [place] [address],[address] [place] [address] 04/08/2024 13:17:46 04/08/2024 14:54:36 Perennial allergic rhinitis [id number] J30.89 24699 GISELLE PASTRANA, A Allergy [address] [place] [address],[address] [place] [address] 04/18/2024 14:21:19 04/18/2024 15:35:40 Perennial allergic rhinitis [id number] J30.89 80654 GISELLE PASTRANA A Allergy [address] [place] [address],[address] [place] [address] 05/09/2024 14:15:20 05/09/2024 15:19:41 Perennial allergic rhinitis [id number] J30.89 08450 [facility], A Allergy [address] [place] [address],[address] [place] [address] 05/16/2024 14:06:07 05/16/2024 14:32:31 Perennial allergic rhinitis 294520766 J30.89 84589 TULIO HYDE RN Allergy [address] [place] [address],[address] [place] [address] 05/23/2024 14:49:32 05/23/2024 15:43:57 Perennial allergic rhinitis 285693477 J30.89 26647 [facility] All[facility] 100 [facility],[address] [place] [address] 05/29/2024 11:37:06 05/29/2024 11:49:49 Perennial allergic rhinitis [id number] J30.89 26510 GISELLE PASTRANA, A Allergy 100 [facility],[address] [place] [address] 06/05/2024 13:47:09 06/05/2024 13:50:45 Perennial allergic rhinitis 389108315 J30.89 60242 GISELLE SARAH [facility] Allergy 100 [facility],[address] [place] [address] 06/12/2024 12:04:31 06/12/2024 12:08:16 Perennial allergic rhinitis 381853838 J30.89 83206 GISELLE SARAH [facility] Allergy 100 [facility],[address] [place] [address] 2024 13:08:56 2024 13:40:46 Perennial allergic rhinitis 574361534 J30.89 68024 [facility] Allergy 100 [facility],[address] [place] [address] 07/03/2024 12:28:14 07/03/2024 13:16:56 Perennial allergic rhinitis [id number] J30.89 26254 GISELLE SARAH [facility] Allergy 100 [facility],[address] [place] [address] 07/10/2024 14:55:43 07/10/2024 16:16:17 Perennial allergic rhinitis 084792305 J30.89 24626 GISELLE PASTRANA [facility] Allergy 100 [facility],[address] [place] [address] 07/17/2024 10:59:58 07/17/2024 11:25:55 Perennial allergic rhinitis [id number] J30.89 29054 TULIO HYDE therapeutic assistant 100 [facility],[address] [place] [address] 07/24/2024 13:28:27 07/24/2024 13:49:36 Perennial allergic rhinitis [id number] J30.89 89971 [facility] Allergy 100 [facility],[address] [place] [address] 08/01/2024 12:25:52 08/01/2024 12:28:26 Perennial allergic rhinitis [id number] J30.89 57299 [facility] 100 [facility],[address] [place] [address] 08/14/2024 13:53:09 08/14/2024 14:24:50 Perennial allergic rhinitis 594792561 J30.89 70018 KISHORE GARCIA Allergy 100 [facility],[address] [place] [address] 08/21/2024 13:24:53 08/21/2024 14:06:50 Perennial allergic rhinitis 539235539 J30.89 91550 TULIO HYDE RN Allergy 100 [facility],[address] [facility] [place] [address] 09/05/2024 11:35:17 09/05/2024 11:36:22 Perennial allergic rhinitis 456033046 J30.89 97063 KISHORE GARCIA Allergy 100 [facility],[address] [facility] [place] [address] 09/11/2024 14:29:00 09/11/2024 16:26:45 Perennial allergic rhinitis 151388719 J30.89 Health Concerns Section Related Observation LastModified by Organization Detai ls LastModified Time None Recorded Concern Status LastModified by Organization Details LastModified Time None Recorded Advance Directives Directive None Recorded Payers Encounter Date Sequence Insurance Name Policy Number Policy Elizabeth Covered Member ID Elizabeth Member ID Guarantor Name 07/31/2024 1 [employer] Shaw Vela [id number] Shaw Vela 08/14/2024 1 [employer]ela [id number] Shaw Vela 08/21/2024 1 [employer] Shaw Vela [id number] Shaw Vela 09/05/2024 1 [employer] Shaw Vela [id number] Shaw Vela 09/11/2024 1 [employer] Shaw Vela [id number] Shaw Vela
--- OUTSIDE RECORDS SUMMARY | 2024-09-18 09:16 | XMS_ITS | Continuity of Care Document ---
Author Organization [place] - [facility], Allergy Address [address] [place] [address] Care Team Providers Care Pillowcase Maker Name Role Phone HERMELINDO JORGE Primary Care Provider Assessment Encounter Date Assessment Date Assessment LastModified by Organization Details LastModified Time 09/05/2024 09/05/2024 Visit With: Tulio Hyde RN Use of Antihistamine s: No If yes: Vial Test Change in medications: No If yes ?? Increase in asthma symptoms Yes If yes, inhaler use: Reaction to last injections: No If yes: ?? Allergy Symptoms: Other: ?? Missed: 1 week Dose Decreased Aware of Vial Test Notes:?? [email or web address] Not available 09/05/2024 11:36:07 Plan of Treatment Reminders Order Date Submit Date Provider Last Modified By Organization Details Last Modified Time Details Appointments [facility]- Allergy f-up 6mon 2024 01:00P M [...] Address Organization Details Recorded Time Chronic rhinitis 77257402 Active 2022 Chronic rhinitis; Note: Date Diagnosed : 03/01/2023 6:05 PM (J31.0) Not Available [facility] 02:25:39 Allergic rhinitis 36696786 Active 2023 Allergic rhinitis: Due to other [...] ; Start Date : 3 Not Available [facility] 4 00:58:12 Perennial allergic rhinitis 270158419 Active 2023 KISHORE PAT 100 [facility],[address], [address] , [facility] - [facility] 4 14:21:13 Problem Notes None recorded. Procedures Surgical History Date Name Laterality Status Provider Name and Address Organization Details Recorded Time 09/11/19 25 Allergy Immunotherapy Injections completed [facility]ISHORE GARCIA 100 [facility],[address], [address], [facility] - [facility] 09/11/2024 16:26:25 09/05/20 24 Allergy Immunotherapy Injections completed TULIO HYDE RN 100 [facility],[address], [address], [facility] - [facility] 09/05/2024 11:35:54 08/21/20 24 Allergy Immunotherapy Injections completed KISHORE GARCIA 100 [facility] [place],[address], [address], [facility] - [facility] 08/21/2024 14:06:16 08/14/20 24 Allergy Immunotherapy Injections completed KISHORE PAT 100 [facility] [place],[address], [address], [place] [facility] 08/14/2024 14:21:22 08/01/20 24 Allergy Immunotherapy Injections completed ROSA BUTTERFIELD RMA [address], [place], [address], [place] [facility] 08/01/2024 12:27:05 07/24/20 24 Allergy Immunotherapy Injections completed TULIO HYDE RN [address], [place], [address], [place] [facility] 07/24/2024 13:49:19 07/17/20 24 Allergy Immunotherapy Injections completed GLADYS GARCIAA [address], [place], [address], [place] [facility] 07/17/2024 11:15:01 07/10/20 24 Allergy Immunotherapy Injections completed SAMANTHA SMITH RMA [address], [place], [address], [place] [facility] 07/10/2024 15:03:55 07/03/20 24 Allergy Immunotherapy Injections completed ROSA BUTTERFIELD RMA [address], [place], [address], [place] [facility] 07/03/2024 13:16:15 06/26/20 24 Allergy Immunotherapy Injections completed SAMANTHA SMITH RMA [address], [place], [address], [place] [facility] 2024 13:40:24 06/12/20 24 Allergy Immunotherapy Injections completed SAMANTHA SMITH RMA [address], [place], [address], [place] [facility] 06/12/2024 12:05:34 06/05/20 24 Allergy Immunotherapy Injections completed SAMANTHA SMITH RMA [address], [place], [address], [place] [facility] 06/05/2024 13:48:08 05/29/20 24 Allergy Immunotherapy Injections completed ROSA BUTTERFIELD, RMA [address], [place], [address], [place] [facility] 05/29/2024 11:48:28 05/23/20 24 Allergy Immunotherapy Injections completed TULIO HYDE RN 100 [facility] [place] [address] [place] [address], [address], [place] [facility] 05/23/2024 15:43:37 05/16/20 24 Allergy Immunotherapy Injections completed KISHORE PAT 100 [facility],[address], [place], [address], [place] [facility] 05/16/2024 14:12:21 05/09/20 24 Allergy Immunotherapy Injections completed KISHORE GARCIA 100 [facility],[place] [address] [place] [address], [address], [place] [facility] 05/09/2024 14:23:57 04/18/20 24 Allergy Immunotherapy Injections completed KISHORE GARCIA 100 [facility] [place],[place] [address] [place] [address], [address], [place] [facility] 04/18/2024 14:58:29 04/08/20 24 Allergy Immunotherapy Injections completed TULIO HYDE RN 100 [facility],[address], [address], [place] [facility] 04/08/2024 14:53:53 03/25/20 24 Allergy Immunotherapy Injections completed KISHORE GARCIA 100 [facility] [place],[address], [address], [place] [facility] 03/25/2024 14:50:22 03/14/20 24 Allergy Immunotherapy Injections completed KISHORE PAT [address] [facility] [address], [place], [address], [place] [facility] 03/14/2024 14:07:58 02/28/20 24 Allergy Immunotherapy Injections completed KISHORE GARCIA [address] [facility] [address], [place], [address], [place] [facility] 02/28/2024 13:06:11 02/21/20 24 Allergy Immunotherapy Injections completed KISHORE GARCIA [address] [place],[address], [place], [address], [facility] - [facility] 02/21/2024 11:27:51 02/12/20 24 Allergy Immunotherapy Injections completed ROSA BUTTERFIELD [facility] 100 [facility],[address], [address], [facility] - [facility] 02/12/2024 14:32:23 02/01/20 24 Allergy Immunotherapy Injections completed SAMANTHA SARAH [facility] 100 [facility],[address], [place], [address], [facility] - [facility] 02/01/2024 14:19:44 01/24/20 24 Allergy Immunotherapy Injections completed ROSA CELESTE [facility] 100 [facility],[address], [address], [facility] - [facility] 01/24/2024 14:21:37 Imaging Results None recorded. [...] HFA aerosol inhaler active Medicati on ID: [id number] B rand Name: Manjinder Woodyphe re Send Method: E-Prescr ibed Sub s [...] SNOMED-CT Code Diagnosis ICD10 Code Diagnosis Note [id number] ROSA BUTTERFIELD, [facility] Allergy 100 [facility],[place] [address] [place] [address] 08/14/2024 13:53:09 08/14/2024 14:24:50 Perennial allergic rhinitis [id number] J30.89 [id number] SAMANTHA SARAH [facility] Allergy 100 [facility],[place] [address] [place] [address] 08/21/2024 13:24:53 08/21/2024 14:06:50 Perennial allergic rhinitis [id number] J30.89 [id number] TULIO HYDE RN Allergy 100 [facility], [address] [place] [address] 09/05/2024 11:35:17 09/05/2024 11:36:22 Perennial allergic rhinitis [id number] J30.89 Health Concerns Section Related Observation LastModified by Organization Detai ls LastModified Time None Recorded Concern Status LastModified by Organization Details LastModified Time None Recorded Payers Encounter Date Sequence Insurance Name Policy Number Policy Elizabeth Covered Member ID Elizabeth Member ID Guarantor Name 09/05/2024 1 [facility] ([facility]) Shaw Vela [id number] Shaw Vela
--- OUTSIDE RECORDS SUMMARY | 2024-09-18 09:16 | XMS_ITS | Continuity of Care Document ---
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 Increase in asthma symptoms No If yes, inhaler use: Reaction to last injections: No If yes: ?? Allergy Symptoms: Other: ?? Missed 1 week Dose Notes:?? Not available 08/21/2024 14:06:31 Plan of Treatment Reminders Order Date Submit Date Provider Last Modified By Organization Details Last Modified Time Details Appointments [facility]- Allergy f-up 6mon 2024 01:00P M BRIGITTE [...] Address Organization Details Recorded Time Chronic rhinitis 80579511 Active 2022 Chronic rhinitis; Note: Date Diagnosed : 03/01/2023 6:05 PM (J31.0) Not Available [facility] 02:25:39 Allergic rhinitis 17568220 Active 2023 Allergic rhinitis: Due to other [...] Date : 3 Not Available [facility] 4 00:58:12 Perennial allergic rhinitis 555284581 Active 2023 KISHORE PAT 100 [facility],[address], [address] , [facility] - [facility] 4 14:21:13 Problem Notes None recorded. Procedures Surgical History Date Name Laterality Status Provider Name and Address Organization Details Recorded Time 09/11/19 25 Allergy Immunotherapy Injections completed KISHORE GARCIA 100 [facility],[address], [address], [facility] - [facility] 09/11/2024 16:26:25 09/05/20 24 Allergy Immunotherapy Injections completed TULIO HYDE RN 100 [facility],[address], [address], [facility] - [facility] 09/05/2024 11:35:54 08/21/20 24 Allergy Immunotherapy Injections completed KISHORE GARCIA 100 [facility],[address], [address], [facility] - [facility] 08/21/2024 14:06:16 08/14/20 24 Allergy Immunotherapy Injections completed KISHORE PAT 100 [facility],[address], [address], [place] [facility] [place] 08/14/2024 14:21:22 08/01/20 24 Allergy Immunotherapy Injections completed ROSA BUTTERFIELD RMA [address], [place], [address], [place] [facility] 08/01/2024 12:27:05 07/24/20 24 Allergy Immunotherapy Injections completed TULIO HYDE RN [address], [place], [address], [place] [facility] 07/24/2024 13:49:19 07/17/20 24 Allergy Immunotherapy Injections completed GISELLE PASTRANA RMA [address], [place], [address], [place] [facility] [place] 07/17/2024 11:15:01 07/10/20 24 Allergy Immunotherapy Injections completed GISELLE PASTRANA RMA [address], [place], [address], [place] [facility] [place] 07/10/2024 15:03:55 07/03/20 24 Allergy Immunotherapy Injections completed ROSA BUTTERFIELD RMA [address], [place], [address], [place] [facility] [place] 07/03/2024 13:16:15 06/26/20 24 Allergy Immunotherapy Injections completed GISELLE PASTRANA RMA [address], [place], [address], [place] [facility] [place] 2024 13:40:24 06/12/20 24 Allergy Immunotherapy Injections completed GISELLE PASTRANA RMA [address], [place], [address], [place] [facility] [place] 06/12/2024 12:05:34 06/05/20 24 Allergy Immunotherapy Injections completed GISELLE PASTRANA RMA [address], [place], [address], [place] [facility] [place] 06/05/2024 13:48:08 05/29/20 24 Allergy Immunotherapy Injections completed ROSA BUTTERFIELD, RMA [address], [place], [address], [place] [facility] [place] 05/29/2024 11:48:28 05/23/20 24 Allergy Immunotherapy Injections completed TULIO HYDE RN [address] [facility],[address] [place] [address], [address], [place] [facility] 05/23/2024 15:43:37 05/16/20 24 Allergy Immunotherapy Injections completed ROSA BUTTERFIELD RMCarlos [address], [place], [address], [place] [facility] [place] 05/16/2024 14:12:21 05/09/20 24 Allergy Immunotherapy Injections completed KISHORE GARCIA [address] [place] [address], [address], [place] [facility] 05/09/2024 14:23:57 04/18/20 24 Allergy Immunotherapy Injections completed KISHORE GARCIA [address] [place] [address], [address], [place] [facility] 04/18/2024 14:58:29 04/08/20 24 Allergy Immunotherapy Injections completed TULIO HYDE RN [address] [facility],[address] [place] [address], [address], [place] [facility] [place] 04/08/2024 14:53:53 03/25/20 24 Allergy Immunotherapy Injections completed KISHORE GARCIA [address] [place] [address], [address], [place] [facility] 03/25/2024 14:50:22 03/14/20 24 Allergy Immunotherapy Injections completed ROSA BUTTERFIELD RMA [address], [place], [address], [place] [facility] [place] 03/14/2024 14:07:58 02/28/20 24 Allergy Immunotherapy Injections completed KISHORE GARCIA [address], [place], [address], [place] [facility] [place] 02/28/2024 13:06:11 02/21/20 24 Allergy Immunotherapy Injections completed KISHORE GARCIA [address], [place], [address], [facility] - [facility] [place] 02/21/2024 11:27:51 02/12/20 24 Allergy Immunotherapy Injections completed ROSA BUTTERFIELD [facility] 100 [facility] 100, [place], [address], [facility] - [facility] 02/12/2024 14:32:23 02/01/20 24 Allergy Immunotherapy Injections completed GISELLE PASTRANA [facility] 100 [facility] 100, [place], [address], [facility] - [facility] [place] 02/01/2024 14:19:44 01/24/20 24 Allergy Immunotherapy Injections completed ROSA CELESTE [facility] 100 [facility] [place],[facility] 100, [place], [address], [facility] - [facility] 01/24/2024 14:21:37 Imaging Results None recorded. Procedure [...] Not Available Not Available No t Available [employer] Aerospher e 160 mcg-9mcg- 4.8mcg/ac tuation HFA aerosol inhaler active Medicati on ID: [id number] Hui armas Name: Manjinder clemente Send Method: E-Prescr ibed Sub s Allowed: subs OK Speci al Instruct ion: TAKE 2 PUFFS BY MOUTH TWICE A DAY Medi cationGe nericNam e: Anni Aerosphe re Not Available Not Available Not Available Vitals None Recorded Social History None recorded. Functional Status None recorded. Mental Status None recorded. Family History Nothing Reported. Medical History No medical history recorded. Past Encounters Encounter ID Performer Location Encounter Start Date Encounter Closed Date Diagnosis/Indication Diagnosis SNOMED-CT Code Diagnosis ICD10 Code Diagnosis Note [id number] TULIO HYDE RN Allergy 100 [facility],[place] [address] [place] [address] 07/24/2024 13:28:27 07/24/2024 13:49:36 Perennial allergic rhinitis 721234826 J30.89 [id number] [facility], [facility] Allergy 100 [facility],[place] [address] [place] [address] 08/01/2024 12:25:52 08/01/2024 12:28:26 Perennial allergic rhinitis 969153079 J30.89 [id number] [facility]LY [facility] Allergy 100 [facility],[place] [address] [place] [address] 08/14/2024 13:53:09 08/14/2024 14:24:50 Perennial allergic rhinitis 659803597 J30.89 [id number] GISELLE PASTRANA, [facility] Allergy 100 [facility],[place] [address] [place] [address] 08/21/2024 13:24:53 08/21/2024 14:06:50 Perennial allergic rhinitis 945659845 J30.89 Health Concerns Section Related Observation LastModified by Organization Detai ls LastModified Time None Recorded Concern Status LastModified by Organization Details LastModified Time None Recorded Payers Encounter Date Sequence Insurance Name Policy Number Policy Elizabeth Covered Member ID Elizabeth Member ID Guarantor Name 08/21/2024 1 [facility] Shaw Vela [id number] Shaw Veal
--- OUTSIDE RECORDS SUMMARY | 2024-09-18 09:16 | XMS_ITS | Continuity of Care Document ---
Author Organization [place] - [facility], Allergy Address [address] [place] [address] Care Team Providers Care Manager Managing Name Role Phone HERMELINDO JORGE Primary Care Provider [phone] Assessment Encounter Date Assessment Date Assessment LastModified [...] Organization Details Last Modified Time Details Appointments [facility]- Allergy f-up 6mon 2024 01:00P [...] Address Organization Details Recorded Time Chronic rhinitis 61811248 Active 2022 Chronic rhinitis; Note: Date Diagnosed : 03/01/2023 6:05 PM (J31.0) Not Available [facility] 02:25:39 Allergic rhinitis 43489301 Active 2023 Allergic rhinitis: Due to other [...] ; Start Date : 3 Not Available [facility] 4 00:58:12 Perennial allergic rhinitis 958753253 Active 2023 KISHORE SEWELL 100 [facility],[address], [address] , [facility] - [facility] 4 14:21:13 Problem Notes None recorded. Procedures Surgical History Date Name Laterality Status Provider Name and Address Organization Details Recorded Time 09/11/19 25 Allergy Immunotherapy Injections completed KISHORE GARCIA 100 [facility],[address], [address], [facility] - [facility] 09/11/2024 16:26:25 09/05/20 24 Allergy Immunotherapy Injections completed TULIO HYDE RN 100 [facility],[address], [address], [facility] - [facility] 09/05/2024 11:35:54 08/21/20 24 Allergy Immunotherapy Injections completed KISHORE GARCIA 100 [facility],[address], [address], [facility] - [facility] 08/21/2024 14:06:16 08/14/20 24 Allergy Immunotherapy Injections completed [facility]ISHORE SEWELL [facility],[address], [address], [place] [facility] [place] 08/14/2024 14:21:22 08/01/20 24 Allergy Immunotherapy Injections completed ROSA BUTTERFIELD RMA [address], [place], [address], [place] [facility] [place] 08/01/2024 12:27:05 07/24/20 24 Allergy Immunotherapy Injections completed TULIO HYDE RN [address], [place], [address], [place] [facility] [place] 07/24/2024 13:49:19 07/17/20 24 Allergy Immunotherapy Injections completed SAMANTHA SMITH RMA [address], [place], [address], [place] [facility] [place] 07/17/2024 11:15:01 07/10/20 24 Allergy Immunotherapy Injections completed SAMANTHA SMITH RMA [address], [place], [address], [place] [facility] 07/10/2024 15:03:55 07/03/20 24 Allergy Immunotherapy Injections completed ROSA BUTTERFIELD RMA [address], [place], [address], [place] [facility] 07/03/2024 13:16:15 06/26/20 24 Allergy Immunotherapy Injections completed SAMANTHA SMITH RMA [address], [place], [address], [place] [facility] 2024 13:40:24 06/12/20 24 Allergy Immunotherapy Injections completed SAMANTHA SMITH RMA [address], [place], [address], [place] [facility] 06/12/2024 12:05:34 06/05/20 24 Allergy Immunotherapy Injections completed SAMANTHA SMITH RMA [address], [place], [address], [place] [facility] 06/05/2024 13:48:08 05/29/20 24 Allergy Immunotherapy Injections completed ROSA BUTTERFIELD, RMA [address], [place], [address], [place] [facility] [place] 05/29/2024 11:48:28 05/23/20 24 Allergy Immunotherapy Injections completed TULIO HYDE RN [address], [place], [address], [place] [facility] 05/23/2024 15:43:37 05/16/20 24 Allergy Immunotherapy Injections completed ROSA BUTTERFIELD RMCarlos [address], [place], [address], [place] [facility] 05/16/2024 14:12:21 05/09/20 24 Allergy Immunotherapy Injections completed KISHORE GARCIA [address], [place], [address], [place] [facility] [place] 05/09/2024 14:23:57 04/18/20 24 Allergy Immunotherapy Injections completed KISHORE GARCIA [address] [address], [address], [place] [facility] 04/18/2024 14:58:29 04/08/20 24 Allergy Immunotherapy Injections completed TULIO HYDE RN [address] [facility] [address], [address], [place] [facility] 04/08/2024 14:53:53 03/25/20 24 Allergy Immunotherapy Injections completed KISHORE GARCIA [address], [place], [address], [place] [facility] 03/25/2024 14:50:22 03/14/20 24 Allergy Immunotherapy Injections completed ROSA BUTTERFIELD RMA [address], [place], [address], [place] [facility] 03/14/2024 14:07:58 02/28/20 24 Allergy Immunotherapy Injections completed KISHORE GARCIA [address], [place], [address], [place] [facility] 02/28/2024 13:06:11 02/21/20 24 Allergy Immunotherapy Injections completed KISHORE GARCIA [address], [place], [address], [facility] - [facility] [place] 02/21/2024 11:27:51 02/12/20 24 Allergy Immunotherapy Injections completed ROSA BUTTERFIELD [facility] 100 [facility],[address], [address], [facility] - [facility] 02/12/2024 14:32:23 02/01/20 24 Allergy Immunotherapy Injections completed SAMANTHA SMITH [facility] 100 [facility] [address], [place], [address], [facility] - [facility] 02/01/2024 14:19:44 01/24/20 24 Allergy Immunotherapy Injections completed ROSA CELESTE [facility] 100 [facility],[address], [address], [facility] - [facility] 01/24/2024 14:21:37 Imaging Results None recorded. [...] HFA aerosol inhaler active Medicati on ID: [id number] Hui armas Name: Manjinder Yusuf re Send Method: E-Prescr ibed Sub s Allowed: subs [place] Speci al Instruct ion: TAKE 2 PUFFS BY MOUTH TWICE A DAY Medi cationGe nericNam e: Lorenzaztri Aerosphe re Not Available Not Available Not Available Vitals None Recorded Social History None recorded. Functional Status None recorded. Mental Status None recorded. Family History Nothing Reported. Medical History No medical history recorded. Past Encounters Encounter ID Performer Location Encounter Start Date Encounter Closed Date Diagnosis/Indication Diagnosis SNOMED-CT Code Diagnosis ICD10 Code Diagnosis Note [id number] SAMANTHA SMITH, [facility]ergy [facility],[address] [place] [address] 07/17/2024 10:59:58 07/17/2024 11:25:55 Perennial allergic rhinitis 196721460 J30.89 [id number] TULIO HYDE RN Allergy 100 [facility],[address] [place] [address] 07/24/2024 13:28:27 07/24/2024 13:49:36 Perennial allergic rhinitis 547999856 J30.89 [id number] ROSA CELESTE, [facility] Allergy 100 [facility],[address] [place] [address] 08/01/2024 12:25:52 08/01/2024 12:28:26 Perennial allergic rhinitis [id number] J30.89 [id number] ROSA BOOKER, [facility] Allergy 100 [facility],[address] [place] [address] 08/14/2024 13:53:09 08/14/2024 14:24:50 Perennial allergic rhinitis 106127948 J30.89 Health Concerns Section Related Observation LastModified by Organization Detai ls LastModified Time None Recorded Concern Status LastModified by Organization Details LastModified Time None Recorded Payers Encounter Date Sequence Insurance Name Policy Number Policy Elizabeth Covered Member ID Elizabeth Member ID Guarantor Name 08/14/2024 1 [facility] Shaw Vela [id number] Shaw Vela
--- OUTSIDE RECORDS SUMMARY | 2024-09-18 09:16 | XMS_ITS | Continuity of Care Document ---
Author Organization [place] - [facility], Allergy Address [address] [place] [address] Care Team Providers Care Veterinary Anatomist Name Role Phone HERMELINDO JORGE Primary Care [...] 1 week Dose Notes:?? [email or web address] Not available 08/01/2024 12:27:16 Plan of Treatment Reminders Order Date Submit Date Provider Last Modified By Organization Details Last Modified Time Details Appointments [facility]- Allergy f-up 6mon 2024 01:00P M [...] Address Organization Details Recorded Time Chronic rhinitis 61898224 Active 2022 Chronic rhinitis; Note: Date Diagnosed : 03/01/2023 6:05 PM (J31.0) Not Available [facility] 02:25:39 Allergic rhinitis 12762638 Active 2023 Allergic rhinitis: Due to other [...] ; Start Date : 3 Not Available [facility] 4 00:58:12 Perennial allergic rhinitis 001598384 Active 2023 KISHORE SEWELL 100 [facility],[address], [address] , [facility] - [facility] 4 14:21:13 Problem Notes None recorded. Procedures Surgical History Date Name Laterality Status Provider Name and Address Organization Details Recorded Time 09/11/19 25 Allergy Immunotherapy Injections completed KISHORE GARCIA 100 [facility],[address], [address], [facility] - [facility] 09/11/2024 16:26:25 09/05/20 24 Allergy Immunotherapy Injections completed TULIO HYDE RN 100 [facility],[address], [address], [facility] - [facility] 09/05/2024 11:35:54 08/21/20 24 Allergy Immunotherapy Injections completed KISHORE GARCIA 100 [facility],[address], [address], [facility] - [facility] 08/21/2024 14:06:16 08/14/20 24 Allergy Immunotherapy Injections completed KISHORE SEWELL 100 [facility] [place],[address], [address], [place] [facility] [place] 08/14/2024 14:21:22 08/01/20 24 Allergy Immunotherapy Injections completed ROSA BUTTERFIELD RMA [address], [place], [address], [place] [facility] [place] 08/01/2024 12:27:05 07/24/20 24 Allergy Immunotherapy Injections completed TULIO HYDE RN [address], [place], [address], [place] [facility] [place] 07/24/2024 13:49:19 07/17/20 24 Allergy Immunotherapy Injections completed SAMANTHA SMITH RMA [address], [place], [address], [place] [facility] [place] 07/17/2024 11:15:01 07/10/20 24 Allergy Immunotherapy Injections completed SAMANTHA SMITH RMA [address], [place], [address], [place] [facility] [place] 07/10/2024 15:03:55 07/03/20 24 Allergy Immunotherapy Injections completed ROSA BUTTERFIELD RMA [address], [place], [address], [place] [facility] [place] 07/03/2024 13:16:15 06/26/20 24 Allergy Immunotherapy Injections completed SAMANTHA SMITH RMA [address], [place], [address], [place] [facility] [place] 2024 13:40:24 06/12/20 24 Allergy Immunotherapy Injections completed SAMANTHA SMITH RMA [address], [place], [address], [place] [facility] [place] 06/12/2024 12:05:34 06/05/20 24 Allergy Immunotherapy Injections completed SAMANTHA SMITH RMA [address], [place], [address], [place] [facility] 06/05/2024 13:48:08 05/29/20 24 Allergy Immunotherapy Injections completed ROSA BUTTERFIELD, RMA [address], [place], [address], [place] [facility] [place] 05/29/2024 11:48:28 05/23/20 24 Allergy Immunotherapy Injections completed TULIO HYDE RN [address], [place], [address], [place] [facility] [place] 05/23/2024 15:43:37 05/16/20 24 Allergy Immunotherapy Injections completed ROSA BUTTERFIELD RMCarlos [address], [place], [address], [place] [facility] [place] 05/16/2024 14:12:21 05/09/20 24 Allergy Immunotherapy Injections completed KISHORE GARCIA [address], [place], [address], [place] [facility] [place] 05/09/2024 14:23:57 04/18/20 24 Allergy Immunotherapy Injections completed KISHORE GARCIA [address] [place] [address], [address], [place] [facility] [place] 04/18/2024 14:58:29 04/08/20 24 Allergy Immunotherapy Injections completed TULIO HYDE RN [address] [facility],[address] [place] [address], [address], [place] [facility] [place] 04/08/2024 14:53:53 03/25/20 24 Allergy Immunotherapy Injections completed KISHORE GARCIA [address], [place], [address], [place] [facility] [place] 03/25/2024 14:50:22 03/14/20 24 Allergy Immunotherapy Injections completed ROSA BUTTERFIELD RMA [address], [place], [address], [place] [facility] [place] 03/14/2024 14:07:58 02/28/20 24 Allergy Immunotherapy Injections completed KISHORE GARCIA [address], [place], [address], [place] [facility] [place] 02/28/2024 13:06:11 02/21/20 24 Allergy Immunotherapy Injections completed KISHORE GARCIA [address], [place], [address], [facility] - [facility] [place] 02/21/2024 11:27:51 02/12/20 24 Allergy Immunotherapy Injections completed ROSA BUTTERFIELD [facility] 100 [facility],[address], [address], [facility] - [facility] 02/12/2024 14:32:23 02/01/20 24 Allergy Immunotherapy Injections completed SAMANTHA SMITH [facility] 100 [facility] [place],[facility] [address], [address], [facility] - [facility] 02/01/2024 14:19:44 01/24/20 24 Allergy Immunotherapy Injections completed ROSA CELESTE [facility] 100 [facility],[address], [address], [facility] - [facility] 01/24/2024 14:21:37 Imaging Results None recorded. [...] HFA aerosol inhaler active Medicati on ID: [id number] Hui armas Name: Manjinder Yusuf re Send [...] SNOMED-CT Code Diagnosis ICD10 Code Diagnosis Note [id number] ROSA BUTTERFIELD, A Allergy 100 [facility] [place],[address] [place] [address] 07/03/2024 12:28:14 07/03/2024 13:16:56 Perennial allergic rhinitis [id number] J30.89 [id number] SAMANTHA SMITH [facility] Allergy 100 [facility],[address] [place] [address] 07/10/2024 14:55:43 07/10/2024 16:16:17 Perennial allergic rhinitis 852867892 J30.89 [id number] SAMANTHA SMITH [facility] Allergy 100 [facility] [place],[address] [place] [address] 07/17/2024 10:59:58 07/17/2024 11:25:55 Perennial allergic rhinitis 324213630 J30.89 [id number] TULIO HYDE RN Allergy 100 [facility],[address] [place] [address] 07/24/2024 13:28:27 07/24/2024 13:49:36 Perennial allergic rhinitis 492747545 J30.89 Health Concerns Section Related Observation LastModified by Organization Detai ls LastModified Time None Recorded Concern Status LastModified by Organization Details LastModified Time None Recorded Payers Encounter Date Sequence Insurance Name Policy Number Policy Elizabeth Covered Member ID Elizabeth Member ID Guarantor Name 07/31/2024 1 [facility] Shaw Vela [id number] Shaw Vela
--- NOTE | 2024-09-18 09:18 | A.OFFVIS_ITS ---
Vital Signs 09/18/24 09:22 Height 5 ft 7 in Weight 170 lb BMI 26.6 Handedness Right Intake Visit Reasons: Pre-Op: L PETER w/NE 09/24/24 Intake Note: Shaw is a 54 year old male who presents today with his for a pre op appointment for his left PETER w/NE 09/24/24. Allergies environmental allergies Allergy (Intermediate, Verified 09/18/24 09:21) itchy eyes, sob grass pollen Allergy (Intermediate, Verified 09/18/24 09:21) Itchy Eyes HPI HPI Pre-Op: L PETER w/NE 09/24/24: Details: Mr. Vela is a 54-year-old male?who presents in the office today for?his?preoperative history and physical exam prior to a?left total hip arthroplasty?to be performed on?09/24/2024?by?Dr. Dubose.?? - Patient has an allergy history, as follows: NKDA?? -??Patient has a medical history, as follows:??Left hip AVN, lumbar spine arth ritis, chronic left SI joint pain, asthma -??Patient has a surgical history, as follows:??Colonoscopy -??Patient has a social history, as follows:? Reported to his PCP that he drinks roughly 5 or 6 alcoholic beverages on a typical day. Alcohol type: Hard liquor. COUNT INCLUDES THE [facility] Medical History (Updated 08/21/24 @ 12:37 by Celina Moreno RN) Avascular necrosis Ambulates with cane Hx of bronchitis Arthritis, lumbar spine Chronic left sacroiliac joint pain Deviated septum Atopic dermatitis Tubular adenoma Allergic conjunctivitis Asthma Surgical History (Updated 08/21/24 @ 12:07 by Celina Moreno RN) Hx of colonoscopy (~2020) Family History Father No problems noted. Mother Rheumatoid arthritis Social History Household Members: Family Housing: Apartment Are you a primary customer care coordinator to a significant other at home: No Do you presently have visiting nurse or other home services: No Alcohol intake: current Alcohol intake frequency: a few times a week Alcohol type: beer Patient Tobacco Use Status: Former Tobacco user Tobacco use type: Cigar e-Cigarette/Vaping Use: Never Used Second Hand Smoke Exposure: No Substance Use Type: Marijuana service: No Current occupational status: employed Current occupation: [employer] . Cognitive needs: No Hearing needs: No Vision needs: No Review of Systems Const All systems reviewed & are unremarkable except as noted in HPI and below Physical Exam Vital Signs: BMI result Body Mass Index 26.6 Const General: cooperative, healthy appearing, comfortable, no acute distress, well developed, alert and awake Orientation/consciousness: patient oriented x3 HEENT Head: Yes normal to inspection, Yes normocephalic and Yes atraumatic Eyes General: appearance normal, both eyes and all related structures Neck Neck: Yes normal visual inspection and Yes no lymphadenopathy Resp Effort & Inspection: normal respiratory effort and able to speak in complete sentences Cardio Rate: regular rate Peripheral pulses: Peripheral pulses 2+ throughout GI Inspection: Yes normal to inspection Palpation (GI): Soft to palpation Skin General skin exam: no rashes or lesions noted Neuro General: patient oriented x3 Extrem Other: On exam he has a positive impingement test on the left hip with severe gait antalgia. Psych Mental Status: mental status grossly normal Assessment & Plan Assessment & Plan (1) Avascular necrosis of bone of left hip: Code(s): M87.052 - Idiopathic aseptic necrosis of left femur Category: Medical Plan Mr. Vela is a 54-year-old male?who presents in the office today for?his?preoperative history and physical exam prior to a?left total hip arthroplasty?to be performed on?09/24/2024?by?Dr. Dubose.?? - Patient has an allergy history, as follows: NKDA?? -??Patient has a medical history, as follows:??Left hip AVN, lumbar spine arthritis, chronic left SI joint pain, asthma -??Patient has a surgical history, as follows:??Colonoscopy -??Patient has a social history, as follows:? Reported to his PCP that he drinks roughly 5 or 6 alcoholic beverages on a typical day. Alcohol type: Hard liquor. I discussed in detail the procedure and what to expect pre and post operatively. We discussed the risks, benefits and alternatives to the surgery as well as the rehabilitation course. The risks; which include, but are not limited to infection, bleeding, nerve injury, ongoing pain, swelling, and stiffness, perioperative risk of injury to bones and soft tissues, and blood clots. I?ve answered all questions and with their understanding they have consented to move forward with left total hip arthroplasty with Dr Dubose. Follow-up will be at the post operative appointment on 10/09/2024, or sooner if needed.? Orders: Orders XR hip LT min 2V w/wo pel Today M25.559 - Pain in unspecified hip Coding Level of Care Code Global (56367) Diagnoses Avascular necrosis of bone of left hip M87.052
[2024-09-18 09:22] VITALS: BMI 26.6
== END 2024-09-18 09:38 | disposition home or self-care (01) ==
PROVIDERS: PCP Physician Assistant; Visit Provider Physician Assistant
DX: M87.052 Idiopathic aseptic necrosis of left femur (principal)
CPT/HCPCS: 99024

== ENCOUNTER → 2024-09-18 09:11 | Outpatient (BNV) | payer OTHER, SELFPAY | PROVIDERS: PCP Physician Assistant; Visit Provider Radiology Diagnostic Radiology | DX: M25.552 Pain in left hip (principal) | CPT/HCPCS: 73502 ==

== ENCOUNTER 2024-09-18 09:56 | Outpatient (REF) | payer OTHER, SELFPAY ==
--- NOTE | ~2024-09-18 | XR_ITS ---
EXAMINATION: X-rays of left hip. X-ray pelvis. CLINICAL INFORMATION: Left hip pain. Preop x-ray. COMPARISON: X-ray dated May 08, 2024. TECHNIQUE: AP pelvis. 1 view. AP and oblique views left hip. 2 views. FINDINGS: Bony pelvis is intact. Sclerosis in the symphysis pubis and the sacroiliac joints bilaterally. Asymmetric joint space narrowing involving both right and left coxofemoral joint. Articular surface irregularity and sclerosis in the left acetabulum. Subchondral cyst formation left femoral head. No acute cortical disruption or malalignment. Facet joint hypertrophy at L4-5 and L5-S1. XR/XR hip LT min 2V IMPRESSION: Osteoarthrosis, both hips, left greater than right side.. Electronically signed by: Manjeet Rice MD 09/23/2024 07:13 AM SHANNAN HOWARD
--- OUTSIDE RECORDS SUMMARY | 2024-09-18 10:31 | XMS_ITS | Continuity of Care Document ---
Author Organization [place] - [facility], Allergy Address [address] [place] [address] Care Team Providers Care Assisted Sales Representative Name Role Phone HERMELINDO JORGE Primary Care [...] week Dose Notes:?? Not available 07/10/2024 15:04:04 Plan of Treatment Reminders Order Date Submit Date Provider Last Modified By Organization Details Last Modified Time Details Appointments [facility]- Allergy f-up 6mon 2024 01:00P M [...] Address Organization Details Recorded Time Chronic rhinitis 77071008 Active 2022 Chronic rhinitis; Note: Date Diagnosed : 03/01/2023 6:05 PM (J31.0) [facility]:25:39 Allergic rhinitis 08282751 Active 2023 Allergic rhinitis: Due to other [...] ; Start Date : 3 Not Available [facility] 4 00:58:12 Perennial allergic rhinitis 517989065 Active [address] [facility],[address], [address] , [facility] - [facility] 4 14:21:13 Problem Notes None recorded. Procedures Surgical History Date Name Laterality Status Provider Name and Address Organization Details Recorded Time 09/11/19 25 Allergy Immunotherapy Injections completed KISHORE GARCIA 100 [facility],[address], [address], [facility] - [facility] 09/11/2024 16:26:25 09/05/20 24 Allergy Immunotherapy Injections completed TULIO HYDE RN 100 [facility],[address], [address], [facility] - [facility] 09/05/2024 11:35:54 08/21/20 24 Allergy Immunotherapy Injections completed KISHORE GARCIA 100 [facility],[address], [address], [facility] - [facility] 08/21/2024 14:06:16 08/14/20 24 Allergy Immunotherapy Injections completed KISHORE PAT 100 [facility] [place],[address], [address], [place] - [facility] 08/14/2024 14:21:22 08/01/20 24 Allergy Immunotherapy Injections completed ROSA BUTTERFIELD RMA [address], [place], [address], [place] [facility] 08/01/2024 12:27:05 07/24/20 24 Allergy Immunotherapy Injections completed TULIO HYDE RN [address], [place], [address], [place] [facility] 07/24/2024 13:49:19 07/17/20 24 Allergy Immunotherapy Injections completed GISELLE PASTRANA RMA [address], [place], [address], [place] [facility] 07/17/2024 11:15:01 07/10/20 24 Allergy Immunotherapy Injections completed GISELLE PASTRANA RMA [address], [place], [address], [place] [facility] 07/10/2024 15:03:55 07/03/20 24 Allergy Immunotherapy Injections completed ROSA BUTTERFIELD RMA [address], [place], [address], [place] [facility] 07/03/2024 13:16:15 06/26/20 24 Allergy Immunotherapy Injections completed GISELLE PASTRANA RMA [address], [place], [address], [place] [facility] 2024 13:40:24 06/12/20 24 Allergy Immunotherapy Injections completed GISELLE PASTRANA RMA [address], [place], [address], [place] [facility] 06/12/2024 12:05:34 06/05/20 24 Allergy Immunotherapy Injections completed GISELLE PASTRANA RMA [address], [place], [address], [place] [facility] 06/05/2024 13:48:08 05/29/20 24 Allergy Immunotherapy Injections completed ROSA BUTTERFIELD, RMA [address], [place], [address], [place] [facility] 05/29/2024 11:48:28 05/23/20 24 Allergy Immunotherapy Injections completed TULIO HYDE RN [address] [facility],[address] [place] [address], [address], [place] [facility] 05/23/2024 15:43:37 05/16/20 24 Allergy Immunotherapy Injections completed ROSA BUTTERFIELD RMCarlos [address], [place], [address], [place] [facility] 05/16/2024 14:12:21 05/09/20 24 Allergy Immunotherapy Injections completed KISHORE GARCIA [address] [place] [address], [address], [place] [facility] 05/09/2024 14:23:57 04/18/20 24 Allergy Immunotherapy Injections completed KISHORE GARCIA [address],[place] [address] [place] [address], [address], [place] [facility] 04/18/2024 14:58:29 04/08/20 24 Allergy Immunotherapy Injections completed TULIO HYDE RN [address] [facility],[address] [place] [address], [address], [place] [facility] 04/08/2024 14:53:53 03/25/20 24 Allergy Immunotherapy Injections completed KISHORE GARCIA [address] [place] [address], [address], [place] [facility] 03/25/2024 14:50:22 03/14/20 24 Allergy Immunotherapy Injections completed ROSA BUTTERFIELD RMA [address], [place], [address], [place] [facility] 03/14/2024 14:07:58 02/28/20 24 Allergy Immunotherapy Injections completed KISHORE GARCIA [address], [place], [address], [place] [facility] 02/28/2024 13:06:11 02/21/20 24 Allergy Immunotherapy Injections completed KISHORE GARCIA [address], [place], [address], [facility] - [facility] 02/21/2024 11:27:51 02/12/20 24 Allergy Immunotherapy Injections completed ROSA BUTTERFIELD [facility] 100 [facility] [place],[facility] 100, [place], [address], [facility] - [facility] 02/12/2024 14:32:23 02/01/20 24 Allergy Immunotherapy Injections completed GISELLE PASTRANA [facility] 100 [facility] [place],[facility] 100, [place], [address], [facility] - [facility] 02/01/2024 14:19:44 01/24/20 24 Allergy Immunotherapy Injections completed ROSA CELESTE [facility] 100 [facility] [place],[facility] 100, [place], [address], [facility] - [facility] 01/24/2024 14:21:37 Imaging Results None recorded. [...] HFA aerosol inhaler active Medicati on ID: [id number] Hui armas Name: Manjinder clemente Send Method: [...] SNOMED-CT Code Diagnosis ICD10 Code Diagnosis Note GISELLE PASTRANA [facility] Allergy [address] [place],[address] [place] [address] 06/12/2024 12:04:31 06/12/2024 12:08:16 Perennial allergic rhinitis [id number] J30.89 40073 GISELLE PASTRANA [facility] Allergy 100 [facility] [place],[address] [place] [address] 2024 13:08:56 2024 13:40:46 Perennial allergic rhinitis 633707651 J30.89 36655 ROSA BOOKER, A Allergy [address] [place],[address] [place] [address] 07/03/2024 12:28:14 07/03/2024 13:16:56 Perennial allergic rhinitis 873243303 J30.89 [id number] GISELLE PASTRANA [facility] Allergy 100 [facility] [place],[address] [place] [address] 07/10/2024 14:55:43 07/10/2024 16:16:17 Perennial allergic rhinitis 740707027 J30.89 Health Concerns Section Related Observation LastModified by Organization Detai ls LastModified Time None Recorded Concern Status LastModified by Organization Details LastModified Time None Recorded Payers Encounter Date Sequence Insurance Name Policy Number Policy Elizabeth Covered Member ID Elizabeth Member ID Guarantor Name 07/10/2024 2 [employer] - [facility] Shaw Vela [id number] Shaw [employer]
--- OUTSIDE RECORDS SUMMARY | 2024-09-18 10:31 | XMS_ITS | Continuity of Care Document ---
Author Organization [place] - [facility], Allergy Address [address] [place] [address] Care Team Providers Care Supervisor Sulfuric Acid Plant Name Role Phone HERMELINDO JORGE Primary Care [...] Modified Time Details Appointments [facility]- Allergy f-up 6mon 2024 01:00P M [...] Address Organization Details Recorded Time Chronic rhinitis 25698334 Active 2022 Chronic rhinitis; Note: Date Diagnosed : 03/01/2023 6:05 PM (J31.0) Not Available [facility] 02:25:39 Allergic rhinitis 83413653 Active 2023 Allergic rhinitis: Due to other [...] ; Start Date : 3 Not Available [facility] 4 00:58:12 Perennial allergic rhinitis 555780281 Active 2023 KISHORE SEWELL 100 [facility],[address], [address] , [facility] - [facility] 4 14:21:13 Problem Notes None recorded. Procedures Surgical History Date Name Laterality Status Provider Name and Address Organization Details Recorded Time 09/11/19 25 Allergy Immunotherapy Injections completed KISHORE GARCIA 100 [facility],[address], [address], [facility] - [facility] 09/11/2024 16:26:25 09/05/20 24 Allergy Immunotherapy Injections completed TULIO HYDE RN 100 [facility],[address], [address], [facility] - [facility] 09/05/2024 11:35:54 08/21/20 24 Allergy Immunotherapy Injections completed KISHORE GARCIA 100 [facility],[address], [address], [facility] - [facility] 08/21/2024 14:06:16 08/14/20 24 Allergy Immunotherapy Injections completed KISHORE SEWELL 100 [facility] [place],[address], [address], [place] - [facility] 08/14/2024 14:21:22 08/01/20 24 Allergy Immunotherapy Injections completed ROSA BUTTERFIELD RMA [address], [place], [address], [place] [facility] 08/01/2024 12:27:05 07/24/20 24 Allergy Immunotherapy Injections completed TULIO HYDE RN [address], [place], [address], [place] [facility] 07/24/2024 13:49:19 07/17/20 24 Allergy Immunotherapy Injections completed SAMANTHA SMITH RMA [address], [place], [address], [place] [facility] 07/17/2024 11:15:01 07/10/20 24 Allergy Immunotherapy Injections completed SAMANTHA SMITH RMA [address], [place], [address], [place] [facility] 07/10/2024 15:03:55 07/03/20 24 Allergy Immunotherapy Injections completed ROSA BUTTERFIELD RMA [address], [place], [address], [place] [facility] 07/03/2024 13:16:15 06/26/20 24 Allergy Immunotherapy Injections completed SAMANTHA SMITH RMA [address], [place], [address], [place] [facility] 2024 13:40:24 06/12/20 24 Allergy Immunotherapy Injections completed SAMANTHA SMITH RMA [address], [place], [address], [place] [facility] 06/12/2024 12:05:34 06/05/20 24 Allergy Immunotherapy Injections completed SAMANTHA SMITH RMA [address], [place], [address], [place] [facility] 06/05/2024 13:48:08 05/29/20 24 Allergy Immunotherapy Injections completed ROSA BUTTERFIELD, RMA [address], [place], [address], [place] [facility] 05/29/2024 11:48:28 05/23/20 24 Allergy Immunotherapy Injections completed TULIO HYDE RN [address], [place], [address], [place] [facility] 05/23/2024 15:43:37 05/16/20 24 Allergy Immunotherapy Injections completed ROSA BUTTERFIELD RMCarlos [address], [place], [address], [place] [facility] 05/16/2024 14:12:21 05/09/20 24 Allergy Immunotherapy Injections completed KISHORE GARCIA [address], [place], [address], [place] [facility] 05/09/2024 14:23:57 04/18/20 24 Allergy Immunotherapy Injections completed KISHORE GARCIA [address] [place] [address], [address], [place] [facility] 04/18/2024 14:58:29 04/08/20 24 Allergy Immunotherapy Injections completed TULIO HYDE RN [address] [place] [address], [address], [place] [facility] 04/08/2024 14:53:53 03/25/20 24 Allergy Immunotherapy Injections completed KISHORE GARCIA [address], [place], [address], [place] [facility] 03/25/2024 14:50:22 03/14/20 24 Allergy Immunotherapy Injections completed ROSA BUTTERFIELD RMA [address], [place], [address], [place] [facility] 03/14/2024 14:07:58 02/28/20 24 Allergy Immunotherapy Injections completed KISHORE GARCIA [address], [place], [address], [place] [facility] 02/28/2024 13:06:11 02/21/20 24 Allergy Immunotherapy Injections completed KISHORE GARCIA [address], [place], [address], [facility] - [facility] 02/21/2024 11:27:51 02/12/20 24 Allergy Immunotherapy Injections completed ROSA BUTTERFIELD [facility] 100 [facility],[address], [address], [facility] - [facility] 02/12/2024 14:32:23 02/01/20 24 Allergy Immunotherapy Injections completed SAMANTHA SMITH [facility], [facility] 100 [facility] [place],[email or web address] [address], [place], [address], [facility] - [facility] 02/01/2024 14:19:44 01/24/20 24 Allergy Immunotherapy Injections completed ROSA CELESTE [facility], [facility] 100 [facility],[address], [address], [facility] - [facility] 01/24/2024 14:21:37 Imaging Results None recorded. [...] HFA aerosol inhaler active Medicati on ID: [id number] Hui armas Name: Manjinder Yusuf re Send [...] SNOMED-CT Code Diagnosis ICD10 Code Diagnosis Note [id number] SAMANTHA SMITH A Allergy [address] [place] [address] 06/05/2024 13:47:09 06/05/2024 13:50:45 Perennial allergic rhinitis 046019124 J30.89 SAMANTHA SMITH A Allergy 100 [facility] [place],[address] [place] [address] 06/12/2024 12:04:31 06/12/2024 12:08:16 Perennial allergic rhinitis 065415676 J30.89 [id number] SAMANTHA SMITH A Allergy 100 [facility] [place],[address] [place] [address] 2024 13:08:56 2024 13:40:46 Perennial allergic rhinitis 410840753 J30.89 36421 [facility] A All[facility] 100 [facility] [place],[address] [place] [address] 07/03/2024 12:28:14 07/03/2024 13:16:56 Perennial allergic rhinitis 311170965 J30.89 Health Concerns Section Related Observation LastModified by Organization Detai ls LastModified Time None Recorded Concern Status LastModified by Organization Details LastModified Time None Recorded Payers Encounter Date Sequence Insurance Name Policy Number Policy Elizabeth Covered Member ID Elizabeth Member ID Guarantor Name 07/03/2024 2 [employer] - [facility] Shaw Vela [id number] [employer]
--- OUTSIDE RECORDS SUMMARY | 2024-09-18 10:31 | XMS_ITS | Continuity of Care Document ---
Author Organization [place] - [facility], Allergy Address [address] [place] [address] Care Team Providers Care Disabilities Services Officer Name Role Phone HERMELINDO JORGE Primary [...] week Dose Notes:?? Not available 07/17/2024 11:15:07 Plan of Treatment Reminders Order Date Submit Date Provider Last Modified By Organization Details Last Modified Time Details Appointments [facility]- Allergy f-up 6mon 2024 01:00P [...] Address Organization Details Recorded Time Chronic rhinitis 73118418 Active 2022 Chronic rhinitis; Note: Date Diagnosed : 03/01/2023 6:05 PM (J31.0) [facility] Available [facility] 02:25:39 Allergic rhinitis 30436368 Active 2023 Allergic rhinitis: Due to other [...] Start Date : 3 Not Available [facility] 4 00:58:12 Perennial allergic rhinitis 590604826 Active 2023 KISHORE PAT 100 [facility],[address], [address] , [facility] - [facility] 4 14:21:13 Problem Notes None recorded. Procedures Surgical History Date Name Laterality Status Provider Name and Address Organization Details Recorded Time 09/11/19 25 Allergy Immunotherapy Injections completed KISHORE GARCIA 100 [facility],[address], [address], [facility] - [facility] 09/11/2024 16:26:25 09/05/20 24 Allergy Immunotherapy Injections completed TULIO HYDE RN 100 [facility],[address], [address], [facility] - [facility] 09/05/2024 11:35:54 08/21/20 24 Allergy Immunotherapy Injections completed KISHORE GARCIA 100 [facility],[address], [address], [facility] - [facility] 08/21/2024 14:06:16 08/14/20 24 Allergy Immunotherapy Injections completed KISHORE PAT 100 [facility] [place],[address], [address], [place] - [facility] [place] 08/14/2024 14:21:22 08/01/20 24 Allergy Immunotherapy Injections completed ROSA BUTTERFIELD RMA [address], [place], [address], [place] [facility] 08/01/2024 12:27:05 07/24/20 24 Allergy Immunotherapy Injections completed TULIO HYDE RN [address], [place], [address], [place] [facility] 07/24/2024 13:49:19 07/17/20 24 Allergy Immunotherapy Injections completed GISELLE PASTRANA RMA [address], [place], [address], [place] [facility] 07/17/2024 11:15:01 07/10/20 24 Allergy Immunotherapy Injections completed GISELLE PASTRANA RMA [address], [place], [address], [place] [facility] 07/10/2024 15:03:55 07/03/20 24 Allergy Immunotherapy Injections completed ROSA BUTTERFIELD RMA [address], [place], [address], [place] [facility] 07/03/2024 13:16:15 06/26/20 24 Allergy Immunotherapy Injections completed GISELLE PASTRANA RMA [address], [place], [address], [place] [facility] 2024 13:40:24 06/12/20 24 Allergy Immunotherapy Injections completed GISELLE PASTRANA RMA [address], [place], [address], [place] [facility] 06/12/2024 12:05:34 06/05/20 24 Allergy Immunotherapy Injections completed GISELLE PASTRANA RMA [address], [place], [address], [place] [facility] 06/05/2024 13:48:08 05/29/20 24 Allergy Immunotherapy Injections completed ROSA BUTTERFIELD, RMA [address], [place], [address], [place] [facility] 05/29/2024 11:48:28 05/23/20 24 Allergy Immunotherapy Injections completed TULIO HYDE RN [address] [facility] [place] [address], [address], [place] [facility] 05/23/2024 15:43:37 05/16/20 24 Allergy Immunotherapy Injections completed ROSA BUTTERFIELD RMCarlos [address], [place], [address], [place] [facility] 05/16/2024 14:12:21 05/09/20 24 Allergy Immunotherapy Injections completed KISHORE GARCIA [address] [place] [address], [address], [place] [facility] 05/09/2024 14:23:57 04/18/20 24 Allergy Immunotherapy Injections completed KISHORE GARCIA [address] [place] [address], [address], [place] [facility] 04/18/2024 14:58:29 04/08/20 24 Allergy Immunotherapy Injections completed TULIO HYDE RN [address] [facility] [place] [address], [address], [place] [facility] 04/08/2024 14:53:53 03/25/20 24 Allergy Immunotherapy Injections completed KISHORE GARCIA [address] [place] [address], [address], [place] [facility] 03/25/2024 14:50:22 03/14/20 24 Allergy Immunotherapy Injections completed ROSA BUTTERFIELD RMA [address], [place], [address], [place] [facility] 03/14/2024 14:07:58 02/28/20 24 Allergy Immunotherapy Injections completed KISHORE GARCIA [address], [place], [address], [place] [facility] 02/28/2024 13:06:11 02/21/20 24 Allergy Immunotherapy Injections completed KISHORE GARCIA [address], [place], [address], [facility] - [facility] [place] 02/21/2024 11:27:51 02/12/20 24 Allergy Immunotherapy Injections completed ROSA BUTTERFIELD [facility] 100 [facility] [place],[facility] 100, [place], [address], [facility] - [facility] 02/12/2024 14:32:23 02/01/20 24 Allergy Immunotherapy Injections completed GISELLE PASTRANA [facility] 100 [facility] [place],[facility] 100, [place], [address], [facility] - [facility] [place] 02/01/2024 14:19:44 01/24/20 24 Allergy Immunotherapy Injections completed ROSA CELESTE [facility] 100 [facility] [place],[facility] 100, [place], [address], [facility] - [facility] 01/24/2024 14:21:37 Imaging Results None recorded. [...] HFA aerosol inhaler active Medicati on ID: [id number] Hui armas Name: Manjinder clemente Send Method: [...] SNOMED-CT Code Diagnosis ICD10 Code Diagnosis Note [id number] GISELLE PASTRANA [facility] Allergy [address] [place] [address] 2024 13:08:56 2024 13:40:46 Perennial allergic rhinitis 350453402 J30.89 [id number] ROSA BOOKER, A Allergy 100 [facility] [place],[address] [place] [address] 07/03/2024 12:28:14 07/03/2024 13:16:56 Perennial allergic rhinitis 454559770 J30.89 95929 GISELLE PASTRANA [facility] Allergy 100 [facility] [place],[address] [place] [address] 07/10/2024 14:55:43 07/10/2024 16:16:17 Perennial allergic rhinitis 927586355 J30.89 09215 GISELLE PASTRANA [facility] Allergy 100 [facility] [place],[address] [place] [address] 07/17/2024 10:59:58 07/17/2024 11:25:55 Perennial allergic rhinitis 554158528 J30.89 Health Concerns Section Related Observation LastModified by Organization Detai ls LastModified Time None Recorded Concern Status LastModified by Organization Details LastModified Time None Recorded Payers Encounter Date Sequence Insurance Name Policy Number Policy Elizabeth Covered Member ID Elizabeth Member ID Guarantor Name 07/17/2024 1 [facility] Shaw Vela [id number] [employer]
--- OUTSIDE RECORDS SUMMARY | 2024-09-18 10:31 | XMS_ITS | Continuity of Care Document ---
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 Name Role Phone HERMELINDO JORGE Primary Care [...] Last Modified Time Details Appointments [facility]- Allergy f-up 6mon 2024 01:00P M BRIGITTE [...] Address Organization Details Recorded Time Chronic rhinitis 48588509 Active 2022 Chronic rhinitis; Note: Date Diagnosed : 03/01/2023 6:05 PM (J31.0) Not [facility] 02:25:39 Allergic rhinitis [id number] Active 2023 Allergic rhinitis: Due to other [...] ; Start Date : 3 Not Available [facility] 4 00:58:12 Perennial allergic rhinitis [id number] Active 2023 KISHORE PAT 100 [facility],[address], [address] , [facility] - [facility] 4 14:21:13 Problem Notes None recorded. Procedures Surgical History Date Name Laterality Status Provider Name and Address Organization Details Recorded Time 09/11/19 25 Allergy Immunotherapy Injections completed KISHORE GARCIA 100 [facility],[address], [address], [facility] - [facility] 09/11/2024 16:26:25 09/05/20 24 Allergy Immunotherapy Injections completed TULIO HYDE RN 100 [facility],[address], [address], [facility] - [facility] 09/05/2024 11:35:54 08/21/20 24 Allergy Immunotherapy Injections completed KISHORE GARCIA 100 [facility],[address], [address], [facility] - [facility] 08/21/2024 14:06:16 08/14/20 24 Allergy Immunotherapy Injections completed KISHORE PAT 100 [facility],[address], [address], [place] [facility] 08/14/2024 14:21:22 08/01/20 24 Allergy Immunotherapy Injections completed ROSA BUTTERFIELD RMA [address], [place], [address], [place] [facility] 08/01/2024 12:27:05 07/24/20 24 Allergy Immunotherapy Injections completed TULIO HYDE RN [address], [place], [address], [place] [facility] 07/24/2024 13:49:19 07/17/20 24 Allergy Immunotherapy Injections completed SAMANTHA SMITH RMA [address], [place], [address], [place] [facility] 07/17/2024 11:15:01 07/10/20 24 Allergy Immunotherapy Injections completed SAMANTHA SMITH RMA [address], [place], [address], [place] [facility] 07/10/2024 15:03:55 07/03/20 24 Allergy Immunotherapy Injections completed ROSA BUTTERFIELD RMA [address], [place], [address], [place] [facility] 07/03/2024 13:16:15 06/26/20 24 Allergy Immunotherapy Injections completed SAMANTHA SMITH RMA [address], [place], [address], [place] [facility] 2024 13:40:24 06/12/20 24 Allergy Immunotherapy Injections completed SAMANTHA SMITH RMA [address], [place], [address], [place] [facility] 06/12/2024 12:05:34 06/05/20 24 Allergy Immunotherapy Injections completed SAMANTHA SMITH RMA [address], [place], [address], [place] [facility] 06/05/2024 13:48:08 05/29/20 24 Allergy Immunotherapy Injections completed ROSA BUTTERFIELD, RMA [address], [place], [address], [place] [facility] 05/29/2024 11:48:28 05/23/20 24 Allergy Immunotherapy Injections completed TULIO HYDE RN [address], [place], [address], [place] [facility] 05/23/2024 15:43:37 05/16/20 24 Allergy Immunotherapy Injections completed ROSA BUTTERFIELD RMCarlos [address], [place], [address], [place] [facility] 05/16/2024 14:12:21 05/09/20 24 Allergy Immunotherapy Injections completed KISHORE GARCIA [address], [place], [address], [place] [facility] 05/09/2024 14:23:57 04/18/20 24 Allergy Immunotherapy Injections completed KISHORE GARCIA [address] [place] [address], [address], [place] [facility] 04/18/2024 14:58:29 04/08/20 24 Allergy Immunotherapy Injections completed TULIO HYDE RN [address] [facility],[address] [place] [address], [address], [place] [facility] 04/08/2024 14:53:53 03/25/20 24 Allergy Immunotherapy Injections completed KISHORE GARCIA [address], [place], [address], [place] [facility] 03/25/2024 14:50:22 03/14/20 24 Allergy Immunotherapy Injections completed ROSA BUTTERFIELD RMA [address], [place], [address], [place] [facility] 03/14/2024 14:07:58 02/28/20 24 Allergy Immunotherapy Injections completed KISHORE GARCIA [address], [place], [address], [place] [facility] 02/28/2024 13:06:11 02/21/20 24 Allergy Immunotherapy Injections completed KISHORE GARCIA [address], [place], [address], [facility] - [facility] 02/21/2024 11:27:51 02/12/20 24 Allergy Immunotherapy Injections completed ROSA BUTTERFIELD [facility] 100 [facility],[address], [address], [facility] - [facility] 02/12/2024 14:32:23 02/01/20 24 Allergy Immunotherapy Injections completed SAMANTHA SMITH [facility] 100 [facility] [address], [place], [address], [facility] - [facility] 02/01/2024 14:19:44 01/24/20 24 Allergy Immunotherapy Injections completed ROSA CELESTE [facility] 100 [facility],[address], [address], [facility] - [facility] 01/24/2024 14:21:37 Imaging Results None recorded. [...] HFA aerosol inhaler active Medicati on ID: [id number] Hui armas Name: Manjinder Yusuf re Send [...] SNOMED-CT Code Diagnosis ICD10 Code Diagnosis Note [id number] SAMANTHA SARAH [facility] Allergy 100 [facility],[address] [place] [address] 2024 13:08:56 2024 13:40:46 Perennial allergic rhinitis [id number] J30.89 [id number] ROSA BOOKER, [facility] Allergy 100 [facility],[address] [place] [address] 07/03/2024 12:28:14 07/03/2024 13:16:56 Perennial allergic rhinitis 601694346 J30.89 [id number] SAMANTHA SARAH [facility] Allergy 100 [facility],[address] [place] [address] 07/10/2024 14:55:43 07/10/2024 16:16:17 Perennial allergic rhinitis 142804931 J30.89 [id number] SAMANTHA SARAH [facility] Allergy 100 [facility],[address] [place] [address] 07/17/2024 10:59:58 07/17/2024 11:25:55 Perennial allergic rhinitis [id number] J30.89 [id number] TULIO HYDE RN Allergy 100 [facility],[address] [place] [address] 07/24/2024 13:28:27 07/24/2024 13:49:36 Perennial allergic rhinitis 850596131 J30.89 Health Concerns Section Related Observation LastModified by Organization Detai ls LastModified Time None Recorded Concern Status LastModified by Organization Details LastModified Time None Recorded Payers Encounter Date Sequence Insurance Name Policy Number Policy Elizabeth Covered Member ID Elizabeth Member ID Guarantor Name 07/24/2024 1 [facility] Shaw Vela [id number] Shaw Vela
--- OUTSIDE RECORDS SUMMARY | 2024-09-18 10:32 | XMS_ITS | Continuity of Care Document ---
Author Organization [place] - [facility], Allergy Address [address] [place] [address] Care Team Providers Care Inspector Returned Materials Name Role Phone HERMELINDO JORGE Primary [...] ?? Missed 1 week Yes Dose Notes:?? [email or web address] Not available 2024 13:40:12 Plan of Treatment Reminders Order Date Submit Date Provider Last Modified By Organization Details Last Modified Time Details Appointments [facility]- Allergy f-up 6mon 2024 01:00P M BRIGITTE [...] Address Organization Details Recorded Time Chronic rhinitis 11563939 Active 2022 Chronic rhinitis; Note: Date Diagnosed : 03/01/2023 6:05 PM (J31.0) Not Available [facility] 02:25:39 Allergic rhinitis 31929874 Active 2023 Allergic rhinitis: Due to other [...] Date : 3 Not Available [facility] 4 00:58:12 Perennial allergic rhinitis 303722604 Active 2023 KISHORE PAT 100 [facility],[address], [address] , [facility] - [facility] 4 14:21:13 Problem Notes None recorded. Procedures Surgical History Date Name Laterality Status Provider Name and Address Organization Details Recorded Time 09/11/19 25 Allergy Immunotherapy Injections completed KISHORE GARCIA 100 [facility],[address], [address], [facility] - [facility] 09/11/2024 16:26:25 09/05/20 24 Allergy Immunotherapy Injections completed TULIO HYDE RN 100 [facility],[address], [address], [facility] - [facility] 09/05/2024 11:35:54 08/21/20 24 Allergy Immunotherapy Injections completed KISHORE GARCIA 100 [facility],[address], [address], [facility] - [facility] 08/21/2024 14:06:16 08/14/20 24 Allergy Immunotherapy Injections completed KISHORE PAT 100 [facility],[address], [address], [place] [facility] [place] 08/14/2024 14:21:22 08/01/20 24 Allergy Immunotherapy Injections completed ROSA BUTTERFIELD RMA [address], [place], [address], [place] [facility] 08/01/2024 12:27:05 07/24/20 24 Allergy Immunotherapy Injections completed TULIO HYDE RN [address], [place], [address], [place] [facility] 07/24/2024 13:49:19 07/17/20 24 Allergy Immunotherapy Injections completed GISELLE PASTRANA RMA [address], [address], [place] [facility] 07/17/2024 11:15:01 07/10/20 24 Allergy Immunotherapy Injections completed GISELLE PASTRANA RMA [address], [place], [address], [place] [facility] 07/10/2024 15:03:55 07/03/20 24 Allergy Immunotherapy Injections completed ROSA BUTTERFIELD RMA [address], [place], [address], [place] [facility] 07/03/2024 13:16:15 06/26/20 24 Allergy Immunotherapy Injections completed GISELLE PASTRANA RMA [address], [place], [address], [place] [facility] 2024 13:40:24 06/12/20 24 Allergy Immunotherapy Injections completed GISELLE PASTRANA RMA [address], [place], [address], [place] [facility] 06/12/2024 12:05:34 06/05/20 24 Allergy Immunotherapy Injections completed GISELLE PASTRANA RMA [address], [place], [address], [place] [facility] 06/05/2024 13:48:08 05/29/20 24 Allergy Immunotherapy Injections completed ROSA BUTTERFIELD, RMA [address], [place], [address], [place] [facility] 05/29/2024 11:48:28 05/23/20 24 Allergy Immunotherapy Injections completed TULIO HYDE RN [address], [place], [address], [place] [facility] 05/23/2024 15:43:37 05/16/20 24 Allergy Immunotherapy Injections completed ROSA BUTTERFIELD RMCarlos [address], [place], [address], [place] [facility] 05/16/2024 14:12:21 05/09/20 24 Allergy Immunotherapy Injections completed KISHORE GARCIA [address], [place], [address], [place] [facility] 05/09/2024 14:23:57 04/18/20 24 Allergy Immunotherapy Injections completed KISHORE GARCIA [address] [place] [address], [address], [place] [facility] 04/18/2024 14:58:29 04/08/20 24 Allergy Immunotherapy Injections completed TULIO HYDE RN [address] [facility],[address] [place] [address], [address], [place] [facility] 04/08/2024 14:53:53 03/25/20 24 Allergy Immunotherapy Injections completed KISHORE GARCIA [address], [place], [address], [place] [facility] 03/25/2024 14:50:22 03/14/20 24 Allergy Immunotherapy Injections completed ROSA BUTTERFIELD RMA [address], [place], [address], [place] [facility] 03/14/2024 14:07:58 02/28/20 24 Allergy Immunotherapy Injections completed KISHORE GARCIA [address], [place], [address], [place] [facility] 02/28/2024 13:06:11 02/21/20 24 Allergy Immunotherapy Injections completed KISHORE GARCIA [address], [place], [address], [facility] - [facility] [place] 02/21/2024 11:27:51 02/12/20 24 Allergy Immunotherapy Injections completed ROSA BUTTERFIELD [facility] 100 [facility],[address], [address], [facility] - [facility] 02/12/2024 14:32:23 02/01/20 24 Allergy Immunotherapy Injections completed GISELLE PASTRANA [facility] 100 [facility] [address], [place], [address], [facility] - [facility] 02/01/2024 14:19:44 01/24/20 24 Allergy Immunotherapy Injections completed ROSA CELESTE [facility] 100 [facility],[address], [address], [facility] - [facility] 01/24/2024 14:21:37 Imaging Results None recorded. Procedure [...] HFA aerosol inhaler active Medicati on ID: [id number] Hui armas Name: Manjinder Yusuf re Send [...] SNOMED-CT Code Diagnosis ICD10 Code Diagnosis Note [id number] ROSA BUTTERFIELD, RMA Allergy [address] [place] [address] 05/29/2024 11:37:06 05/29/2024 11:49:49 Perennial allergic rhinitis 842379295 J30.89 94359 GISELLE PASTRANA, A Allergy 100 [facility],[address] [place] [address] 06/05/2024 13:47:09 06/05/2024 13:50:45 Perennial allergic rhinitis 113657119 J30.89 [id number] GISELLE PASTRANA A Allergy 100 [facility],[address] [place] [address] 06/12/2024 12:04:31 06/12/2024 12:08:16 Perennial allergic rhinitis 846081980 J30.89 67166 GISELLE PASTRANA A Allergy 100 [facility],[address] [place] [address] 2024 13:08:56 2024 13:40:46 Perennial allergic rhinitis [id number] J30.89 Health Concerns Section Related Observation LastModified by Organization Detai ls LastModified Time None Recorded Concern Status LastModified by Organization Details LastModified Time None Recorded Payers Encounter Date Sequence Insurance Name Policy Number Policy Elizabeth Covered Member ID Elizabeth Member ID Guarantor Name 2024 1 [facility] Shaw Vela [id number] Shaw Vela 2024 2 [employer] [facility] Shaw Vela [id number] Shaw Vela
== END 2024-09-18 09:57 | disposition home or self-care (01) ==
LOC: HO.LAB 09:56
PROVIDERS: PCP Physician Assistant; Visit Provider Physician Assistant
DX: M25.552 Pain in left hip (principal)
CPT/HCPCS: 73502

== ENCOUNTER 2024-09-24 05:55 | Day surgery (SDC) | payer OTHER, SELFPAY ==
--- OUTSIDE RECORDS SUMMARY | 2024-08-21 12:14 | XMS_ITS | Continuity of Care Document ---
Author Organization [place] - [facility], Allergy Address [address] [place] [phone] Care Team Providers Care First Sampler Name Role Phone HERMELINDO JORGE Primary Care Provider Assessment Encounter Date Assessment Date Assessment LastModified by Organization Details LastModified Time 07/17/2024 07/17/2024 Administered By: Giselle Pastrana Use of Antihistamines: Yes If yes: Daily Vial Test Change in medications: No If yes ?? Increase in asthma symptoms If yes, inhaler use: Reaction to last injections: No If yes: ?? Allergy Symptoms: Other: ?? Missed 1 week Dose Notes:?? [email or web address] Not available 07/17/2024 11:15:07 Plan of Treatment Reminders Order Date Submit Date Provider Last Modified By Organization Details Last Modified Time Details Appointments [facility]- Allergy f-up 6mon 2024 01:00P [...] Address Organization Details Recorded Time Chronic rhinitis [id number] Active 2022 Chronic rhinitis; Note: Date Diagnosed : 03/01/2023 6:05 PM (J31.0) [facility] 02:25:39 Allergic rhinitis 94539605 Active 2023 Allergic rhinitis: Due to other [...] ; Start Date : 3 Not Available [facility] 4 00:58:12 Perennial allergic rhinitis 389951649 Active 2023 ROSA CELESTE, [facility] [place],[address], [address] , [facility] - [facility] 4 14:21:13 Problem Notes None recorded. Procedures Surgical History Date Name Laterality Status Provider Name and Address Organization Details Recorded Time 08/14/20 24 Allergy Immunotherapy Injections completed ROSA BUTTERFIELD [facility] [address] [facility] [place] [address] [place] [address], [address], [facility] - [facility] 08/14/2024 14:21:22 08/01/20 24 Allergy Immunotherapy Injections completed ROSA BUTTERFIELD [facility] [address] [facility] [place],[address], [address], [facility] - [facility] 08/01/2024 12:27:05 07/24/20 24 Allergy Immunotherapy Injections completed TULIO HDYE RN 100 [facility],[address], [address], [facility] - [facility] 07/24/2024 13:49:19 07/17/20 24 Allergy Immunotherapy Injections completed GISELLE PASTRANA Carlos [address] [facility] [place],[address], [address], [place] - [facility] 07/17/2024 11:15:01 07/10/20 24 Allergy Immunotherapy Injections completed GLADYS GARCIAA [address],[place] [address], [place], [address], [place] [facility] 07/10/2024 15:03:55 07/03/20 24 Allergy Immunotherapy Injections completed ROSA BUTTERFIELD RMA [address],[place] [address], [place], [address], [place] [facility] 07/03/2024 13:16:15 06/26/20 24 Allergy Immunotherapy Injections completed GISELLE PASTRANA RMA [address],[place] [address], [place], [address], [place] [facility] 2024 13:40:24 06/12/20 24 Allergy Immunotherapy Injections completed GISELLE PASTRANA RMA [address],[place] [address], [place], [address], [place] [facility] 06/12/2024 12:05:34 06/05/20 24 Allergy Immunotherapy Injections completed GISELLE PASTRANA RMA [address],[place] [facility] [facility], [place], [address], [place] [facility] 06/05/2024 13:48:08 05/29/20 24 Allergy Immunotherapy Injections completed RSOA BUTTERFIELD RMA [address],[place] [address], [place], [address], [place] [facility] 05/29/2024 11:48:28 05/23/20 24 Allergy Immunotherapy Injections completed TULIO HYDE RN [address],[place] [address], [place], [address], [place] [facility] 05/23/2024 15:43:37 05/16/20 24 Allergy Immunotherapy Injections completed ROSA BUTTERFIELD RMA [address],[place] [address], [place], [address], [place] [facility] 05/16/2024 14:12:21 05/09/20 24 Allergy Immunotherapy Injections completed GISELLE PASTRANA RMA [address],[place] [address], [place], [address], [place] [facility] 05/09/2024 14:23:57 04/18/20 24 Allergy Immunotherapy Injections completed KISHORE GARCIA [address],[place] [address], [place], [address], [place] [facility] 04/18/2024 14:58:29 04/08/20 24 Allergy Immunotherapy Injections completed TULIO HYDE RN [address],[place] [address], [place], [address], [place] [facility] 04/08/2024 14:53:53 03/25/20 24 Allergy Immunotherapy Injections completed KISHORE GARCIA [address],[place] [address], [place], [address], [place] [facility] 03/25/2024 14:50:22 03/14/20 24 Allergy Immunotherapy Injections completed ROSA BUTTERFIELD RMA [address], [place], [address], [place] [facility] 03/14/2024 14:07:58 02/28/20 24 Allergy Immunotherapy Injections completed KISHORE GARCIA [address],[place] [address], [place], [address], [place] [facility] 02/28/2024 13:06:11 02/21/20 24 Allergy Immunotherapy Injections completed KISHORE GARCIA [address],[place] [address], [place], [address], [place] [facility] 02/21/2024 11:27:51 02/12/20 24 Allergy Immunotherapy Injections completed ROSA BUTTERFIELD RMA [address],[place] [address], [place], [address], [place] [facility] 02/12/2024 14:32:23 02/01/20 24 Allergy Immunotherapy Injections completed KISHORE GARCIA [address], [place], [address], [place] [facility] 02/01/2024 14:19:44 01/24/20 24 Allergy Immunotherapy Injections completed ROSA BUTTERFIELD RMA [address], [place], [address], [facility] - [facility] HFA aerosol inhaler active Medicati on ID: [id number] rand Name: Lorenzaztri Aerosphe re Send [...] Diagnosis/Indication Diagnosis SNOMED-CT Code Diagnosis ICD10 Code 98923 GISELLE PASTRANA RMA Allergy 100 [facility], ite 100 [place] [address] 2024 13:08:56 2024 13:40:46 Perennial allergic rhinitis 604176200 J30.89 80992 ROSA BUTTERFIELD RMA Allergy [address] [facility] [place] [address] 100 [place] [address] 07/03/2024 12:28:14 07/03/2024 13:16:56 Perennial allergic rhinitis 577026248 J30.89 10041 GISELLE PASTRANA [facility] Allergy 100 [facility], [address] [place] [address] 07/10/2024 14:55:43 07/10/2024 16:16:17 Perennial allergic rhinitis 215796677 J30.89 48221 GISELLE PASTRANA [facility] Allergy [facility], [address] [place] [address] 07/17/2024 10:59:58 07/17/2024 11:25:55 Perennial allergic rhinitis 139506452 J30.89 Health Concerns Section Related Observation LastModified by Organization Detai ls LastModified Time None Recorded Concern Status LastModified by Organization Details LastModified Time None Recorded Payers Encounter Date Sequence Insurance Name Policy Number Policy Elizabeth Covered Member ID Elizabeth Member ID Guarantor Name 07/17/2024 1 [facility] ([facility] Shaw Vela [id number] Shaw Vela
--- OUTSIDE RECORDS SUMMARY | 2024-08-21 12:14 | XMS_ITS | Continuity of Care Document ---
Author Organization [place] - [facility], Allergy Address [address] [place] [address] Care Team Providers Care Ice Skater Name Role Phone HERMELINDO JORGE Primary Care Provider Assessment Encounter Date Assessment Date Assessment LastModified by Organization Details LastModified Time 07/24/2024 07/24/2024 Administered By: Tulio Hyde RN Use of Antihistamines: Yes If yes: Vial Test Change in medications: No If yes ?? Increase in asthma symptoms No If yes, inhaler use: Reaction to last injections: No If yes: ?? Allergy Symptoms: Other: ?? Missed 1 week Dose Notes:?? [email or web address] Not available 07/24/2024 13:48:23 Plan of Treatment Reminders Order Date Submit Date Provider Last Modified By Organization Details Last Modified Time Details Appointments [facility]- Allergy f-up 6mon 2024 01:00P M BRIGITTE [...] Address Organization Details Recorded Time Chronic rhinitis 36935590 Active 2022 Chronic rhinitis; Note: Date Diagnosed : 03/01/2023 6:05 PM (J31.0) [facility] 02:25:39 Allergic rhinitis 54215694 Active 2023 Allergic rhinitis: Due to other [...] ; Start Date : 3 Not Available [facility] 4 00:58:12 Perennial allergic rhinitis 188511984 Active 2023 ROSA CELESTE, [facility] 100 [facility],[address], [address] , [facility] - [facility] 4 14:21:13 Problem Notes None recorded. Procedures Surgical History Date Name Laterality Status Provider Name and Address Organization Details Recorded Time 08/14/20 24 Allergy Immunotherapy Injections completed ROSA CELESTE [facility] 100 [facility] [place],[address], [address], [facility] - [facility] 08/14/2024 14:21:22 08/01/20 24 Allergy Immunotherapy Injections completed ROSA BUTTERFIELD [address] [place],[address], [address], [facility] - [facility] 08/01/2024 12:27:05 07/24/20 24 Allergy Immunotherapy Injections completed TULIO HYDE RN 100 [facility],[address], [address], [facility] - [facility] 07/24/2024 13:49:19 07/17/20 24 Allergy Immunotherapy Injections completed SAMANTHA SMITH [facility] 100 [facility],[address], [address], [place] - [facility] [place] 07/17/2024 11:15:01 07/10/20 24 Allergy Immunotherapy Injections completed GLADYS GARCIAA [address],[place] [address], [place], [address], [place] [facility] [place] 07/10/2024 15:03:55 07/03/20 24 Allergy Immunotherapy Injections completed ROSA BUTTERFIELD RMA [address],[place] [address], [place], [address], [place] [facility] [place] 07/03/2024 13:16:15 06/26/20 24 Allergy Immunotherapy Injections completed SAMANTHA SMITH RMA [address],[place] [address], [place], [address], [place] [facility] [place] 2024 13:40:24 06/12/20 24 Allergy Immunotherapy Injections completed SAMANTHA SMITH RMA [address], [place], [address], [place] [facility] [place] 06/12/2024 12:05:34 06/05/20 24 Allergy Immunotherapy Injections completed SAMANTHA SMITH RMA [address], [place], [address], [place] [facility] [place] 06/05/2024 13:48:08 05/29/20 24 Allergy Immunotherapy Injections completed ROSA BUTTERFIELD RMA [address],[place] [address] [place] [address], [address], [place] [facility] 05/29/2024 11:48:28 05/23/20 24 Allergy Immunotherapy Injections completed TULIO HYDE, RESHMA [address], [place], [address], [place] [facility] 05/23/2024 15:43:37 05/16/20 24 Allergy Immunotherapy Injections completed ROSA BUTTERFIELD RMA [address], [place], [address], [place] [facility] 05/16/2024 14:12:21 05/09/20 24 Allergy Immunotherapy Injections completed SAMANTHA SMITH RMA [address], [place], [address], [place] [facility] 05/09/2024 14:23:57 04/18/20 24 Allergy Immunotherapy Injections completed KISHORE GARCIA [address], [place], [address], [place] [facility] 04/18/2024 14:58:29 04/08/20 24 Allergy Immunotherapy Injections completed TULIO HYDE RN [address], [place], [address], [place] [facility] 04/08/2024 14:53:53 03/25/20 24 Allergy Immunotherapy Injections completed KISHORE GARCIA [address], [place], [address], [place] [facility] 03/25/2024 14:50:22 03/14/20 24 Allergy Immunotherapy Injections completed ROSA BUTTERFIELD RMA [address], [place], [address], [place] [facility] 03/14/2024 14:07:58 02/28/20 24 Allergy Immunotherapy Injections completed KISHORE GARCIA [address], [place], [address], [place] [facility] 02/28/2024 13:06:11 02/21/20 24 Allergy Immunotherapy Injections completed KISHORE GARCIA [address], [place], [address], [place] [facility] 02/21/2024 11:27:51 02/12/20 24 Allergy Immunotherapy Injections completed ROSA BUTTERFIELD RMA [address], [place], [address], [place] [facility] 02/12/2024 14:32:23 02/01/20 24 Allergy Immunotherapy Injections completed GLADYS GARCIAA [address], [place], [address], [place] [facility] 02/01/2024 14:19:44 01/24/20 24 Allergy Immunotherapy Injections completed ROSA BUTTERFIELD RMA [address], [place], [address], [facility] - [facility] [...] HFA aerosol inhaler active Medicati on ID: [id number] B rand Name: Lorenzaztri Aerosphe re Send [...] Diagnosis/Indication Diagnosis SNOMED-CT Code Diagnosis ICD10 Code 53301 SAMANTHA SMITH, RMA Allergy 100 [facility], it[address] 100 [place] [address] 2024 13:08:56 2024 13:40:46 Perennial allergic rhinitis 417600637 J30.89 30269 ROSA BUTTERFIELD RMA Allergy 100 [facility] [place] [address] [place] [address] 07/03/2024 12:28:14 07/03/2024 13:16:56 Perennial allergic rhinitis 291269661 J30.89 92433 SAMANTHA SMITH [facility] Allergy 100 [facility],[place] [address] [place] [address] 07/10/2024 14:55:43 07/10/2024 16:16:17 Perennial allergic rhinitis 759169123 J30.89 13357 SAMANTHA SMITH [facility] Allergy 100 [facility], [address] [place] [address] 07/17/2024 10:59:58 07/17/2024 11:25:55 Perennial allergic rhinitis 225600150 J30.89 11557 TULIO HYDE RN Allergy [address] [place] [address], [address] [place] [address] 07/24/2024 13:28:27 07/24/2024 13:49:36 Perennial allergic rhinitis 576007097 J30.89 Health Concerns Section Related Observation LastModified by Organization Detai ls LastModified Time None Recorded Concern Status LastModified by Organization Details LastModified Time None Recorded Payers Encounter Date Sequence Insurance Name Policy Number Policy Elizabeth Covered Member ID Elizabeth Member ID Guarantor Name 07/24/2024 1 [facility] ([facility]) Shaw Vela [id number] Shaw Vela
[2024-08-21 12:17] VITALS: BP 132/83; PULSE 83; RESP 16; O2SAT 95; BMI 25.8
--- NOTE | 2024-08-21 12:43 | HO.ANESPROP2 ---
Documented by User: Martha Davison NP 08/21/24 13:02 HPI - Anesthesia Eval Consult details Narrative: 54yo M for Left Hip Total Replacement, 09/24/23 Medically optimized per PCP Follows [facility]. Tapering pt off prednisone for wound healing. Optimized per 08/2024 office visit Follows [facility] rheum. Tx for possible ankylosing spond deferred until effects from PETER established. 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 Reports some chest tightness r/t asthma. [facility] Active Problems Active Problems: All Active Problems Pre-op chest exam (Acute) Pre-op exam (Acute) Avascular necrosis of bone of left hip (Acute) Avascular necrosis of bone of hip (Acute) Left hip pain (Acute) Neuroforaminal stenosis of lumbosacral spine (Acute) Lumbar radiculopathy (Acute) Muscle spasm of back (Acute) Sacroiliitis (Acute) Lumbar degenerative disc disease (Acute) Arthritis of left hip (Acute) Sacroiliac joint dysfunction (Acute) Strain of left hip (Acute) Bronchitis (Acute) Allergic rhinitis (Acute) Asthma (Acute) Exposure to COVID-19 virus (Acute) URI (upper respiratory infection) (Acute) Atopic dermatitis (Acute) Asthma exacerbation (Acute) Colon cancer screening (Acute) Annual physical exam (Acute) Cough (Acute) Vaso vagal episode (Acute) Screening for hypothyroidism (Acute) Screening for hypercholesterolemia (Acute) Screening for diabetes mellitus (DM) (Acute) Allergic conjunctivitis (Acute) Arthritis, lumbar spine (Acute) Chronic left sacroiliac joint pain (Acute) Deviated septum (Acute) Atopic dermatitis (Acute) Tubular adenoma (Acute) Past Medical History Medical History Avascular necrosis Ambulates with cane Hx of bronchitis Arthritis, lumbar spine Chronic left sacroiliac joint pain Deviated septum Atopic dermatitis Tubular adenoma Allergic conjunctivitis Asthma Family History Family History Father No problems noted. Mother Rheumatoid arthritis Family history of problems with anesthesia: No Surgical History Surgical History Hx of colonoscopy (~2020) History of Problems with Anesthesia: No Social History Social History Household Members: Family Housing: Apartment Are you a primary manager long term care to a significant other at home: No Do you presently have visiting nurse or other home services: No Alcohol intake: current Alcohol intake frequency: a few times a week Alcohol type: beer Patient Tobacco Use Status: Former Tobacco user Tobacco use type: Cigar Smoked in Last 30 Days: No e-Cigarette/Vaping Use: Never Used Second Hand Smoke Exposure: No Use of substances other than those prescribed or required for medical reasons: Yes Substance Use Type: Marijuana Substance Use Type Other:: edibles Substance Use Frequency: Daily Have you been hit, kicked, punched, or otherwise hurt by someone within the past year? If so, by whom?: No Are you DNR?: No Advance Directives: No Advance Directives Information Provided: Yes Advance Directives on File: No Recently lost weight without trying: No Nutrition Risks: No Nutritional Risk Poor oral hygiene: No service: No Current occupational status: employed Current occupation: [employer]- [employer] AT [employer] . Cognitive needs: No Hearing needs: No Vision needs: No Meds Allergies Allergy/AdvReac Type Severity Reaction Status Date / Time environmental allergies Allergy Intermediate itchy Verified 09/24/24 06:18 eyes, sob grass pollen Allergy Intermediate Itchy Eyes Verified 09/24/24 06:18 Home Medications ?Medication ?Instructions ?Recorded ?Confirmed ?Last Taken ?Type fluorometholone 0.25 % eye 1 drp ophthalmic (eye) TID 02/09/21 08/21/24 09/24/24 05:30 History drops,suspension cyclosporine 0.09 % eye drops in a 1 drp ophthalmic (eye) BID 02/26/24 08/21/24 09/24/24 05:30 History dropperette (Cequa) nebulizers 06/17/24 08/21/24 Unknown History prednisone 10 mg tablet 10 mg PO DAILY 08/21/24 08/21/24 Unknown History Exam Height,Weight and Vital Signs: Height 5 ft 7 in Weight 74.843 kg Last Vital Signs Pulse 83 08/21/24 12:17 Resp 16 08/21/24 12:17 BP 132/83 08/21/24 12:17 Pulse Ox 95 08/21/24 12:17 O2 Del Method Room Air 08/21/24 12:17 Pertinent Lab Results Pertinent Lab Results: Laboratory Tests 08/14/24 15:27 WBC 5.1 Hgb 14.3 Hct 41.5 L Plt Count 260 Sodium 140 Potassium 3.9 Chloride 105 Carbon Dioxide 28 BUN 10 Creatinine 1.07 Narrative Narrative: EKG 08/14/24 Vent. Rate : 067 BPM Atrial Rate : 067 BPM P-R Int : 128 ms QRS Dur : 084 ms QT Int : 374 ms P-R-T Axes : 068 049 -04 degrees QTc Int : 395 ms Normal sinus rhythm Normal ECG When compared with ECG of 06-SEP-2009 11:51, No significant change was found Airway Mallampati Class: II TM Dist: >3cm Neck ROM: Full Loose/Missing/Broken Teeth: Yes (~#26 chipped, molar pulled) Heart: RRR Lungs: CTAB Assessment and Plan Assessment Anesthesia Assessment: Anesthesia Plan Discussed and PAT Visit Final Anesthetic Review Family History of Problems with Anesthesia: No History of Problems with Anesthesia: No Documented by User: Minoo Stack MD 09/24/24 08:22 PMFSH Past Medical History Medical History Avascular necrosis Ambulates with cane Hx of bronchitis Arthritis, lumbar spine Chronic left sacroiliac joint pain Deviated septum Atopic dermatitis Tubular adenoma Allergic conjunctivitis Asthma Family History Family History Father No problems noted. Mother Rheumatoid arthritis Surgical History Surgical History Hx of colonoscopy (~2020) Social History Social History Household Members: Family Housing: Apartment Are you a primary manager long term care to a significant other at home: No Do you presently have visiting nurse or other home services: No Alcohol intake: current Alcohol intake frequency: a few times a week Alcohol type: beer Patient Tobacco Use Status: Former Tobacco user Tobacco use type: Cigar Smoked in Last 30 Days: No e-Cigarette/Vaping Use: Never Used Second Hand Smoke Exposure: No Use of substances other than those prescribed or required for medical reasons: Yes Substance Use Type: Marijuana Substance Use Type Other:: edibles Substance Use Frequency: Daily Have you been hit, kicked, punched, or otherwise hurt by someone within the past year? 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 Cognitive needs: No Hearing needs: No Vision needs: No Meds Allergies Allergy/AdvReac Type Severity Reaction Status Date / Time environmental allergies Allergy Intermediate itchy Verified 09/24/24 06:18 eyes, sob grass pollen Allergy Intermediate Itchy Eyes Verified 09/24/24 06:18 Home Medications ?Medication ?Instructions ?Recorded ?Confirmed ?Last Taken ?Type fluorometholone 0.25 % eye 1 drp ophthalmic (eye) TID 02/09/21 08/21/24 09/24/24 05:30 History drops,suspension cyclosporine 0.09 % eye drops in a 1 drp ophthalmic (eye) BID 02/26/24 08/21/24 09/24/24 05:30 History dropperette (Cequa) nebulizers 06/17/24 08/21/24 Unknown History prednisone 10 mg tablet 10 mg PO DAILY 08/21/24 08/21/24 Unknown History Assessment and Plan Final Anesthetic Review NPO: Yes ASA Class: III Final Preanesthetic Review: No Changes in Pt Med Stat, Meds/Allgs Chart Reviewed, Consent Obtained/Reviewed and Anes Risks/Benef Reviewed Patient Risk: Intermediate Procedure Risk: Intermediate Anesthetic Plan Anesthetic Plan: GA Disposition: Standard PACU
[2024-08-21 14:43] LABS: MRSA Nasal PCR NEGATIVE (Negative); SA Nasal PCR POSITIVE (Negative)
[2024-09-24] VITALS (15 sets, daily range): BP systolic 130–187; BP diastolic 82–107; PULSE 70–89; RESP 16–18; TEMP 36.1–37.1; O2SAT 93–99; BMI 26.2; BMI 27.7
--- NOTE | ~2024-09-24 | XR_ITS ---
EXAMINATION: XR PELVIS CLINICAL INFORMATION: s/p LTHA COMPARISON: None available. TECHNIQUE: AP view of the pelvis. FINDINGS: There is a total left hip prosthesis with prosthetic components in satisfactory alignment. The periprosthetic bones are normal with no fracture seen. There are postsurgical adi along the left lateral hip from recent intervention. XR/XR pelvis 1-2V IMPRESSION: Normal alignment of total left hip prosthesis with immediate postoperative changes noted. Electronically signed by: Pete Rose MD 09/24/2024 10:57 AM SHANNAN
[2024-09-24 06:52] LABS: Hematocrit 39.4 % (42.0-52.0); Hemoglobin 13.7 g/dl (14.0-18.0)
[2024-09-24] MEDS: oxyCODONE HCl ER 10 MG TAB.ER.12H PO ×2 (06:52→21:49)
[2024-09-24] MEDS: Lactated Ringers 1,000 ML 100 ML IVCONT ×3 (07:01→21:51)
--- NOTE | 2024-09-24 07:23 | MHC.SHP ---
Pre-Procedural Eval Section A - 24 Hr Update-Section A only Date of Service: 09/24/24 The patient is an INPATIENT: No Changes since office visit: No Cold of Flu in the past 2 weeks, No New Medical Problems, No Changes in Medication and No Patient answered all questions The patient has been examined within 24 hours of the surgical procedure. The History & Physical has been completed within 30 days and I have reviewed it.: Yes Section B - Complete if H&P > 30 days Chief Complaint: LTHA Allergies: Allergies Allergy/AdvReac Type Severity Reaction Status Date / Time environmental allergies Allergy Intermediate itchy Verified 09/24/24 06:18 eyes, sob grass pollen Allergy Intermediate Itchy Eyes Verified 09/24/24 06:18 Plan I have reviewed the history and physical and performed a pertinent physical examination on my patient. No changes have occurred unless specified. Time Spent With Patient Time: Total time managing care of this patient today ____ minutes.
--- NOTE | 2024-09-24 09:48 | W.PM.OPN ---
Operative Note Operative Note Date of Service: 09/24/24 Narrative: Date of Service: 09/24/24 Pre-op diagnosis: Left hip AVN Post-op diagnosis: same Procedure: Left PETER Implants: [place] Trident2 54; Accoalde2 #4 127 with +0/36 ceramic Surgeon: Santhosh Dubose MD Anesthesia: GETA and local Was an Electronics Computer Mechanic used for this Procedure?: Yes Electronics Computer Mechanic: Mar Lema Estimated blood loss (mL): 100 IV fluids (mL): 1,000 Pathology: other Condition: stable Disposition: PACU Procedure in detail: Patient was brought into the operating room and placed in the right lateral decubitus position. All bony prominences were well padded and the limb was prepped and draped in standard sterile fashion. A time-out was called to identify proper site procedure proper surgeon IV antibiotics and 1 g of tranexamic acid were administered. I began by making a curvilinear incision over the posterolateral aspect of the greater trochanter. Dissection was taken down to the tensor fascia which was incised in line with the incision and a Charnley retractor was placed. Cautery was used to maintain hemostasis. The hip was internally rotated and the external rotators were identified. The vessels were cauterized and a full-thickness capsular/external rotator layer was developed starting just proximal to the piriformis. This layer was tagged and a dull Hohmann retractor was placed underneath the neck in the hip was dislocated. A neck cut was made 1.5 cm proximal to the lesser trochanter and the head and neck were removed and measured 50mm on the back table. The superior portion of the head was soft and eroded. I then removed the labrum and cauterized the fovea. I started with a 44 reamer and medialized to the inner table. I sequentially reamed up to a size 54 and impacted a 54mm cup at 45 degrees of inclination and 25 degrees of version. I then placed a 20 deg posterior lipped liner and turned my attention to the femur. I identified the piriformis insertion and used this as a starting point for my ivan cutter. The medius tendon was protected with a Hibs retractor. A Charnley awl was inserted in the canal and a curved curette used to remove the lateral bone. I irrigated copiously. I then sequentially broached in the patient's natural version to a size 4 and placed my trial implants. I used a #4/127/+0 based on my pre-operative template. I removed all instrumentation and copiously irrigated. I placed my final femoral implant and again took the hip through range of motion and was satisfied with the stability and length. The final +0 implant was impacted in place and the hip reduced. I then irrigated copiously and placed 1 g of local tranexamic acid. I performed a capsular closure with 2.0 fiberwire, Diego's fascia with 0 Vicryl, subcuticular with 2-0 Vicryl and the skin with adi. Patient was placed into a sterile dressing. Patient was extubated brought to the recovery room in stable condition. There were no known complications.
[2024-09-24] MEDS: HYDROmorphone HCl 0.5 MG/0.5 ML SYRINGE 0.25 MG IVPUSH ×3 (10:15→11:18)
--- NOTE | 2024-09-24 11:27 | PHA.MEDREC ---
Addendum entered by Bhavani Treviño RPh 09/24/24 11:38: Reviewed by [facility]. Original Note: Pharmacy Consult ? Medication Reconciliation Pharmacy has completed the medication reconciliation.Spoke to patient Family at bedside to confirm med list. Family was able to tell me what medication patient takes. Made some changes to med rec. Family states patient is no longer taking Acetaminophen 325 mg, Budesanide 160 mg inhaler, Flovent 110 mg, Prednisone 10 mg. Family confirmed patient is still taking Azithromycin 250 mg 3x week mon,wed,fri, however patient took one 09/23/24 changed to Sun, th, fri.
[2024-09-24] MEDS: ceFAZolin Sodium/Dextrose,Iso 2 GM/50 ML PIGGYBACK IV (13:27)
[2024-09-24] MEDS: oxyCODONE HCl Immed Release 5 MG TABLET PO (13:28)
[2024-09-24] MEDS: Acetaminophen 325 MG TABLET 650 MG PO (13:28)
[2024-09-24] MEDS: Gabapentin 300 MG CAPSULE PO ×2 (15:26→21:48)
[2024-09-24] MEDS: Acetaminophen 1,000 MG/100 ML PIGGYBACK 400 MG IV (18:01)
[2024-09-24] MEDS: Celecoxib 200 MG CAPSULE PO (21:47)
[2024-09-24] MEDS: Cyclobenzaprine HCl 10 MG TABLET PO (21:48)
[2024-09-24] MEDS: Montelukast Sodium 10 MG TABLET PO (21:48)
--- NOTE | 2024-09-24 22:46 | PM.EVENT ---
Event Note Date of Service: 09/24/24 Event Note: Pt is a 54-year-old male w/a PMH significant for asthma, and avascular necrosis of left hip who was admitted to the hospital under orthopedic services for left PETER w/hospitalist consult for hypertension. POD0. Pt was noted to be hypertensive up to 187/102 after surgery. However, patient's BP has since been coming down to 154/97 and 148/88. Hypotension likely secondary to uncontrolled pain. Will hold off on any antihypertensive at this moment and will re-evaluate BP in the morning. Time Spent With Patient Time: Total time managing care of this patient today ____ minutes.
[2024-09-25] MEDS: Acetaminophen 1,000 MG/100 ML PIGGYBACK 400 MG IV ×2 (00:57→06:26)
[2024-09-25 03:21] VITALS: BP 140/76; PULSE 71; RESP 18; TEMP 36.8; O2SAT 95
--- NOTE | 2024-09-25 04:22 | PC.NURSE ---
Prior to HS, while ambulating patient to the bathroom, he stated to feel a click in his left hip/thigh area. He stated he could not hear it, it did not cause any pain or discomfort, but felt it previous shift also. Patient noted WBAT, Aquacel dressing C-D-I, +pp +cms. Casey Text note sent to the orthopedic PA mercerizing range controller to alert team and get okay to ambulate. Response was it was okay to ambulate. Will continue to monitor.
[2024-09-25 06:00] LABS: MANUAL DIFF FLAG NO
[2024-09-25 06:05] LABS: Basophils Percent Auto 0.3 % (0-2); Eosinophils Absolute Auto 0.1 X10*3/uL (0.0-0.4); Eosinophils Percent Auto 1.3 % (0-4); Hematocrit 35.8 % (42.0-52.0); Hemoglobin 11.8 g/dl (14.0-18.0); Imm Gran Abs Auto 0.02 X10*3/uL (0.00-0.03); Imm Gran Pct Auto 0.3 % (0.0-0.4); Lymphocytes Percent Auto 32.7 % (20-40); Mean Corpuscular Hemoglobin 32.1 pg (27.0-33.0); Mean Corpuscular Volume 97.3 fL (80.0-98.0); Mean Platelet Volume 10.6 fL (9.4-12.4); Monocytes Absolute Auto 0.7 X10*3/uL (0.1-1.2); Monocytes Percent Auto 10.9 % (2-11); Neutrophils Absolute Auto 3.3 x10*3/uL (2.0-8.3); Neutrophils Percent Auto 54.5 % (45-73); Platelet Count 210 X10*3/uL (160-400); Red Blood Count 3.68 X10*6/uL (4.60-5.80); Red Cell Distribution Width 11.8 % (11.0-16.0); White Blood Count 6.1 X10*3/uL (4.8-10.8)
[2024-09-25 06:19] LABS: Anion Gap 10 (12-20); Blood Urea Nitrogen 9 mg/dL (9-16); Calcium 8.7 mg/dL (8.4-10.2); Carbon Dioxide 25 mmol/L (22-29); Chloride 110 mmol/L (96-108); Creatinine Clr Calc Pharmacy 104.4; Estimated Glomerular Filt Rate > 60; Glucose Fasting 102 mg/dL (60-99); Potassium 3.7 mmol/L (3.3-5.1); Sodium 141 mmol/L (135-145)
[2024-09-25 07:07] VITALS: BP 131/89; PULSE 66; RESP 16; TEMP 36.9; O2SAT 97
[2024-09-25] MEDS: Budesonide 0.5 MG/2 ML AMPUL.NEB INHALE (08:19)
[2024-09-25 08:22] VITALS: PULSE 101; RESP 16; O2SAT 94
[2024-09-25] MEDS: Aspirin 325 MG TABLET PO (08:43)
[2024-09-25] MEDS: Celecoxib 200 MG CAPSULE PO (08:44)
[2024-09-25] MEDS: Gabapentin 300 MG CAPSULE PO (08:44)
[2024-09-25] MEDS: oxyCODONE HCl ER 10 MG TAB.ER.12H PO (08:44)
[2024-09-25] MEDS: Lactated Ringers 1,000 ML 100 ML IVCONT (08:46)
[2024-09-25] MEDS: oxyCODONE HCl Immed Release 5 MG TABLET PO (08:49)
[2024-09-25 08:51] VITALS: PULSE 101
--- NOTE | 2024-09-25 09:00 | P.DS_ITS ---
DS: Providers Provider Date of Service: 09/25/24 Date of discharge: 09/25/24 Primary care physician: Hussain Arce PA-C Consults: 09/24/24 15:34 Consult to Hospitalist Routine Comment: Consulting Provider: [facility] [place] Hospitalists Reason For Exam: HTN DS: Summary Hospital Course Hospital Course: The patient underwent a successful Left total hip arthroplasty on 09/24/[address] Dubose , was transferred to PACU and then to the floor to recover. During their stay, their vitals were stable, afebrile at . Labs were unremarkable, H/H 11.8/35.8. POD 1 he was started on ASA 325mgtabs post bid a day for DVT ppx, they also received Physical Therapy services twice a day. Physical therapy should include gait training, core and lumbar strength, glute strength. Posterior precautions intact. WBAT. Prior to discharge,dressing was clean dry and intact. The Aquacel dressing should remain intact and dry at all times. Any concerns with the dressing, please contact orthopedic office. No showering. The plan is to be discharged home with vna Time Attestation Discharge Coordination Time (in mins): 30 Quality: Safe Use of Opioids Does Pt have an Active Cancer Diagnosis on the Problem List?: No Quality: Stroke Does the patient have a stroke diagnosis?: No Physical Exam Vital Signs: Vital Signs: Last Vital Signs Temp 98.5 F 09/25/24 07:07 Pulse 101 H 09/25/24 08:22 Resp 16 09/25/24 08:22 BP 131/89 09/25/24 07:07 Pulse Ox 97 09/25/24 07:07 O2 Del Method Room Air 09/25/24 07:07 O2 Flow Rate 4 09/24/24 09:55 BMI result Body Mass Index 27.7 DS: Data Data Completed and Pending Pending studies at discharge: Pending at discharge 09/24/24 09:11 Surgical [PTH] Routine Labs on day of discharge: Laboratory Results - last 24 hr 09/25/24 05:40 WBC 6.1 RBC 3.68 L Hgb 11.8 L Hct 35.8 L MCV 97.3 MCH 32.1 MCHC 33.0 RDW 11.8 Plt Count 210 MPV 10.6 Immature Gran % (Auto) 0.3 Neut % (Auto) 54.5 Lymph % (Auto) 32.7 Slope % (Auto) 10.9 Eos % (Auto) 1.3 Baso % (Auto) 0.3 Lymph # (Auto) 2.0 Slope # (Auto) 0.7 Eos # (Auto) 0.1 Baso # (Auto) 0.0 Abs Immat Gran (auto) 0.02 Absolute Neuts (auto) 3.3 Absolute Nucleated RBC 0.000 Nucleated RBC % (auto) 0.0 Sodium 141 Potassium 3.7 Chloride 110 H Carbon Dioxide 25 Anion Gap 10 L BUN 9 Creatinine 0.82 Estim Creat Clear Calc 104.4 Estimated GFR > 60 Fasting Glucose 102 H Calcium 8.7 Discharge Plan Discharge Patient Disposition: Home Health Service Referrals: Mar Lema PA-C [Physician Transfer Table Operator] - 2 Weeks (10/09/24 13:00 [facility] [place] Orthopedic Surgeons Mar Lema PA-C) Discharge Medications: New oxycodone 5 mg Tablet 5 mg PO Q4H PRN (Reason: Pain, Moderate(Pain Scale 4-6)) 7 Days Qty: 42 0RF Rx Instructions: Partial Fill upon patient request. celecoxib 200 mg Capsule 200 mg PO BID 30 Days Qty: 60 0RF acetaminophen 325 mg Tablet 650 mg PO Q6H PRN (Reason: Pain, Mild 1-3,Fever,Headache) 30 Days Qty: 240 0RF aspirin 325 mg Tablet 325 mg PO BID 42 Days Qty: 84 0RF Continued albuterol sulfate 2.5 mg /3 mL (0.083 %) solution for nebulization 2.5 mg inhalation Q6H PRN (Reason: shortness of breath or wheezing) 30 Days Qty: 180 11RF cyclobenzaprine 5 mg tablet 10 mg PO BEDTIME Qty: 60 0RF (DME) [place] [facility] [place] Instructions .ROUTE .MEDSUPPLY Qty: 1 0RF Rx Instructions: Folding front wheeled walker ketotifen fumarate 0.025 % (0.035 %) drops 1 drp ophthalmic (eye) BID 30 Days Qty: 5 0RF triamcinolone acetonide 0.1 % cream 1 appl topical DAILY 30 Days Qty: 454 3RF lidocaine 5 % adhesive patch,medicated 1 patch topical DAILY PRN (Reason: pain) Qty: 15 0RF Rx Instructions: leave on most painful area for up to 12 hrs azithromycin 250 mg tablet 250 mg PO TUTHSA loteprednol etabonate 0.5 % drops,suspension 1 drp ophthalmic (eye) DAILY epinephrine [EpiPen 2-Russ] 0.3 mg/0.3 mL auto-injector 0.3 mg IM Q10M PRN (Reason: anaphylaxis) 30 Days Qty: 2 6RF Rx Instructions: for 2 doses albuterol sulfate 90 mcg/actuation HFA aerosol inhaler 1 puff PO Q4H PRN (Reason: for wheezing) 30 Days Qty: 8.5 12RF montelukast [Singulair] 10 mg tablet 10 mg PO BEDTIME 90 Days Qty: 90 3RF Cequa 0.09 % dropperette 1 drp ophthalmic (eye) QID (DME) nebulizers Misc See Rx Instructions .Route Rx Instructions: As directed gabapentin 300 mg capsule 300 mg PO TID 30 Days Qty: 90 3RF naloxone [Narcan] 4 mg/actuation spray,non-aerosol 4 mg intranasal Q2M PRN (Reason: opioid overdose) Qty: 2 0RF Rx Instructions: spray 1 dose into ONE nostril; alternate nostrils w each dose until help arrives budesonide 0.5 mg/2 mL suspension for nebulization 0.5 mg inhalation BID 30 Days Qty: 120 11RF Discharge Orders: Discharge Order (Routine); Ordered 09/25/24 Ordered By: Alan Santillan Diet: Regular diet Activity on Discharge: Use cane or walker Activity Restrictions/Additional Instructions: * Physical Therapy for Total hip arthroplasty: wbat, posterior precautions, gait training, ROM, strength * Limit stair climbing * No showering, no tub bath-keep dressing clean, dry and intact * No driving x6 weeks * Continue Aspirin twice a day x 6 weeks * Follow up with [facility] [place] Orthopedics in 2 weeks: Print Language: Turkish
--- NOTE | 2024-09-25 09:03 | P.F2F_ITS ---
Service Date Service Date: 09/25/24 Encounter Date of encounter: 09/25/24 Reasons for Services Signs and symptoms assessed: Weakness, poor balance, poor gait mechanics Reason for physical therapy: home safety and mobility, therapeutic exercises, restore joint function, gait/transfer training, ADL training and energy conservation Reason for occupational therapy: home safety and mobility, therapeutic exercises, restore joint function, gait/transfer training, ADL training and energy conservation Homebound: Leaving the home is medically contraindicated at this time without the asist of a device and/or another person due th the listed conditions above and below. Reason homebound: unsteady gait / fall risk, pain with ambulation, poor balance / fall risk and unable to drive Homebound supporting statement: Pt. is considered home bound due to recent surgery. Unable to drive, poor balance, poor gait mechanics. Certification: Based on the above findings, I certify that this patient is confined to the home and needs intermittent nursing home care, physical therapy and/or speech therapy, or continues to need occupational therapy. The patient is under my care, and I have initiated the establishment of the plan of care. The patient will be followed by a physician who will periodically review the plan of care. Time Spent With Patient Time: Total time managing care of this patient today ____ minutes.
--- NOTE | 2024-09-25 09:04 | HO.POSTANES ---
Post Anesthesia Evaluation Post Anesthesia Evaluation Date of Service: 09/25/24 Vital Signs: Vital Signs Temp Pulse Resp BP Pulse Ox O2 Del Method 09/25/24 08:22 101 H 16 09/25/24 07:07 98.5 F 66 16 131/89 97 Room Air 09/25/24 03:21 98.2 F 71 18 140/76 H 95 Room Air 09/24/24 23:45 98.5 F 83 18 130/82 96 Room Air Anesthesia: General Endotracheal-GETA Mental Status: Awake Pain Control: Satisfactory Nausea/Vomiting: None Hydration: Adequate Anesthesia-Related Issues: No Anes. Related Issues
--- NOTE | 2024-09-25 11:11 | MHC.CM.PN ---
Patient left prior to being seen by case management. S/P L PETER Lives with family. [facility] has accepted the case. DC info has been sent to the agency. Patient arranged for a ride home.
== END 2024-09-25 10:46 | disposition home health service (06) ==
LOC: HO.SSS 07:10 → HO.S3 10:25
PROVIDERS: Physician Assistant; PCP Physician Assistant; Visit Provider Orthopaedic Surgery
PROC: (CPT 27130; principal; 2024-09-24 07:30)
DX: M87.052 Idiopathic aseptic necrosis of left femur (principal); M25.552 Pain in left hip; R26.2 Difficulty in walking, not elsewhere classified; R26.89 Other abnormalities of gait and mobility; M54.9 Dorsalgia, unspecified; J45.909 Unspecified asthma, uncomplicated; Z99.89 Dependence on other enabling machines and devices; Z79.899 Other long term (current) drug therapy
CPT/HCPCS: 27130; 36415; 72170; 80048; 85014; 85018; 85025; 86850; 86900; 86901; 87640; 87641; 88304; 88311; 97116; 97162; 97165; C1776; J0131; J0690; J1100; J1171; J2003; J2405; J2704; J2795; J3010; J7120

== ENCOUNTER → 2024-09-24 05:55 | Outpatient (BNV) | payer OTHER, SELFPAY | PROVIDERS: PCP Physician Assistant; Visit Provider Orthopaedic Surgery | DX: Z47.1 Aftercare following joint replacement surgery (principal); Z96.642 Presence of left artificial hip joint | CPT/HCPCS: 27130; 99024; G0180 ==

== ENCOUNTER → 2024-09-24 10:03 | Outpatient (BNV) | payer OTHER, SELFPAY | PROVIDERS: PCP Physician Assistant; Visit Provider Radiology Diagnostic Radiology | DX: M87.052 Idiopathic aseptic necrosis of left femur (principal) | CPT/HCPCS: 72170 ==

== ENCOUNTER 2024-10-09 13:01 | Outpatient (AMB) | payer OTHER, SELFPAY ==
--- NOTE | 2024-10-09 13:17 | A.OFFVIS_ITS ---
Intake Visit Reasons: 2WK PO: left PETER 09/24/24 NE Intake Note: Shaw is a 54 year old male who presents today for a post op appointment s/p left PETER 09/24/24 NE. Patient reports he is having a lot of pain. Some days are esier than most. He mentions that he is hearing clicking in his hip for a week. Allergies environmental allergies Allergy (Intermediate, Verified 10/09/24 13:19) itchy eyes, sob grass pollen Allergy (Intermediate, Verified 10/09/24 13:19) Itchy Eyes HPI HPI 2WK PO: left PETER 09/24/24 NE: Details: Mr. Vela is a 54-year-old male who presents to the office today for routine follow-up status post left total hip arthroplasty on 09/24/[address] Dubose. Patient is ambulating with the use of a cane. He is anticipating transitioning to outpatient physical therapy after his home VNA services tomorrow. He complains of continued pain in the left hip in an occasional clicking noise. 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 Cognitive needs: No Hearing needs: No Vision needs: No Review of Systems Const All systems reviewed & are unremarkable except as noted in HPI and below Physical Exam Const General: cooperative, healthy appearing and no acute distress Resp Effort & Inspection: normal respiratory effort and able to speak in complete sentences Cardio Rate: regular rate Peripheral pulses: Peripheral pulses 2+ throughout Skin Lesions: no lesions Rashes: no rashes Extrem Other: Left hip incision site is clean dry and intact. Kt intact. Able to perform SLR. Able to dorsi/plantar flex. NVI. Assessment & Plan Assessment & Plan (1) Status post total hip replacement, left: Code(s): Z96.642 - Presence of left artificial hip joint Category: Surgical Plan Mr. Vela is a 54-year-old male who presents to the office today for routine follow-up status post left total hip arthroplasty on 09/24/[address] Dubose. Patient is ambulating with the use of a cane. He is anticipating transitioning to outpatient physical therapy after his home VNA services tomorrow. He complains of continued pain in the left hip in an occasional clicking noise. While in the office today, kt were removed. Steri-Strips applied. Physical therapy order for outpatient was placed. A refill was also sent to the pharmacy for oxycodone 5/325mg q.6 hours p.r.n. pain. He will follow up in [address] Dubose, sooner if needed. Coding Level of Care Code Global (37176) Diagnoses Status post total hip replacement, left Z96.642
--- OUTSIDE RECORDS SUMMARY | 2024-10-09 16:49 | XMS_ITS | Data Portability ---
Author Organization [place] - [facility], Allergy Address [address] [address] Care Team Providers Care Side Seam Machine Operator Name Role Phone HERMELINDO JORGE Primary Care Provider Assessment Encounter Date Assessment Date Assessment LastModified by Organization Details LastModified Time 08/21/2024 08/21/2024 Administered By: Giselle Pastrana Use of Antihistamines: No If yes: Vial Test Change in medications: No If yes ? ? ? Increase in asthma symptoms No If yes, inhaler use: Reaction to last injections: No If yes: ? ? ? Allergy Symptoms: Other: ? ? ? Missed 1 week Dose Notes:? ? ? [email or web address] Not available 08/21/2024 14:06:31 09/05/2024 09/05/2024 Visit With: Tulio Hyde RN Use of Antihistamines: No If yes: Vial Test Change in medications: No If yes ? ? ? Increase in asthma symptoms Yes If yes, inhaler use: Reaction to last injections: No If yes: ? ? ? Allergy Symptoms: Other: ? ? ? Missed: 1 week Dose Decreased Aware of Vial Test Notes:? ? ? [email or web address] Not available 09/05/2024 11:36:07 09/11/2024 09/11/2024 Visit With: Giselle Pastrana Use of Antihistamines: Yes If yes: Vial Test Change in medications: No If yes ? ? ? Increase in asthma symptoms If yes, inhaler use: Reaction to last injections: No If yes: ? ? ? Allergy Symptoms: Other: ? ? ? Missed: Dose Aware of Vial Test Notes:? ? ? [email or web address] Not available 09/11/2024 16:26:07 09/19/2024 09/19/2024 Visit With: Tulio Hyde RN Use of Antihistamines: Yes If yes: Vial Test Change in medications: No If yes ? ? ? Increase in asthma symptoms No If yes, inhaler use: Reaction to last injections: No If yes: ? ? ? Allergy Symptoms: Other: ? ? ? Missed: Dose Aware of Vial Test Notes:? ? ? [email or web address] Not available 09/19/2024 13:09:55 Plan of Treatment Reminders Order Date Submit Date Provider Last Modified By Organization Details Last Modified Time Details Appointments None record ed. Lab None record ed. Referral None record ed. Procedures None record ed. Surgeries None record ed. Imaging None record ed. Medication Orders None record ed. Patient TargetsNo targets recorded. Patient InstructionsNo instructions recorded. Reason for Referral None Reported. Problems Name Problem SNOMED Code Status Onset Date Resolution Date Notes Provider Name and Address Organization Details Recorded Time Chronic rhinitis 90937292 Active 2022 Chronic rhinitis; Note: Date Diagnosed : 03/01/2023 6:05 PM (J31.0) Not Available [facility] 4 02:25:39 Allergic rhinitis 88034603 Active 2023 Allergic rhinitis: Due to other [...] Date : 3 Not Available [facility] 4 00:58:12 Perennial allergic rhinitis 566179711 Active 2023 ROSA BUTTERFIELD [facility]arl[facility] [address],[place] [address] [place] [address], [address] , [place] - [facility] 14:21:13 Problem Notes None recorded. Procedures Surgical History Date Name Laterality Status Provider Name and Address Organization Details Recorded Time 09/19/19 25 Allergy Immunotherapy Injections completed TULIO HYDE RN [address],[place] [address], [place], [address], [place] - [facility] 09/19/2024 13:09:48 09/11/19 25 Allergy Immunotherapy Injections completed KISHORE GARCIA [address],[place] [address], [place], [address], [facility] - [facility] 09/11/2024 16:26:25 09/05/20 24 Allergy Immunotherapy Injections completed TUILO HYDE RN [address],[place] [address] [place] [address], [address], [place] - [facility] 09/05/2024 11:35:54 08/21/20 24 Allergy Immunotherapy Injections completed KISHORE GARCIA [address],[place] [address] [place] [address], [address], [place] [facility] 08/21/2024 14:06:16 08/14/20 24 Allergy Immunotherapy Injections completed ROSA BUTTERFIELD RMA [address],[place] [address], [place], [address], [place] [facility] 08/14/2024 14:21:22 08/01/20 24 Allergy Immunotherapy Injections completed ROSA BUTTERFIELD [facility] [address],[place] [address], [place], [address], [place] [facility] 08/01/2024 12:27:05 07/24/20 24 Allergy Immunotherapy Injections completed TULIO HYDE RN [address],[place] [address], [place], [address], [place] [facility] 07/24/2024 13:49:19 07/17/20 24 Allergy Immunotherapy Injections completed GISELLE SARAH, RMA [address],[place] [address], [place], [address], [place] [facility] 07/17/2024 11:15:01 07/10/20 24 Allergy Immunotherapy Injections completed KISHORE GARCIA [address],[place] [address], [place], [address], [place] [facility] 07/10/2024 15:03:55 07/03/20 24 Allergy Immunotherapy Injections completed ROSA BUTTERFIELD RMA [address],[place] [address], [place], [address], [place] [facility] 07/03/2024 13:16:15 06/26/20 24 Allergy Immunotherapy Injections completed KISHORE GARCIA [address], [place], [address], [place] [facility] 2024 13:40:24 06/12/20 24 Allergy Immunotherapy Injections completed KISHORE GARCIA [address],[place] [address] [place] [address], [address], [place] [facility] 06/12/2024 12:05:34 06/05/20 24 Allergy Immunotherapy Injections completed KISHORE AGRCIA [address],[place] [address] [place] [address], [address], [place] [facility] 06/05/2024 13:48:08 05/29/20 24 Allergy Immunotherapy Injections completed ROSA BUTTERFIELD [facility] [address],[place] [address] [place] [address], [address], [place] [facility] 05/29/2024 11:48:28 05/23/20 24 Allergy Immunotherapy Injections completed TULIO HYDE RN [address], [place], [address], [place] [facility] 05/23/2024 15:43:37 05/16/20 24 Allergy Immunotherapy Injections completed ROSA BUTTERFIELD RMA [address], [place], [address], [place] [facility] 05/16/2024 14:12:21 05/09/20 24 Allergy Immunotherapy Injections completed KISHORE GARCIA [address], [place], [address], [place] [facility] 05/09/2024 14:23:57 04/18/20 24 Allergy Immunotherapy Injections completed KISHORE GARCIA [address], [place], [address], [place] [facility] 04/18/2024 14:58:29 04/08/20 24 Allergy Immunotherapy Injections completed TULIO HYDE RN [address], [place], [address], [place] [facility] 04/08/2024 14:53:53 03/25/20 24 Allergy Immunotherapy Injections completed KISHORE GARCIA [address], [place], [address], [place] [facility] 03/25/2024 14:50:22 03/14/20 24 Allergy Immunotherapy Injections completed KISHORE PAT [address], [place], [address], [place] [facility] 03/14/2024 14:07:58 02/28/20 24 Allergy Immunotherapy Injections completed KISHORE GARCIA [address], [place], [address], [place] [facility] 02/28/2024 13:06:11 02/21/20 24 Allergy Immunotherapy Injections completed KISHORE GARCIA [address], [place], [address], [place] [facility] 02/21/2024 11:27:51 02/12/20 24 Allergy Immunotherapy Injections completed ROSA BUTTERFIELD R[facility]arlos [address], [place], [address], [place] [facility] 02/12/2024 14:32:23 02/01/20 24 Allergy Immunotherapy Injections completed KISHORE GARCIA [address], [place], [address], [place] [facility] 02/01/2024 14:19:44 01/24/20 24 Allergy Immunotherapy Injections completed ROSA BUTTERFIELD [facility] 100 [facility] 100, [place], [address], [facility] - [facility] 01/24/2024 14:21:37 Imaging Results None recorded. Procedure Notes None recorded. Medical Equipment None Reported. Allergies No known drug allergies Medications Name Sig Start Date Stop Date Status Note LastModified by Organization Details LastModified Time cyclobenz aprine 10 mg tablet TAKE 1 TABLET BY MOUTH EVERYDAY AT BEDTIME 09/19 completed Not Available Not Available Not Available acetamino phen 325 mg tablet TAKE [...] Not Available Not Available No t Available azithromy leonie 250 mg tablet TAKE 1 TABLET BY MOUTH ON SUNDAY/ /09/19 completed Not Available Not Available Not Available ketotifen 0.025 % (0.035 %) eye drops INSTILL 1 DROP INTO BOTH EYES TWO TIMES A DAY FOR 30 DAYS active Not Available Not Available No t Available meloxicam 15 mg tablet TAKE 1 TABLET BY MOUTH EVERY DAY 02/14 completed Not Available Not Available Not Available acetamino phen 300 mg-codein e 30 mg tablet TAKE 1 TABLET BY MOUTH EVERY 8 HOURS NEEDED FOR PAIN 7 TO 10 ON PAIN SCALE 09/19 completed Not Available Not Available Not Available doxycycli ne monohydra te 100 mg tablet TAKE 1 TABLET BY MOUTH TWICE A DAY FOR 14 DAYS 02/14 completed Not Available Not Available Not Available triamcino lone acetonide 0.1 % topical cream APPLY TOPICALL Y DAILY FOR 30 DAYS active Not Available Not Available No t Available ketorolac 10 mg tablet TAKE 1 TABLET BY MOUTH THREE TIMES A DAY NEEDED FOR PAIN FOR 5 DAYS 09/19 completed Not Available Not Available Not Available lidocaine 5 % topical patch APPLY 1 PATCH TOPICALL Y DAILY NEEDED FOR PAIN LEAVE ON MOST PAINFUL AREA FOR UP TO 12 HOURS active Not Available Not Available No t Available gabapenti n 300 mg capsule TAKE 1 CAPSULE BY MOUTH THREE TIMES A DAY NEEDED FOR PAIN active Not Available Not Available No t Available budesonid e 0.5 mg/2 mL suspensio n for nebulizat ion INHALE 1 VIAL 2 TIMES A DAY FOR 30 DAYS [...] BY MOUTH TWICE A DAY X10 DAYS 09/19 completed Not Available Not Available Not Available cyclobenz aprine 5 mg tablet TAKE 2 TABLETS ORALLY BEDTIME FOR FOR MUSCLE SPASM active Not Available Not Available No t Available naloxone 4 mg/actuat ion nasal spray PLEASE SEE ATTACHED FOR DETAILED DIRECTIO NS 09/19 completed Not Available Not Available Not Available Cequa 0.09 % eye drops in a dropperet te INSTILL 1 DROP INTO AFFECTED EYE(S) 4 TIMES DAILY active Not Available Not Available No t Available Haleytri Aerospher e 160 mcg-9mcg- 4.8mcg/ac tuation HFA aerosol inhaler active Medicati on ID: [id number] B rand Name: Manjinder Woodyphe re Send Method: E-Prescr ibed Sub s Allowed: subs OK Speci al Instruct ion: TAKE 2 PUFFS BY MOUTH TWICE A DAY Medi cationGe nericNam e: Breztri Aerosphe re Not Available Not Available Not Available Vitals Date Recorded Body height Body mass index (BMI) Body weight Provider Name and Address Organization Details Last Updated DateTime 09/19/2024 170.18 cm 26.9 kg/m2 91588.89 g Estefany Perera [place] - [facility] 09/19/2024 13:09:59 Social History None recorded. Functional Status None recorded. Mental Status None recorded. Family History Nothing Reported. Medical History No medical history recorded. Past Encounters Encounter ID Performer Location Encounter Start Date Encounter Closed Date Diagnosis/Indication Diagnosis SNOMED-CT Code Diagnosis ICD10 Code Diagnosis Note [id number] HEATHER WILLIAMSON MD Allergy [address] [place] [address],[address] [place] [address] 01/24/2024 14:19:11 01/25/2024 12:36:37 Perennial allergic rhinitis 417195897 J30.89 [id number] GISELLE PASTRANA [facility] Allergy [address] [place] [address],[address] [place] [address] 02/01/2024 14:18:47 02/01/2024 14:32:52 Perennial allergic rhinitis 509986675 J30.89 [id number] [facility] Allergy [address] [place] [address] 100 [facility] [address] 02/12/2024 13:35:10 02/12/2024 16:19:08 Perennial allergic rhinitis 909352429 J30.89 [id number] BRIGITTE HANNA MD [facility] [address] [place] [address] 02/15/2024 16:05:12 02/15/2024 16:58:27 Allergic rhinitis 93600122 J30.89 53-year-ol d male with allergies and [...] tinue current regimen. Follow-up 6 months. [id number] KISHORE GARCIA Allergy [address] [place] [address],[place] 100 [facility] [address] 02/21/2024 10:37:54 02/21/2024 11:33:26 Perennial allergic rhinitis 494092402 J30.89 [id number] GISELLE PASTRANA A Allergy 100 [facility],[place] [address] [place] [address] 02/28/2024 12:20:55 02/28/2024 12:26:50 Perennial allergic rhinitis 842680316 J30.[id number] [facility], RMA Allergy 100 [facility],[place] [address] [place] [address] 03/14/2024 13:09:40 03/14/2024 15:30:28 Perennial allergic rhinitis 442037965 J30.89 [id number] GISELLE PASTRANA, A Allergy 100 [facility],[place] [address] [place] [address] 03/25/2024 14:43:48 03/26/2024 13:21:56 Perennial allergic rhinitis 183044745 J30.89 [id number] TULIO HYDE RN Allergy [address] [place] [address],[place] [address] [place] [address] 04/08/2024 13:17:46 04/08/2024 14:54:36 Perennial allergic rhinitis 028478457 J30.89 [id number] GISELLE PASTRANA, A Allergy 100 [facility],[place] [address] [place] [address] 04/18/2024 14:21:19 04/18/2024 15:35:40 Perennial allergic rhinitis [id number] J30.89 [id number] GISELLE PASTRANA, A Allergy 100 [facility],[place] [address] [place] [address] 05/09/2024 14:15:20 05/09/2024 15:19:41 Perennial allergic rhinitis 052722073 J30.[id number] [facility], A Allergy 100 [facility],[place] [address] [place] [address] 05/16/2024 14:06:07 05/16/2024 14:32:31 Perennial allergic rhinitis 590901829 J30.89 [id number] TULIO HYDE RN Allergy [address] [place] [address],[place] [address] [place] [address] 05/23/2024 14:49:32 05/23/2024 15:43:57 Perennial allergic rhinitis 379518812 J30.[id number] [facility], A Allergy 100 [facility],[place] [address] [place] [address] 05/29/2024 11:37:06 05/29/2024 11:49:49 Perennial allergic rhinitis 734805121 J30.89 [id number] GISELLE SARAH, [facility] Allergy 100 [facility],[place] [address] [place] [address] 06/05/2024 13:47:09 06/05/2024 13:50:45 Perennial allergic rhinitis [id number] J30.89 [id number] GISELLE PASTRANA [facility] Allergy 100 [facility],[place] [address] [place] [address] 06/12/2024 12:04:31 06/12/2024 12:08:16 Perennial allergic rhinitis 634243854 J30.89 [id number] GISELLE PASTRANA [facility] Allergy 100 [facility],[place] [address] [place] [address] 2024 13:08:56 2024 13:40:46 Perennial allergic rhinitis 112107881 J30.[id number] [facility], [facility] Allergy 100 [facility],[place] [address] [place] [address] 07/03/2024 12:28:14 07/03/2024 13:16:56 Perennial allergic rhinitis 497746803 J30.89 [id number] GISELLE PASTRANA [facility] Allergy 100 [facility],[place] [address] [place] [address] 07/10/2024 14:55:43 07/10/2024 16:16:17 Perennial allergic rhinitis 063787311 J30.89 [id number] GISELLE PASTRANA [facility] Allergy 100 [facility],[place] [address] [place] [address] 07/17/2024 10:59:58 07/17/2024 11:25:55 Perennial allergic rhinitis 755638958 J30.89 [id number] TULIO HYDE relief map modeler 100 [facility],[place] [address] [place] [address] 07/24/2024 13:28:27 07/24/2024 13:49:36 Perennial allergic rhinitis 188079172 J30.89 [id number] [facility] 100 [facility],[place] [address] [place] [address] 08/01/2024 12:25:52 08/01/2024 12:28:26 Perennial allergic rhinitis 541709837 J30.89 [id number] [facility] 100 [facility],[place] [address] [place] [address] 08/14/2024 13:53:09 08/14/2024 14:24:50 Perennial allergic rhinitis [id number] J30.89 [id number] GISELLE PASTARNA [facility] Allergy 100 [facility],[place] [address] [place] [address] 08/21/2024 13:24:53 08/21/2024 14:06:50 Perennial allergic rhinitis [id number] J30.89 [id number] TULIO HYDE RN Allergy [address] [place] [address], [address] [place] [address] 09/05/2024 11:35:17 09/05/2024 11:36:22 Perennial allergic rhinitis [id number] J30.89 [id number] GISELLE SARAH [facility] Allergy 100 [facility], [address] [place] [address] 09/11/2024 14:29:00 09/11/2024 16:26:45 Perennial allergic rhinitis 163780595 J30.89 [id number] BRIGITTE HANNA MD [facility] 100 [place] [address] 09/19/2024 13:00:13 09/19/2024 13:29:53 Allergic rhinitis 91724233 J30.89 53-year-ol d male with allergies and asthma, clinically improving on IT. He is still using montelukas t and Zyrtec with decongesta nt. He does not tolerate nasal sprays. He does continue to have some congested mucosa in his nasal cavity. Continue current regimen. Follow-up 6 months. Will check hearing then; I removed some cerumen today. [id number] TULIO HYDE RN Allergy [address] [place] [address],[place] [address] [facility] [place] [address] 09/19/2024 13:09:08 09/19/2024 13:10:13 Perennial allergic rhinitis 782733260 J30.89 Health Concerns Section Related Observation LastModified by Organization Detai ls LastModified Time None Recorded Concern Status LastModified by Organization Details LastModified Time None Recorded Advance Directives Directive None Recorded Payers Encounter Date Sequence Insurance Name Policy Number Policy Elizabeth Covered Member ID Elizabeth Member ID Guarantor Name 08/21/2024 1 [employer] Shaw Vela [id number] Shaw Vela 09/05/2024 1 [employer] Shaw Vela [id number] Shaw Vela 09/11/2024 1 [employer] Shaw Vela [id number] Shaw Vela 09/19/2024 1 [employer] [id number] Shaw Vela [id number] Shaw Vela 09/19/2024 1 [employer] [id number] Shaw Vela [id number] Shaw Vela Notes Date Note Type Note Provider Name and Address Organization Details Recorded Time 09/19/2024 text/html [facility] [place], uses drops regularlyNose more congestion on the leftScheduled for hip replacement left. PV: 53-year-old male presents today for allergy follow-up. He did have his shot earlier this week.He is on Zyrtec with D and montelukast.He is not able to use nasal sprays as the bad taste is bothersome. His asthma is controlled. He is using inhalers 2-3 times a week.He does have some severe allergies including pets and his animals do go in his room though do not sleep on his pillow. He does have a lot of itching and eczema around his eyes. BRIGITTE HANNA MD [address] [place] [address], [place], [address], [facility] - [facility] 09/19/2024 13:17:38
--- OUTSIDE RECORDS SUMMARY | 2024-10-09 16:49 | XMS_ITS | Continuity of Care Document ---
Author Organization [place] - [facility], Allergy Address [address] [place] [address] Care Team Providers Care Voyage Management System Operator Name Role Phone HERMELINDO JORGE Primary Care Provider [phone] Assessment Encounter Date Assessment Date Assessment LastModified by Organization Details LastModified Time 09/19/2024 09/19/2024 Visit With: Tulio Hyde RN Use of Antihistamine s: Yes If yes: [...] Address Organization Details Recorded Time Chronic rhinitis 77663362 Active 2022 Chronic rhinitis; Note: Date Diagnosed : 03/01/2023 6:05 PM (J31.0) Not Available [facility] 02[facility]25[facility]39 Allergic rhinitis 25040347 Active 2023 Allergic rhinitis: Due to other [...] Date : 3 Not Available [facility] 4 00:58:12 Perennial allergic rhinitis 681590438 Active 2023 ROSA CELESTE, KISHORE [address] [facility],[address], [address] , [place] - [facility] 4 14:21:13 Problem Notes None recorded. Procedures Surgical History Date Name Laterality Status Provider Name and Address Organization Details Recorded Time 09/19/19 25 Allergy Immunotherapy Injections completed TULIO HYDE RN 100 [facility],[address], [address], [facility] - [facility] 09/19/2024 13:09:48 09/11/19 25 Allergy Immunotherapy Injections completed KISHORE GARCIA [address] [place] [address],[address], [address], [facility] - [facility] 09/11/2024 16:26:25 09/05/20 24 Allergy Immunotherapy Injections completed TULIO HYDE RN 100 [facility],[address], [address], [facility] - [facility] 09/05/2024 11:35:54 08/21/20 24 Allergy Immunotherapy Injections completed KISHORE GARCIA [address] [facility],[address], [address], [place] [facility] 08/21/2024 14:06:16 08/14/20 24 Allergy Immunotherapy Injections completed ROSA BUTTERFIELD, RMA [address], [place], [address], [place] [facility] [place] 08/14/2024 14:21:22 08/01/20 24 Allergy Immunotherapy Injections completed ROSA CELESTEC, RMA [address], [place], [address], [place] [facility] [place] 08/01/2024 12:27:05 07/24/20 24 Allergy Immunotherapy Injections completed TULIO HYDE RN [address], [place], [address], [place] [facility] [place] 07/24/2024 13:49:19 07/17/20 24 Allergy Immunotherapy Injections completed SAMANTHA SMITH RMA [address], [place], [address], [place] [facility] [place] 07/17/2024 11:15:01 07/10/20 24 Allergy Immunotherapy Injections completed SAMANTHA SMITH RMA [address], [place], [address], [place] [facility] [place] 07/10/2024 15:03:55 07/03/20 24 Allergy Immunotherapy Injections completed ROSA BUTTERFIELD, RMA [address], [place], [address], [place] [facility] [place] 07/03/2024 13:16:15 06/26/20 24 Allergy Immunotherapy Injections completed GLADYS GARCIAA [address], [place], [address], [place] [facility] [place] 2024 13:40:24 06/12/20 24 Allergy Immunotherapy Injections completed SAMANTHA SMITH RMA [address], [place], [address], [place] [facility] [place] [facility] 06/12/2024 12:05:34 06/05/20 24 Allergy Immunotherapy Injections completed SAMANTHA SMITH RMA [address], [place], [address], [place] [facility] [place] 06/05/2024 13:48:08 05/29/20 24 Allergy Immunotherapy Injections completed ROSA BUTTERFIELD RMA [address], [place], [address], [place] [facility] [place] 05/29/2024 11:48:28 05/23/20 24 Allergy Immunotherapy Injections completed TULIO HYDE RN [address], [place], [address], [place] [facility] 05/23/2024 15:43:37 05/16/20 24 Allergy Immunotherapy Injections completed ROSA BUTTERFIELD RMCarlos [address], [place], [address], [place] [facility] 05/16/2024 14:12:21 05/09/20 24 Allergy Immunotherapy Injections completed KISHORE GARCIA [address], [place], [address], [place] [facility] [place] 05/09/2024 14:23:57 04/18/20 24 Allergy Immunotherapy Injections completed KISHORE GARCIA [address], [place], [address], [place] [facility] [place] 04/18/2024 14:58:29 04/08/20 24 Allergy Immunotherapy Injections completed TULIO HYDE RN [address], [place], [address], [place] [facility] 04/08/2024 14:53:53 03/25/20 24 Allergy Immunotherapy Injections completed KISHORE GARCIA [address], [place], [address], [place] [facility] [place] 03/25/2024 14:50:22 03/14/20 24 Allergy Immunotherapy Injections completed ROSA BUTTERFIELD RMCarlos [address], [place], [address], [place] [facility] [place] 03/14/2024 14:07:58 02/28/20 24 Allergy Immunotherapy Injections completed KISHORE GARCIA [address], [place], [address], [place] [facility] [place] 02/28/2024 13:06:11 02/21/20 24 Allergy Immunotherapy Injections completed SAMANTHA SMITH, A [address], [place], [address], [facility] - [facility] [place] 02/21/2024 11:27:51 02/12/20 24 Allergy Immunotherapy Injections completed ROSA BURTCHAO, RMA [address], [place], [address], [facility] - [facility] 02/12/2024 14:32:23 02/01/20 24 Allergy Immunotherapy Injections completed SAMANTHA SMITH RMA [address], [place], [address], [facility] - [facility] 02/01/2024 14:19:44 01/24/20 24 Allergy Immunotherapy Injections completed ROSA BURTCHAO, RMA [address], [place], [address], [facility] - [facility] 01/24/2024 14:21:37 Imaging Results None recorded. Procedure [...] Not Available Not Available No t Available [employer]remel[employer]osp[employer] e 160 mcg-9mcg- 4.8mcg/ac tuation HFA aerosol inhaler active Medicati on ID: [id number] B rand Name: Anni Annalisephe re Send Method: E-Prescr ibed Sub s Allowed: subs OK Speci al Instruct ion: TAKE 2 PUFFS BY MOUTH TWICE A DAY Medi cationGe nericNam e: Breztri [employer]osphe re Not Available Not Available Not Available Vitals Date Recorded Body height Body mass index (BMI) Body weight Provider Name and Address Organization Details Last Updated DateTime 09/19/2024 170.18 cm 26.9 kg/m2 26056.89 g Estefany Perera [place] - [facility] 09/19/2024 13:09:59 Social History None recorded. Functional Status None recorded. Mental Status None recorded. Family History Nothing Reported. Medical History No medical history recorded. Past Encounters Encounter ID Performer Location Encounter Start Date Encounter Closed Date Diagnosis/Indication Diagnosis SNOMED-CT Code Diagnosis ICD10 Code Diagnosis Note [id number] KISHORE GARCIA Allergy [address] [place] [address] [place] [address] 08/21/2024 13:24:53 08/21/2024 14:06:50 Perennial allergic rhinitis 744469387 J30.89 [id number] TULIO HYDE RN Allergy [address] [place] [address] [place] [address] 09/05/2024 11:35:17 09/05/2024 11:36:22 Perennial allergic rhinitis 754217359 J30.89 [id number] KISHORE GARCIA Allergy [address] [place] [address] [place] [address] 09/11/2024 14:29:00 09/11/2024 16:26:45 Perennial allergic rhinitis 644269186 J30.89 [id number] BRIGITTE HANNA MD [facility] [address] [place] [address] 09/19/2024 13:00:13 09/19/2024 13:29:53 Allergic rhinitis 93073065 J30.89 53-year-ol d male with allergies and asthma, clinically improving on IT. He is still using montelukas t and Zyrtec with decongesta nt. He does not tolerate nasal sprays. He does continue to have some congested mucosa in his nasal cavity. Continue current regimen. Follow-up 6 months. Will check hearing then; I removed some cerumen today. [id number] TULIO HYDE RN Allergy [address] [facility], [address] [place] [address] 09/19/2024 13:09:08 09/19/2024 13:10:13 Perennial allergic rhinitis 178485177 J30.89 Health Concerns Section Related Observation LastModified by Organization Detai ls LastModified Time None Recorded Concern Status LastModified by Organization Details LastModified Time None Recorded Payers Encounter Date Sequence Insurance Name Policy Number Policy Elizabeth Covered Member ID Elizabeth Member ID Guarantor Name 09/19/2024 1 ABODO [id number] Shaw Vela [id number] Shaw Vela Notes Date Note Type Note Provider Name and Address Organization Details Recorded Time 09/19/2024 text/html Sees [facility] in [place], uses drops regularlyNose more congestion on the [...] eczema around his eyes. BRIGITTE HANNA MD 100 [facility],[place] [address], [place], [address], [facility] - [facility] 09/19/2024 13:17:38
--- OUTSIDE RECORDS SUMMARY | 2024-10-09 16:50 | XMS_ITS | Continuity of Care Document ---
Author Organization [place] - [facility], [facility] Address [address] [place] [address] Care Team Providers Care Policy Loan Calculator Name Role Phone HERMELINDO JORGE Primary Care Provider Assessment No assessment recorded. Plan of Treatment Reminders Order Date Submit [...] Address Organization Details Recorded Time Chronic rhinitis 13881621 Active 2022 Chronic rhinitis; Note: Date Diagnosed : 03/01/2023 6:05 PM (J31.0) Not Available [facility] 4 02:25:39 Allergic rhinitis 37090313 Active 2023 Allergic rhinitis: Due to other [...] ; Start Date : 3 Not Available [facility] 4 00:58:12 Perennial allergic rhinitis 289947818 Active 2023 ROSA BUTTERFIELD, RMCarlos [address], [place], [address] , [facility] - [facility] 4 14:21:13 Problem Notes None recorded. Procedures Surgical History Date Name Laterality Status Provider Name and Address Organization Details Recorded Time 09/19/19 25 Allergy Immunotherapy Injections completed [facility] HYDE RN [facility] [place],[address] [place] [address], [address], [facility] - [facility] 09/19/2024 13:09:48 09/11/19 25 Allergy Immunotherapy Injections completed KISHORE GARCIA [address] [place] [address], [address], [facility] - [facility] 09/11/2024 16:26:25 09/05/20 24 Allergy Immunotherapy Injections completed TULIO HYDE RN [address] [facility] [place],[address] [place] [address], [address], [facility] - [facility] 09/05/2024 11:35:54 08/21/20 24 Allergy Immunotherapy Injections completed KISHORE GARCIA [address] [facility] [place] [address], [address], [facility] - [facility] 08/21/2024 14:06:16 08/14/20 24 Allergy Immunotherapy Injections completed ROSA BUTTERFIELD RMCarlos [address] [facility] [address] [place] [address], [address], [facility] - [facility] 08/14/2024 14:21:22 08/01/20 24 Allergy Immunotherapy Injections completed ROSA BUTTERFIELD RMCarlos [address] [place] [address], [address], [facility] - [facility] 08/01/2024 12:27:05 11/14/20 24 Allergy Immunotherapy Injections completed TULIO HYDE RN [address], [place], [address], [place] [facility] [place] 07/24/2024 13:49:19 07/17/20 24 Allergy Immunotherapy Injections completed SAMANTHA SMITH RMA [address], [place], [address], [place] [facility] [place] 07/17/2024 11:15:01 07/10/20 24 Allergy Immunotherapy Injections completed SAMANTHA SMITH RMCarlos [address], [place], [address], [place] [facility] [place] 07/10/2024 15:03:55 07/03/20 24 Allergy Immunotherapy Injections completed ROSA BUTTERFIELD RMA [address] [place] [address], [address], [place] [facility] [place] 07/03/2024 13:16:15 06/26/20 24 Allergy Immunotherapy Injections completed KISHORE GARCIA [address],AJ [facility], [place], [address], [place] [facility] [place] 2024 13:40:24 06/12/20 24 Allergy Immunotherapy Injections completed KISHORE GARCIA [address] [place] [address], [address], [place] [facility] [place] 06/12/2024 12:05:34 06/05/20 24 Allergy Immunotherapy Injections completed KISHORE GARCIA [address], [place], [address], [place] [facility] [place] 06/05/2024 13:48:08 05/29/20 24 Allergy Immunotherapy Injections completed ROSA BUTTERFIELD RMA [address] [place] [address], [address], [place] [facility] [place] 05/29/2024 11:48:28 05/23/20 24 Allergy Immunotherapy Injections completed TULIO HYDE RN [address], [place], [address], [place] [facility] [place] 05/23/2024 15:43:37 05/16/20 24 Allergy Immunotherapy Injections completed ROSA BUTTERFIELD, RMA [address], [place], [address], [place] [facility] [place] 05/16/2024 14:12:21 05/09/20 24 Allergy Immunotherapy Injections completed SAMNATHA SMITH RMA [address], [place], [address], [place] [facility] [place] 05/09/2024 14:23:57 04/18/20 24 Allergy Immunotherapy Injections completed SAMANTHA SMITH RMA [address], [place], [address], [place] [facility] [place] 04/18/2024 14:58:29 04/08/20 24 Allergy Immunotherapy Injections completed TULIO HYDE RN [address], [place], [address], [place] [facility] [place] 04/08/2024 14:53:53 03/25/20 24 Allergy Immunotherapy Injections completed SAMANTHA SMITH RMA [address], [place], [address], [place] [facility] [place] 03/25/2024 14:50:22 03/14/20 24 Allergy Immunotherapy Injections completed ROSA BUTTERFIELD, RMA [address], [place], [address], [place] [facility] [place] 03/14/2024 14:07:58 02/28/20 24 Allergy Immunotherapy Injections completed GLADYS GARCIAA [address], [place], [address], [place] [facility] [place] 02/28/2024 13:06:11 02/21/20 24 Allergy Immunotherapy Injections completed SAMANTHA SMITH RMA [address], [place], [address], [place] [facility] [place] 02/21/2024 11:27:51 02/12/20 24 Allergy Immunotherapy Injections completed ROSA BUTTERFIELD, RMA [address], [place], [address], [place] [facility] [place] 02/12/2024 14:32:23 02/01/20 24 Allergy Immunotherapy Injections completed SAMANTHA SARAH, A 100 [facility] [place] [address], [place], [address], [facility] 02/01/2024 14:19:44 01/24/20 24 Allergy Immunotherapy Injections completed ROSA CELESTEKelsi, RMA [address],[facility] [address], [place], [address], [facility] 01/24/2024 14:21:37 Imaging Results None [...] HFA aerosol inhaler active Medicati on ID: [id number] B rand Name: Anni Annalisephe re Send [...] Updated DateTime 09/19/2024 170.18 cm 26.9 kg/m2 92620.89 g Estefany Perera [place] - [facility] 09/19/2024 13:09:59 Social History None recorded. Functional Status None recorded. Mental Status None recorded. Family History Nothing Reported. Medical History No medical history recorded. Past Encounters Encounter ID Performer Location Encounter Start Date Encounter Closed Date Diagnosis/Indication Diagnosis SNOMED-CT Code Diagnosis ICD10 Code Diagnosis Note [id number] KISHORE GARCIA Allergy [address] [place] [address] 08/21/2024 13:24:53 08/21/2024 14:06:50 Perennial allergic rhinitis 514551652 J30.89 [id number] TULIO HYDE RN Allergy [address] [place] [address] 09/05/2024 11:35:17 09/05/2024 11:36:22 Perennial allergic rhinitis 873992547 J30.89 [id number] SAMANTHA SMITH Carlos [address] [address] 09/11/2024 14:29:00 09/11/2024 16:26:45 Perennial allergic rhinitis 605564538 J30.89 [id number] BRIGITTE HANNA MD [facility] [address] [address] 09/19/2024 13:00:13 09/19/2024 13:29:53 Allergic rhinitis 15761082 J30.89 53-year-ol d male with allergies and asthma, clinically improving on IT. He is still using montelukas t and Zyrtec with decongesta nt. He does not tolerate nasal sprays. He does continue to have some congested mucosa in his nasal cavity. Continue current regimen. Follow-up 6 months. Will check hearing then; I removed some cerumen today. [id number] TULIO HYDE RN Allergy 100 [facility] 100 [place] [address] 09/19/2024 13:09:08 09/19/2024 13:10:13 Perennial allergic rhinitis 008330249 J30.89 Health Concerns Section Related Observation LastModified by Organization Jenaro ls LastModified Time None Recorded Concern Status LastModified by Organization Details LastModified Time None Recorded Payers Encounter Date Sequence Insurance Name Policy Number Policy Elizabeth Covered Member ID Elizabeth Member ID Guarantor Name 09/19/2024 1 Melon #usemelon [id number] Shaw Vela [id number] Shaw Dane Notes Date Note Type Note Provider Name and Address Organization Details Recorded Time 09/19/2024 text/html Sees eye special [facility] in [place], uses drops regularlyNose more congestion on the [...] around his eyes. BRIGITTE HANNA MD 100 [facility],[place] [address], [place], [address], [facility] - [facility] 09/19/2024 13:17:38
--- OUTSIDE RECORDS SUMMARY | 2024-10-09 16:50 | XMS_ITS | Clinical Summary ---
Author Organization [facility] Address [address] [place] [address] Care Team Providers Care Supervisor Dairy Sanitation Name Role Phone Unavailable Primary Care Provider Unavailabl e Social History Tobacco Use Types Packs/Day Years Used Date Smoking Tobacco: Never Assessed Sex and Gender Information Value Date Recorded Sex Assigned at Not on file Gender Identity Not on file Sexual Orientation Not on file Plan of Treatment Health Maintenance Due Date Last Done Comments Hepatitis C Virus Screening 1970 HIV Screening 1983 DTaP/Tdap/Td Vaccines (1 - Tdap) 1989 Hepatitis B Vaccines (1 of 3 - 19+ 3-dose series) 1989 Pneumococcal Vaccines 50+ (1 of 1 - PCV) 2020 Zoster (Shingles) Vaccine (1 of 2) 2020 COVID-19 Vaccine ( - 2023-2 5 season) 2024 Pneumococcal Vaccine: Pediat solo (0-5 Years) and At-Risk Patients (6 to 49 Years) Aged Out No longer eligible b ased on patient's age to complete this topic
--- OUTSIDE RECORDS SUMMARY | 2024-10-09 16:50 | XMS_ITS | Continuity of Care Document ---
Author Organization [place] - [facility], Allergy Address [address] [place] [id number] Care Team Providers Care Supply Chain Director Name Role Phone HERMELINDO JORGE Primary Care Provider [phone] Assessment Encounter Date Assessment Date Assessment LastModified [...] Aware of Vial Test Notes:? ? ? [email or web address] Not available 09/11/2024 16:26:07 Plan of Treatment [...] Address Organization Details Recorded Time Chronic rhinitis 99373210 Active 2022 Chronic rhinitis; Note: Date Diagnosed : 03/01/2023 6:05 PM (J31.0) Not Available [facility] 02:25:39 Allergic rhinitis 72148242 Active 2023 Allergic rhinitis: Due to other [...] ; Start Date : 3 Not Available [facility] 4 00:58:12 Perennial allergic rhinitis [id number] Active 2023 ROSA BOOKER, Carlos [address] [facility],[address], [address] , [place] - [facility] 4 14:21:13 Problem Notes None recorded. Procedures Surgical History Date Name Laterality Status Provider Name and Address Organization Details Recorded Time 09/19/19 25 Allergy Immunotherapy Injections completed TULIO HYDE RN [address] [facility],[address], [address], [facility] - [facility] 09/19/2024 13:09:48 09/11/19 25 Allergy Immunotherapy Injections completed KISHORE GARCIA [address] [facility],[address], [address], [facility] - [facility] 09/11/2024 16:26:25 09/05/20 24 Allergy Immunotherapy Injections completed TULIO HYDE RN 100 [facility],[address], [address], [facility] - [facility] 09/05/2024 11:35:54 08/21/20 24 Allergy Immunotherapy Injections completed KISHORE GARCIA [address] [facility],[address], [address], [place] - [facility] 08/21/2024 14:06:16 08/14/20 24 Allergy Immunotherapy Injections completed ROSA CELESTEC, RMA [address], [place], [address], [place] - [facility] 08/14/2024 14:21:22 08/01/20 24 Allergy Immunotherapy Injections completed ROSA JAVEDDAVIDC, RMA [address], [place], [address], [place] [facility] 08/01/2024 12:27:05 07/24/20 24 Allergy Immunotherapy Injections completed TULIO HYDE RN [address], [place], [address], [place] [facility] 07/24/2024 13:49:19 07/17/20 24 Allergy Immunotherapy Injections completed GISELLE PASTRANA RMA [address], [place], [address], [place] [facility] 07/17/2024 11:15:01 07/10/20 24 Allergy Immunotherapy Injections completed GISELLE PASTRANA RMA [address], [place], [address], [place] [facility] 07/10/2024 15:03:55 07/03/20 24 Allergy Immunotherapy Injections completed ROSA BUTTERFIELD, RMA [address], [place], [address], [place] [facility] 07/03/2024 13:16:15 06/26/20 24 Allergy Immunotherapy Injections completed GISELLE PASTRANA RMA [address], [place], [address], [place] [facility] 2024 13:40:24 06/12/20 24 Allergy Immunotherapy Injections completed GISELLE PASTRANA RMA [address], [place], [address], [place] [facility] 06/12/2024 12:05:34 06/05/20 24 Allergy Immunotherapy Injections completed GISELLE PASTRANA RMA [address], [place], [address], [place] [facility] 06/05/2024 13:48:08 05/29/20 24 Allergy Immunotherapy Injections completed ROSA BUTTERFIELD RMA [address], [place], [address], [place] [facility] 05/29/2024 11:48:28 05/23/20 24 Allergy Immunotherapy Injections completed TULIO HYDE RN [address], [place], [address], [place] [facility] 05/23/2024 15:43:37 05/16/20 24 Allergy Immunotherapy Injections completed ROSA BUTTERFIELD RMCarlos [address], [place], [address], [place] [facility] 05/16/2024 14:12:21 05/09/20 24 Allergy Immunotherapy Injections completed KISHORE GARCIA [address], [place], [address], [place] [facility] 05/09/2024 14:23:57 04/18/20 24 Allergy Immunotherapy Injections completed KISHORE GARCIA [address] [facility], [place], [address], [place] [facility] 04/18/2024 14:58:29 04/08/20 24 Allergy Immunotherapy Injections completed TULIO HYDE RN [address] [facility] [address] [place] [address], [address], [place] [facility] 04/08/2024 14:53:53 03/25/20 24 Allergy Immunotherapy Injections completed KISHORE GARCIA [address], [place], [address], [place] [facility] 03/25/2024 14:50:22 03/14/20 24 Allergy Immunotherapy Injections completed ROSA BUTTERFIELD RMA [address], [place], [address], [place] [facility] 03/14/2024 14:07:58 02/28/20 24 Allergy Immunotherapy Injections completed KISHORE GARCIA [address], [place], [address], [place] [facility] 02/28/2024 13:06:11 02/21/20 24 Allergy Immunotherapy Injections completed GISELLECarlos PASTRANA, A [address], [place], [address], [facility] - [facility] 02/21/2024 11:27:51 02/12/20 24 Allergy Immunotherapy Injections completed ROSA BURTCHAO, RMA [address], [place], [address], [facility] - [facility] 02/12/2024 14:32:23 02/01/20 24 Allergy Immunotherapy Injections completed GISELLE PASTRANA RMA [address], [place], [address], [facility] - [facility] 02/01/2024 14:19:44 01/24/20 24 Allergy Immunotherapy Injections completed ROSA BURTCHAO, RMA [address] [facility] [address], [place], [address], [facility] - [facility] 01/24/2024 14:21:37 Imaging Results None recorded. Procedure [...] Not Available Not Available No t Available Manjinder Aerospher e 160 mcg-9mcg- 4.8mcg/ac tuation HFA aerosol inhaler active Medicati on ID: [id number] B rand Name: Manjinder Fitzgeralde re Send Method: E-Prescr [...] SNOMED-CT Code Diagnosis ICD10 Code Diagnosis Note [id number] ROSA BUTTERFIELD [facility] All[facility] [address] [place] [address] 100 [place] [address] 08/14/2024 13:53:09 08/14/2024 14:24:50 Perennial allergic rhinitis 221461901 J30.89 [id number] GISELLE PASTRANA [facility] All[facility] [address] [place] [address] [place] [address] 08/21/2024 13:24:53 08/21/2024 14:06:50 Perennial allergic rhinitis 229120203 J30.89 [id number] TULIO HYDE RN Allergy [address] [place] [address] [place] [address] 09/05/2024 11:35:17 09/05/2024 11:36:22 Perennial allergic rhinitis 875700210 J30.89 [id number] GISELLE PASTRANA [facility] [address] [place] [address] [place] [address] 09/11/2024 14:29:00 09/11/2024 16:26:45 Perennial allergic rhinitis [id number] J30.89 Health Concerns Section Related Observation LastModified by Organization Detai ls LastModified Time None Recorded Concern Status LastModified by Organization Details LastModified Time None Recorded Payers Encounter Date Sequence Insurance Name Policy Number Policy Elizabeth Covered Member ID Elizabeth Member ID Guarantor Name 09/11/2024 1 [facility] Shaw Vela [id number] Shaw Vela
== END 2024-10-09 14:34 | disposition home or self-care (01) ==
PROVIDERS: PCP Physician Assistant; Visit Provider Physician Assistant
DX: Z96.642 Presence of left artificial hip joint (principal)
CPT/HCPCS: 99024

== ENCOUNTER → 2024-10-09 13:01 | Outpatient (BNVA) | payer OTHER, SELFPAY | PROVIDERS: PCP Physician Assistant; Visit Provider Physician Assistant ==

== ENCOUNTER 2024-11-03 12:58 | Outpatient (REF) | payer OTHER, SELFPAY ==
--- NOTE | ~2024-11-03 | XR_ITS ---
EXAMINATION: XR PELVIS CLINICAL INFORMATION: M25.559 - Pain in unspecified hip COMPARISON: September 24, 2024. TECHNIQUE: AP view of the pelvis. FINDINGS: Metallic hip prosthesis with an acetabular and femoral component intact and well-seated in the osseous structures of the left hip. No loosening. No cortical disruption or malalignment. Skin adi have been removed. Sclerosis and the articular surface of the right acetabulum with asymmetric joint space narrowing. No acute cortical disruption or gross malalignment right hip. Degenerative changes in the symphysis pubis. XR/XR pelvis 1-2V IMPRESSION: Total left hip arthroplasty prosthesis intact without malalignment. Overall satisfactory. Mild to moderate osteoarthrosis, right hip. Electronically signed by: Manjeet Rice MD 11/04/2024 02:47 PM SHANNAN HOWARD
--- OUTSIDE RECORDS SUMMARY | 2024-11-03 14:41 | XMS_ITS | Data Portability ---
Author Organization [place] - [facility], Allergy Address [address] [address] Care Team Providers Care Dishwasher Name Role Phone HERMELINDO JORGE Primary Care Provider [phone] Assessment Encounter Date Assessment Date Assessment LastModified [...] Missed 1 week Dose Notes:? ? ? Not available 08/21/2024 14:06:31 09/05/2024 09/05/2024 Visit [...] Aware of Vial Test Notes:? ? ? [email or web address] Not available 09/11/2024 16:26:07 09/19/2024 09/19/2024 Visit [...] Address Organization Details Recorded Time Chronic rhinitis 98121017 Active 2022 Chronic rhinitis; Note: Date Diagnosed : 03/01/2023 6:05 PM (J31.0) Not Available [facility] 4 02:25:39 Allergic rhinitis 70616498 Active 2023 Allergic rhinitis: Due to other [...] Date : 3 Not Available [facility] 4 00:58:12 Perennial allergic rhinitis 492527174 Active 2023 ROSA BUTTERFIELD RMCarlos [address],[place] [address] [place] [address], [address] , [place] - [facility] [place] 14:21:13 Problem Notes None recorded. Procedures Surgical History Date Name Laterality Status Provider Name and Address Organization Details Recorded Time 09/19/19 25 Allergy Immunotherapy Injections completed TULIO HYDE RN [address], [place], [address], [place] [facility] [place] 09/19/2024 13:09:48 09/11/19 25 Allergy Immunotherapy Injections completed KISHORE GARCIA [address], [place], [address], [facility] - [facility] [place] 09/11/2024 16:26:25 09/05/20 24 Allergy Immunotherapy Injections completed TULIO HYDE RN [address],[place] [address] [place] [address], [address], [place] [facility] [place] 09/05/2024 11:35:54 08/21/20 24 Allergy Immunotherapy Injections completed KISHORE GARCIA [address],[place] [address] [place] [address], [address], [place] [facility] [place] 08/21/2024 14:06:16 08/14/20 24 Allergy Immunotherapy Injections completed ROSA BUTTERFIELD RMA [address], [place], [address], [place] [facility] [place] 08/14/2024 14:21:22 08/01/20 24 Allergy Immunotherapy Injections completed ROSA BUTTERFIELD R[facility]arlos [address], [place], [address], [place] [facility] [place] 08/01/2024 12:27:05 07/24/20 24 Allergy Immunotherapy Injections completed TULIO HYDE RN [address], [place], [address], [place] [facility] [place] 07/24/2024 13:49:19 07/17/20 24 Allergy Immunotherapy Injections completed GISELLE SARAH, RMA [address], [address], [place] [facility] [place] 07/17/2024 11:15:01 07/10/20 24 Allergy Immunotherapy Injections completed KISHORE GARCIA [address], [place], [address], [place] [facility] [place] 07/10/2024 15:03:55 07/03/20 24 Allergy Immunotherapy Injections completed ROSA BUTTERFIELD RMA [address], [place], [address], [place] [facility] [place] 07/03/2024 13:16:15 06/26/20 24 Allergy Immunotherapy Injections completed KISHORE GARCIA [address], [place], [address], [place] [facility] [place] 2024 13:40:24 06/12/20 24 Allergy Immunotherapy Injections completed KISHORE GARCIA [address],[place] [address] [place] [address], [address], [place] [facility] [place] 06/12/2024 12:05:34 06/05/20 24 Allergy Immunotherapy Injections completed KISHORE GARCIA [address],[place] [address] [place] [address], [address], [place] [facility] [place] 06/05/2024 13:48:08 05/29/20 24 Allergy Immunotherapy Injections completed ROSA BUTTERFIELD RMCarlos [address],[place] [address] [place] [address], [address], [place] [facility] [place] 05/29/2024 11:48:28 05/23/20 24 Allergy Immunotherapy Injections completed TULIO HYDE RN [address], [place], [address], [place] [facility] [place] 05/23/2024 15:43:37 05/16/20 24 Allergy Immunotherapy Injections completed ROSA BUTTERFIELD RMA [address], [address], [place] [facility] [place] 05/16/2024 14:12:21 05/09/20 24 Allergy Immunotherapy Injections completed KISHORE GARCIA [address], [place], [address], [place] [facility] [place] 05/09/2024 14:23:57 04/18/20 24 Allergy Immunotherapy Injections completed KISHORE GARCIA [address], [place], [address], [place] [facility] [place] 04/18/2024 14:58:29 04/08/20 24 Allergy Immunotherapy Injections completed TULIO HYDE RN [address], [place], [address], [place] [facility] [place] 04/08/2024 14:53:53 03/25/20 24 Allergy Immunotherapy Injections completed KISHORE GARCIA [address], [place], [address], [place] [facility] [place] 03/25/2024 14:50:22 03/14/20 24 Allergy Immunotherapy Injections completed KISHORE PAT [address], [place], [address], [place] [facility] [place] 03/14/2024 14:07:58 02/28/20 24 Allergy Immunotherapy Injections completed KISHORE GARCIA [address], [address], [place] [facility] [place] 02/28/2024 13:06:11 02/21/20 24 Allergy Immunotherapy Injections completed KISHORE GARCIA [address], [place], [address], [place] [facility] [place] 02/21/2024 11:27:51 02/12/20 24 Allergy Immunotherapy Injections completed ROSA BUTTERFIELD RMCarlos [address], [address], [place] [facility] [place] 02/12/2024 14:32:23 02/01/20 24 Allergy Immunotherapy Injections completed KISHORE GARCIA [address], [place], [address], [place] [facility] [place] 02/01/2024 14:19:44 01/24/20 24 Allergy Immunotherapy Injections completed ROSA BUTTERFIELD [facility] 100 [facility] 100, [place], [address], [facility] - [facility] 01/24/2024 14:21:37 Imaging Results None recorded. [...] HFA aerosol inhaler active Medicati on ID: [id number] B rand Name: Manjinder Woodyphe re Send [...] Updated DateTime 09/19/2024 170.18 cm 26.9 kg/m2 59804.89 g Estefany Perera [place] - [facility] 09/19/2024 13:09:59 Social History None recorded. Functional Status None recorded. Mental Status None recorded. Family History Nothing Reported. Medical History No medical history recorded. Past Encounters Encounter ID Performer Location Encounter Start Date Encounter Closed Date Diagnosis/Indication Diagnosis SNOMED-CT Code Diagnosis ICD10 Code Diagnosis Note [id number] HEATHER WILLIAMSON MD Allergy [address] [place] [address],[address] [place] [address] 01/24/2024 14:19:11 01/25/2024 12:36:37 Perennial allergic rhinitis 046547441 J30.89 [id number] GISELLE PASTRANA [facility] Allergy [address] [place] [address],[address] [place] [address] 02/01/2024 14:18:47 02/01/2024 14:32:52 Perennial allergic rhinitis 045505110 J30.89 [id number] [facility] Allergy [address] [place] [address] [address] [place] [address] 02/12/2024 13:35:10 02/12/2024 16:19:08 Perennial allergic rhinitis 482230787 J30.89 [id number] BRIGITTE HANNA MD [facility] of [address] [place] [address] 02/15/2024 16:05:12 02/15/2024 16:58:27 Allergic rhinitis 94687073 J30.89 53-year-ol d male with allergies and [...] Follow-up 6 months. [id number] KISHORE GARCIA Allergy [address] [place] [address],[place] [address] [address] [place] [address] 02/21/2024 10:37:54 02/21/2024 11:33:26 Perennial allergic rhinitis 835404027 J30.89 [id number] GISELLE PASTRANA A Allergy 100 [facility],[place] [address] [place] [address] 02/28/2024 12:20:55 02/28/2024 12:26:50 Perennial allergic rhinitis 137263742 J30.89 [id number] [facility], RMA Allergy 100 [facility],[place] [address] [place] [address] 03/14/2024 13:09:40 03/14/2024 15:30:28 Perennial allergic rhinitis 106505548 J30.89 [id number] GISELLE PASTRANA, A Allergy 100 [facility],[place] [address] [place] [address] 03/25/2024 14:43:48 03/26/2024 13:21:56 Perennial allergic rhinitis 102174849 J30.89 [id number] TULIO HYDE RN Allergy [address] [place] [address],[place] [address] [place] [address] 04/08/2024 13:17:46 04/08/2024 14:54:36 Perennial allergic rhinitis 597597661 J30.89 [id number] GISELLE PASTRANA, A Allergy 100 [facility],[place] [address] [place] [address] 04/18/2024 14:21:19 04/18/2024 15:35:40 Perennial allergic rhinitis 916955640 J30.89 [id number] GISELLE PASTRANA, A Allergy 100 [facility],[place] [address] [place] [address] 05/09/2024 14:15:20 05/09/2024 15:19:41 Perennial allergic rhinitis 721952573 J30.89 [id number] [facility], A Allergy 100 [facility],[place] [address] [place] [address] 05/16/2024 14:06:07 05/16/2024 14:32:31 Perennial allergic rhinitis 684908878 J30.89 [id number] TULIO HYDE RN Allergy [address] [place] [address],[place] [address] [place] [address] 05/23/2024 14:49:32 05/23/2024 15:43:57 Perennial allergic rhinitis 251356200 J30.89 [id number] [facility], A Allergy 100 [facility],[place] [address] [place] [address] 05/29/2024 11:37:06 05/29/2024 11:49:49 Perennial allergic rhinitis 867052300 J30.89 [id number] GISELLE SARAH, [facility] Allergy 100 [facility],[place] [address] [place] [address] 06/05/2024 13:47:09 06/05/2024 13:50:45 Perennial allergic rhinitis 317285220 J30.89 [id number] GISELLE PASTRANA [facility] Allergy 100 [facility],[place] [address] [place] [address] 06/12/2024 12:04:31 06/12/2024 12:08:16 Perennial allergic rhinitis 426224759 J30.89 [id number] GISELLE PASTRANA [facility] Allergy [address] [facility],[place] [address] [place] [address] 2024 13:08:56 2024 13:40:46 Perennial allergic rhinitis 480934839 J30.89 [id number] [facility], [facility] Allergy 100 [facility],[place] [address] [place] [address] 07/03/2024 12:28:14 07/03/2024 13:16:56 Perennial allergic rhinitis 329211591 J30.89 [id number] GISELLE PASTRANA [facility] Allergy 100 [facility],[place] [address] [place] [address] 07/10/2024 14:55:43 07/10/2024 16:16:17 Perennial allergic rhinitis 897533880 J30.89 [id number] GISELLE PASTRANA [facility] Allergy [address] [facility],[place] [address] [place] [address] 07/17/2024 10:59:58 07/17/2024 11:25:55 Perennial allergic rhinitis 442395042 J30.89 [id number] TULIO HYDE electric wirer 100 [facility],[place] [address] [place] [address] 07/24/2024 13:28:27 07/24/2024 13:49:36 Perennial allergic rhinitis 353953423 J30.89 [id number] [facility] All[facility] 100 [facility],[place] [address] [place] [address] 08/01/2024 12:25:52 08/01/2024 12:28:26 Perennial allergic rhinitis 907704777 J30.89 [id number] [facility] A Allergy 100 [facility],[place] [address] [place] [address] 08/14/2024 13:53:09 08/14/2024 14:24:50 Perennial allergic rhinitis 511815276 J30.89 [id number] GISELLE PASTRANA [facility] Allergy 100 [facility],[place] [address] [place] [address] 08/21/2024 13:24:53 08/21/2024 14:06:50 Perennial allergic rhinitis [id number] J30.89 [id number] TULIO HYDE RN Allergy [address] [place] [address], [address] [place] [address] 09/05/2024 11:35:17 09/05/2024 11:36:22 Perennial allergic rhinitis 027831077 J30.89 [id number] GISELLE SARAH [facility] Allergy 100 [facility], [address] [place] [address] 09/11/2024 14:29:00 09/11/2024 16:26:45 Perennial allergic rhinitis 771828930 J30.89 [id number] BRIGITTE HANNA MD [facility] 100 [place] [address] 09/19/2024 13:00:13 09/19/2024 13:29:53 Allergic rhinitis 28010780 J30.89 53-year-ol d male with allergies and asthma, clinically improving on IT. He is still using montelukas t and Zyrtec with decongesta nt. He does not tolerate nasal sprays. He does continue to have some congested mucosa in his nasal cavity. Continue current regimen. Follow-up 6 months. Will check hearing then; I removed some cerumen today. [id number] TULIO HYDE RN Allergy [address] [place] [address],[place] [address] [facility] [place] [address] 09/19/2024 13:09:08 09/19/2024 13:10:13 Perennial allergic rhinitis 397180957 J30.89 Health Concerns Section Related Observation LastModified by Organization Detai ls LastModified Time None Recorded Concern Status LastModified by Organization Details LastModified Time None Recorded Advance Directives Directive None Recorded Payers Encounter Date Sequence Insurance Name Policy Number Policy Elizabeth Covered Member ID Elizabeth Member ID Guarantor Name 08/21/2024 1 [employer] Shaw Vela [id number] Shaw Vela 09/05/2024 1 [employer] Shaw Vela [id number] Shaw Vela 09/11/2024 1 [employer] Shaw Vela [id number] Shaw Vela 09/19/2024 1 [employer] [id number] Shaw Vela [id number] Shaw Vela 09/19/2024 1 [employer] [id number] Shaw Vela [id number] Shaw Vela Notes Date Note Type Note Provider Name and Address Organization Details Recorded Time 09/19/2024 text/html [facility]es [facility] in [place], uses drops regularlyNose more congestion on the [...] eczema around his eyes. BRIGITTE HANNA MD [address] [place] [address], [place], [address], [facility] - [facility] 09/19/2024 13:17:38
--- OUTSIDE RECORDS SUMMARY | 2024-11-03 14:41 | XMS_ITS | Clinical Summary ---
Author Organization [facility] Address [address] [place] [address] Care Team Providers Care Director Of Enterprise Applications Name Role Phone Unavailable Primary Care Provider [...]
== END 2024-11-03 12:59 | disposition home or self-care (01) ==
LOC: HO.HOSX 12:58
PROVIDERS: Visit Provider Orthopaedic Surgery
DX: M25.552 Pain in left hip (principal); Z96.642 Presence of left artificial hip joint
CPT/HCPCS: 72170

== ENCOUNTER 2024-11-03 13:42 | Outpatient (AMB) | payer OTHER, SELFPAY ==
--- NOTE | 2024-11-03 13:50 | MHC.OFFVIS ---
Intake Visit Reasons: 6WK PO: L PETER w/NE 09/24/24 Intake Note: Shaw is a 54 year old male who presents today for a post operative appointment 6 weeks s/p Left PETER 09/24/24. Patient reports that he is doing well, he continues to struggle with some discomfort while walking. He reports a fall on 09/30/24 as he fainted, he landed wrong and he was worried that he popped the hip. Allergies environmental allergies Allergy (Intermediate, Verified 10/09/24 13:19) itchy eyes, sob grass pollen Allergy (Intermediate, Verified 10/09/24 13:19) Itchy Eyes HPI HPI 6WK PO: L PETER w/NE 09/24/24: Details: Shaw is a 54 year old male who presents today for a post operative appointment 6 weeks s/p Left PETER 09/24/24. Patient reports that he is doing well, he continues to struggle with some discomfort while walking. He reports a fall on 09/30/24 as he fainted, he landed wrong and he was worried that he popped the hip. 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 Cognitive needs: No Hearing needs: No Vision needs: No Physical Exam Extrem Other: Incision clean dry and intact. He has a Trendelenburg gait with a negative Trendelenburg sign. No pain with hip range of motion. Results Reviewed Results Reviewed: I personally reviewed relevant radiographs. Left PETER in expected post operative position with no hardware complications or evidence of loosening Assessment & Plan Assessment & Plan (1) Status post total hip replacement, left: Code(s): Z96.642 - Presence of left artificial hip joint Category: Surgical Plan: Shaw is overall doing well but wants to be doing more. I cautioned him to continue slow activity as tolerated and hip precautions discussed. Follow up 6 weeks. Orders: Orders XR pelvis 1-2V Today M25.559 - Pain in unspecified hip Coding Level of Care Code Global (46184) Diagnoses Status post total hip replacement, left Z96.642
--- OUTSIDE RECORDS SUMMARY | 2024-11-03 15:39 | XMS_ITS | Clinical Summary ---
Author Organization [facility] Address [address] [place] [address] Care Team Providers Care Employment Trainer Name Role Phone Unavailable Primary Care Provider [...]
== END 2024-11-03 14:15 | disposition home or self-care (01) ==
PROVIDERS: PCP Physician Assistant; Visit Provider Orthopaedic Surgery
DX: Z96.642 Presence of left artificial hip joint (principal)
CPT/HCPCS: 99024

== ENCOUNTER → 2024-11-03 13:43 | Outpatient (BNV) | payer OTHER, SELFPAY | PROVIDERS: Visit Provider Radiology Diagnostic Radiology | DX: M25.559 Pain in unspecified hip (principal); Z96.642 Presence of left artificial hip joint | CPT/HCPCS: 72170 ==

== ENCOUNTER 2024-11-17 13:50 | Outpatient (AMB) | payer OTHER, SELFPAY ==
--- NOTE | 2024-11-17 13:53 | A.OFFVIS_ITS ---
Vital Signs 11/17/24 13:54 Height 5 ft 7 in Weight 162 lb 0.636 oz BMI 25.4 BP 140/92 H Blood Pressure Location Rt brachial Position Sitting Pulse 96 Pulse Source Pulse Oximeter Pulse Oximetry (%) 98 Oxygen Delivery Method Room Air Intake Visit Reasons: Asthma Allergies environmental allergies Allergy (Intermediate, Verified 11/17/24 13:57) itchy eyes, sob grass pollen Allergy (Intermediate, Verified 11/17/24 13:57) Itchy Eyes HPI Comments Details: The patient is a 54-year-old gentleman with a known history of asthma and severe a topic dermatitis and steroid dependent, who apparently has been having worsening respiratory symptoms for the last several months. he did have COVID that affected his respiratory capacity. The time he was finding in [employer] arts. However, after COVID in the worsening respiratory symptoms he was not able to continue regularly. In August he started developing worsening re spiratory symptoms. He was evaluated at that point with a chest x-ray demonstrating no acute disease. Subsequently in the springtime again he had worsening respiratory symptoms and he went to an urgent care. He was given a rescue inhaler in addition to prednisone for an asthma exacerbation. He did not have a chest x-ray. He was tested for COVID again and he was negative. He was given a course of a signal mycin during time. At this point the patient is feeling better although he still having episodes of shortness of breath and wheezing at times. He had been prescribed Advair HFA which has been helping. He does use his rescue inhaler more than twice a week. Therefore he was sent to Pulmonary for further evaluation. On further questioning he denies any significant exposure to mold or past. He had been tested for allergy sit in the past and he was found to have many allergies any at some point he did receive allergy shots. I was many years ago. also to note in regards of the eczema the patient was evaluated by Dermatology in the past. He was placed on Dupixent which was extremely helpful clearing up his the topic dermatitis. However, he started developing back pain and some issues with kidneys and therefore he stopped the Dupixent. His side effects did improve but unfortunately the eczema return. 10/04/2023 the patient is here for a pulmonary follow-up visit. He has been sick now for about a week. Complaint of URI like symptoms worsening cough and has hard time has not been able to sleep because of the coughing. Also having chest tightness and wheezing. He had some leftover prednisone he did started. In addition to that he has not start his biologic therapy. Apparently his insurance does not want approve it. Will go ahead and talk to our staff to see what else we can do to make sure that he gets the needed biologic therapies. The patient does require prednisone at this time for another exacerbation will give him also course of antibiotics for what appears to be a lower respiratory infection. The patient is also having significant left hip pain. He was referred to rheumatology. He is concerned that he is going to need some type of surgery. 02/01/2024 the patient is here for a pulmonary follow-up visit. Overall he has doing a little better. The patient has been able to be off the prednisone which is reassuring. He has been followed closely by allergy and has been getting allergy shots. The patient also has been using his respiratory medications with good effect. At least from a respiratory status doing better than he has not lo ng time. Although he has been losing weight. He has been trying to exercise more regularly although he has significant arthritic changes due to his previous traumas. Will continue with current respiratory therapy. I will send him prednisone for him to hold. 06/17/2024 the patient is here for a pulmonary follow-up visit. He continues on his respiratory therapy. He has been able to be off the prednisone which is good. The patient did get a diagnosis of avascular necrosis of the hip. This is causing significant pain. Explained to him this is likely from the chronic prednisone use. The patient needs to find alternative therapies for severe asthma. We have been trying to get him on Xolair, but, been difficult to get it approved. Therefore we try getting him on Tezspire. Although that medication was not in the formulary. Therefore, will go ahead and request additional blood work and will request these Xolair as the best option for him. He has already tried and failed Fasenra in addition to Dupixent. He does have significant allergies with an elevated IgE level. 08/21/2024 the patient is here for preoperative evaluation. Overall he is doing about the same. Still having some chest tightness at times. Does uses nebulizer. He has been using it a little more regularly the last week. Feels some chest congestion. He does have evidence of chronic bronchitis. Also has significant allergies likely contributing. He already tried and failed multiple biologic regimens. Now dealing with significant hip arthritis. He is going to need a total hip replacement. He continues to be on prednisone 10 mg. Will try to wean it off slowly so he can minimize on the prednisone effect and allow for better recovery and tissue healing after his surgery. In the meantime will c ontinue to optimize his respiratory regimen. The patient is doing well from a pulmonary standpoint may be able to proceed with anesthesia and surgery at this time. 11/17/2024 the patient is here for a pulmonary follow-up visit. Overall the patient has been doing fairly decent. He has been off the prednisone which is reassuring. He did undergo a sip replacement. He is still healing from that is been about 2 months. He still getting physical therapy and still somewhat sore. He may have to get his next hip done at some point but he is thinking about it. For now his respiratory status is stable off the prednisone which is reassuring. He never got the maintenance inhalers so therefore I will send him Symbicort again to the pharmacy. He also has a nebulizer therapy available. He continued the azithromycin 3 times a week. He feels like it is helping so therefore will go ahead and continue for another couple months. Will follow-up in 6 months. If he has any issues prior to that he will call for an earlier assessment. [facility] Medical History Avascular necrosis Ambulates with cane Hx of bronchitis Arthritis, lumbar spine Chronic left sacroiliac joint pain Deviated septum Atopic dermatitis Tubular adenoma Allergic conjunctivitis Asthma Surgical History Hx of colonoscopy (~2020) Family History Father No problems noted. Mother Rheumatoid arthritis Social History Household Members: Family Housing: Apartment Are you a primary wound care nurse to a significant other at home: No Do you presently have visiting nurse or other home services: No 75 years or older and lives alone: No Alcohol intake: current Alcohol intake frequency: a few times a week Alcohol type: beer Patient Tobacco Use Status: Never used Tobacco Tobacco use type: Cigar e-Cigarette/Vaping Use: Never Used Second Hand Smoke Exposure: No Substance Use Type: Marijuana service: No Current occupational status: employed Current occupation: [employer] AT [employer] . Cognitive needs: No Hearing needs: No Vision needs: No Review of Systems Const Denies body aches, Denies chills, Reports difficulty sleeping, Denies excessive sweating, Denies fatigue, Denies fever(s), Denies headache(s) and Reports weight loss Eyes Denies blurry vision ENT Denies dysphagia, Denies vertigo, Denies dizziness, Denies headache(s), Denies hearing loss, Reports nasal congestion, Reports nasal discharge and Denies tinnitus Card Denies chest pain with activity, Denies syncope, Denies irregular heart rhythm and Reports dyspnea on exertion Resp Denies chest congestion, Reports cough, Denies hemoptysis, Reports dyspnea on exertion and Reports wheezing GI Denies abdominal pain, Denies melena, Denies hematochezia, Denies coffee ground emesis, Denies dysphagia, Denies diarrhea, Denies nausea and Denies vomiting Musc Reports abnormal gait, Reports arthralgias, Reports limited range of motion, Denies muscle cramps, Denies muscle weakness and Reports stiffness Skin/Breast Denies rash and Denies skin ulcer Neuro Denies Abnormal speech present, Reports abnormal gait, Denies vertigo, Denies dizziness, Denies syncope, Denies headache(s), Denies memory loss and Denies seizure-like activity Psych Denies anxiety, Denies depression, Denies memory loss, Denies panic attacks and Denies paranoia Endo Denies excessive sweating, Denies fatigue, Denies flushing, Denies polydipsia and Denies polyuria Aller/Immun Reports wheezing Physical Exam Vital Signs: Last Vital Signs Pulse 96 11/17/24 13:54 BP 140/92 H 11/17/24 13:54 Pulse Ox 98 11/17/24 13:54 Oxygen Delivery Method Room Air 11/17/24 13:54 BMI result Body Mass Index 25.4 Const General: comfortable HEENT Head: Yes atraumatic Neck Neck: Yes supple Chest Chest palpation & inspection: normal inspection of the chest Resp Effort & Inspection: normal respiratory effort Auscultation: no wheezes and diminished lung sounds Cardio Rate: regular rate Rhythm: regular rhythm Heart sounds: S1 normal heart sound present and S2 normal heart sound present GI Palpation (GI): Soft to palpation Skin Rashes: no rashes Neuro Speech: No Abnormal speech present Extrem General: Yes no clubbing, cyanosis or edema Assessment & Plan Assessment & Plan (1) Asthma: Comment: chronic prednisone to control symptoms Code(s): J45.909 - Unspecified asthma, uncomplicated Category: Medical Qualifiers: Asthma complication type: uncomplicated Asthma persistence: persistent Asthma severity: severe Qualified Code(s): J45.50 - Severe persistent asthma, uncomplicated (2) Allergic rhinitis: Code(s): J30.9 - Allergic rhinitis, unspecified Category: Medical Qualifiers: Allergic rhinitis seasonality: non-seasonal Allergic rhinitis trigger: unspecified Qualified Code(s): J30.89 - Other allergic rhinitis (3) Atopic dermatitis: Code(s): L20.9 - Atopic dermatitis, unspecified Category: Medical Qualifiers: Atopic dermatitis type: unspecified Qualified Code(s): L20.9 - Atopic dermatitis, unspecified (4) Deviated septum: Code(s): J34.2 - Deviated nasal septum Category: Medical Plan Prednisonw now completely off budesonide via nebulizer plus or minus albuterol conitunue azithromycin Sunday for chronic bronchitis x 2 months Breztri 2 puffs twice a day short-acting beta agonist as needed continue Singulair nebulizer therapy F/U in 3-4 months Medications: New azithromycin Take 1 tablet on Sunday/Sunday/Sunday 250 mg PO 3XW 12 tabs 2RF 28 days K21.9 - Gastro-esophageal reflux disease without esophagitis budesonide-formoterol 160-4.5 mcg/actuation (Symbicort) 2 puffs inhalation BID 10.2 grams 11RF 30 days J44.89 - Other specified chronic obstructive pulmonary disease Coding Level of Care Code Est Pt Level 4 (48425) Complex EM visit Add On G2211 Diagnoses Severe persistent asthma without complication J45.50 Asthma complication type: uncomplicated Asthma persistence: persistent Asthma severity: severe Non-seasonal allergic rhinitis, unspecified trigger J30.89 Allergic rhinitis seasonality: non-seasonal Allergic rhinitis trigger: unspecified Atopic dermatitis, unspecified type L20.9 Atopic dermatitis type: unspecified Deviated septum J34.2 Time Spent (min) 16
[2024-11-17 13:54] VITALS: BP 140/92; PULSE 96; O2SAT 98; BMI 25.4
--- OUTSIDE RECORDS SUMMARY | 2024-11-17 15:40 | XMS_ITS | Clinical Summary ---
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
== END 2024-11-17 14:37 | disposition home or self-care (01) ==
PROVIDERS: PCP Physician Assistant; Visit Provider Hospitalist
DX: J45.50 Severe persistent asthma, uncomplicated (principal); J30.89 Other allergic rhinitis; L20.9 Atopic dermatitis, unspecified; J34.2 Deviated nasal septum
CPT/HCPCS: 99214; G2211

== ENCOUNTER → 2024-11-17 13:50 | Outpatient (BNVA) | payer OTHER, SELFPAY | PROVIDERS: PCP Physician Assistant; Visit Provider Hospitalist | DX: J44.9 Chronic obstructive pulmonary disease, unspecified (principal); K21.9 Gastro-esophageal reflux disease without esophagitis ==

== ENCOUNTER 2024-12-08 09:57 | Outpatient (AMB) | payer OTHER, SELFPAY ==
[2024-12-08 10:00] VITALS: BP 152/98; PULSE 102; TEMP 36.6; O2SAT 97; BMI 25.3
--- NOTE | 2024-12-08 10:00 | A.OFFPC_ITS ---
Vital Signs 12/08/24 10:00 Height 5 ft 7 in Weight 161 lb 8 oz BMI 25.3 BP 152/98 H Blood Pressure Location Lt brachial Position Sitting Pulse 102 H Pulse Source Pulse Oximeter Temp 97.8 F Temp Source Temporal Artery Scan Pulse Oximetry (%) 97 Oxygen Delivery Method Room Air Intake Visit Reasons: f/u RA/ labs review Privacy Attorney Required: No Accompanied by: Self / Same As Patient Allergies environmental allergies Allergy (Intermediate, Verified 12/08/24 10:16) itchy eyes, sob grass pollen Allergy (Intermediate, Verified 12/08/24 10:16) Itchy Eyes Medication List - Last Reconciled 12/08/24 by Hussain Arce PA-C acetaminophen 650 mg (2 x 325 mg) PO Q6H PRN 30 days albuterol sulfate 2.5 mg (3 mL) inhalation Q6H PRN 30 days albuterol sulfate 90 mcg/actuation 1 puff PO Q4H PRN 30 days aspirin 325 mg PO BID 42 days azithromycin 250 mg PO 3XW 28 days budesonide 0.5 mg (2 mL) inhalation BID 30 days budesonide-formoterol 160-4.5 mcg/actuation (Symbicort) 2 puffs inhalation BID 30 days celecoxib 200 mg PO BID 30 days cyclobenzaprine 10 mg (2 x 5 mg) PO BEDTIME cyclosporine 0.09% (Cequa) 1 drp ophthalmic (eye) QID epinephrine (EpiPen 2-Russ) 0.3 mg (0.3 mL) IM Q10M PRN 30 days gabapentin 300 mg PO TID 30 days ketotifen fumarate 0.025%(0.035%) 1 drp ophthalmic (eye) BID 30 days lidocaine 5% 1 patch topical DAILY PRN loteprednol etabonate 0.5% 1 drp ophthalmic (eye) DAILY montelukast (Singulair) 10 mg PO BEDTIME 3 months naloxone 4 mg/actuation (Narcan) 4 mg intranasal Q2M PRN nebulizers As directed oxycodone 5 mg PO Q24H PRN 7 days triamcinolone acetonide 0.1% 1 appl topical DAILY 30 days walker Folding front wheeled walker Tobacco use date assessed: 12/08/24 Dental Screening Dental Screen Date: 12/08/24 Did you have a dental visit in the last 12 months?: No Did you have a dental problem in the last 6 months where you did not have access to dental care?: No Was dental information given to patient?: No HPI f/u RA/ labs review HPI Details Patient is a 54-year-old male here today for A follow-up visit. Patient has a past medical history significant for moderate persistent asthma, moderate to severe atopic dermatitis. has been recovering from total hip arthroplasty-has lost significant amount weight due to being fairly inactive. He is in physical therapy to recover from his total knee arthroplasty. .. Atopic dermatitis: His atopic dermatitis has been fairly well controlled with topical agents. Also suffers with allergic conjunctivitis to which he uses eyedrops for. .. Moderate persistent asthma: He reports his asthma has been fairly well controlled now on new maintenance inhaler, followed by [facility] . He is now completely off prednisone. .. Ankylosing spondylitis: He has lost follow-up with Rheumatology whom was looking to start disease modifying for his autoimmune disease. He reports since his total knee arthroplasty still has quite significant polyarthralgia. He is willing to reestablish care with Rheumatology and discuss disease modifying drugs for the treatment of his ankylosing spondylitis [facility] Medical History (Updated 12/09/24 @ 07:48 by Hussain Arce PA-C) Avascular necrosis of bone of hip Avascular necrosis Ambulates with cane Hx of bronchitis Arthritis, lumbar spine Chronic left sacroiliac joint pain Deviated septum Tubular adenoma Allergic conjunctivitis Asthma Surgical History (Updated 12/08/24 @ 10:22 by Hussain Arce PA-C) Hx of colonoscopy (~2020) Family History Father No problems noted. Mother Rheumatoid arthritis Social History Household Members: Family Housing: Apartment Are you a primary career and transition teacher to a significant other at home: No Do you presently have visiting nurse or other home services: No 75 years or older and lives alone: No Alcohol intake: current Alcohol intake frequency: a few times a week Alcohol type: beer Patient Tobacco Use Status: Never used Tobacco Tobacco use type: Cigar e-Cigarette/Vaping Use: Never Used Second Hand Smoke Exposure: No Substance Use Type: Marijuana service: No Current occupational status: employed Current occupation: [employer] AT [employer] . Cognitive needs: No Hearing needs: No Vision needs: No Questionnaire PHQ-9 Over the last 2 weeks, how often have you been bothered by any of the following problems? 1. Little interest or pleasure in doing things: not at all 2. Feeling down, depressed, or hopeless: not at all 3. Trouble falling or staying asleep, or sleeping too much: not at all 4. Feeling tired or having little energy: not at all 5. Poor appetite or overeating: not at all 6. Feeling bad about yourself - or that you are a failure or have let yourself or your family down: not at all 7. Trouble concentrating on things, such as reading the newspaper or watching television: not at all 8. Moving or speaking so slowly that other people could have noticed. Or the opposite - being so fidgety or restless that you have been moving around a lot more than usual: not at all 9. Thoughts that you would be better off or of hurting yourself in some way: not at all Total score: 0 Depression Screening Interpretation: Negative Depression Screening Done: Yes 79457 - PHQ-9 Billing: Yes Source: Developed by Drs. Fco Riddle, Svetlana Desai, Earnest Henson and colleagues, with an educational gisell from [employer]. Thrive Questionnaire Date Thrive assessed: 12/08/24 I am a: Patient What is your living situation today?: I have a steady place to live Within the past 12 months, did the food you bought not last and you didn't have the money to get more?: Never true Within the past 12 months, did you worry whether your food would run out before you got money to buy more?: Never true Do you have trouble paying for medicines?: No Do you have trouble getting transportation to medical appointments?: No Do you have trouble paying your heating and electricity bill?: No Do you have trouble taking care of your child, family member or friend?: No Do you have trouble with day-to-day activities such as bathing, preparing meals, shopping, managing finances, etc.?: No Are you currently unemployed and looking for a job?: No Are you interested in more education?: No Please select the resources that you would like help with: None Currently or been in a relationship where the following occur: No concerns reported THRIVE Score: 0 AUDIT C Alcohol Use Questionnaire (AUDIT-C) 1. How often do you have a drink containing alcohol?: 4 or more times a week 2. How many drinks containing alcohol do you have on a typical day when you are drinking?: 5 or 6 3. How often do you have six or more drinks on one occasion?: Weekly Total Score: 9 EVY-7 AMB Questionnaire EVY-7 Date EVY - 7 assessed: 12/08/24 Feeling nervous, anxious, or on edge: 0 = Not at all Not being able to stop or control worryin = Not at all Worrying too much about different things: 0 = Not at all Trouble relaxin = Not at all Being so restless that it is hard to sit still: 0 = Not at all Becoming easily annoyed or irritable: 0 = Not at all Feeling afraid as if something awful might happen: 0 = Not at all Total EVY-7 score (0-4 normal; 5-9 mild; 10-14 moderate; 15-21 severe): 0 Source: Developed by Drs. Fco Riddle, Svetlana Desai, Earnest Henson and colleagues, with an educational gisell from [employer]. EVY-7 Assessment Billing EVY-7 Assessment Tool: EVY-7 Assessment 87102 Review of Systems Const Denies headache(s) Eyes Denies loss of vision ENT Denies vertigo, Denies dizziness, Denies headache(s) and Denies sore throat Card Denies chest pain, Denies leg edema and Denies lightheadedness Resp Denies cough, Denies hemoptysis and Denies wheezing GI Denies abdominal pain, Denies melena, Denies constipation, Denies diarrhea and Denies vomiting Denies dysuria, Denies urinary frequency and Denies urinary urgency Musc Reports back pain, Reports arthralgias, Reports joint swelling, Reports limited range of motion, Denies numbness and Denies tingling Neuro Denies Abnormal speech present, Denies behavioral changes, Denies vertigo, Denies dizziness, Denies headache(s), Denies loss of vision, Denies memory loss, Denies numbness and Denies tingling Psych Denies anxiety, Denies behavioral changes, Denies depression, Denies memory loss and Denies panic attacks Charli/Lymph Denies easy bleeding and Denies easy bruising Aller/Immun Denies wheezing Physical exam (Primary Care) Vital Signs: Last Vital Signs Temp 97.8 F 12/08/24 10:00 Pulse 102 H 12/08/24 10:00 BP 152/98 H 12/08/24 10:00 Pulse Ox 97 12/08/24 10:00 Oxygen Delivery Method Room Air 12/08/24 10:00 BMI result Body Mass Index 25.3 Tobacco/Smoking Status: Tobacco use Status Tobacco use date assessed 12/08/24 12/08/24 10:14 Patient Tobacco Use Status Never used Tobacco 12/08/24 10:01 Tobacco use type Cigar 12/08/24 10:01 e-Cigarette/Vaping Use Never Used 12/08/24 10:01 PHQ-9: PHQ-9 Score PHQ-9: Total score 0 12/08/24 10:18 Depression Screening Interpretation: Negative Thrive Assessment: Date of Thrive Assessment Date Thrive assessed 12/08/24 12/08/24 10:01 Currently or been in a relationship where the following occur: No concerns reported Const General: healthy appearing, no acute distress, alert and awake Nutritional Appearance: well nourished Orientation/consciousness: oriented to person, oriented to place and oriented to time HENMT Ears: TM's normal bilaterally General nose exam: Normal nasal mucous membranes and turbinates present Eyes Conjunctivae: conjunctivae normal Sclerae: sclerae normal Pupils: Equal, round and reactive pupils present Neck Neck: Yes no lymphadenopathy and Yes no JVD Thyroid: Thyroid normal Carotids: no bruits Resp Effort & Inspection: normal respiratory effort and not tachypneic Auscultation: no crackles, no rales, no rhonchi and no wheezes Cardio Rate: regular rate Rhythm: regular rhythm Heart sounds: no murmurs and normal S1 and S2 GI Palpation (GI): Soft to palpation, nontender, no hepatomegaly and no splenomegaly Auscultation: normal bowel sounds Skin General skin exam: no rashes or lesions noted and dry skin Neuro General: oriented to person, oriented to place and oriented to time Cranial nerves: Yes Equal, round and reactive pupils present Speech: No Abnormal speech present Gait exam (Neuro): Normal gait present Motor exam (neuro): no tremor noted Extrem Right upper extremity: full ROM Left upper extremity: full ROM Right lower extremity: full ROM; no edema Left lower extremity: full ROM; no edema Psych Mental Status: mental status grossly normal Speech and movement: Normal speech and movement present Affect: normal affect Attitude: cooperative Thought process: Normal thought process present Coding Level of Care Code Est Pt Level 4 (28226) Diagnoses Primary insomnia F51.01 Insomnia type: primary Severe persistent asthma without complication J45.50 Asthma complication type: uncomplicated Asthma persistence: persistent Asthma severity: severe S/P hip arthroscopy Z98.890 Ankylosing spondylitis of sacrococcygeal region M45.8 Ankylosing spondylitis location: sacrococcygeal region Additional Codes EVY-7 Assessment Billing - EVY-7 Assessment Tool: EVY-7 Assessment 69864 ([id number]) PHQ-9 - 86802 - PHQ-9 Billing: Yes ([id number]) Assessment & Plan Assessment & Plan (1) Insomnia: Code(s): G47.00 - Insomnia, unspecified Category: Medical Qualifiers: Insomnia type: primary Qualified Code(s): F51.01 - Primary insomnia Plan: Patient having a difficult time sleeping. He is willing to try hydroxyzine half an hour before bed to help sleep. (2) Asthma: Comment: chronic prednisone to control symptoms Code(s): J45.909 - Unspecified asthma, uncomplicated Category: Medical Qualifiers: Asthma complication type: uncomplicated Asthma persistence: persistent Asthma severity: severe Qualified Code(s): J45.50 - Severe persistent asthma, uncomplicated Plan: Shaw reports his asthma has been fairly well controlled. He does regularly use his nebulizer treatments at home.. He is now off of prednisone. He is followed by [facility]. Has not had any recent asthma exacerbations. (3) S/P hip arthroscopy: Code(s): Z98.890 - Other specified postprocedural states Category: Surgical Plan: As per HPI patient is status post left hip total arthroplasty in September of 2024 and he reports he is still recovering. Currently in physical therapy. (4) Ankylosing spondylitis: Comment: HLA b27 -ve dx 03/2024 Code(s): M45.9 - Ankylosing spondylitis of unspecified sites in spine Category: Medical Qualifiers: Ankylosing spondylitis location: sacrococcygeal region Qualified Code(s): M45.8 - Ankylosing spondylitis sacral and sacrococcygeal region Plan: As per HPI patient was diagnosed with ankylosing spondylitis and was HLA B27. He is willing to restart conversation about disease modifying drug as he continues to have polyarthralgia to whom moderate - significant degree. Orders: Orders Complete Blood Count no Diff 12/08/24 J45.50 - Severe persistent asthma, uncomplicated Comprehensive [place]. Panel Fast 12/08/24 Z13.1 - Encounter for screening for diabetes mellitus Prostate Specific Antigen Scr 12/08/24 Z12.5 - Encounter for screening for malignant neoplasm of prostate, Z13.1 - Encounter for screening for diabetes mellitus Referrals Rheumatology Referral M45.8 - Ankylosing spondylitis sacral and sacrococcygeal region Medications: New hydroxyzine HCl 25 mg PO BEDTIME 30 tabs 0RF 30 days F51.01 - Primary insomnia Refilled albuterol sulfate 2.5 mg (3 mL) inhalation Q6H 30 days PRN 180 mL 11RF shortness of breath or wheezing montelukast (Singulair) 10 mg PO BEDTIME 3 months 90 tabs 3RF J45.20 - Mild intermittent asthma, uncomplicated albuterol sulfate 2.5 mg (3 mL) inhalation Q6H PRN 180 mL 11RF shortness of breath or wheezing 30 days albuterol sulfate 90 mcg/actuation 1 puff PO Q4H PRN 8.5 ea 12RF for wheezing 30 days albuterol sulfate 90 mcg/actuation 1 puff PO Q4H 30 days PRN 8.5 ea 12RF for wheezing celecoxib 200 mg PO BID 60 caps 0RF 30 days cyclobenzaprine 10 mg (2 x 5 mg) PO BEDTIME 60 tabs 0RF for muscle spasm G89.29 - Other chronic pain, M46.1 - Sacroiliitis, not elsewhere classified, M51.36 - Other intervertebral disc degeneration, lumbar region, M53.3 - Sacrococcygeal disorders, not elsewhere classified, M62.830 - Muscle spasm of back montelukast (Singulair) 10 mg PO BEDTIME 90 tabs 3RF 3 months J45.20 - Mild intermittent asthma, uncomplicated Discontinued aspirin Discontinued Reason: Doctor's Order 325 mg PO BID 42 days 84 tabs 0RF gabapentin Discontinued Reason: Doctor's Order 300 mg PO TID 30 days 90 caps 3RF pain M16.12 - Unilateral primary osteoarthritis, left hip, M46.1 - Sacroiliitis, not elsewhere classified, M51.36 - Other intervertebral disc degeneration, lumbar region, M53.3 - Sacrococcygeal disorders, not elsewhere classified naloxone 4 mg/actuation (Narcan) spray 1 dose into ONE nostril; alternate nostrils w each dose until help arrives Discontinued Reason: Doctor's Order 4 mg intranasal Q2M PRN 2 ea 0RF opioid overdose oxycodone Partial Fill upon patient request. Discontinued Reason: Doctor's Order 5 mg PO Q24H 7 days PRN 7 tabs 0RF Pain, Moderate(Pain Scale 4-6)
--- OUTSIDE RECORDS SUMMARY | 2024-12-08 11:04 | XMS_ITS | Data Portability ---
Author Organization [place] - [facility], Allergy Address [address] [address] Care Team Providers Care Salvage Engineer Name Role Phone HERMELINDO JORGE Primary [...] Missed 1 week Dose Notes:? ? ? [email or web address] Not available 08/21/2024 14:06:31 09/05/2024 09/05/2024 Visit [...] Aware of Vial Test Notes:? ? ? Not available 09/11/2024 16:26:07 09/19/2024 09/19/2024 Visit [...] Address Organization Details Recorded Time Chronic rhinitis 53222671 Active 2022 Chronic rhinitis; Note: Date Diagnosed : 03/01/2023 6:05 PM (J31.0) Not Available [facility] 4 02:25:39 Allergic rhinitis 37577189 Active 2023 Allergic rhinitis: Due to other [...] Date : 3 Not Available [facility] 4 00:58:12 Perennial allergic rhinitis 254462378 Active 2023 ROSA BUTTERFIELD RMCarlos [address] [facility] [address] [place] [address], [address] , [place] - [facility] 14:21:13 Problem Notes None recorded. Procedures Surgical History Date Name Laterality Status Provider Name and Address Organization Details Recorded Time 09/19/19 25 Allergy Immunotherapy Injections completed TULIO HYDE RN [address],[place] [address] [place] [address], [address], [place] - [facility] 09/19/2024 13:09:48 09/11/19 25 Allergy Immunotherapy Injections completed KISHORE GARCIA 100 [facility] [address] [place] [address], [address], [place] - [facility] 09/11/2024 16:26:25 09/05/20 24 Allergy Immunotherapy Injections completed TULIO HYDE RN 100 [facility],[address], [address], [place] - [facility] 09/05/2024 11:35:54 08/21/20 24 Allergy Immunotherapy Injections completed KISHORE GARCIA [address] [facility] [address] [place] [address], [address], [place] - [facility] 08/21/2024 14:06:16 08/14/20 24 Allergy Immunotherapy Injections completed ROSA BUTTERFIELD RMCarlos [address] [facility] [address] [place] [address], [address], [place] [facility] 08/14/2024 14:21:22 08/01/20 24 Allergy Immunotherapy Injections completed KISHORE PAT [address],[place] [address] [place] [address], [address], [place] - [facility] 08/01/2024 12:27:05 07/24/20 24 Allergy Immunotherapy Injections completed TULIO HYDE RN [address], [place], [address], [place] - [facility] 07/24/2024 13:49:19 07/17/20 24 Allergy Immunotherapy Injections completed KISHORE GARCIA [address], [place], [address], [place] [facility] 07/17/2024 11:15:01 07/10/20 24 Allergy Immunotherapy Injections completed KISHORE GARCIA [address], [place], [address], [place] [facility] 07/10/2024 15:03:55 07/03/20 24 Allergy Immunotherapy Injections completed ROSA BUTTERFIELD RMA [address], [place], [address], [place] - [facility] 07/03/2024 13:16:15 06/26/20 24 Allergy Immunotherapy Injections completed KISHORE GARCIA [address], [place], [address], [place] [facility] 2024 13:40:24 06/12/20 24 Allergy Immunotherapy Injections completed KISHORE GARCIA [address] [facility] [address], [place], [address], [place] [facility] 06/12/2024 12:05:34 06/05/20 24 Allergy Immunotherapy Injections completed KISHORE GARCIA [address], [place], [address], [place] [facility] 06/05/2024 13:48:08 05/29/20 24 Allergy Immunotherapy Injections completed KISHORE PAT [address],[place] [address] [place] [address], [address], [place] [facility] 05/29/2024 11:48:28 05/23/20 24 Allergy Immunotherapy Injections completed TULIO HYDE RN [address], [place], [address], [place] [facility] 05/23/2024 15:43:37 05/16/20 24 Allergy Immunotherapy Injections completed ROSA BUTTERFIELD RMA [address], [place], [address], [place] [facility] 05/16/2024 14:12:21 05/09/20 24 Allergy Immunotherapy Injections completed KISHORE GARCIA [address], [place], [address], [place] [facility] 05/09/2024 14:23:57 04/18/20 24 Allergy Immunotherapy Injections completed KISHORE GARCIA [address], [place], [address], [place] [facility] 04/18/2024 14:58:29 04/08/20 24 Allergy Immunotherapy Injections completed TULIO HYDE RN [address], [place], [address], [place] [facility] 04/08/2024 14:53:53 03/25/20 24 Allergy Immunotherapy Injections completed KISHORE GARCIA [address], [place], [address], [place] [facility] 03/25/2024 14:50:22 03/14/20 24 Allergy Immunotherapy Injections completed KISHORE PAT [address], [place], [address], [place] [facility] 03/14/2024 14:07:58 02/28/20 24 Allergy Immunotherapy Injections completed KISHORE GARCIA [address], [place], [address], [place] [facility] 02/28/2024 13:06:11 02/21/20 24 Allergy Immunotherapy Injections completed KISHORE GARCIA [address], [place], [address], [place] [facility] 02/21/2024 11:27:51 02/12/20 24 Allergy Immunotherapy Injections completed ROSA BUTTERFIELD RMA [address], [place], [address], [place] [facility] 02/12/2024 14:32:23 02/01/20 24 Allergy Immunotherapy Injections completed KISHORE GARCIA [address], [place], [address], [place] [facility] 02/01/2024 14:19:44 05/16/20 24 Allergy Immunotherapy Injections completed ROSA BUTTERFIELD, [facility] 100 [facility] 100, [place], [address], [facility] - [facility] 01/24/2024 14:21:37 Imaging Results None recorded. Procedure [...] HFA aerosol inhaler active Medicati on ID: [id number] B rand Name: Breztri Aerosphe re Send [...] Updated DateTime 09/19/2024 170.18 cm 26.9 kg/m2 17473.89 g Estefany Perera [place] - [facility] 09/19/2024 13:09:59 Social History None recorded. Functional Status None recorded. Mental Status None recorded. Family History Nothing Reported. Medical History No medical history recorded. Past Encounters Encounter ID Performer Location Encounter Start Date Encounter Closed Date Diagnosis/Indication Diagnosis SNOMED-CT Code Diagnosis ICD10 Code Diagnosis Note [id number] HEATHER WILLIAMSON MD Allergy [address] [place] [address] 01/24/2024 14:19:11 01/25/2024 12:36:37 Perennial allergic rhinitis 218283816 J30.89 [id number] GISELLE PASTRANA [facility] Allergy [address] [place] [address] 02/01/2024 14:18:47 02/01/2024 14:32:52 Perennial allergic rhinitis 090970958 J30.89 [id number] [facility] [address] [place] [address] 02/12/2024 13:35:10 02/12/2024 16:19:08 Perennial allergic rhinitis 758108646 J30.89 [id number] BRIGITTE HANNA MD [facility] of [address] [address] 02/15/2024 16:05:12 02/15/2024 16:58:27 Allergic rhinitis 35771823 J30.89 53-year-ol d male with allergies and [...] Follow-up 6 months. [id number] KISHORE GARCIA Allergy [address] [place] [address] 02/21/2024 10:37:54 02/21/2024 11:33:26 Perennial allergic rhinitis 953613898 J30.89 [id number] GISELLE PASTRANA, A Allergy 100 [facility],[place] [address] [place] [address] 02/28/2024 12:20:55 02/28/2024 12:26:50 Perennial allergic rhinitis [id number] J30.89 [id number] [facility], RMA Allergy 100 [facility],[place] [address] [place] [address] 03/14/2024 13:09:40 03/14/2024 15:30:28 Perennial allergic rhinitis 060909504 J30.89 [id number] GISELLE PASTRANA, A Allergy 100 [facility],[place] [address] [place] [address] 03/25/2024 14:43:48 03/26/2024 13:21:56 Perennial allergic rhinitis [id number] J30.89 [id number] TULIO HYDE RN Allergy [address] [place] [address],[place] [address] [place] [address] 04/08/2024 13:17:46 04/08/2024 14:54:36 Perennial allergic rhinitis 376867532 J30.89 [id number] GISELLE PASTRANA, A Allergy [address] [place] [address],[place] [address] [place] [address] 04/18/2024 14:21:19 04/18/2024 15:35:40 Perennial allergic rhinitis [id number] J30.89 [id number] GISELLE PASTRANA, A Allergy [address] [place] [address],[place] [address] [place] [address] 05/09/2024 14:15:20 05/09/2024 15:19:41 Perennial allergic rhinitis [id number] J30.89 [id number] [facility], A Allergy 100 [facility],[place] [address] [place] [address] 05/16/2024 14:06:07 05/16/2024 14:32:31 Perennial allergic rhinitis [id number] J30.89 [id number] TULIO HYDE RN Allergy [address] [place] [address],[place] [address] [place] [address] 05/23/2024 14:49:32 05/23/2024 15:43:57 Perennial allergic rhinitis 589940088 J30.89 [id number] [facility], [facility] Allergy 100 [facility],[place] [address] [place] [address] 05/29/2024 11:37:06 05/29/2024 11:49:49 Perennial allergic rhinitis [id number] J30.89 [id number] GISELLE SARAH [facility] Allergy 100 [facility],[place] [address] [place] [address] 06/05/2024 13:47:09 06/05/2024 13:50:45 Perennial allergic rhinitis [id number] J30.89 [id number] GISELLE PASTRANA [facility] Allergy 100 [facility],[place] [address] [place] [address] 06/12/2024 12:04:31 06/12/2024 12:08:16 Perennial allergic rhinitis 226521350 J30.89 [id number] GISELLE PASTRANA [facility] Allergy 100 [facility],[place] [address] [place] [address] 2024 13:08:56 2024 13:40:46 Perennial allergic rhinitis 500086074 J30.89 [id number] [facility], [facility] Allergy [address] [place] [address],[place] [address] [place] [address] 07/03/2024 12:28:14 07/03/2024 13:16:56 Perennial allergic rhinitis [id number] J30.89 [id number] GISELLE PASTRANA [facility] Allergy 100 [facility],[place] [address] [place] [address] 07/10/2024 14:55:43 07/10/2024 16:16:17 Perennial allergic rhinitis [id number] J30.89 [id number] GISELLE PASTRANA [facility] Allergy [address] [place] [address],[address] [address] [place] [address] 07/17/2024 10:59:58 07/17/2024 11:25:55 Perennial allergic rhinitis 403088623 J30.89 [id number] TULIO HYDE judicial law clerk 100 [facility],[address] [address] [place] [address] 07/24/2024 13:28:27 07/24/2024 13:49:36 Perennial allergic rhinitis 996027678 J30.89 [id number] ROSA BOOKER, A Allergy 100 [facility],[place] [address] [place] [address] 08/01/2024 12:25:52 08/01/2024 12:28:26 Perennial allergic rhinitis [id number] J30.89 [id number] ROSA BOOKER, A Allergy 100 [facility],[place] [address] [place] [address] 08/14/2024 13:53:09 08/14/2024 14:24:50 Perennial allergic rhinitis [id number] J30.89 [id number] GISELLE SARAH [facility] Allergy 100 [facility],[place] [address] [place] [address] 08/21/2024 13:24:53 08/21/2024 14:06:50 Perennial allergic rhinitis [id number] J30.89 [id number] TULIO HYDE RN Allergy [address] [place] [address], [address] [place] [address] 09/05/2024 11:35:17 09/05/2024 11:36:22 Perennial allergic rhinitis [id number] J30.89 [id number] GISELLE SARAH [facility] Allergy 100 [facility],[place] [address] [place] [address] 09/11/2024 14:29:00 09/11/2024 16:26:45 Perennial allergic rhinitis [id number] J30.89 [id number] BRIGITTE HANNA MD [facility] 100 [place] [address] 09/19/2024 13:00:13 09/19/2024 13:29:53 Allergic rhinitis 48685510 J30.89 53-year-ol d male with allergies and asthma, clinically improving on IT. He is still using montelukas t and Zyrtec with decongesta nt. He does not tolerate nasal sprays. He does continue to have some congested mucosa in his nasal cavity. Continue current regimen. Follow-up 6 months. Will check hearing then; I removed some cerumen today. [id number] TULIO HYDE RN Allergy [address] [place] [address],[place] [address] [place] [address] 09/19/2024 13:09:08 09/19/2024 13:10:13 Perennial allergic rhinitis 680834235 J30.89 Health Concerns Section Related Observation LastModified by Organization Detai ls LastModified Time None Recorded Concern Status LastModified by Organization Details LastModified Time None Recorded Advance Directives Directive None Recorded Payers Encounter Date Sequence Insurance Name Policy Number Policy Elizabeth Covered Member ID Elizabeth Member ID Guarantor Name 08/21/2024 1 [employer] Shaw Vela [id number] Shaw Vela 09/05/2024 1 [employer] Shaw Vela [id number] Shaw Vela 09/11/2024 1 [employer] Shaw Vela [id number] Shaw Vela 09/19/2024 1 [employer] [id number] Shaw Vela [id number] Shaw Vela 09/19/2024 1 [employer] [id number] Shaw Vela [id number] Shaw Vela Notes Date Note Type Note Provider Name and Address Organization Details Recorded Time 09/19/2024 text/html [facility]es [facility] in [place], uses drops regularlyNose more congestion on the [...] eczema around his eyes. BRIGITTE HANNA MD [address] [place] [address], [place], [address], [facility] - [facility] 09/19/2024 13:17:38
--- OUTSIDE RECORDS SUMMARY | 2024-12-08 11:04 | XMS_ITS | Clinical Summary ---
Author Organization [facility] Address [address] [place] [address] Care Team Providers Care Explosives Operator Name Role Phone Unavailable Primary Care Provider [...]
== END 2024-12-08 11:33 | disposition home or self-care (01) ==
LOC: HO.HMCH 09:58
PROVIDERS: PCP Physician Assistant; Visit Provider Physician Assistant
DX: F51.01 Primary insomnia (principal); J45.50 Severe persistent asthma, uncomplicated; Z98.890 Other specified postprocedural states; M45.8 Ankylosing spondylitis sacral and sacrococcygeal region

== ENCOUNTER → 2024-12-08 09:57 | Outpatient (BNVA) | payer OTHER, SELFPAY | PROVIDERS: PCP Physician Assistant; Visit Provider Physician Assistant | DX: F51.01 Primary insomnia (principal); J45.50 Severe persistent asthma, uncomplicated; M45.8 Ankylosing spondylitis sacral and sacrococcygeal region; Z98.890 Other specified postprocedural states | CPT/HCPCS: 96127 ==

== ENCOUNTER 2024-12-15 12:01 | Outpatient (REF) | payer OTHER, SELFPAY ==
--- NOTE | ~2024-12-15 | XR_ITS ---
CLINICAL HISTORY: M25.559 - Pain in unspecified hip Single view of the pelvis. COMPARISON: None FINDINGS: Pelvic ring appears maintained. Pelvic phleboliths present. Visualized portions of the sacrum appear intact. Visualized portions of the right hip appear intact. 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 Visualized portions of the proximal left femur appear intact. IMPRESSION: 1. No radiographic evidence of acute injury to the pelvis. 2. Anatomic alignment of left total hip arthroplasty without evidence of hardware complication. This document has been electronically signed by: Cory Marino MD on 12/16/2024 17:29:28
--- NOTE | ~2024-12-15 | XR_ITS ---
CLINICAL HISTORY: M25.552 - Pain in left hip Single cross-table lateral view of the left hip. COMPARISON: None FINDINGS: Visualized portions of the proximal left femur appear intact. Left total hip arthroplasty appears in anatomic alignment. No evidence of hardware loosening or failure in the visualized portions. Visualized portions of the left hemipelvis appear intact. IMPRESSION: 1. Limited lateral imaging of the left hip. 2. Anatomic alignment of left total hip arthroplasty without evidence of hardware complication. This document has been electronically signed by: Cory Marino MD on 12/16/2024 17:28:57
--- OUTSIDE RECORDS SUMMARY | 2024-12-15 14:27 | XMS_ITS | Clinical Summary ---
Author Organization [facility] Address [address] [place] [address] Care Team Providers Care In School Suspension Coordinator Name Role Phone Unavailable Primary Care Provider [...]
--- OUTSIDE RECORDS SUMMARY | 2024-12-15 14:27 | XMS_ITS | Data Portability ---
Author Organization [place] - [facility], Allergy Address [address] [address] Care Team Providers Care Wax Specialist Name Role Phone HERMELINDO JORGE Primary Care Provider [phone] Assessment Encounter Date Assessment Date Assessment LastModified [...] Missed 1 week Dose Notes:? ? ? [email or web address] Not available 08/21/2024 14:06:31 09/05/2024 09/05/2024 Visit [...] Aware of Vial Test Notes:? ? ? [email or web address] Not available 09/11/2024 16:26:07 09/19/2024 09/19/2024 Visit [...] Address Organization Details Recorded Time Chronic rhinitis 65279031 Active 2022 Chronic rhinitis; Note: Date Diagnosed : 03/01/2023 6:05 PM (J31.0) Not Available [facility] 4 02:25:39 Allergic rhinitis 76913795 Active 2023 Allergic rhinitis: Due to other [...] [place] 4 00:58:12 Perennial allergic rhinitis 819473426 Active 2023 ROSA BUTTERFIELD RMCarlos [address] [facility],[place] [address] [place] [address], [address] , [place] - [facility] 14:21:13 Problem Notes None recorded. Procedures Surgical History Date Name Laterality Status Provider Name and Address Organization Details Recorded Time 09/19/19 25 Allergy Immunotherapy Injections completed TULIO HYDE RN [address] [facility] [address] [address],[place] [address] [place] [address], [address], [place] - [facility] 09/19/2024 13:09:48 09/11/19 25 Allergy Immunotherapy Injections completed KISHORE GARCIA 100 [facility],[place] [address] [place] [address], [address], [place] [facility] 09/11/2024 16:26:25 09/05/20 24 Allergy Immunotherapy Injections completed TULIO HYDE RN 100 [facility],[address], [address], [place] [facility] 09/05/2024 11:35:54 08/21/20 24 Allergy Immunotherapy Injections completed KISHORE AGRCIA [address] [facility] [address],[place] [address] [place] [address], [address], [place] [facility] 08/21/2024 14:06:16 08/14/20 24 Allergy Immunotherapy Injections completed ROSA BUTTERFIELD RMCarlos [address] [facility] [address],[place] [address] [place] [address], [phone], [place] [facility] 08/14/2024 14:21:22 08/01/20 24 Allergy Immunotherapy Injections completed KISHORE PAT [address],[place] [address] [place] [address], [address], [place] [facility] 08/01/2024 12:27:05 07/24/20 24 Allergy Immunotherapy Injections completed TULIO HYDE RN [address] [facility] [address] [facility] [address],[place] [address], [place], [address], [place] [facility] 07/24/2024 13:49:19 07/17/20 24 Allergy Immunotherapy Injections completed KISHORE GARCIA [address],[place] [address], [place], [address], [place] [facility] 07/17/2024 11:15:01 07/10/20 24 Allergy Immunotherapy Injections completed KISHORE GARCIA [address],[place] [address], [place], [address], [place] [facility] 07/10/2024 15:03:55 07/03/20 24 Allergy Immunotherapy Injections completed ROSA BUTTERFIELD RMA [address], [place], [address], [place] [facility] 07/03/2024 13:16:15 06/26/20 24 Allergy Immunotherapy Injections completed KISHORE GARCIA [address],[place] [address], [place], [address], [place] [facility] 2024 13:40:24 06/12/20 24 Allergy Immunotherapy Injections completed KISHORE GARCIA [address] [facility] [address], [place], [address], [place] [facility] 06/12/2024 12:05:34 06/05/20 24 Allergy Immunotherapy Injections completed KISHORE GARCIA [address],[place] [address], [place], [address], [place] [facility] 06/05/2024 13:48:08 05/29/20 24 Allergy Immunotherapy Injections completed KISHORE PAT [address],[place] [address] [place] [address], [address], [place] [facility] 05/29/2024 11:48:28 05/23/20 24 Allergy Immunotherapy Injections completed TULIO HYDE RN [address],[place] [address], [place], [address], [place] [facility] 05/23/2024 15:43:37 05/16/20 24 Allergy Immunotherapy Injections completed ROSA BUTTERFIELD RMA [address],[place] [address], [place], [address], [place] [facility] 05/16/2024 14:12:21 05/09/20 24 Allergy Immunotherapy Injections completed KISHORE GARCIA [address], [place], [address], [place] [facility] 05/09/2024 14:23:57 04/18/20 24 Allergy Immunotherapy Injections completed KISHORE GARCIA [address], [place], [address], [place] [facility] 04/18/2024 14:58:29 04/08/20 24 Allergy Immunotherapy Injections completed TULIO HYDE RN [address], [place], [address], [place] [facility] 04/08/2024 14:53:53 03/25/20 24 Allergy Immunotherapy Injections completed KISHORE GARCIA [address], [place], [address], [place] [facility] 03/25/2024 14:50:22 03/14/20 24 Allergy Immunotherapy Injections completed KISHORE PAT [address], [place], [address], [place] [facility] 03/14/2024 14:07:58 02/28/20 24 Allergy Immunotherapy Injections completed KISHORE GARCIA [address],[place] [address], [place], [address], [place] [facility] 02/28/2024 13:06:11 02/21/20 24 Allergy Immunotherapy Injections completed KISHORE GARCIA [address],[place] [address], [place], [address], [place] [facility] 02/21/2024 11:27:51 02/12/20 24 Allergy Immunotherapy Injections completed ROSA BUTTERFIELD RMA [address],[place] [address], [place], [address], [place] [facility] 02/12/2024 14:32:23 02/01/20 24 Allergy Immunotherapy Injections completed KISHORE GARCIA [address],[place] [address], [place], [address], [place] [facility] 02/01/2024 14:19:44 05/16/20 24 Allergy Immunotherapy Injections completed ROSA BUTTERFIELD, [facility] 100 [facility], [place], [address], [facility] - [facility] 01/24/2024 14:21:37 Imaging Results None recorded. [...] HFA aerosol inhaler active Medicati on ID: [id number] B rand Name: Breztri Aerosphe re Send [...] Updated DateTime 09/19/2024 170.18 cm 26.9 kg/m2 06052.89 g Estefany Perera [place] - [facility] 09/19/2024 13:09:59 Social History None recorded. Functional Status None recorded. Mental Status None recorded. Family History Nothing Reported. Medical History No medical history recorded. Past Encounters Encounter ID Performer Location Encounter Start Date Encounter Closed Date Diagnosis/Indication Diagnosis SNOMED-CT Code Diagnosis ICD10 Code Diagnosis Note [id number] HEATHER WILLIAMSON MD Allergy [address] [place] [address] 01/24/2024 14:19:11 01/25/2024 12:36:37 Perennial allergic rhinitis 301465298 J30.89 [id number] GISELLE PASTRANA [facility] Allergy [address] [place] [address] 02/01/2024 14:18:47 02/01/2024 14:32:52 Perennial allergic rhinitis 351943060 J30.89 [id number] [facility] [address] [place] [address] 02/12/2024 13:35:10 02/12/2024 16:19:08 Perennial allergic rhinitis 109158469 J30.89 [id number] BRIGITTE HANNA MD [facility] of [address] [address] 02/15/2024 16:05:12 02/15/2024 16:58:27 Allergic rhinitis 76381194 J30.89 53-year-ol d male with allergies and [...] Follow-up 6 months. [id number] KISHORE GARCIA Allergy [address] [place] [address] 02/21/2024 10:37:54 02/21/2024 11:33:26 Perennial allergic rhinitis [id number] J30.89 [id number] GISELLE PASTRANA, A Allergy 100 [facility],[address] [address] [place] [address] 02/28/2024 12:20:55 02/28/2024 12:26:50 Perennial allergic rhinitis 059915980 J30.89 [id number] [facility], RMA Allergy 100 [facility],[place] [address] [place] [address] 03/14/2024 13:09:40 03/14/2024 15:30:28 Perennial allergic rhinitis 138256306 J30.89 [id number] GISELLE PASTRANA, A Allergy 100 [facility],[place] [address] [place] [address] 03/25/2024 14:43:48 03/26/2024 13:21:56 Perennial allergic rhinitis 108154007 J30.89 [id number] TULIO HYDE RN Allergy [address] [place] [address],[place] [address] [place] [address] 04/08/2024 13:17:46 04/08/2024 14:54:36 Perennial allergic rhinitis [id number] J30.89 [id number] GISELLE PASTRANA, A Allergy [address] [place] [address],[address] [address] [place] [address] 04/18/2024 14:21:19 04/18/2024 15:35:40 Perennial allergic rhinitis 299450362 J30.89 [id number] GISELLE PASTRANA, A Allergy [address] [place] [address],[place] [address] [place] [address] 05/09/2024 14:15:20 05/09/2024 15:19:41 Perennial allergic rhinitis [id number] J30.89 [id number] [facility], A Allergy 100 [facility],[address] [address] [place] [address] 05/16/2024 14:06:07 05/16/2024 14:32:31 Perennial allergic rhinitis [id number] J30.89 [id number] TULIO HYDE RN Allergy [address] [place] [address],[address] [address] [place] [address] 05/23/2024 14:49:32 05/23/2024 15:43:57 Perennial allergic rhinitis [id number] J30.89 [id number] [facility], [facility] Allergy 100 [facility],[place] [address] [place] [address] 05/29/2024 11:37:06 05/29/2024 11:49:49 Perennial allergic rhinitis [id number] J30.89 [id number] GISELLE SARAH [facility] Allergy 100 [facility],[place] [address] [place] [address] 06/05/2024 13:47:09 06/05/2024 13:50:45 Perennial allergic rhinitis [id number] J30.89 [id number] GISELLE PASTRANA [facility] Allergy 100 [facility],[place] [address] [place] [address] 06/12/2024 12:04:31 06/12/2024 12:08:16 Perennial allergic rhinitis 811253002 J30.89 [id number] GISELLE PASTRANA [facility] Allergy 100 [facility],[place] [address] [place] [address] 2024 13:08:56 2024 13:40:46 Perennial allergic rhinitis [id number] J30.89 [id number] [facility], [facility] Allergy [address] [place] [address],[address] [place] [address] 07/03/2024 12:28:14 07/03/2024 13:16:56 Perennial allergic rhinitis [id number] J30.89 [id number] GISELLE PASTRANA [facility] Allergy 100 [facility],[place] [address] [place] [address] 07/10/2024 14:55:43 07/10/2024 16:16:17 Perennial allergic rhinitis [id number] J30.89 [id number] GISELLE PASTRANA [facility] Allergy [address] [place] [address],[address] [address] [place] [address] 07/17/2024 10:59:58 07/17/2024 11:25:55 Perennial allergic rhinitis [id number] J30.89 [id number] TULIO HYDE take away attendant 100 [facility],[address] [address] [place] [address] 07/24/2024 13:28:27 07/24/2024 13:49:36 Perennial allergic rhinitis [id number] J30.89 [id number] ROSA BOOKER, A Allergy 100 [facility],[address] [address] [place] [address] 08/01/2024 12:25:52 08/01/2024 12:28:26 Perennial allergic rhinitis 472231991 J30.89 [id number] ROSA BOOKER, A Allergy 100 [facility],[address] [address] [place] [address] 08/14/2024 13:53:09 08/14/2024 14:24:50 Perennial allergic rhinitis [id number] J30.89 [id number] GISELLE SARAH [facility] Allergy 100 [facility],[place] [address] [place] [address] 08/21/2024 13:24:53 08/21/2024 14:06:50 Perennial allergic rhinitis [id number] J30.89 [id number] TULIO HYDE RN Allergy [address] [place] [address], [address] [place] [address] 09/05/2024 11:35:17 09/05/2024 11:36:22 Perennial allergic rhinitis 287483705 J30.89 [id number] GISELLE SARAH [facility] Allergy 100 [facility],[place] [address] [place] [address] 09/11/2024 14:29:00 09/11/2024 16:26:45 Perennial allergic rhinitis 659096005 J30.89 [id number] BRIGITTE HANNA MD [facility] 100 [place] [address] 09/19/2024 13:00:13 09/19/2024 13:29:53 Allergic rhinitis 34128264 J30.89 53-year-ol d male with allergies and asthma, clinically improving on IT. He is still using montelukas t and Zyrtec with decongesta nt. He does not tolerate nasal sprays. He does continue to have some congested mucosa in his nasal cavity. Continue current regimen. Follow-up 6 months. Will check hearing then; I removed some cerumen today. [id number] TULIO HYDE RN Allergy [address] [place] [address],[place] [address] [place] [address] 09/19/2024 13:09:08 09/19/2024 13:10:13 Perennial allergic rhinitis [id number] J30.89 Health Concerns Section Related Observation LastModified by Organization Detai ls LastModified Time None Recorded Concern Status LastModified by Organization Details LastModified Time None Recorded Advance Directives Directive None Recorded Payers Encounter Date Sequence Insurance Name Policy Number Policy Elizabeth Covered Member ID Elizabeth Member ID Guarantor Name 08/21/2024 1 [employer] Shaw Vela [id number] Shaw Vela 09/05/2024 1 [employer] Shaw Vela [id number] Shaw Vela 09/11/2024 1 [employer] Shaw Vela [id number] Shaw Vela 09/19/2024 1 [employer] [id number] Shaw Vela [id number] Shaw Vela 09/19/2024 1 [employer] [id number] Shaw Vela [id number] Shaw Vela Notes Date Note Type Note Provider Name and Address Organization Details Recorded Time 09/19/2024 text/html [facility] [place], uses drops regularlyNose more congestion on the [...] eczema around his eyes. BRIGITTE HANNA MD [address] [place] [address], [place], [address], [facility] - [facility] 09/19/2024 13:17:38
== END 2024-12-15 12:02 | disposition home or self-care (01) ==
LOC: HO.HOSX 12:01
PROVIDERS: Visit Provider Orthopaedic Surgery
DX: M25.552 Pain in left hip (principal); M25.559 Pain in unspecified hip
CPT/HCPCS: 72170; 73501

== ENCOUNTER 2024-12-15 13:45 | Outpatient (AMB) | payer OTHER, SELFPAY ==
--- NOTE | 2024-12-15 14:00 | MHC.OFFVIS ---
Intake Visit Reasons: PO: L PETER w/NE 09/24/24 -Follow up Intake Note: Shaw is a 54 year old male who presents today for a post operative appointment s/p Left PETER 09/24/24 Patient reports that he is doing well. He is having some pain in the left hip with lateral movements. Some dull pain in the left lower back and shooting down the front of the leg. Allergies environmental allergies Allergy (Intermediate, Verified 12/08/24 10:16) itchy eyes, sob grass pollen Allergy (Intermediate, Verified 12/08/24 10:16) Itchy Eyes HPI HPI PO: L PETER w/NE 09/24/24 -Follow up: Details: Left hip is doing well. He has no complaints. Still some mild posterior hip pain with exertion. [facility] Medical History (Updated 12/09/24 @ 07:48 by Hussain Arce PA-C) Avascular necrosis of bone of hip Avascular necrosis Ambulates with cane Hx of bronchitis Arthritis, lumbar spine Chronic left sacroiliac joint pain Deviated septum Tubular adenoma Allergic conjunctivitis Asthma Surgical History (Updated 12/08/24 @ 10:22 by Hussain Arce PA-C) Hx of colonoscopy (~2020) Family History Father No problems noted. 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 Cognitive needs: No Hearing needs: No Vision needs: No Physical Exam Extrem Other: + gait trendelenberg mild ttp over the greater trochanter no groin pain with hip ROM Results Reviewed Results Reviewed: I personally reviewed relevant radiographs. Left PETER in expected post operative position with no hardware complications or evidence of loosening Assessment & Plan Assessment & Plan (1) Status post total hip replacement, left: Code(s): Z96.642 - Presence of left artificial hip joint Category: Surgical Plan: 54 yo doing well with left hip s/p left PETER. Needs to continue strengthening. I reviewed exercises and gait mechanics with him Orders: Orders XR pelvis 1-2V Today M25.559 - Pain in unspecified hip XR hip LT 1V Today M25.552 - Pain in left hip Coding Level of Care Code Global (12607) Diagnoses Status post total hip replacement, left Z96.642
--- OUTSIDE RECORDS SUMMARY | 2024-12-15 16:25 | XMS_ITS | Clinical Summary ---
Author Organization [facility] Address [address] [place] [address] Care Team Providers Care Severity Of Illness Coordinator Name Role Phone Unavailable Primary Care [...]
== END 2024-12-15 14:19 | disposition home or self-care (01) ==
LOC: HO.HOS 13:46
PROVIDERS: PCP Physician Assistant; Visit Provider Orthopaedic Surgery
DX: Z96.642 Presence of left artificial hip joint (principal)
CPT/HCPCS: 99024

== ENCOUNTER → 2024-12-15 13:53 | Outpatient (BNV) | payer OTHER, SELFPAY | PROVIDERS: Visit Provider Radiology Diagnostic Radiology | DX: M25.552 Pain in left hip (principal) | CPT/HCPCS: 72170; 73501 ==

== ENCOUNTER 2024-12-17 14:00 | Outpatient (RCR) | payer OTHER, SELFPAY ==
--- NOTE | 2024-10-21 15:47 | MHC.PT.EP ---
[facility] [place] Office [place] Office [place] Office [address] Zoila Capps [address] [phone] F: [phone] F: [phone] F: [phone] F: [phone] Physical Therapy Plan of Care Date of Evaluation: 10/21/24 Date of Surgery: 09/24/24 Diagnosis: Presence of L artificial hip joint S/P L PETER Assessment: Shaw is a 54 year old male who is referred to PT for presence of L artificial hip joint, S/P L PETER . He is currently 4 weeks post op. On PT examination he presented with 3-4/10 pain/discomfort in L hip, TTP along the sutures, decreased L hip ROM, decreased L LE strength, altered posture, gait and balance. He lives with his family and is independent with all ADLS but has pain and modifies by taking frequent rest breaks. 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 He would benefit from skilled PT to address the aforementioned impairments and improve tolerance to functional activities. Frequency and Duration: The patient will be seen 2/week for 5 weeks Short Term Goals: 1. Pt will demonstrate initiation of HEP in 2 weeks. 2. Pt will be able to ambulate without AD and with symmetrical gait pattern in 3 weeks Snf Goals: 1. Pt will demonstrate an increase in muscle strength by 1 grade which will enable to negotiate stairs without UE support and perform all ADLS without modification in 5 weeks 2. Pt will be independent with all HEPs and return to PLOF in 5 weeks Treatment Plan: Modalities to reduce pain, spasms and effusion. Manual therapy to restore motion and function. Therapeutic exercise to improve strength and flexibility. Neuromuscular re-education for posture and balance. Therapeutic activities to return to functional activities of daily living. Electronically signed by: Gracia Rm PT DPT Please sign and return to therapist. Thank you for your referral.
--- NOTE | 2025-01-13 09:31 | MHC.PT.DC ---
[facility] [place] Office [place] Office [place] Office [address] Zoila Capps [address] [phone] F: [phone] F: [phone] F: [phone] F: [phone] Physical Therapy Discharge Report Diagnosis: Presence of L artificial hip joint S/P L PETER Date of Surgery: 09/24/24 Date of Evaluation: 10/21/24 Date of Discharge: 01/13/25 Treatments to Date: 13 Cancellations to Date: 0 No Shows to Date: 0 Discharge Status: Achieved Goals Improved Function Independent with HEP Discharge Summary: Shaw completed 13 PT visits and has achieved all goals set for him. He is therefore being d/c from PT. Electronically signed by: Gracia Rm, PT DPT Please sign and return to therapist. Thank you for your referral.
== END 2025-01-13 09:32 | disposition home or self-care (01) ==
LOC: HO.PT 14:00
PROVIDERS: PCP Physician Assistant; Visit Provider Physician Assistant
DX: Z96.642 Presence of left artificial hip joint (principal)
CPT/HCPCS: 97110; 97140; 97161; 97530

== ENCOUNTER 2025-01-08 12:06 | Outpatient (REF) | payer OTHER, SELFPAY ==
[2025-01-08 12:52] LABS: Hematocrit 43.7 % (42.0-52.0); Hemoglobin 14.3 g/dl (14.0-18.0); Mean Corpuscular HGB Conc 32.7 g/dl (31.0-36.0); Mean Corpuscular Hemoglobin 30.2 pg (27.0-33.0); Mean Corpuscular Volume 92.4 fL (80.0-98.0); Mean Platelet Volume 10.3 fL (9.4-12.4); Platelet Count 310 X10*3/uL (160-400); Red Blood Count 4.73 X10*6/uL (4.60-5.80); Red Cell Distribution Width 13.6 % (11.0-16.0)
[2025-01-08 13:36] LABS: Alanine Aminotransferase 23 U/L (0-40); Albumin Level 4.3 g/dL (3.5-5.0); Alkaline Phosphatase 99 U/L (39-117); Anion Gap 13 (12-20); Aspartate Amino Transferase 22 U/L (5-37); Bilirubin Total 0.7 mg/dL (0.0-1.0); Blood Urea Nitrogen 22 mg/dL (9-16); Calcium 9.9 mg/dL (8.4-10.2); Carbon Dioxide 26 mmol/L (22-29); Chloride 103 mmol/L (96-108); Estimated Glomerular Filt Rate > 60; Glucose Fasting 88 mg/dL (60-99); Potassium 4.8 mmol/L (3.3-5.1); Sodium 137 mmol/L (135-145); Total Protein 8.3 g/dL (6.5-8.0)
[2025-01-08 13:46] LABS: Prostate Specific Antigen Scr 0.23 ng/mL (<0.05-4.0)
--- OUTSIDE RECORDS SUMMARY | 2025-01-08 14:13 | XMS_ITS | Clinical Summary ---
Author Organization [facility] Address [address] [place] [address] Care Team Providers Care Director Records Management Name Role Phone Unavailable Primary Care Provider Unavailabl e Social History Tobacco Use Types Packs/Day Years Used Date Smoking Tobacco: Never Assessed Sex and Gender Information Value Date Recorded Sex Assigned at Not on file Legal Sex Male 2:10 PM EDT Gender Identity Not on file Sexual Orientation Not on file Plan of Treatment Health Maintenance Due Date Last Done Comments Hepatitis C Virus Screening 1970 HIV Screening 1983 DTaP/Tdap/Td Vaccines (1 - Tdap) 1989 Hepatitis B Vaccines (1 of 3 - 19+ 3-dose series) 06/10 Pneumococcal Vaccines 50+ (1 of 1 - PCV) 2020 Zoster (Shingles) Vaccine (1 of 2) 2020 COVID-19 Vaccine ( - season) 2024
--- OUTSIDE RECORDS SUMMARY | 2025-01-08 14:13 | XMS_ITS | Data Portability ---
Author Organization [place] - [facility], Allergy Address [address] [address] Care Team Providers Care Radio Operator Ground Name Role Phone HERMELINDO JORGE Primary Care Provider Assessment Encounter Date Assessment Date Assessment LastModified by Organization Details LastModified Time 09/11/2024 09/11/2024 Visit With: Giselle Smith Use of Antihistamine s: Yes If yes: Vial Test Change in medications: No If yes ? ? ? Increase in asthma symptoms If yes, inhaler use: Reaction to last injections: No If yes: ? ? ? Allergy Symptoms: Other: ? ? ? Missed: Dose Aware of Vial Test Notes:? ? ? [email or web address] Not available 09/11/2024 16:26:07 09/19/2024 09/19/2024 Visit [...] ? ? [email or web address] Not available 09/19/2024 13:09:55 01/01/2025 01/01/2025 Visit With: Giselle Smith Use of Antihistamine s: No If yes: Vial Test Yes Change in medications: No If yes ? ? ? Increase in asthma symptoms If yes, inhaler use: Reaction to last injections: No If yes: ? ? ? Allergy Symptoms: Other: ? ? ? Missed: Dose Aware of Vial Test Notes:? ? ? [email or web address] Not available 01/01/2025 11:05:04 01/08/2025 01/08/2025 Visit With: Giselle Smith Use of Antihistamine s: No If yes: Vial Test Change in medications: No If yes ? ? ? Increase in asthma symptoms If yes, inhaler use: Reaction to last injections: No If yes: ? ? ? Allergy Symptoms: Other: ? ? ? Missed: Dose Aware of Vial Test Notes:? ? ? Not available 01/08/2025 11:21:44 Plan of Treatment Reminders Order Date Submit Date Provider Last Modified By Organization Details Last Modified Time Details Appointments Allergy Shot 2024 10:25A M [facility] Not available Not available Not available Establis hed- Allergy f-up 6mon 2024 03:15P M BRIGITTE HANNA MD Not available Not [...] Address Organization Details Recorded Time Chronic rhinitis 60927426 Active 2022 Chronic rhinitis; Note: Date Diagnosed : 03/01/2023 6:05 PM (J31.0) Not Available [facility] 02:25:39 Allergic rhinitis 07574010 Active 2023 Allergic rhinitis: Due to other allergen; Note: Date Diagnosed : 09/28/2023 2:57 PM (477.8) Note: Date Diagnosed : 09/28/2023 2:57 PM (477.8) Allergi c rhinitis: Due to other allergen; Note: Date Diagnosed : 09/20/2023 11:26 AM (477.8) Note: Date Diagnosed : 09/20/2023 11:26 AM (477.8) ; Start Date : 4 Allergi c rhinitis: Due to other allergen; Note: Date Diagnosed : 3:53 PM (477.8) Note: Date Diagnosed : 3 3:53 PM (477.8) ; Start Date : 3 Other allergic rhinitis; Note: Date Diagnosed : 07/19/2023 3:30 PM (J30.89) Note: Date Diagnosed : 07/19/2023 3:30 PM (J30.89) ; Start Date : 3 Not Available [facility] 4 00:58:12 Perennial allergic rhinitis 435113776 Active 2023 ROSA BUTTERFIELD, RMA [address], [place], [address] , [place] [facility] 4 14:21:13 Problem Notes None recorded. Procedures Surgical History Date Name Laterality Status Provider Name and Address Organization Details Recorded Time 01/09/20 25 Allergy Immunotherapy Injections completed KISHORE GARCIA [address],AJ [facility], [place], [address], [place] [facility] [place] 01/08/2025 11:21:38 01/02/20 25 Allergy Immunotherapy Injections completed KISHORE GARCIA [address],[place] [address] [place] [address], [address], [place] [facility] 01/01/2025 11:04:59 09/19/19 25 Allergy Immunotherapy Injections completed TULIO HYDE RN [facility] [address] [place] [address], [address], [place] [facility] 09/19/2024 13:09:48 09/11/19 25 Allergy Immunotherapy Injections completed KISHORE GARCIA [address],[place] [address] [place] [address], [address], [place] [facility] 09/11/2024 16:26:25 09/05/20 24 Allergy Immunotherapy Injections completed TULIO HYDE RN [address],[place] [address] [place] [address], [address], [place] [facility] 09/05/2024 11:35:54 08/21/20 24 Allergy Immunotherapy Injections completed KISHORE GARCIA [address], [place], [address], [place] [facility] 08/21/2024 14:06:16 08/14/20 24 Allergy Immunotherapy Injections completed ROSA BUTTERFIELD RMA [address], [place], [address], [place] [facility] [place] 08/14/2024 14:21:22 08/01/20 24 Allergy Immunotherapy Injections completed ROSA BUTTERFIELD RMA [address], [place], [address], [place] [facility] [place] 08/01/2024 12:27:05 07/24/20 24 Allergy Immunotherapy Injections completed TULIO HYDE RN [address] [facility] [address], [place], [address], [place] [facility] [place] 07/24/2024 13:49:19 07/17/20 24 Allergy Immunotherapy Injections completed KISHORE GARCIA 100 [facility],[place] [address] [place] [address], [address], [place] [facility] [place] 07/17/2024 11:15:01 07/10/20 24 Allergy Immunotherapy Injections completed GLADYS GARCIAA [address] [facility] [address] [place] [address], [address], [place] [facility] [place] 07/10/2024 15:03:55 07/03/20 24 Allergy Immunotherapy Injections completed ROSA BUTTERFIELD RMA [address] [facility] [address] [place] [address], [address], [place] [facility] [place] 07/03/2024 13:16:15 06/26/20 24 Allergy Immunotherapy Injections completed GISELLE SMITH RMA [address] [facility] [address] [place] [address], [address], [place] [facility] 2024 13:40:24 06/12/20 24 Allergy Immunotherapy Injections completed KISHORE GARCIA [address] [facility] [address], [place], [address], [place] [facility] [place] 06/12/2024 12:05:34 06/05/20 24 Allergy Immunotherapy Injections completed IGSELLE SMITH RMA [address] [facility] [address], [place], [address], [place] [facility] 06/05/2024 13:48:08 05/29/20 24 Allergy Immunotherapy Injections completed ROSA BUTTERFIELD, RMA [address], [place], [address], [place] [facility] 05/29/2024 11:48:28 05/23/20 24 Allergy Immunotherapy Injections completed TULIO HYDE RN [address] [facility] [address] [place] [address], [address], [place] [facility] [place] 05/23/2024 15:43:37 05/16/20 24 Allergy Immunotherapy Injections completed KISHORE PAT [address] [facility] [address], [place], [address], [place] [facility] 05/16/2024 14:12:21 05/09/20 24 Allergy Immunotherapy Injections completed KISHORE GARCIA 100 [facility] [address] [place] [address], [address], [place] [facility] [place] 05/09/2024 14:23:57 04/18/20 24 Allergy Immunotherapy Injections completed KISHORE GARCIA 100 [facility],[place] [address] [place] [address], [address], [place] [facility] [place] 04/18/2024 14:58:29 04/08/20 24 Allergy Immunotherapy Injections completed TULIO HYDE RN 100 [facility],[address], [address], [place] [facility] 04/08/2024 14:53:53 03/25/20 24 Allergy Immunotherapy Injections completed KISHORE GARCIA 100 [facility],[address] [place] [address], [address], [place] [facility] 03/25/2024 14:50:22 03/14/20 24 Allergy Immunotherapy Injections completed KISHORE PAT [address] [facility] [address] [place] [address], [address], [place] [facility] [place] 03/14/2024 14:07:58 02/28/20 24 Allergy Immunotherapy Injections completed KISHORE GARCIA [address] [facility], [place], [address], [place] [facility] [place] 02/28/2024 13:06:11 02/21/20 24 Allergy Immunotherapy Injections completed KISHORE GARCIA [address], [place], [address], [facility] - [facility] [place] 02/21/2024 11:27:51 02/12/20 24 Allergy Immunotherapy Injections completed ROSA CELESTEKelsiGLADYS [address], [place], [address], [facility] - [facility] [place] 02/12/2024 14:32:23 02/01/20 24 Allergy Immunotherapy Injections completed GISELLE SMITH [facility] [address], [place], [address], [facility] - [facility] [place] 02/01/2024 14:19:44 01/24/20 24 Allergy Immunotherapy Injections completed ROSA CELESTEKelsi [facility] 100 [facility] 100, [place], [address], [facility] - [facility] 01/24/2024 14:21:37 Imaging Results None recorded. [...] Available Not Available No t Available Manjinder Fitzgeralder e 160 mcg-9mcg- 4.8mcg/ac tuation HFA aerosol inhaler active Medicati on ID: [id number] B rand Name: Manjinder clemente Send Method: E-Prescr ibed Sub s Allowed: subs OK Speci al Instruct ion: TAKE 2 PUFFS BY MOUTH TWICE A DAY Medi cationGe nericNam e: Manjinder Woodyphe re Not Available Not Available Not Available Vitals Date Recorded Body height Body mass index (BMI) Body weight Provider Name and Address Organization Details Last Updated DateTime 09/19/2024 170.18 cm 26.9 kg/m2 51309.89 g Estefany Perera [place] - [facility] 09/19/2024 13:09:59 Social History None recorded. Functional Status None recorded. Mental Status None recorded. Family History Nothing Reported. Medical History No medical history recorded. Past Encounters Encounter ID Performer Location Encounter Start Date Encounter Closed Date Diagnosis/Indication Diagnosis SNOMED-CT Code Diagnosis ICD10 Code Diagnosis Note [id number] [facility] Allergy [address] [place] [address] 01/24/2024 14:19:11 01/25/2024 12:36:37 Perennial allergic rhinitis 221052510 J30.89 [id number] [facility] Allergy [address] [place] [address] 02/01/2024 14:18:47 02/01/2024 14:32:52 Perennial allergic rhinitis 515094782 J30.89 [id number] GISELLE SMITH [address] [address] 02/12/2024 13:35:10 02/12/2024 16:19:08 Perennial allergic rhinitis 642275040 J30.89 [id number] BRIGITTE HANNA MD [facility] [address] [address] 02/15/2024 16:05:12 02/15/2024 16:58:27 Allergic rhinitis 35399797 J30.89 53-year-ol d male with allergies and [...] current regimen. Follow-up 6 months. [id number] GISELLE SMITH [facility] Allergy [address] [place] [address],[place] [address] 100 [facility] [place] [address] 02/21/2024 10:37:54 02/21/2024 11:33:26 Perennial allergic rhinitis 501242599 J30.89 [id number] GISELLE SMITH [facility] Allergy [address] [place] [address],[place] 100 [facility] [place] [address] 02/28/2024 12:20:55 02/28/2024 12:26:50 Perennial allergic rhinitis 641009426 J30.89 [id number] [facility] Allergy [address] [place] [address] ite 100 [facility] [place] [address] 03/14/2024 13:09:40 03/14/2024 15:30:28 Perennial allergic rhinitis 656262504 J30.89 [id number] GISELLE SMITH [facility] Allergy [address] [place] [address],[place] [address]e 100 [facility] [place] [address] 03/25/2024 14:43:48 03/26/2024 13:21:56 Perennial allergic rhinitis 266399579 J30.89 [id number] [facility] Allergy [address] [place] [address],[place] [address] 100 [place] [address] 04/08/2024 13:17:46 04/08/2024 14:54:36 Perennial allergic rhinitis 321434597 J30.89 [id number] GISELLE SMITH [facility] Allergy [address] [place] [address],[place] [address]e 100 [facility] [place] [address] 04/18/2024 14:21:19 04/18/2024 15:35:40 Perennial allergic rhinitis 740550176 J30.89 [id number] GISELLE SMITH [facility] Allergy [address] [place] [address] it 100 [facility] [place] [address] 05/09/2024 14:15:20 05/09/2024 15:19:41 Perennial allergic rhinitis 305747044 J30.89 [id number] [facility], [facility] Allergy 100 [facility],[place] [address] [place] [address] 05/16/2024 14:06:07 05/16/2024 14:32:31 Perennial allergic rhinitis 438365918 J30.89 [id number] TULIO HYDE [employer] [address] [place] [address],[place] [address] [place] [address] 05/23/2024 14:49:32 05/23/2024 15:43:57 Perennial allergic rhinitis 070640081 J30.89 [id number] [facility] Allergy [address] [place] [address], ite [address] [place] [address] 05/29/2024 11:37:06 05/29/2024 11:49:49 Perennial allergic rhinitis 171052801 J30.89 [id number] GISELLE SMITH, [facility] Allergy [address] [place] [address],[place] [address] [place] [address] 06/05/2024 13:47:09 06/05/2024 13:50:45 Perennial allergic rhinitis 888024597 J30.89 [id number] GISELLE SMITH [facility] Allergy [address] [place] [address],[place] [address] [place] [address] 06/12/2024 12:04:31 06/12/2024 12:08:16 Perennial allergic rhinitis 177202393 J30.89 [id number] GISELLE SMITH [facility] Allergy [address] [place] [address],[place] [address] [place] [address] 2024 13:08:56 2024 13:40:46 Perennial allergic rhinitis 024668387 J30.89 [id number] [facility] Allergy 100 [facility] [place] [address] 100 [place] [address] 07/03/2024 12:28:14 07/03/2024 13:16:56 Perennial allergic rhinitis 863384511 J30.89 [id number] GISELLE SMITH [facility] Allergy [address] [place] [address],[place] [address] [place] [address] 07/10/2024 14:55:43 07/10/2024 16:16:17 Perennial allergic rhinitis 431638845 J30.89 [id number] GISELLE SMITH [address] [place] [address] 07/17/2024 10:59:58 07/17/2024 11:25:55 Perennial allergic rhinitis 030646963 J30.89 [id number] TULIO HYDE RN Allergy [address] [place] [address] [address] [place] [address] 07/24/2024 13:28:27 07/24/2024 13:49:36 Perennial allergic rhinitis 640956490 J30.89 [id number] [facility], [facility] Allergy [address] [place] [address] 100 [facility] [place] [address] 08/01/2024 12:25:52 08/01/2024 12:28:26 Perennial allergic rhinitis 742699662 J30.[id number] 100 [facility] [place] [address] 08/14/2024 13:53:09 08/14/2024 14:24:50 Perennial allergic rhinitis 237313719 J30.89 [id number] GISELLE SMITH [address] 100 [facility] [place] [address] 08/21/2024 13:24:53 08/21/2024 14:06:50 Perennial allergic rhinitis 843679136 J30.89 [id number] TULIO HYDE RN Allergy [address] [place] [address] 100 [facility] [place] [address] 09/05/2024 11:35:17 09/05/2024 11:36:22 Perennial allergic rhinitis 429190093 J30.89 [id number] GISELLE SMITH [facility] Allergy [address] [place] [address] 100 [facility] [place] [address] 09/11/2024 14:29:00 09/11/2024 16:26:45 Perennial allergic rhinitis [id number] J30.89 [id number] BRIGITTE HANNA MD [facility] [place] larson 100 [facility] [address] 09/19/2024 13:00:13 09/19/2024 13:29:53 Allergic rhinitis 94808665 J30.89 53-year-ol d male with allergies and asthma, clinically improving on IT. He is still using montelukas t and Zyrtec with decongesta nt. He does not tolerate nasal sprays. He does continue to have some congested mucosa in his nasal cavity. Continue current regimen. Follow-up 6 months. Will check hearing then; I removed some cerumen today. [id number] TULIO HYDE RN Allergy 100 [facility] [place],[facility] 100 [place] [address] 09/19/2024 13:09:08 09/19/2024 13:10:13 Perennial allergic rhinitis 609542211 J30.89 [id number] GISELLE SMITH [facility] Allergy [address] [place] [address],[facility] 100 [facility] [place] [address] 01/01/2025 10:32:15 01/01/2025 11:05:26 Perennial allergic rhinitis 441464999 J30.89 [id number] GISELLE SMITH [facility] Allergy [address] [place] [address],[facility] 100 [facility] [place] [address] 01/08/2025 11:20:07 01/08/2025 11:22:14 Perennial allergic rhinitis 434924433 J30.89 Health Concerns Section Related Observation LastModified by Organization Detai ls LastModified Time None Recorded Concern Status LastModified by Organization Details LastModified Time None Recorded Advance Directives Directive None Recorded Payers Encounter Date Sequence Insurance Name Policy Number Policy Elizabeth Covered Member ID Elizabeth Member ID Guarantor Name 09/11/2024 1 [facility] Shaw Vela [id number] Shaw Vela 09/19/2024 1 [employer] [id number] Shaw Vela [id number] Shaw Vela 09/19/2024 1 [employer] [id number] Shaw Vela [id number] Shaw Vela 01/01/2025 1 [employer] [id number] Shaw Vela [id number] Shaw Vela 01/08/2025 1 [employer] ([employer]) [id number] Shaw Vela [id number] Shaw [employer]ela Notes Date Note Type Note Provider Name and Address Organization Details Recorded Time 09/19/2024 text/html [facility] in [place], uses drops regularlyNose more congestion on the [...] eczema around his eyes. BRIGITTE HANNA MD [address] [place] [address], [place], [address], [place] - [facility] 09/19/2024 13:17:38
--- OUTSIDE RECORDS SUMMARY | 2025-01-08 14:13 | XMS_ITS | Continuity of Care Document ---
Author Organization [place] [facility], Allergy Address [address] [place] [id number] Care Team Providers Care Secondary Set Up Man Name Role Phone HERMELINDO JORGE Primary Care Provider Assessment Encounter Date Assessment Date Assessment LastModified by Organization Details LastModified Time 01/08/2025 01/08/2025 Visit With: Giselle Pastrana Use of Antihistamine s: No If yes: Vial Test Change in medications: No If yes ? ? ? Increase in asthma symptoms If yes, inhaler use: Reaction to last injections: No If yes: ? ? ? Allergy Symptoms: Other: ? ? ? Missed: Dose Aware of Vial Test Notes:? ? ? [email or web address] Not available 01/08/2025 11:21:44 Plan of Treatment Reminders Order Date Submit Date Provider Last Modified By Organization Details Last Modified Time Details Appointments Allergy Shot 2024 10:25A [facility] Not available Not available Not available Ghulamrobb hed- Allergy f-up 6mon 2024 03:15P M [...] Address Organization Details Recorded Time Chronic rhinitis 37499178 Active 2022 Chronic rhinitis; Note: Date Diagnosed : 03/01/2023 6:05 PM (J31.0) Not Available [facility] 02:25:39 Allergic rhinitis 58905394 Active 2023 Allergic rhinitis: Due to other [...] Date : 3 Not Available [facility] 4 00:58:12 Perennial allergic rhinitis 527671211 Active 2023 ROSA CELESTE, [facility] [place],[address], [address] , [place] - [facility] 4 14:21:13 Problem Notes None recorded. Procedures Surgical History Date Name Laterality Status Provider Name and Address Organization Details Recorded Time 01/09/20 25 Allergy Immunotherapy Injections completed KISHORE GARCIA 100 [facility] [place],[address], [address], [facility] - [facility] 01/08/2025 11:21:38 01/02/20 25 Allergy Immunotherapy Injections completed KISHORE GARCIA 100 [facility] [place],[address], [address], [facility] - [facility] 01/01/2025 11:04:59 09/19/19 25 Allergy Immunotherapy Injections completed TULIO HYDE RN 100 [facility] [address], [address], [facility] - [facility] 09/19/2024 13:09:48 09/11/19 25 Allergy Immunotherapy Injections completed KISHORE GARCIA [address], [place], [address], [place] [facility] 09/11/2024 16:26:25 09/05/20 24 Allergy Immunotherapy Injections completed TULIO HYDE RN [address], [place], [address], [place] [facility] 09/05/2024 11:35:54 08/21/20 24 Allergy Immunotherapy Injections completed KISHORE GARCIA [address], [place], [address], [place] [facility] 08/21/2024 14:06:16 08/14/20 24 Allergy Immunotherapy Injections completed ROSA BUTTERFIELD RMA [address], [place], [address], [place] [facility] 08/14/2024 14:21:22 08/01/20 24 Allergy Immunotherapy Injections completed ROSA BUTTERFIELD RMA [address], [place], [address], [place] [facility] 08/01/2024 12:27:05 07/24/20 24 Allergy Immunotherapy Injections completed TULIO HYDE RN 100 [facility] [address] [place] [address], [address], [place] [facility] 07/24/2024 13:49:19 07/17/20 24 Allergy Immunotherapy Injections completed KISHORE GARICA [address] [facility] [address], [place], [address], [place] [facility] 07/17/2024 11:15:01 07/10/20 24 Allergy Immunotherapy Injections completed GISELLE PASTRANA RMA [address], [place], [address], [place] [facility] 07/10/2024 15:03:55 07/03/20 24 Allergy Immunotherapy Injections completed ROSA BUTTERFIELD RMA [address], [place], [address], [place] [facility] 07/03/2024 13:16:15 06/26/20 24 Allergy Immunotherapy Injections completed GISELLE PASTRANA RMA [address], [place], [address], [place] [facility] 2024 13:40:24 06/12/20 24 Allergy Immunotherapy Injections completed GISELLE PASTRANA RMA [address], [place], [address], [place] [facility] 06/12/2024 12:05:34 06/05/20 24 Allergy Immunotherapy Injections completed GISELLE PASTRANA RMA [address], [place], [address], [place] [facility] 06/05/2024 13:48:08 05/29/20 24 Allergy Immunotherapy Injections completed ROSA BUTTERFIELD RMA [address], [place], [address], [place] [facility] 05/29/2024 11:48:28 05/23/20 24 Allergy Immunotherapy Injections completed TULIO HYDE RN [address] [facility] [address], [place], [address], [place] [facility] 05/23/2024 15:43:37 05/16/20 24 Allergy Immunotherapy Injections completed ROSA BUTTERFIELD RMA [address], [place], [address], [place] [facility] 05/16/2024 14:12:21 05/09/20 24 Allergy Immunotherapy Injections completed GLADYS GARCIAA [address], [place], [address], [place] [facility] 05/09/2024 14:23:57 04/18/20 24 Allergy Immunotherapy Injections completed GISELLE PASTRANA RMA [address], [place], [address], [place] [facility] 04/18/2024 14:58:29 04/08/20 24 Allergy Immunotherapy Injections completed TULIO HYDE RN [address], [place], [address], [place] [facility] 04/08/2024 14:53:53 07/16/20 24 Allergy Immunotherapy Injections completed GISELLE PASTRANA GLADYSA [address], [place], [address], [facility] - [facility] 03/25/2024 14:50:22 03/14/20 24 Allergy Immunotherapy Injections completed ROSA GREER, RMA [address], [place], [address], [facility] - [facility] 03/14/2024 14:07:58 02/28/20 24 Allergy Immunotherapy Injections completed GISELLE PASTRANA GLADYSA [address], [place], [address], [facility] - [facility] 02/28/2024 13:06:11 02/21/20 24 Allergy Immunotherapy Injections completed GISELLE PASTRANA GLADYSA [address], [place], [address], [facility] - [facility] 02/21/2024 11:27:51 02/12/20 24 Allergy Immunotherapy Injections completed ROSA BUTTERFIELD, RMA [address], [place], [address], [facility] - [facility] 02/12/2024 14:32:23 02/01/20 24 Allergy Immunotherapy Injections completed GISELLE PASTRANA GLADYSA [address], [place], [address], [facility] - [facility] 02/01/2024 14:19:44 01/24/20 24 Allergy Immunotherapy Injections completed ROSA BUTTERFIELD RMA [address], [place], [address], [facility] - [facility] 01/24/2024 14:21:37 Imaging Results None recorded. Procedure [...] HFA aerosol inhaler active Medicati on ID: [id number] rand Name: Anni Aerosphe re Send Method: E-Prescr ibed Sub [...] SNOMED-CT Code Diagnosis ICD10 Code Diagnosis Note [id number] KISHORE GARCIA All[facility] 100 [facility] 100 [place] [address] 01/01/2025 10:32:15 01/01/2025 11:05:26 Perennial allergic rhinitis 520336446 J30.89 [id number] KISHORE GARCIA Allergy 100 [facility] 100 [place] [address] 01/08/2025 11:20:07 01/08/2025 11:22:14 Perennial allergic rhinitis [id number] J30.89 Health Concerns Section Related Observation LastModified by Organization Jenaro killian LastModified Time None Recorded Concern Status LastModified by Organization Details LastModified Time None Recorded Payers Encounter Date Sequence Insurance Name Policy Number Policy Elizabeth Covered Member ID Elizabeth Member ID Guarantor Name 01/08/2025 1 [employer] ([email or web address]) [id number] Shaw Vela [id number] Shaw Vela
== END 2025-01-08 12:07 | disposition home or self-care (01) ==
LOC: HO.LAB 12:06
PROVIDERS: PCP Physician Assistant; Visit Provider Physician Assistant
DX: J45.40 Moderate persistent asthma, uncomplicated (principal); Z13.1 Encounter for screening for diabetes mellitus; Z12.5 Encounter for screening for malignant neoplasm of prostate
CPT/HCPCS: 36415; 80053; 84153; 85027

== ENCOUNTER 2025-06-01 09:15 | Outpatient (AMB) | payer OTHER, SELFPAY ==
--- NOTE | 2025-06-01 09:18 | A.OFFPC_ITS ---
Vital Signs 06/01/25 09:19 Height 5 ft 7 in Weight 158 lb 6 oz BMI 24.8 BP 128/78 Blood Pressure Location Lt brachial Position Sitting Respiration 18 Pulse 62 Pulse Source Pulse Oximeter Temp 96.8 F Temp Source Temporal Artery Scan Pulse Oximetry (%) 96 Oxygen Delivery Method Room Air Intake Visit Reasons: Annual Exam Senior Quality Analyst Required: No Accompanied by: Self / Same As Patient Allergies environmental allergies Allergy (Intermediate, Verified 06/01/25 09:35) itchy eyes, sob grass pollen Allergy (Intermediate, Verified 06/01/25 09:35) Itchy Eyes Medication List - Last Reconciled 06/01/25 by Hussain Arce PA-C acetaminophen 650 mg (2 x 325 mg) PO Q6H PRN 30 days albuterol sulfate 2.5 mg (3 mL) inhalation Q6H PRN 30 days albuterol sulfate 90 mcg/actuation 1 puff PO Q4H PRN 30 days budesonide 0.5 mg (2 mL) inhalation BID 30 days budesonide-formoterol 160-4.5 mcg/actuation (Symbicort) 2 puffs inhalation BID 30 days cyclobenzaprine 10 mg (2 x 5 mg) PO BEDTIME cyclosporine 0.09% (Cequa) 1 drp ophthalmic (eye) QID epinephrine (EpiPen 2-Russ) 0.3 mg (0.3 mL) IM Q10M PRN 30 days hydroxyzine HCl 25 mg PO BEDTIME 30 days ketotifen fumarate 0.025%(0.035%) 1 drp ophthalmic (eye) BID 30 days lidocaine 5% 1 patch topical DAILY PRN loteprednol etabonate 0.5% 1 drp ophthalmic (eye) DAILY montelukast (Singulair) 10 mg PO BEDTIME 3 months nebulizers As directed triamcinolone acetonide 0.1% 1 appl topical DAILY 30 days walker Folding front wheeled walker Tobacco use date assessed: 06/01/25 Dental Screening Dental Screen Date: 06/01/25 Did you have a dental visit in the last 12 months?: No Did you have a dental problem in the last 6 months where you did not have access to dental care?: No Was dental information given to patient?: No HPI Annual Exam HPI Details Patient is a 54-year-old male here today for routine annual physical. Patient has a past medical history significant for moderate persistent asthma, moderate to severe atopic dermatitis, status post total hip arthroplasty. .. Atopic dermatitis: His atopic dermatitis has been fairly well controlled with topical agents. Also suffers with allergic conjunctivitis to which he uses eyedrops for. Unfortunately has lost his follow up with his [place] mobile development manager whom is prescribing his 3 eyedrops. Would like to get reestablished with a ophthalm ologist locally. He also continues to get allergy injections through an ENT specialty in [place] on [address] .. Moderate persistent asthma: He reports his asthma has been fairly well controlled now on new maintenance inhaler, followed by [place] research archaeologist . He is now completely off prednisone. .. Ankylosing spondylitis: He has lost follow-up with Rheumatology whom was looking to start disease modifying for his autoimmune disease. He reports since his total knee arthroplasty still has quite significant polyarthralgia. He is willing to reestablish care with Rheumatology and discuss disease modifying drugs for the treatment of his ankylosing spondylitis. Colorectal cancer screening: Had colonoscopy in 2019- tubular adenomatous polyp found needs repeat in 2024 Vaccines: Up-to-date with COVID vaccine, up-to-date with tetanus vaccine, UTD pneumonia vaccine, considering Shingles vaccine. Laboratory Tests 06/25/24 09/25/24 01/08/25 08:13 05:40 12:17 RBC 3.68 L 4.73 D Hgb 11.8 L Fasting Glucose 102 H PSA Screen 0.22 0.23 PFSH Medical History (Updated 06/01/25 @ 09:48 by Hussain Arce PA-C) Avascular necrosis of bone of hip Avascular necrosis Ambulates with cane Hx of bronchitis Arthritis, lumbar spine Chronic left sacroiliac joint pain Deviated septum Allergic conjunctivitis Asthma Surgical History Hx of colonoscopy (~2020) Family History Father No problems noted. Mother Rheumatoid arthritis Social History (Updated 06/01/25 @ 09:39 by Hussain Arce PA-C) Household Members: Family Housing: Apartment Are you a primary acute care occupational therapist to a significant other at home: No Do you presently have visiting nurse or other home services: No 75 years or older and lives alone: No Alcohol intake: current Alcohol intake frequency: a few times a month Alcohol type: beer Patient Tobacco Use Status: Never used Tobacco Tobacco use type: Cigar e-Cigarette/Vaping Use: Never Used Second Hand Smoke Exposure: No Substance Use Type: Marijuana service: No Current occupational status: employed 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 Cognitive needs: No Hearing needs: No Vision needs: No Questionnaire Thrive Questionnaire Date Thrive assessed: 12/08/24 EVY-7 AMB Questionnaire EVY-7 Date EVY - 7 assessed: 12/08/24 Source: Developed by Drs. Fco Riddle, Svetlana Desai, Earnest Henson and colleagues, with an educational gisell from [employer]. Review of Systems Const Denies body aches, Denies chills, Denies excessive sweating, Denies fatigue, Denies fever(s) and Denies headache(s) Eyes Denies blurry vision ENT Denies dysphagia, Denies vertigo, Denies dizziness, Denies headache(s), Denies hearing loss and Denies tinnitus Card Denies chest pain, Denies chest pain with activity, Denies syncope, Denies irregular heart rhythm and Denies dyspnea Resp Denies chest congestion, Denies cough, Denies hemoptysis, Denies dyspnea and Denies wheezing GI Denies abdominal pain, Denies melena, Denies hematochezia, Denies coffee ground emesis, Denies dysphagia, Denies diarrhea, Denies nausea and Denies vomiting Denies difficulty urinating, Denies dysuria, Denies urinary frequency, Denies urinary hesitancy and Denies urinary urgency Musc Denies arthralgias, Denies limited range of motion, Denies muscle cramps and Denies muscle weakness Skin/Breast Denies rash and Denies skin ulcer Neuro Denies Abnormal speech present, Denies confusion, Denies vertigo, Denies dizziness, Denies syncope, Denies headache(s), Denies memory loss and Denies seizure-like activity Psych Denies anxiety, Denies confusion, Denies depression, Denies memory loss, Denies panic attacks and Denies paranoia Endo Denies excessive sweating, Denies fatigue, Denies flushing, Denies polydipsia and Denies polyuria Aller/Immun Denies wheezing Physical exam (Primary Care) Vital Signs: Last Vital Signs Temp 96.8 F 06/01/25 09:19 Pulse 62 06/01/25 09:19 Resp 18 06/01/25 09:19 BP 128/78 06/01/25 09:19 Pulse Ox 96 06/01/25 09:19 Oxygen Delivery Method Room Air 06/01/25 09:19 BMI result Body Mass Index 24.8 Tobacco/Smoking Status: Tobacco use Status Tobacco use date assessed 06/01/25 06/01/25 09:27 Patient Tobacco Use Status Never used Tobacco 06/01/25 09:27 Tobacco use type Cigar 06/01/25 09:27 e-Cigarette/Vaping Use Never Used 06/01/25 09:27 Thrive Assessment: Date of Thrive Assessment Date Thrive assessed 12/08/24 06/01/25 09:27 Const General: cooperative, comfortable, no acute distress, alert and awake; No confusion Orientation/consciousness: oriented to person, oriented to place, patient oriented x3 and No confusion HENMT Head: Yes normocephalic Ears: external ears normal and TM's normal bilaterally Face and sinus: No sinus tenderness Mouth: Normal oral and palatal mucosa present and tongue normal Teeth and gingiva: dentition normal and gingiva normal Throat: Yes posterior oropharynx normal, Yes tonsils normal and Yes uvula midline Eyes Conjunctivae: conjunctivae normal Sclerae: sclerae normal Pupils: Equal, round and reactive pupils present EOM: EOMs intact bilaterally Direct Ophthalmoscopy: No no photophobia Neck Neck: Yes no lymphadenopathy, No tender and Yes no JVD Thyroid: Thyroid normal Carotids: no bruits Chest Chest palpation & inspection: no tenderness Resp Effort & Inspection: normal respiratory effort, no audible wheezes, not labored and no stridor Auscultation: no crackles, no rales, no rhonchi and no wheezes Cardio Jugular venous distension: no JVD Rate: regular rate, not bradycardic and not tachycardic Rhythm: regular rhythm Bruits: no carotid bruits Peripheral pulses: Peripheral pulses 2+ throughout GI Inspection: Yes normal to inspection, No abdominal wall ecchymosis and No visible herniation Palpation (GI): Soft to palpation, nontender, no guarding, not rigid and No hepatosplenomegaly present Auscultation: normoactive bowel sounds General: Yes no CVA tenderness Back/Spine/Pelvis Back: no CVA tenderness and No back tenderness Cervical Spine: cervical ROM normal Thoracic/Lumbar Spine: thoracic and lumbar spine normal to inspection, straight leg raise negative bilaterally, No thoraco-lumbar ROM limited and No lumbar spinal tenderness Skin Lesions: no lesions Rashes: no rashes Wounds: no wounds Neuro General: oriented to person, oriented to place, patient oriented x3, CN's II-XI intact bilaterally and No confusion Cranial nerves: Yes Equal, round and reactive pupils present and Yes Normal accommodation reflex present Cognition (Neuro): normal cognition Speech: No Abnormal speech present Gait exam (Neuro): Normal gait present Motor exam (neuro): 5/5 motor strength present throughout Extrem Right upper extremity: full ROM; no cyanosis Left upper extremity: full ROM; no cyanosis Right lower extremity: no edema Left lower extremity: no edema Psych Appearance: grossly normal Mental Status: mental status grossly normal Affect: normal affect Attitude: cooperative Thought process: Normal thought process present Coding Level of Care Code Est Pt Prev Care 40-64y(88315) Diagnoses Annual physical exam Z00.00 Severe persistent asthma without complication J45.50 Asthma severity: severe Asthma persistence: persistent Asthma complication type: uncomplicated Ankylosing spondylitis of sacrococcygeal region M45.8 Ankylosing spondylitis location: sacrococcygeal region Allergic conjunctivitis of both eyes H10.13 Laterality: bilateral Tubular adenoma D36.9 Assessment & Plan Assessment & Plan (1) Annual physical exam: Code(s): Z00.00 - Encounter for general adult medical examination without abnormal findings Category: Medical Plan: As per HPI (2) Asthma: Comment: chronic prednisone to control symptoms Code(s): J45.909 - Unspecified asthma, uncomplicated Category: Medical Qualifiers: Asthma severity: severe Asthma persistence: persistent Asthma complication type: uncomplicated Qualified Code(s): J45.50 - Severe persistent asthma, uncomplicated Plan: Shaw reports his asthma has been fairly well controlled. He does regularly use his nebulizer treatments at home.. He is now off of prednisone. He is followed by [facility]. Has not had any recent asthma exacerbations. (3) Ankylosing spondylitis: Comment: HLA b27 -ve dx 03/2024 Code(s): M45.9 - Ankylosing spondylitis of unspecified sites in spine Category: Medical Qualifiers: Ankylosing spondylitis location: sacrococcygeal region Qualified Code(s): M45.8 - Ankylosing spondylitis sacral and sacrococcygeal region Plan: As per HPI patient was diagnosed with ankylosing spondylitis and was HLA B27. Has an upcoming appointment with Rheumatology here in [place] in August of 2025. (4) Allergic conjunctivitis: Code(s): H10.10 - Acute atopic conjunctivitis, unspecified eye Category: Medical Qualifiers: Laterality: bilateral Qualified Code(s): H10.13 - Acute atopic conjunctivitis, bilateral Plan: Patient continues with allergic conjunctivitis to which he uses his multiple eyedrops. Has lost his follow up with his specialist mobile development manager in [place]. He would like to reestablish care with a local mobile development manager. (5) Tubular adenoma: Code(s): D36.9 - Benign neoplasm, unspecified site Category: Medical Plan: Patient had polyps noted on colonoscopy in 2024, need a repeat colonoscopy in 5 years. Will refer to [facility] for colonoscopy. Orders: Orders Comprehensive [place]. Panel Fast Today Z13.1 - Encounter for screening for diabetes mellitus IgE Antibody (Anti-IgE IgG) Today L20.84 - Intrinsic (allergic) eczema Complete Blood Count no Diff Today Z13.1 - Encounter for screening for diabetes mellitus Referrals Ophthalmology Referral H10.13 - Acute atopic conjunctivitis, bilateral Gastroenterology Referral D36.9 - Benign neoplasm, unspecified site Medications: Changed From loteprednol etabonate 0.5% 1 drp ophthalmic (eye) DAILY H10.13 - Acute atopic conjunctivitis, bilateral To loteprednol etabonate 0.5% 1 drp ophthalmic (eye) DAILY 10 mL 3RF 30 days H10.13 - Acute atopic conjunctivitis, bilateral From cyclosporine 0.09% (Cequa) 1 drp ophthalmic (eye) QID H10.13 - Acute atopic conjunctivitis, bilateral To cyclosporine 0.09% (Cequa) 1 drp ophthalmic (eye) QID 60 ea 3RF 30 days H10.13 - Acute atopic conjunctivitis, bilateral Refilled albuterol sulfate 90 mcg/actuation 1 puff PO Q4H PRN 8.5 ea 2RF for wheezing 30 days montelukast (Singulair) 10 mg PO BEDTIME 90 tabs 3RF 3 months J45.20 - Mild intermittent asthma, uncomplicated triamcinolone acetonide 0.1% 1 appl topical DAILY 454 grams 3RF 30 days L20.9 - Atopic dermatitis, unspecified ketotifen fumarate 0.025%(0.035%) 1 drp ophthalmic (eye) BID 5 mL 0RF 30 days H10.13 - Acute atopic conjunctivitis, bilateral
[2025-06-01 09:19] VITALS: BP 128/78; PULSE 62; RESP 18; TEMP 36; O2SAT 96; BMI 24.8
--- OUTSIDE RECORDS SUMMARY | 2025-06-01 10:51 | XMS_ITS | Clinical Summary ---
Author Organization [facility] Address [address] [place] [address] Care Team Providers Care Trouble Locater Name Role Phone Unavailable Primary Care Provider [...] 2) 2020 COVID-19 Vaccine ( - season) 2025
--- OUTSIDE RECORDS SUMMARY | 2025-06-01 10:51 | XMS_ITS | Clinical Summary ---
Author Organization [facility] Address [address] [facility] [address] [place] [id number] Phone Care Team Providers Care Bridge Worker Apprentice Name Role Phone Unavailable Primary Care Provider Unavailabl e Social History Tobacco Use Types Packs/Day Years Used Date Smoking Tobacco: Never Assessed Education Answer Date Recorded Are you interested in more education? Not on robyn e 08/04/2024 Are you concerned about learning? Not on file 08/04/2024 No 08/04/2024 No 08/04/2024 Digital Access Answer Date Recorded No 08/04/2024 No 08/04/2024 Reliable internet access at home? Not on file 08/04/2024 Device with a working camera? Not on file Sex and Gender Information Value Date Recorded Sex Assigned at Not on file Legal Sex Male 10:28 AM EST Gender Identity Not on file Sexual Orientation Not on file Plan of Treatment Not on file Medical Devices Not on file Insurance [facility] Additional Source Comments The information contained in this document represents components of the legal health record. It is not the complete legal health record.[facility]
== END 2025-06-01 10:21 | disposition home or self-care (01) ==
LOC: HO.HMCH 09:16
PROVIDERS: PCP Physician Assistant; Visit Provider Physician Assistant
DX: Z00.00 Encounter for general adult medical examination without abnormal findings (principal); J45.50 Severe persistent asthma, uncomplicated; M45.8 Ankylosing spondylitis sacral and sacrococcygeal region; H10.13 Acute atopic conjunctivitis, bilateral; D36.9 Benign neoplasm, unspecified site

== ENCOUNTER 2025-07-07 07:33 | Outpatient (REF) | payer OTHER, SELFPAY ==
--- OUTSIDE RECORDS SUMMARY | 2025-07-07 07:37 | XMS_ITS | Data Portability ---
Author Organization [place] - [facility], Allergy Address [address] [address] Care Team Providers Care Electrical Assemblies Supervisor Name Role Phone HERMELINDO JORGE Primary Care Provider Assessment Encounter Date Assessment Date Assessment LastModified by Organization Details LastModified Time 05/07/2025 05/07/2025 Visit With: Ankit Berumen [place] Use of Antihistamine s: No If yes: Vial Test Change in medications: No If yes Increase in asthma symptoms Yes If yes, inhaler use: More than 5 times Reaction to last injections: If yes: Allergy Symptoms: Other: Missed: Dose Aware of Vial Test Aware: Notes:oer Dr. Jung no allergy shots today needs to take his asthma meds [email or web address] Not available 05/07/2025 11:05:09 05/21/2025 05/21/2025 Visit With: KISHORE Sewell Use of Antihistamine s: No If yes: Vial Test Change in medications: No If yes Increase in asthma symptoms No If yes, inhaler use: Reaction to last injections: No If yes: Allergy Symptoms: Other: Missed: 1 week Dose Repeated Aware of Vial Test Aware: Notes: [email or web address] Not available 05/21/2025 13:05:27 06/11/2025 06/11/2025 Visit With: Giselle Pastrana Use of Antihistamine s: No If yes: Vial Test Change in medications: No If yes Increase in asthma symptoms No If yes, inhaler use: Reaction to last injections: If yes: Allergy Symptoms: Other: Missed: 2 weeks Dose Decreased Aware of Vial Test Aware: Notes: Not available 06/11/2025 12:08:49 06/18/2025 06/18/2025 Visit With: Tulio Hyde RN Use of Antihistamine s: Yes If yes: Vial Test Change in medications: No If yes Increase in asthma symptoms If yes, inhaler use: Reaction to last injections: No If yes: Allergy Symptoms: Other: Missed: Dose Aware of Vial Test Aware: Notes: [email or web address] Not available 06/18/2025 11:37:56 06/25/2025 06/25/2025 Visit With: Giselle Pastrana Use of Antihistamine s: No If yes: Vial Test Change in medications: No If yes Increase in asthma symptoms No Asthma Hx If yes, inhaler use: Reaction to last injections: No If yes: Allergy Symptoms: Other: Missed: Dose Aware of Vial Test Aware: Notes: [email or web address] Not available 06/25/2025 11:55:38 Plan of Treatment Reminders Order Date Submit Date Provider Last Modified By Organization Details Last Modified Time Details Appointments [facility]- Allergy f-up 6mon 2024 10:15A M BRIGITTE HANNA MD Not available Not [...] Address Organization Details Recorded Time Chronic rhinitis 70889457 Active 2022 Chronic rhinitis; Note: Date Diagnosed : 03/01/2023 6:05 PM (J31.0) Not Available [facility] 02:25:39 Allergic rhinitis 17003149 Active 2023 Allergic rhinitis: Due to other [...] Date : 3 Not Available [facility] 4 00:58:12 Perennial allergic rhinitis [id number] Active 2023 ROSA BUTTERFIELD, RMA [address], [place], [address] , [facility] - [facility] 5 11:37:20 Problem Notes None recorded. Procedures Surgical History Date Name Laterality Status Provider Name and Address Organization Details Recorded Time 06/25/20 25 Allergy Immunotherapy Injections completed Ankit Berumen [address] [place] [address], [address], [facility] - [facility] 06/25/2025 11:55:25 06/18/20 25 Allergy Immunotherapy Injections completed ROSA BUTTERFIELD A [address],AJ [address] [place] [address], [address], [facility] - [facility] 06/18/2025 11:37:48 06/11/20 25 Allergy Immunotherapy Injections completed Ankit Berumen [address], [address], [facility] - [facility] 06/11/2025 12:08:33 05/21/20 25 Allergy Immunotherapy Injections completed ROSA BUTTERFIELD RMA [address], [place], [address], [facility] - [facility] 05/21/2025 13:05:07 05/07/20 25 Allergy Immunotherapy Injections completed Ankit Berumen [address] [facility], [place], [address], [facility] - [facility] 05/07/2025 11:04:14 04/30/20 25 Allergy Immunotherapy Injections completed GISELLE PASTRANA A [address], [place], [address], [place] [facility] 04/30/2025 11:56:49 04/23/20 25 Allergy Immunotherapy Injections completed Ankit Berumen [address], [place], [address], [place] [facility] 04/23/2025 10:17:32 04/16/20 25 Allergy Immunotherapy Injections completed Ankit Berumen [address] [facility] [address], [place], [address], [place] [facility] 04/16/2025 10:57:41 04/02/20 25 Allergy Immunotherapy Injections completed KISHORE GARCIA 100 [facility],AJ [address] [place] [address], [address], [place] [facility] 04/02/2025 10:24:45 03/26/20 25 Allergy Immunotherapy Injections completed TULIO HYDE RN 100 [facility],[address], [address], [place] [facility] 03/26/2025 13:48:19 03/11/20 25 Allergy Immunotherapy Injections completed TLUIO HYDE RN 100 [facility],[address], [address], [place] [facility] 03/11/2025 11:20:55 03/05/20 25 Allergy Immunotherapy Injections completed ROSA BUTTERFIELD RMA [address] [facility] [address] [place] [address], [address], [place] [facility] 03/05/2025 10:41:19 02/20/20 25 Allergy Immunotherapy Injections completed ROSA BUTTERFIELD RMA [address] [place] [address], [address], [place] [facility] 02/19/2025 13:39:06 02/13/20 25 Allergy Immunotherapy Injections completed KISHORE GARCIA [address], [place], [address], [place] [facility] 02/12/2025 12:04:33 02/05/20 25 Allergy Immunotherapy Injections completed KISHORE GARCIA [address] [facility] [address], [place], [address], [place] [facility] 02/04/2025 13:04:44 01/23/20 25 Allergy Immunotherapy Injections completed TULIO HYDE RN [address], [place], [address], [place] [facility] 01/22/2025 10:42:56 01/17/20 25 Allergy Immunotherapy Injections completed ROSA BUTTERFIELD RMCarlos [address], [place], [address], [place] [facility] 01/16/2025 10:25:11 01/09/20 25 Allergy Immunotherapy Injections completed KISHORE GARCIA [address] [place] [address], [address], [place] [facility] 01/08/2025 11:21:38 01/02/20 25 Allergy Immunotherapy Injections completed KISHORE GARCIA [address] [place] [address], [address], [place] [facility] 01/01/2025 11:04:59 09/19/19 25 Allergy Immunotherapy Injections completed TULIO HYDE RN [address] [facility] [place] [address], [address], [place] [facility] 09/19/2024 13:09:48 09/11/19 25 Allergy Immunotherapy Injections completed KISHORE GARCIA [address] [place] [address], [address], [place] [facility] 09/11/2024 16:26:25 09/05/20 24 Allergy Immunotherapy Injections completed TULIO HYDE RN [address], [place], [address], [place] [facility] 09/05/2024 11:35:54 08/21/20 24 Allergy Immunotherapy Injections completed KISHORE GARCIA [address], [place], [address], [place] [facility] 08/21/2024 14:06:16 08/14/20 24 Allergy Immunotherapy Injections completed ROSA BUTTERFIELD RMCarlos [address], [place], [address], [place] [facility] 08/14/2024 14:21:22 08/01/20 24 Allergy Immunotherapy Injections completed ROSA BUTTERFIELD RMA [address], [place], [address], [place] [facility] 08/01/2024 12:27:05 07/24/20 24 Allergy Immunotherapy Injections completed TULIO HYDE RN [address], [place], [address], [place] [facility] 07/24/2024 13:49:19 07/17/20 24 Allergy Immunotherapy Injections completed KISHORE GARCIA [address] [facility], [place], [address], [place] [facility] 07/17/2024 11:15:01 07/10/20 24 Allergy Immunotherapy Injections completed GLADYS GARCIAA [address] [facility] [place] [address], [address], [place] [facility] 07/10/2024 15:03:55 07/03/20 24 Allergy Immunotherapy Injections completed ROSA BUTTERFIELD RMA [address] [place] [address], [address], [place] [facility] 07/03/2024 13:16:15 06/26/20 24 Allergy Immunotherapy Injections completed GISELLE PASTRANA RMA [address], [place], [address], [place] [facility] 2024 13:40:24 06/12/20 24 Allergy Immunotherapy Injections completed GLADYS GARCIAA [address], [place], [address], [place] [facility] 06/12/2024 12:05:34 06/05/20 24 Allergy Immunotherapy Injections completed GISELLE PASTRANA RMA [address], [place], [address], [place] [facility] 06/05/2024 13:48:08 05/29/20 24 Allergy Immunotherapy Injections completed ROSA BUTTERFIELD, RMA [address], [place], [address], [place] [facility] 05/29/2024 11:48:28 05/23/20 24 Allergy Immunotherapy Injections completed TULIO HYDE RN [address] [facility] [place] [address], [address], [place] [facility] 05/23/2024 15:43:37 05/16/20 24 Allergy Immunotherapy Injections completed KISHORE SEWELL [address] [facility], [place], [address], [place] [facility] 05/16/2024 14:12:21 05/09/20 24 Allergy Immunotherapy Injections completed KISHORE GARCIA [address] [facility] [address], [place], [address], [place] [facility] 05/09/2024 14:23:57 04/18/20 24 Allergy Immunotherapy Injections completed KISHORE GARCIA [address] [facility] [address],[address] [place] [address], [address], [place] [facility] 04/18/2024 14:58:29 04/08/20 24 Allergy Immunotherapy Injections completed TULIO HYDE RN [address] [facility] [address],[address] [place] [address], [address], [place] [facility] 04/08/2024 14:53:53 03/25/20 24 Allergy Immunotherapy Injections completed KISHORE GARCIA [address] [facility] [address],[address] [place] [address], [address], [place] [facility] 03/25/2024 14:50:22 03/14/20 24 Allergy Immunotherapy Injections completed KISHORE SEWELL [address] [facility] [address] [place] [address], [address], [place] [facility] 03/14/2024 14:07:58 02/28/20 24 Allergy Immunotherapy Injections completed KISHORE GARCIA [address] [facility], [place], [address], [place] [facility] 02/28/2024 13:06:11 02/21/20 24 Allergy Immunotherapy Injections completed KISHORE GARCIA [address], [place], [address], [place] [facility] 02/21/2024 11:27:51 02/12/20 24 Allergy Immunotherapy Injections completed ROSA CELESTEKelsi, GLADYSA [address], [place], [address], [facility] - [facility] 02/12/2024 14:32:23 02/01/20 24 Allergy Immunotherapy Injections completed GISELLEGADIEL PASTRANA KISHORE [address], [place], [address], [facility] - [facility] 02/01/2024 14:19:44 01/24/20 24 Allergy Immunotherapy Injections completed ROSA CELESTEKelsi, A [address] [facility] [address], [place], [address], [facility] - [facility] 01/24/2024 14:21:37 Imaging Results None [...] ketotifen 0.025 % (0.035 %) eye drops APPLY 1 DROP INTO BOTH EYES 2 TIMES A DAY FOR 30 DAYS [...] Not Available Not Available No t Available hydroxyzi ne HCl 25 mg tablet TAKE 1 TABLET BY MOUTH [...] completed Not Available Not Available Not Available oxycodone 5 mg tablet TAKE 1 TABLET BY MOUTH EVERY 24 HOURS NEEDED FOR MODERATE PAIN SCALE 4-6 FOR 7 DAYS active Not Available Not Available No t Available cyclobenz aprine 5 mg tablet TAKE 2 TABLETS ORALLY AT BEDTIME FOR MUSCLE SPASM active Not Available Not Available No t Available naloxone 4 mg/actuat ion nasal spray PLEASE SEE ATTACHED FOR DETAILED DIRECTIO NS 09/19 completed Not Available Not Available Not Available Cequa 0.09 % eye drops in a dropperet te ADMINIST ER 1 DROP INTO AFFECTED EYE(S) FOUR TIMES DAILY. active Not Available Not Available No t Available Haleytri Aerospher e 160 mcg-9mcg- 4.8mcg/ac tuation HFA aerosol inhaler active Medicati on ID: [id number] B rand Name: Manjinder Woodyphe re Send [...] Diagnosis SNOMED-CT Code Diagnosis ICD10 Code Diagnosis IMO Codes Diagnosis Note 562 [facility] Allergy [address] [place] [address], [place] [address] 01/24/2024 14:19:11 01/25/2024 12:36:37 Perennial allergic rhinitis [id number] J30.89 1526 [facility] Allergy [address] [place] [address], [place] [address] 02/01/2024 14:18:47 02/01/2024 14:32:52 Perennial allergic rhinitis [id number] J30.89 2723 [facility] [address] [place] [address], [place] [address] 02/12/2024 13:35:10 02/12/2024 16:19:08 Perennial allergic rhinitis [id number] J30.89 [id number] BRIGITTE HANNA MD [facility]NT[facility] of [address] [address] 02/15/2024 16:05:12 02/15/2024 16:58:27 Allergic rhinitis 23400486 J30.89 53-year-ol d male with allergies and [...] current regimen. Follow-up 6 months. 3934 GISELLE PASTRANA REPLACED BY [facility] Allergy [address] [place] [address],[place] [address] [place] [address] 02/21/2024 10:37:54 02/21/2024 11:33:26 Perennial allergic rhinitis [id number] J30.89 4928 GISELLE PASTRANA REPLACED BY [facility] Allergy [address] [place] [address],[place] [address] [place] [address] 02/28/2024 12:20:55 02/28/2024 12:26:50 Perennial allergic rhinitis [id number] J30.89 6692 [facility] [address] [place] [address],[place] [address] [place] [address] 03/14/2024 13:09:40 03/14/2024 15:30:28 Perennial allergic rhinitis [id number] J30.89 8107 GISELLE PASTRANA REPLACED BY [facility] Allergy [address] [place] [address],[place] [address] [place] [address] 03/25/2024 14:43:48 03/26/2024 13:21:56 Perennial allergic rhinitis [id number] J30.89 72639 [facility] [address] [place] [address],[address] [place] [address] 04/08/2024 13:17:46 04/08/2024 14:54:36 Perennial allergic rhinitis [id number] J30.89 [id number] GISELLE PASTRANA REPLACED BY [facility] Allergy [address] [place] [address],[place] [address] [place] [address] 04/18/2024 14:21:19 04/18/2024 15:35:40 Perennial allergic rhinitis [id number] J30.89 [id number] GISELLE PASTRANA REPLACED BY [facility] Allergy [address] [place] [address],[address] [place] [address] 05/09/2024 14:15:20 05/09/2024 15:19:41 Perennial allergic rhinitis [id number] J30.89 [id number] [facility], REPLACED BY [facility] Allergy 100 [facility],[address] [place] [address] 05/16/2024 14:06:07 05/16/2024 14:32:31 Perennial allergic rhinitis [id number] J30.89 [id number] TULIO HYDE process safety specialist [address] [place] [address], [address] [place] [address] 05/23/2024 14:49:32 05/23/2024 15:43:57 Perennial allergic rhinitis [id number] J30.89 [id number] [facility] Allergy [address] [place] [address] [address] [place] [address] 05/29/2024 11:37:06 05/29/2024 11:49:49 Perennial allergic rhinitis [id number] J30.89 [id number] GISELLE PASTRANA, REPLACED BY [facility] Allergy [address] [place] [address], [address] [place] [address] 06/05/2024 13:47:09 06/05/2024 13:50:45 Perennial allergic rhinitis [id number] J30.89 [id number] GISELLE PASTRANA REPLACED BY [facility] Allergy [address] [place] [address] [address] [place] [address] 06/12/2024 12:04:31 06/12/2024 12:08:16 Perennial allergic rhinitis [id number] J30.89 [id number] GISELLE PASTRANA REPLACED BY [facility] Allergy [address] [place] [address],[address] [place] [address] 2024 13:08:56 2024 13:40:46 Perennial allergic rhinitis [id number] J30.89 [id number] [facility] Allergy [address] [place] [address],[address] [address] [place] [address] 07/03/2024 12:28:14 07/03/2024 13:16:56 Perennial allergic rhinitis [id number] J30.89 [id number] GISELLE PASTRANA REPLACED BY [facility] Allergy [address] [place] [address] [address] [place] [address] 07/10/2024 14:55:43 07/10/2024 16:16:17 Perennial allergic rhinitis [id number] J30.89 [id number] GISELLE PASTRANA [address] [place] [address] 07/17/2024 10:59:58 07/17/2024 11:25:55 Perennial allergic rhinitis [id number] J30.89 73533 TULIO HYDE RN Allergy [address] [place] [address] [address] [place] [address] 07/24/2024 13:28:27 07/24/2024 13:49:36 Perennial allergic rhinitis [id number] J30.89 [id number] [facility], REPLACED BY [facility] Allergy [address] [place] [address] 100 [place] [address] 08/01/2024 12:25:52 08/01/2024 12:28:26 Perennial allergic rhinitis [id number] J30.89 54647 [facility] Allergy [address] [place] [address] [address] [place] [address] 08/14/2024 13:53:09 08/14/2024 14:24:50 Perennial allergic rhinitis [id number] J30.89 [id number] GISELLE PASTRANA [address] 100 [place] [address] 08/21/2024 13:24:53 08/21/2024 14:06:50 Perennial allergic rhinitis [id number] J30.89 71961 TULIO HYDE RN Allergy [address] [place] [address] [address] [place] [address] 09/05/2024 11:35:17 09/05/2024 11:36:22 Perennial allergic rhinitis [id number] J30.89 [id number] GISELLE PASTRANA REPLACED BY [facility] Allergy [address] [place] [address] [address] [place] [address] 09/11/2024 14:29:00 09/11/2024 16:26:45 Perennial allergic rhinitis [id number] J30.89 [id number] BRIGITTE HANNA MD [facility]NT[facility] Dist[facility] 100 [facility] [place] [address] 09/19/2024 13:00:13 09/19/2024 13:29:53 Allergic rhinitis 30660351 J30.89 53-year-ol d male with allergies and asthma, clinically improving on IT. He is still using montelukas t and Zyrtec with decongesta nt. He does not tolerate nasal sprays. He does continue to have some congested mucosa in his nasal cavity. Continue current regimen. Follow-up 6 months. Will check hearing then; I removed some cerumen today. [id number] TULIO HYDE RN Allergy [address] [place] [address],[facility] [address] [place] [address] 09/19/2024 13:09:08 09/19/2024 13:10:13 Perennial allergic rhinitis [id number] J30.89 [id number] GISELLE PASTRANA REPLACED BY [facility] Allergy [address] [place] [address] 100 [place] [address] 01/01/2025 10:32:15 01/01/2025 11:05:26 Perennial allergic rhinitis [id number] J30.89 [id number] GISELLE PASTRANA REPLACED BY [facility] Allergy [address] [place] [address],[facility] [address] [place] [address] 01/08/2025 11:20:07 01/08/2025 11:22:14 Perennial allergic rhinitis [id number] J30.89 [id number] TULIO HYDE RN Allergy [address] [place], [place] [address] 100 [place] [address] 01/16/2025 09:57:56 01/16/2025 10:25:37 Perennial allergic rhinitis [id number] J30.89 [id number] ROSA BUTTERFIELD REPLACED BY [facility] Allergy [address] [place] [address],[place] [address] [place] [address] 01/22/2025 10:18:48 01/22/2025 10:43:26 Perennial allergic rhinitis [id number] J30.89 [id number] GISELLE PASTRANA [facility] All[facility] [address] [place] [address],[place] [address] [place] [address] 02/04/2025 12:54:13 02/04/2025 13:16:31 Perennial allergic rhinitis [id number] J30.89 [id number] GISELLE PASTRANA REPLACED BY [facility] Allergy [address] [place] [address],[place] [address] [place] [address] 02/12/2025 12:03:44 02/12/2025 12:05:06 Perennial allergic rhinitis [id number] J30.89 [id number] [facility], A Allergy [address] [place] [address],[place] [address] [place] [address] 02/19/2025 13:38:02 02/19/2025 13:39:24 Perennial allergic rhinitis [id number] J30.89 [id number] TULIO HYDE process safety specialist [address] [place] [address], [address] [place] [address] 03/05/2025 10:15:37 03/05/2025 10:42:01 Perennial allergic rhinitis [id number] J30.89 [id number] GISELLE PASTRANA REPLACED BY [facility] Allergy [address] [place] [address] it[address] [place] [address] 03/11/2025 11:06:52 03/11/2025 11:21:55 Perennial allergic rhinitis [id number] J30.89 [id number] GISELLE PASTRANA REPLACED BY [facility] Allergy [address] [place] [address],[place] [address] [place] [address] 03/26/2025 13:38:24 03/26/2025 13:48:45 Perennial allergic rhinitis [id number] J30.89 [id number] GISELLE PASTRANA REPLACED BY [facility] Allergy [address] [place] [address],[place] [address] [place] [address] 04/02/2025 10:03:50 04/02/2025 10:25:12 Perennial allergic rhinitis [id number] J30.89 [id number] [facility], A Allergy 100 [facility],[place] [address] [place] [address] 04/16/2025 10:35:34 04/16/2025 10:58:19 Perennial allergic rhinitis [id number] J30.89 [id number] GISELLE PASTRANA REPLACED BY [facility] Allergy [address] [place] [address],[place] [address] [place] [address] 04/23/2025 09:36:10 04/23/2025 10:18:20 Perennial allergic rhinitis [id number] J30.89 [id number] GISELLE PASTRANA REPLACED BY [facility] Allergy 100 [facility],[place] [address] [place] [address] 04/30/2025 11:23:32 04/30/2025 11:57:20 Perennial allergic rhinitis [id number] J30.89 [id number] ROSA CELESTE, A Allergy [address] [place] [address],[place] [address] [place] [address] 05/07/2025 10:39:54 05/07/2025 11:05:29 Perennial allergic rhinitis [id number] J30.89 [id number] ROSA CELESTE, RMA Allergy 100 [facility],[place] [address] [place] [address] 05/21/2025 10:19:21 05/21/2025 13:05:44 Perennial allergic rhinitis [id number] J30.89 [id number] ROSA CELESTE, A Allergy [address] [place] [address],[address] [address] [place] [address] 06/11/2025 11:44:16 06/11/2025 12:09:05 Perennial allergic rhinitis [id number] J30.89 [id number] TULIO HYDE RN Allergy [address] [place] [address],[address] [place] [phone] 06/18/2025 09:54:49 06/18/2025 11:38:16 Perennial allergic rhinitis [id number] J30.89 [id number] GISELLE PASTRANA REPLACED BY [facility] [address] [place] [address],[address] [place] [phone] 06/25/2025 10:09:37 06/25/2025 11:55:53 Perennial allergic rhinitis [id number] J30.89 Health Concerns Section Related Observation LastModified by Organization Detai ls LastModified Time None Recorded Concern Status LastModified by Organization Details LastModified Time None Recorded Advance Directives Directive None Recorded Payers Insurance Date Sequence Insurance Name Policy Number Policy Elizabeth Covered Member ID Elizabeth Member ID Guarantor Name 11/24/2024 2 [employer] ([facility]) Shaw Vela [id number] Shaw Vela 11/24/2024 1 [employer] [id number] Shaw Vela [id number] Shaw Vela 06/25/2025 1 [employer] ([facility]) [id number] Shaw Vela [id number] Shaw Vela 11/24/2024 1 [facility] ([facility]) Shaw Vela [id number] Shaw Vela 11/24/2024 2 [employer] [facility] Shaw Vela [id number] Shaw Vela
--- OUTSIDE RECORDS SUMMARY | 2025-07-07 07:37 | XMS_ITS | Clinical Summary ---
Author Organization [facility] Address [address] [place] [address] Care Team Providers Care Chore Tender Name Role Phone Unavailable Primary Care Provider [...] Vaccine (1 of 2) 2020 COVID-19 Vaccine (1 - season) 2025 RSV Vaccine 50 years and old er and Patients (1 - 1-dose 75+ series) 2045
--- OUTSIDE RECORDS SUMMARY | 2025-07-07 07:37 | XMS_ITS | Clinical Summary ---
Author Organization [facility] Address [address] [place] [id number] Phone Care Team Providers Care Dry Wall Installations Mechanic Name Role Phone Unavailable Primary Care [...] file Medical Devices Not on file Insurance [facility] Additional Source Comments The information contained in this document represents components of the legal health record. It is not the complete legal health record.[facility]
[2025-07-07 08:08] LABS: Hematocrit 38.8 % (42.0-52.0); Hemoglobin 12.4 g/dl (14.0-18.0); Mean Corpuscular HGB Conc 32.0 g/dl (31.0-36.0); Mean Corpuscular Hemoglobin 30.8 pg (27.0-33.0); Mean Corpuscular Volume 96.3 fL (80.0-98.0); NRBC Abs Auto 0.000 X10*3/uL (0.0-0.012); NRBC Pct Auto 0.0 /100WBC (0.0-0.2); Platelet Count 283 X10*3/uL (160-400); Red Blood Count 4.03 X10*6/uL (4.60-5.80); White Blood Count 5.7 X10*3/uL (4.8-10.8)
[2025-07-07 08:28] LABS: Alanine Aminotransferase 21 U/L (0-40); Albumin Level 4.1 g/dL (3.5-5.0); Alkaline Phosphatase 95 U/L (39-117); Anion Gap 12 (12-20); Aspartate Amino Transferase 30 U/L (5-37); Blood Urea Nitrogen 16 mg/dL (9-16); Calcium 9.0 mg/dL (8.4-10.2); Carbon Dioxide 27 mmol/L (22-29); Chloride 107 mmol/L (96-108); Estimated Glomerular Filt Rate > 60; Potassium 3.9 mmol/L (3.3-5.1); Sodium 142 mmol/L (135-145); Total Protein 7.6 g/dL (6.5-8.0)
[2025-07-16 02:18] LABS: IgE Antibody (Anti-IgE IgG) 14 ng/mL (<168)
== END 2025-07-07 07:34 | disposition home or self-care (01) ==
LOC: HO.LAB 07:33
PROVIDERS: PCP Physician Assistant; Visit Provider Physician Assistant
DX: Z13.1 Encounter for screening for diabetes mellitus (principal); L20.84 Intrinsic (allergic) eczema
CPT/HCPCS: 36415; 80053; 83520; 85027

== ENCOUNTER 2025-08-27 13:49 | Outpatient (AMB) | payer OTHER, SELFPAY ==
--- NOTE | 2025-08-27 13:51 | A.OFFVIS_ITS ---
Vital Signs 08/27/25 13:52 Height 5 ft 7 in Weight 157 lb 10.088 oz BMI 24.7 BP 134/76 Blood Pressure Location Lt brachial Pulse 86 Pulse Source Pulse Oximeter Pulse Oximetry (%) 96 Oxygen Delivery Method Room Air Intake Visit Reasons: Asthma Military Technology Manager Required: No Lamination Operator: Lamination Operator offered & declined Accompanied by: Self / Same As Patient Allergies environmental allergies Allergy (Intermediate, Verified 08/27/25 13:54) itchy eyes, sob grass pollen Allergy (Intermediate, Verified 08/27/25 13:54) Itchy Eyes HPI Comments Details: The patient is a 55-year-old gentleman with a known history of asthma and severe a topic dermatitis and steroid dependent, who apparently has been having worsening respiratory symptoms for the last several months. he did have COVID that affected his respiratory capacity. The time he was finding in reportbrain. However, after COVID in the worsening respiratory symptoms he was not able to continue regularly. In August he started developing worsening respiratory symptoms. He was evaluated at that point with a chest x-ray demonstrating no acute disease. Subsequently in the springtime again he had worsening respiratory symptoms and he went to an urgent care. He was given a rescue inhaler in addition to prednisone for an asthma exacerbation. He did not have a chest x-ray. He was tested for COVID again and he was negative. He was given a course of a signal mycin during time. At this point the patient is feeling better although he still having episodes of shortness of breath and wheezing at times. He had been prescribed Advair HFA which has been helping. He does use his rescue inhaler more than twice a week. Therefore he was sent to Pulmonary for further evaluation. On further questioning he denies any significant exposure to mold or past. He had been tested for allergy sit in the past and he was found to have many allergies any at some point he did receive allergy shots. I was many years ago. also to note in regards of the eczema the patient was evaluated by Dermatology in the past. He was placed on Dupixent which was extremely helpful clearing up his the topic dermatitis. However, he started developing back pain and some issues with kidneys and therefore he stopped the Dupixent. His side effects did improve but unfortunately the eczema return. 10/04/2023 the patient is here for a pulmonary follow-up visit. He has been sick now for about a week. Complaint of URI like symptoms worsening cough and has hard time has not been able to sleep because of the coughing. Also having chest tightness and wheezing. He had some leftover prednisone he did started. In addition to that he has not start his biologic therapy. Apparently his insurance does not want approve it. Will go ahead and talk to our staff to see what else we can do to make sure that he gets the needed biologic therapies. The patient does require prednisone at this time for another exacerbation will give him also course of antibiotics for what appears to be a lower respiratory infection. The patient is also having significant left hip pain. He was referred to rheumatology. He is concerned that he is going to need some type of surgery. 02/01/2024 the patient is here for a pulmonary follow-up visit. Overall he has doing a little better. The patient has been able to be off the prednisone which is reassuring. He has been followed closely by allergy and has been getting allergy shots. The patient also has been using his respiratory medications with good effect. At least from a respiratory status doing better than he has not long time. Although he has been losing weight. He has been trying to exercise more regularly although he has significant arthritic changes due to his previous traumas. Will continue with current respiratory therapy. I will send him prednisone for him to hold. 06/17/2024 the patient is here for a pulmonary follow-up visit. He continues on his respiratory therapy. He has been able to be off the prednisone which is good. The patient did get a diagnosis of avascular necrosis of the hip. This is causing significant pain. Explained to him this is likely from the chronic prednisone use. The patient needs to find alternative therapies for severe asthma. We have been trying to get him on Xolair, but, been difficult to get it approved. Therefore we try getting him on Tezspire. Although that medication was not in the formulary. Therefore, will go ahead and request additional blood work and will request these Xolair as the best option for him. He has already tried and failed Fasenra in addition to Dupixent. He does have significant allergies with an elevated IgE level. 08/21/2024 the patient is here for preoperative evaluation. Overall he is doing about the same. Still having some chest tightness at times. Does uses nebulizer. He has been using it a little more regularly the last week. Feels some chest congestion. He does have evidence of chronic bronchitis. Also has significant allergies likely contributing. He already tried and failed multiple biologic regimens. Now dealing with significant hip arthritis. He is going to need a total hip replacement. He continues to be on prednisone 10 mg. Will try to wean it off slowly so he can minimize on the prednisone effect and allow for better recovery and tissue healing after his surgery. In the meantime will continue to optimize his respiratory regimen. The patient is doing well from a pulmonary standpoint may be able to proceed with anesthesia and surgery at this time. 11/17/2024 the patient is here for a pulmonary follow-up visit. Overall the patient has been doing fairly decent. He has been off the prednisone which is reassuring. He did undergo a sip replacement. He is still healing from that is been about 2 months. He still getting physical therapy and still somewhat sore. He may have to get his next hip done at some point but he is thinking about it. For now his respiratory status is stable off the prednisone which is reassuring. He never got the maintenance inhalers so therefore I will send him Symbicort again to the pharmacy. He also has a nebulizer therapy available. He continued the azithromycin 3 times a week. He feels like it is helping so therefore will go ahead and continue for another couple months. Will follow-up in 6 months. If he has any issues prior to that he will call for an earlier assessment. 08/27/2025 the patient is here for pulmonary follow-up visit. The patient continues to have asthma symptoms. Complains of chest tightness and wheezing. Moderate severity. He does use his inhalers with partial response. Still has to use her rescue inhaler albuterol on a daily basis. The patient had been on azithromycin 3 times a week and the provide some relief with the chronic bronchitis. Does have significant allergies and was getting allergy shots in the past. He has not had allergy testing some time. The patient was supposed to start Xolair but then they will has some insurance issues and he could not start any biologics at that time. Now he is back status with some insurance. He is trying to get his asthma under control so we can continue to exercise. The patient does have significantly elevated IgE level. Will go ahead and request repeat blood work since it has been awhile since he last had blood work and will start the process for him to start Xolair. He is also considering going back to allergy shots. Explained to him that after starting Xolair he can then follow-up with Allergy and if they want to do allergy shots in conjunction with the Xolair that is very reasonable. The patient will return in 6 months. If any issues arise he can always call for further recommendations. [facility] Medical History (Updated 08/27/25 @ 21:39 by Dennis Smith MD) Allergy Avascular necrosis of bone of hip Avascular necrosis Ambulates with cane Hx of bronchitis Arthritis, lumbar spine Chronic left sacroiliac joint pain Deviated septum Allergic conjunctivitis Asthma Surgical History Hx of colonoscopy (~2020) Family History Father No problems noted. Mother Rheumatoid arthritis Social History Household Members: Family Housing: Apartment Are you a primary intensive care medicine specialist to a significant other at home: No Do you presently have visiting nurse or other home services: No 75 years or older and lives alone: No Alcohol intake: current Alcohol intake frequency: a few times a month Alcohol type: beer Patient Tobacco Use Status: Never used Tobacco Tobacco use type: Cigar e-Cigarette/Vaping Use: Never Used Second Hand Smoke Exposure: No Substance Use Type: Marijuana service: No Current occupational status: employed Current occupation: [employer] . Cognitive needs: No Hearing needs: No Vision needs: No Review of Systems Const Denies body aches, Denies chills, Reports difficulty sleeping, Denies excessive sweating, Denies fatigue, Denies fever(s), Denies headache(s) and Denies weight loss Eyes Denies blurry vision ENT Denies dysphagia, Denies vertigo, Denies dizziness, Denies headache(s), Denies hearing loss, Reports nasal congestion, Reports nasal discharge and Denies tinnitus Card Denies chest pain with activity, Denies syncope, Denies irregular heart rhythm and Reports dyspnea on exertion Resp Denies chest congestion, Reports cough, Denies hemoptysis, Reports dyspnea on exertion and Reports wheezing GI Denies abdominal pain, Denies melena, Denies hematochezia, Denies coffee ground emesis, Denies dysphagia, Denies diarrhea, Denies nausea and Denies vomiting Musc Reports abnormal gait, Reports myalgias, Reports arthralgias, Reports limited range of motion, Denies muscle cramps, Denies muscle weakness and Reports stiffness Skin/Breast Denies rash and Denies skin ulcer Neuro Denies Abnormal speech present, Reports abnormal gait, Denies vertigo, Denies dizziness, Denies syncope, Denies headache(s), Denies memory loss and Denies seizure-like activity Psych Denies anxiety, Denies depression, Denies memory loss, Denies panic attacks and Denies paranoia Endo Denies excessive sweating, Denies fatigue, Denies flushing, Denies polydipsia and Denies polyuria Aller/Immun Reports wheezing Physical Exam Vital Signs: Last Vital Signs Pulse 86 08/27/25 13:52 BP 134/76 08/27/25 13:52 Pulse Ox 96 08/27/25 13:52 Oxygen Delivery Method Room Air 08/27/25 13:52 BMI result Body Mass Index 24.7 Const General: comfortable HEENT Head: Yes atraumatic Neck Neck: Yes supple Chest Chest palpation & inspection: normal inspection of the chest Resp Effort & Inspection: normal respiratory effort and prolonged expiratory phase Auscultation: wheezes and diminished lung sounds Cardio Rate: regular rate Rhythm: regular rhythm Heart sounds: S1 normal heart sound present and S2 normal heart sound present GI Palpation (GI): Soft to palpation Skin Rashes: no rashes Neuro Speech: No Abnormal speech present Extrem General: Yes no clubbing, cyanosis or edema Assessment & Plan Assessment & Plan (1) Asthma: Comment: chronic prednisone to control symptoms Code(s): J45.909 - Unspecified asthma, uncomplicated Category: Medical Qualifiers: Asthma complication type: uncomplicated Asthma persistence: persistent Asthma severity: severe Qualified Code(s): J45.50 - Severe persistent asthma, uncomplicated (2) Allergic rhinitis: Code(s): J30.9 - Allergic rhinitis, unspecified Category: Medical Qualifiers: Allergic rhinitis seasonality: non-seasonal Allergic rhinitis trigger: unspecified Qualified Code(s): J30.89 - Other allergic rhinitis (3) Atopic dermatitis: Code(s): L20.9 - Atopic dermatitis, unspecified Category: Medical Qualifiers: Atopic dermatitis type: unspecified Qualified Code(s): L20.9 - Atopic dermatitis, unspecified (4) Deviated septum: Code(s): J34.2 - Deviated nasal septum Category: Medical (5) Cough: Code(s): R05 - Cough Category: Medical Qualifiers: Cough type: chronic Qualified Code(s): R05.3 - Chronic cough (6) Bronchitis: Code(s): J40 - Bronchitis, not specified as acute or chronic Category: Medical Plan budesonide via nebulizer plus or minus albuterol Breztri 2 puffs twice a day short-acting beta agonist as needed currently off prednisone continue Singulair nebulizer therapy Blood work in allergy testing start Xolair, dose will be dependent on his IgE level F/U in 3-4 months Orders: Orders Complete Blood Count Auto Diff Today J40 - Bronchitis, not specified as acute or chronic, J45.21 - Mild intermittent asthma with (acute) exacerbation, T78.40XA - Allergy, unspecified, initial encounter Immunoglobulin E Today J40 - Bronchitis, not specified as acute or chronic, J45.21 - Mild intermittent asthma with (acute) exacerbation, T78.40XA - Allergy, unspecified, initial encounter Erythrocyte Sedimentation Rate Today J40 - Bronchitis, not specified as acute or chronic, J45.21 - Mild intermittent asthma with (acute) exacerbation, T78.40XA - Allergy, unspecified, initial encounter Cyclic Citrullinated Peptide Today J40 - Bronchitis, not specified as acute or chronic, R05 - Cough SUMAN Reflex Titer and Pattern Today J40 - Bronchitis, not specified as acute or chronic, R05 - Cough Resp Allergy Profile Region I Today J40 - Bronchitis, not specified as acute or chronic, J45.21 - Mild intermittent asthma with (acute) exacerbation, R91.1 - Solitary pulmonary nodule, T78.40XA - Allergy, unspecified, initial encounter Hypersensitive Pneumonitis Prf Today J40 - Bronchitis, not specified as acute or chronic, J45.21 - Mild intermittent asthma with (acute) exacerbation, R91.8 - Other nonspecific abnormal finding of lung field, T78.40XA - Allergy, unspecified, initial encounter Angiotensin Converting Enzyme Today J40 - Bronchitis, not specified as acute or chronic, R05 - Cough Sjogren's Antibodies Today J40 - Bronchitis, not specified as acute or chronic, R05 - Cough Coding Level of Care Code Est Pt Level 4 (37427) Diagnoses Severe persistent asthma without complication J45.50 Asthma complication type: uncomplicated Asthma persistence: persistent Asthma severity: severe Non-seasonal allergic rhinitis, unspecified trigger J30.89 Allergic rhinitis seasonality: non-seasonal Allergic rhinitis trigger: unspecified Atopic dermatitis, unspecified type L20.9 Atopic dermatitis type: unspecified Deviated septum J34.2 Chronic cough R05.3 Cough type: chronic Bronchitis J40 Time Spent (min) 16
[2025-08-27 13:52] VITALS: BP 134/76; PULSE 86; O2SAT 96; BMI 24.7
--- OUTSIDE RECORDS SUMMARY | 2025-08-27 18:04 | XMS_ITS | Continuity of Care Document ---
Author Organization [place] - [facility], Allergy Address [address] [address] Care Team Providers Care Sales Floor Associate Name Role Phone HERMELINDO JORGE Primary Care Provider Assessment Encounter Date Assessment Date Assessment LastModified by Organization Details LastModified Time 07/09/2025 07/09/2025 Visit With: KISHORE Pat Use of Antihistamine s: No If yes: Vial Test Change in medications: No If yes Increase in asthma symptoms No If yes, inhaler use: Reaction to last injections: No If yes: Allergy Symptoms: Other: Missed: Dose Aware of Vial Test Aware: Notes: [email or web address] Not available 07/09/2025 10:41:32 Plan of Treatment Reminders Order Date Submit [...] Address Organization Details Recorded Time Chronic rhinitis 56484053 Active 2022 Chronic rhinitis; Note: Date Diagnosed : 03/01/2023 6:05 PM (J31.0) Not Available [facility] 02:25:39 Allergic rhinitis [id number] Active 2023 Allergic rhinitis: Due to other [...] [facility] Center 4 00:58:12 Perennial allergic rhinitis [id number] Active 2023 ROSA CELESTE, [facility] 100 [facility],[address], [address] , [facility] - [facility] 11:37:20 Problem Notes None recorded. Procedures Surgical History Date Name Laterality Status Provider Name and Address Organization Details Recorded Time 07/09/20 25 Allergy Immunotherapy Injections completed [address], [address], [facility] - [facility] 07/09/2025 10:41:19 06/25/20 25 Allergy Immunotherapy Injections completed [address], [address], [facility] - [facility] 06/25/2025 11:55:25 06/18/20 25 Allergy Immunotherapy Injections completed ROSA BOOKER [facility] 100 [facility],[address], [address], [facility] - [facility] 06/18/2025 11:37:48 06/11/20 25 Allergy Immunotherapy Injections completed [facility] 100 [facility],[address], [address], [facility] - [facility] 06/11/2025 12:08:33 05/21/20 25 Allergy Immunotherapy Injections completed ROSA BUTTERFIELD, RMA [address], [place], [address], [place] - [facility] 05/21/2025 13:05:07 05/07/20 25 Allergy Immunotherapy Injections completed Ankit Berumen [address], [place], [address], [place] [facility] 05/07/2025 11:04:14 04/30/20 25 Allergy Immunotherapy Injections completed GLADYS GARCIAA [address], [place], [address], [place] [facility] 04/30/2025 11:56:49 04/23/20 25 Allergy Immunotherapy Injections completed Ankit Berumen [address], [place], [address], [place] [facility] 04/23/2025 10:17:32 04/16/20 25 Allergy Immunotherapy Injections completed Ankit Berumen [address], [place], [address], [place] [facility] 04/16/2025 10:57:41 04/02/20 25 Allergy Immunotherapy Injections completed GLADYS GARCIAA [address],AJ [facility], [place], [address], [place] [facility] 04/02/2025 10:24:45 03/26/20 25 Allergy Immunotherapy Injections completed TULIO HYDE RN [address] [place] [address], [address], [place] [facility] 03/26/2025 13:48:19 03/11/20 25 Allergy Immunotherapy Injections completed TULIO HYDE RN [address] [facility], [place], [address], [place] [facility] 03/11/2025 11:20:55 03/05/20 25 Allergy Immunotherapy Injections completed ROSA BUTTERFIELD, RMA [address], [place], [address], [place] [facility] 03/05/2025 10:41:19 02/20/20 25 Allergy Immunotherapy Injections completed ROSA BUTTERFIELD, RMA [address], [place], [address], [place] [facility] 02/19/2025 13:39:06 02/13/20 25 Allergy Immunotherapy Injections completed GLADYS GARCIAA [address], [place], [address], [place] [facility] 02/12/2025 12:04:33 02/05/20 25 Allergy Immunotherapy Injections completed KISHORE GARCIA [address], [place], [address], [place] [facility] 02/04/2025 13:04:44 01/23/20 25 Allergy Immunotherapy Injections completed TULIO HYDE RN [address], [place], [address], [place] [facility] 01/22/2025 10:42:56 01/17/20 25 Allergy Immunotherapy Injections completed ROSA BUTTERFIELD RMA [address], [place], [address], [place] [facility] 01/16/2025 10:25:11 01/09/20 25 Allergy Immunotherapy Injections completed KISHORE GARCIA [address], [place], [address], [place] [facility] 01/08/2025 11:21:38 01/02/20 25 Allergy Immunotherapy Injections completed KISHORE GARCIA [address], [place], [address], [place] [facility] 01/01/2025 11:04:59 09/19/19 25 Allergy Immunotherapy Injections completed TULIO HYDE RN [address], [place], [address], [place] [facility] 09/19/2024 13:09:48 09/11/19 25 Allergy Immunotherapy Injections completed KISHORE GARCIA [address], [place], [address], [place] [facility] 09/11/2024 16:26:25 09/05/20 24 Allergy Immunotherapy Injections completed TULIO HYDE RN [address], [place], [address], [place] [facility] 09/05/2024 11:35:54 08/21/20 24 Allergy Immunotherapy Injections completed KISHORE GARCIA [address], [place], [address], [place] [facility] 08/21/2024 14:06:16 08/14/20 24 Allergy Immunotherapy Injections completed ROSA BUTTERFIELD RMA [address], [place], [address], [place] [facility] 08/14/2024 14:21:22 08/01/20 24 Allergy Immunotherapy Injections completed KISHORE PAT [address], [place], [address], [place] [facility] 08/01/2024 12:27:05 07/24/20 24 Allergy Immunotherapy Injections completed TULIO HYDE RN [address] [place] [address], [address], [place] [facility] 07/24/2024 13:49:19 07/17/20 24 Allergy Immunotherapy Injections completed KISHORE GARCIA [address] [place] [address], [address], [place] [facility] 07/17/2024 11:15:01 07/10/20 24 Allergy Immunotherapy Injections completed KISHORE GARCIA [address] [place] [address], [address], [place] [facility] 07/10/2024 15:03:55 07/03/20 24 Allergy Immunotherapy Injections completed ROSA BUTTERFIELD RMA [address], [place], [address], [place] [facility] 07/03/2024 13:16:15 06/26/20 24 Allergy Immunotherapy Injections completed KISHORE GARCIA [address], [place], [address], [place] [facility] 2024 13:40:24 06/12/20 24 Allergy Immunotherapy Injections completed KISHORE GARCIA [address], [place], [address], [place] [facility] 06/12/2024 12:05:34 06/05/20 24 Allergy Immunotherapy Injections completed KISHORE GARCIA [address], [place], [address], [place] [facility] 06/05/2024 13:48:08 05/29/20 24 Allergy Immunotherapy Injections completed ROSA BUTTERFIELD RMA [address], [place], [address], [place] [facility] 05/29/2024 11:48:28 05/23/20 24 Allergy Immunotherapy Injections completed TULIO HYDE RN [address], [place], [address], [place] [facility] 05/23/2024 15:43:37 05/16/20 24 Allergy Immunotherapy Injections completed GLADYS PATA [address], [place], [address], [place] [facility] 05/16/2024 14:12:21 05/09/20 24 Allergy Immunotherapy Injections completed KISHORE GARCIA [address], [place], [address], [place] [facility] 05/09/2024 14:23:57 04/18/20 24 Allergy Immunotherapy Injections completed KISHORE GARCIA [address], [place], [address], [place] [facility] 04/18/2024 14:58:29 04/08/20 24 Allergy Immunotherapy Injections completed TULIO HYDE RN [address], [place], [address], [place] [facility] 04/08/2024 14:53:53 03/25/20 24 Allergy Immunotherapy Injections completed KISHORE GARCIA [address], [place], [address], [place] [facility] 03/25/2024 14:50:22 03/14/20 24 Allergy Immunotherapy Injections completed ROSA BUTTERFIELD, RMA [address], [place], [address], [facility] - [facility] 03/14/2024 14:07:58 02/28/20 24 Allergy Immunotherapy Injections completed SAMANTHAGADIEL SMITH GLADYSA [address], [place], [address], [facility] - [facility] 02/28/2024 13:06:11 02/21/20 24 Allergy Immunotherapy Injections completed SAMANTHA SMITH GLADYSA [address], [place], [address], [facility] - [facility] 02/21/2024 11:27:51 02/12/20 24 Allergy Immunotherapy Injections completed ROSA BURTCHAO, RMA [address], [place], [address], [facility] - [facility] 02/12/2024 14:32:23 02/01/20 24 Allergy Immunotherapy Injections completed SAMANTHA SMITH GLADYSA [address], [place], [address], [facility] - [facility] 02/01/2024 14:19:44 01/24/20 24 Allergy Immunotherapy Injections completed ROSA BURTCHAO, RMA [address], [place], [address], [facility] - [facility] 01/24/2024 14:21:37 Imaging Results None recorded. [...] drops INSTILL 1 DROP INTO BOTH EYES TWICE [...] eye drops,wilfredo pension INSTILL 1 DROP INTO THE EYE(S) DAILY FOR 30 DAYS active Not Available Not Available No t Available epinephri ne 0.3 mg/0.3 mL injection , auto-inje ctor 0.3 MG (0.3 ML) INTRAMUS CULARLY EVERY 10 MINUTES NEEDED FOR ANAPHYLA XIS FOR 30 DAYS FOR 2 DOSES active Not Available Not Available No t Available albuterol sulfate HFA 90 mcg/actua tion aerosol inhaler INHALE 1 PUFF EVERY 4 HOURS NEEDED FOR WHEEZE FOR 30 DAYS active Not Available Not [...] HFA aerosol inhaler active Medicati on ID: [id number] rand Name: Haleytri Annalisephe re Send [...] ICD10 Code Diagnosis IMO Codes Diagnosis Note [id number] ROSA BOOKER, [facility] Allergy [address] [facility] [address] [place] [address] 06/11/2025 11:44:16 06/11/2025 12:09:05 Perennial allergic rhinitis 450263183 J30.89 97324 TULIO HYDE RN Allergy 100 [facility], [address] [place] [address] 06/18/2025 09:54:49 06/18/2025 11:38:16 Perennial allergic rhinitis 199886083 J30.89 11765 SAMANTHA SARAH, RMA Allergy 100 [facility],[place] [address] [place] [address] 06/25/2025 10:09:37 06/25/2025 11:55:53 Perennial allergic rhinitis 027121523 J30.89 64154 ROSA BUTTERFIELD, RMA Allergy 100 [facility],[place] [address] [place] [address] 07/09/2025 09:53:22 07/09/2025 10:41:44 Perennial allergic rhinitis 346495848 J30.89 Health Concerns Section Related Observation LastModified by Organization Detai ls LastModified Time None Recorded Concern Status LastModified by Organization Details LastModified Time None Recorded Payers Encounter Date Sequence Insurance Name Policy Number Policy Elizabeth Covered Member ID Elizabeth Member ID Guarantor Name 07/09/2025 1 [employer] ([employer]) [id number] Shaw Vela [id number] Shaw Vela
--- OUTSIDE RECORDS SUMMARY | 2025-08-27 18:04 | XMS_ITS | Clinical Summary ---
Author Organization [facility] Address [address] [facility] [address] [place] [address] Phone Care Team Providers Care Needle Process Felt Goods Supervisor Name Role Phone Unavailable Primary Care Provider [...] file Medical Devices Not on file Insurance [facility] Additional Source Comments The information contained in this document represents components of the legal health record. It is not the complete legal health record.[facility]
--- OUTSIDE RECORDS SUMMARY | 2025-08-27 18:04 | XMS_ITS | Continuity of Care Document ---
Author Organization [place] - [facility], Allergy Address [address] [address] Care Team Providers Care Soaker Soda Worker Name Role Phone HERMELINDO JORGE Primary Care Provider [phone] Assessment Encounter Date Assessment Date Assessment LastModified by Organization Details LastModified Time 06/11/2025 06/11/2025 Visit With: Giselle Pastrana Use of Antihistamine s: No If yes: Vial Test Change in medications: No If yes Increase in asthma symptoms No If yes, inhaler use: Reaction to last injections: If yes: Allergy Symptoms: Other: Missed: 2 weeks Dose Decreased Aware of Vial Test Aware: Notes: [email or web address] Not available 06/11/2025 12:08:49 Plan of Treatment Reminders Order Date Submit [...] Address Organization Details Recorded Time Chronic rhinitis 26967034 Active 2022 Chronic rhinitis; Note: Date Diagnosed : 03/01/2023 6:05 PM (J31.0) Not Available [facility] 02:25:39 Allergic rhinitis 10841930 Active 2023 Allergic rhinitis: Due to other [...] ; Start Date : 3 Not Available [facility] 4 00:58:12 Perennial allergic rhinitis [id number] Active 2023 ROSA CELESTE, [facility] 100 [facility],[address], [address] , [facility] - [facility] 11:37:20 Problem Notes None recorded. Procedures Surgical History Date Name Laterality Status Provider Name and Address Organization Details Recorded Time 07/09/20 25 Allergy Immunotherapy Injections completed [address], [address], [facility] - [facility] 07/09/2025 10:41:19 06/25/20 25 Allergy Immunotherapy Injections completed [address], [address], [facility] - [facility] 06/25/2025 11:55:25 06/18/20 25 Allergy Immunotherapy Injections completed ROSA BOOKER [facility] 100 [facility],[address], [address], [facility] - [facility] 06/18/2025 11:37:48 06/11/20 25 Allergy Immunotherapy Injections completed [facility] 100 [facility],[address], [address], [facility] - [facility] 06/11/2025 12:08:33 05/21/20 25 Allergy Immunotherapy Injections completed ROSA KORZEC, RMA [address], [place], [address], [place] [facility] [place] 05/21/2025 13:05:07 05/07/20 25 Allergy Immunotherapy Injections completed Ankit Berumen [address], [place], [address], [place] [facility] [place] 05/07/2025 11:04:14 04/30/20 25 Allergy Immunotherapy Injections completed KISHORE GARCIA [address], [place], [address], [place] [facility] [place] 04/30/2025 11:56:49 04/23/20 25 Allergy Immunotherapy Injections completed Ankit Berumen [address], [place], [address], [place] [facility] [place] 04/23/2025 10:17:32 04/16/20 25 Allergy Immunotherapy Injections completed Ankit Berumen 100 [facility] [place],[address] [place] [address], [address], [place] [facility] [place] 04/16/2025 10:57:41 04/02/20 25 Allergy Immunotherapy Injections completed KISHORE GARCIA [address] [place] [address], [address], [place] [facility] [place] 04/02/2025 10:24:45 03/26/20 25 Allergy Immunotherapy Injections completed TULIO HYDE RN 100 [facility] [place],[address], [address], [place] [facility] [place] 03/26/2025 13:48:19 03/11/20 25 Allergy Immunotherapy Injections completed TULIO HYDE RN [address] [facility], [place], [address], [place] [facility] [place] 03/11/2025 11:20:55 03/05/20 25 Allergy Immunotherapy Injections completed ROSA BUTTERFIELD, RMA [address], [place], [address], [place] [facility] [place] 03/05/2025 10:41:19 02/20/20 25 Allergy Immunotherapy Injections completed ROSA BUTTERFIELD, RMA [address], [place], [address], [place] [facility] [place] 02/19/2025 13:39:06 02/13/20 25 Allergy Immunotherapy Injections completed GLADYS GARCIAA [address], [place], [address], [place] [facility] [place] 02/12/2025 12:04:33 02/05/20 25 Allergy Immunotherapy Injections completed KISHORE GARCIA [address], [place], [address], [place] [facility] [place] 02/04/2025 13:04:44 01/23/20 25 Allergy Immunotherapy Injections completed TULIO HYDE RN [address], [place], [address], [place] [facility] [place] 01/22/2025 10:42:56 01/17/20 25 Allergy Immunotherapy Injections completed KISHORE PAT [address], [place], [address], [place] [facility] [place] 01/16/2025 10:25:11 01/09/20 25 Allergy Immunotherapy Injections completed KISHORE GARCIA [address], [place], [address], [place] [facility] [place] 01/08/2025 11:21:38 01/02/20 25 Allergy Immunotherapy Injections completed KISHORE GARCIA [address], [place], [address], [place] [facility] [place] 01/01/2025 11:04:59 09/19/19 25 Allergy Immunotherapy Injections completed TULIO HYDE RN [address], [place], [address], [place] [facility] [place] 09/19/2024 13:09:48 09/11/19 25 Allergy Immunotherapy Injections completed KISHORE GARCIA [address], [place], [address], [place] [facility] [place] 09/11/2024 16:26:25 09/05/20 24 Allergy Immunotherapy Injections completed TULIO HYDE RN [address], [place], [address], [place] [facility] [place] 09/05/2024 11:35:54 08/21/20 24 Allergy Immunotherapy Injections completed KISHORE GARCIA [address], [place], [address], [place] [facility] [place] 08/21/2024 14:06:16 08/14/20 24 Allergy Immunotherapy Injections completed ROSA BUTTERFIELD RMA [address], [place], [address], [place] [facility] [place] 08/14/2024 14:21:22 08/01/20 24 Allergy Immunotherapy Injections completed ROSA BUTTERFIELD RMCarlos [address], [place], [address], [place] [facility] [place] 08/01/2024 12:27:05 07/24/20 24 Allergy Immunotherapy Injections completed TULIO HYDE RN [address] [place] [address], [address], [place] [facility] [place] 07/24/2024 13:49:19 07/17/20 24 Allergy Immunotherapy Injections completed KISHORE GARCIA [address] [place] [address], [address], [place] [facility] [place] 07/17/2024 11:15:01 07/10/20 24 Allergy Immunotherapy Injections completed KISHORE GARCIA [address] [place] [address], [address], [place] [facility] [place] 07/10/2024 15:03:55 07/03/20 24 Allergy Immunotherapy Injections completed ROSA BUTTERFIELD RMA [address], [place], [address], [place] [facility] [place] 07/03/2024 13:16:15 06/26/20 24 Allergy Immunotherapy Injections completed KISHORE GARCIA [address], [place], [address], [place] [facility] [place] 2024 13:40:24 06/12/20 24 Allergy Immunotherapy Injections completed KISHORE GARCIA [address], [place], [address], [place] [facility] [place] 06/12/2024 12:05:34 06/05/20 24 Allergy Immunotherapy Injections completed KISHORE GARCIA [address], [place], [address], [place] [facility] [place] 06/05/2024 13:48:08 05/29/20 24 Allergy Immunotherapy Injections completed ROSA BUTTERFIELD RMA [address], [place], [address], [place] [facility] [place] 05/29/2024 11:48:28 05/23/20 24 Allergy Immunotherapy Injections completed TULIO HYDE RN [address], [place], [address], [place] [facility] [place] 05/23/2024 15:43:37 05/16/20 24 Allergy Immunotherapy Injections completed GLADYS PATA [address], [place], [address], [place] [facility] [place] 05/16/2024 14:12:21 05/09/20 24 Allergy Immunotherapy Injections completed KISHORE GARCIA [address], [place], [address], [place] [facility] 05/09/2024 14:23:57 04/18/20 24 Allergy Immunotherapy Injections completed KISHORE GARCIA [address], [place], [address], [place] [facility] 04/18/2024 14:58:29 04/08/20 24 Allergy Immunotherapy Injections completed TULIO HYDE RN [address], [place], [address], [place] [facility] [place] 04/08/2024 14:53:53 03/25/20 24 Allergy Immunotherapy Injections completed KISHORE GARCIA [address], [place], [address], [place] [facility] 03/25/2024 14:50:22 03/14/20 24 Allergy Immunotherapy Injections completed ROSA BUTTERFIELD, RMA [address], [place], [address], [facility] - [facility] [place] 03/14/2024 14:07:58 02/28/20 24 Allergy Immunotherapy Injections completed GISELLEGADIEL PASTRANA GLADYSA [address], [place], [address], [facility] - [facility] 02/28/2024 13:06:11 02/21/20 24 Allergy Immunotherapy Injections completed GISELLE PASTRANA GLADYSA [address], [place], [address], [facility] - [facility] 02/21/2024 11:27:51 02/12/20 24 Allergy Immunotherapy Injections completed ROSA CELESTEKelsi, RMA [address], [place], [address], [facility] - [facility] 02/12/2024 14:32:23 02/01/20 24 Allergy Immunotherapy Injections completed GISELLE PASTRANA GLADYSA [address], [place], [address], [facility] - [facility] 02/01/2024 14:19:44 01/24/20 24 Allergy Immunotherapy Injections completed ROSA BURTCHAO, RMA [address], [place], [address], [facility] - Ear N[facility] [...] HFA aerosol inhaler active Medicati on ID: [id number] B rand Name: Anni Annalisephe re Send [...] ICD10 Code Diagnosis IMO Codes Diagnosis Note [id number] ROSA CELESTE, RMA Allergy 100 [facility] [address] [place] [address] 05/21/2025 10:19:21 05/21/2025 13:05:44 Perennial allergic rhinitis [id number] J30.89 [id number] ROSA BUTTERFIELD, RMA Allergy 100 [facility], [address] [place] [address] 06/11/2025 11:44:16 06/11/2025 12:09:05 Perennial allergic rhinitis [id number] J30.89 Health Concerns Section Related Observation LastModified by Organization Jenaro killian LastModified Time None Recorded Concern Status LastModified by Organization Details LastModified Time None Recorded Payers Encounter Date Sequence Insurance Name Policy Number Policy Elizabeth Covered Member ID Elizabeth Member ID Guarantor Name 06/11/2025 1 [employer]) [id number] Shaw Vela [id number] Shaw Vela
--- OUTSIDE RECORDS SUMMARY | 2025-08-27 18:04 | XMS_ITS | Continuity of Care Document ---
Author Organization [place] - [facility], Allergy Address [address] [address] Care Team Providers Care Water Gas Operator Name Role Phone HERMELINDO JORGE Primary Care Provider Assessment Encounter Date Assessment Date Assessment LastModified by Organization Details LastModified Time 06/25/2025 06/25/2025 Visit With: Giselle Pastrana Use of Antihistamine s: No If yes: Vial Test Change in medications: No If yes Increase in asthma symptoms No Asthma Hx If yes, inhaler use: Reaction to last injections: No If yes: Allergy Symptoms: Other: Missed: Dose Aware of Vial Test Aware: Notes: [email or web address] Not available 06/25/2025 11:55:38 Plan of Treatment [...] Address Organization Details Recorded Time Chronic rhinitis 82886215 Active 2022 Chronic rhinitis; Note: Date Diagnosed : 03/01/2023 6:05 PM (J31.0) Not Available [facility] 02:25:39 Allergic rhinitis 08590159 Active 2023 Allergic rhinitis: Due to other [...] Date : 3 Not Available [facility] 4 00:58:12 Perennial allergic rhinitis 737866222 Active 2023 ROSA CELESTE, [facility] 100 [facility],[address], [address] , [facility] - [facility] 11:37:20 Problem Notes None recorded. Procedures Surgical History Date Name Laterality Status Provider Name and Address Organization Details Recorded Time 07/09/20 25 Allergy Immunotherapy Injections completed [address], [address], [facility] - [facility] 07/09/2025 10:41:19 06/25/20 25 Allergy Immunotherapy Injections completed [address], [address], [facility] - [facility] 06/25/2025 11:55:25 06/18/20 25 Allergy Immunotherapy Injections completed ROSA BOOKER [facility] 100 [facility],[address], [address], [facility] - [facility] 06/18/2025 11:37:48 06/11/20 25 Allergy Immunotherapy Injections completed [facility] 100 [facility],[address], [address], [facility] - [facility] 06/11/2025 12:08:33 05/21/20 25 Allergy Immunotherapy Injections completed ROSA KORZEC, RMA [address], [place], [address], [place] [facility] [place] 05/21/2025 13:05:07 05/07/20 25 Allergy Immunotherapy Injections completed Ankit Berumen [address], [place], [address], [place] [facility] [place] 05/07/2025 11:04:14 04/30/20 25 Allergy Immunotherapy Injections completed KISHORE GARCIA [address], [address], [place] [facility] [place] 04/30/2025 11:56:49 04/23/20 25 Allergy Immunotherapy Injections completed Ankit Berumen [address], [place], [address], [place] [facility] [place] 04/23/2025 10:17:32 04/16/20 25 Allergy Immunotherapy Injections completed Ankit Berumen 100 [facility] [place],[address] [place] [address], [address], [place] [facility] [place] 04/16/2025 10:57:41 04/02/20 25 Allergy Immunotherapy Injections completed KISHORE GARCIA [address] [place] [address], [address], [place] [facility] [place] 04/02/2025 10:24:45 03/26/20 25 Allergy Immunotherapy Injections completed TULIO HYDE RN 100 [facility] [place],[address], [address], [place] [facility] [place] 03/26/2025 13:48:19 03/11/20 25 Allergy Immunotherapy Injections completed TULIO HYDE RN [address] [facility], [place], [address], [place] [facility] [place] 03/11/2025 11:20:55 03/05/20 25 Allergy Immunotherapy Injections completed ROSA BUTTERFIELD, RMA [address], [address], [place] [facility] [place] 03/05/2025 10:41:19 02/20/20 25 Allergy Immunotherapy Injections completed ROSA BUTTERFIELD, RMA [address], [place], [address], [place] [facility] [place] 02/19/2025 13:39:06 02/13/20 25 Allergy Immunotherapy Injections completed GLADYS GARCIAA [address], [place], [address], [place] [facility] [place] 02/12/2025 12:04:33 02/05/20 25 Allergy Immunotherapy Injections completed KISHORE GARCIA [address], [place], [address], [place] [facility] [place] 02/04/2025 13:04:44 01/23/20 25 Allergy Immunotherapy Injections completed TULIO HYDE RN [address], [address], [place] [facility] [place] 01/22/2025 10:42:56 01/17/20 25 Allergy Immunotherapy Injections completed KISHORE PAT [address], [address], [place] [facility] [place] 01/16/2025 10:25:11 01/09/20 25 Allergy Immunotherapy Injections completed KISHORE GARCIA [address], [address], [place] [facility] [place] [facility] 01/08/2025 11:21:38 01/02/20 25 Allergy Immunotherapy Injections completed KISHORE GARCIA [address], [address], [place] [facility] [place] 01/01/2025 11:04:59 09/19/19 25 Allergy Immunotherapy Injections completed TULIO HYDE RN [address], [address], [place] [facility] [place] 09/19/2024 13:09:48 09/11/19 25 Allergy Immunotherapy Injections completed KISHORE GARCIA [address], [address], [place] [facility] [place] 09/11/2024 16:26:25 09/05/20 24 Allergy Immunotherapy Injections completed TULIO HYDE RN [address], [place], [address], [place] [facility] [place] [facility] 09/05/2024 11:35:54 08/21/20 24 Allergy Immunotherapy Injections completed KISHORE GARCIA [address], [address], [place] [facility] 08/21/2024 14:06:16 08/14/20 24 Allergy Immunotherapy Injections completed ROSA BUTTERFIELD RMA [address], [place], [address], [place] [facility] [place] [facility] 08/14/2024 14:21:22 08/01/20 24 Allergy Immunotherapy Injections completed ROSA BUTTERFIELD RMCarlos [address], [address], [place] [facility] [place] 08/01/2024 12:27:05 07/24/20 24 Allergy Immunotherapy Injections completed TULIO HYDE RN [address] [place] [address], [address], [place] [facility] [place] [facility] 07/24/2024 13:49:19 07/17/20 24 Allergy Immunotherapy Injections completed KISHORE GARCIA [address] [place] [address], [address], [place] [facility] [place] [facility] 07/17/2024 11:15:01 07/10/20 24 Allergy Immunotherapy Injections completed KISHORE GARCIA [address] [facility] [place] [address], [address], [place] [facility] [place] [facility] 07/10/2024 15:03:55 07/03/20 24 Allergy Immunotherapy Injections completed ROSA BUTTERFIELD RMA [address], [address], [place] [facility] 07/03/2024 13:16:15 06/26/20 24 Allergy Immunotherapy Injections completed KISHORE GARCIA [address], [address], [place] [facility] [place] [facility] 2024 13:40:24 06/12/20 24 Allergy Immunotherapy Injections completed KISHORE GARCIA [address], [place], [address], [place] [facility] 06/12/2024 12:05:34 06/05/20 24 Allergy Immunotherapy Injections completed KISHORE GARCIA [address], [place], [address], [place] [facility] [place] [facility] 06/05/2024 13:48:08 05/29/20 24 Allergy Immunotherapy Injections completed ROSA BUTTERFIELD RMA [address], [place], [address], [place] [facility] [place] [facility] 05/29/2024 11:48:28 05/23/20 24 Allergy Immunotherapy Injections completed TULIO HYDE RN [address], [address], [place] [facility] [place] [facility] 05/23/2024 15:43:37 05/16/20 24 Allergy Immunotherapy Injections completed GLADYS PATA [address], [place], [address], [place] [facility] [place] [facility] 05/16/2024 14:12:21 05/09/20 24 Allergy Immunotherapy Injections completed KISHORE GARCIA [address], [place], [address], [place] [facility] [place] [facility] 05/09/2024 14:23:57 04/18/20 24 Allergy Immunotherapy Injections completed KISHORE GARCIA [address], [place], [address], [place] [facility] [place] [facility] 04/18/2024 14:58:29 04/08/20 24 Allergy Immunotherapy Injections completed TULIO HYDE RN [address] [facility], [place], [address], [place] [facility] [place] [facility] 04/08/2024 14:53:53 03/25/20 24 Allergy Immunotherapy Injections completed KISHORE GARCIA [address], [place], [address], [place] [facility] [place] [facility] 03/25/2024 14:50:22 03/14/20 24 Allergy Immunotherapy Injections completed ROSA BUTTERFIELD, RMA [address], [place], [address], [facility] - [facility] [place] [facility] 03/14/2024 14:07:58 02/28/20 24 Allergy Immunotherapy Injections completed GISELLEGADIEL PASTRANA GLADYSA [address], [place], [address], [facility] - [facility] 02/28/2024 13:06:11 02/21/20 24 Allergy Immunotherapy Injections completed GISELLE PASTRANA GLADYSA [address], [place], [address], [facility] - [facility] 02/21/2024 11:27:51 02/12/20 24 Allergy Immunotherapy Injections completed ROSA CELESTEKelsi, RMA [address], [place], [address], [facility] - [facility] 02/12/2024 14:32:23 02/01/20 24 Allergy Immunotherapy Injections completed GISELLE PASTRANA GLADYSA [address], [place], [address], [facility] - [facility] 02/01/2024 14:19:44 01/24/20 24 Allergy Immunotherapy Injections completed ROSA BURTCHAO, RMA [address], [address], [facility] [...] HFA aerosol inhaler active Medicati on ID: [id number] rand Name: Haleytri Aerosphe re Send [...] ICD10 Code Diagnosis IMO Codes Diagnosis Note [id number] ROSA CELESTE, Carlos Allergy 100 [facility] 100 [place] [address] 06/11/2025 11:44:16 06/11/2025 12:09:05 Perennial allergic rhinitis [id number] J30.89 [id number] TULIO HYDE RN Allergy 100 [facility], [address] 100 [place] [address] 06/18/2025 09:54:49 06/18/2025 11:38:16 Perennial allergic rhinitis [id number] J30.89 [id number] KISHORE GARCIA Allergy 100 [facility] 100 [facility] [place] [address] 06/25/2025 10:09:37 06/25/2025 11:55:53 Perennial allergic rhinitis 227467029 J30.89 Health Concerns Section Related Observation LastModified by Organization Jenaro ls LastModified Time None Recorded Concern Status LastModified by Organization Details LastModified Time None Recorded Payers Encounter Date Sequence Insurance Name Policy Number Policy Elizabeth Covered Member ID Elizabeth Member ID Guarantor Name 06/25/2025 1 [employer] [id number] Shaw Vela [id number] Shaw Vela
--- OUTSIDE RECORDS SUMMARY | 2025-08-27 18:04 | XMS_ITS | Clinical Summary ---
Author Organization [facility] Address [address] [place] [address] Care Team Providers Care Automation And Controls Instructor Name Role Phone Unavailable Primary Care Provider [...]
--- OUTSIDE RECORDS SUMMARY | 2025-08-27 18:04 | XMS_ITS | Continuity of Care Document ---
Author Organization [place] - [facility], Allergy Address [address] [address] Care Team Providers Care Director Cardiology Name Role Phone HERMELINDO JORGE Primary Care Provider Assessment Encounter Date Assessment Date Assessment LastModified by Organization Details LastModified Time 06/18/2025 06/18/2025 Visit With: Tulio Hyde RN Use of Antihistamine s: Yes If yes: Vial Test Change in medications: No If yes Increase in asthma symptoms If yes, inhaler use: Reaction to last injections: No If yes: Allergy Symptoms: Other: Missed: Dose Aware of Vial Test Aware: Notes: [email or web address] Not available 06/18/2025 11:37:56 Plan of Treatment Reminders Order Date Submit [...] Address Organization Details Recorded Time Chronic rhinitis 61773839 Active 2022 Chronic rhinitis; Note: Date Diagnosed : 03/01/2023 6:05 PM (J31.0) Not Available [facility] 02:25:39 Allergic rhinitis [id number] Active 2023 Allergic rhinitis: Due to other [...] [facility] 4 00:58:12 Perennial allergic rhinitis [id number] Active 2023 ROSA CELESTE, [facility] 100 [facility],[address], [address] , [facility] - [facility] 11:37:20 Problem Notes None recorded. Procedures Surgical History Date Name Laterality Status Provider Name and Address Organization Details Recorded Time 07/09/20 25 Allergy Immunotherapy Injections completed [address], [address], [facility] - [facility] 07/09/2025 10:41:19 06/25/20 25 Allergy Immunotherapy Injections completed [address], [address], [facility] - [facility] 06/25/2025 11:55:25 06/18/20 25 Allergy Immunotherapy Injections completed ROSA BOOKER [facility] 100 [facility],[address], [address], [facility] - [facility] 06/18/2025 11:37:48 06/11/20 25 Allergy Immunotherapy Injections completed [facility] 100 [facility],[address], [address], [facility] - [facility] 06/11/2025 12:08:33 05/21/20 25 Allergy Immunotherapy Injections completed ROSA KORZEC, RMA [address], [place], [address], [place] - [facility] 05/21/2025 13:05:07 05/07/20 25 Allergy Immunotherapy Injections completed Ankit Berumen [address], [place], [address], [place] [facility] 05/07/2025 11:04:14 04/30/20 25 Allergy Immunotherapy Injections completed KISHORE GARCIA [address], [address], [place] [facility] 04/30/2025 11:56:49 04/23/20 25 Allergy Immunotherapy Injections completed Ankit Berumen [address], [place], [address], [place] [facility] 04/23/2025 10:17:32 04/16/20 25 Allergy Immunotherapy Injections completed Ankit Berumen [address] [facility] [place],[address] [place] [address], [address], [place] [facility] 04/16/2025 10:57:41 04/02/20 25 Allergy Immunotherapy Injections completed KISHORE GARCIA [address] [place] [address], [address], [place] [facility] 04/02/2025 10:24:45 03/26/20 25 Allergy Immunotherapy Injections completed TULIO HYDE RN [address] [facility] [place],[address], [address], [place] [facility] 03/26/2025 13:48:19 03/11/20 25 Allergy Immunotherapy Injections completed TULIO HYDE RN [address],AJ [facility], [place], [address], [place] [facility] 03/11/2025 11:20:55 03/05/20 25 Allergy Immunotherapy Injections completed ROSA BUTTERFIELD, RMA [address], [place], [address], [place] [facility] 03/05/2025 10:41:19 02/20/20 25 Allergy Immunotherapy Injections completed ROSA BUTTERFIELD, RMA [address], [place], [address], [place] [facility] 02/19/2025 13:39:06 02/13/20 25 Allergy Immunotherapy Injections completed GLADYS GARCIAA [address], [place], [address], [place] [facility] 02/12/2025 12:04:33 02/05/20 25 Allergy Immunotherapy Injections completed KISHORE GARCIA [address], [place], [address], [place] [facility] 02/04/2025 13:04:44 01/23/20 25 Allergy Immunotherapy Injections completed TULIO HYDE RN [address], [place], [address], [place] [facility] 01/22/2025 10:42:56 01/17/20 25 Allergy Immunotherapy Injections completed KISHORE PAT [address], [address], [place] [facility] 01/16/2025 10:25:11 01/09/20 25 Allergy Immunotherapy Injections completed KISHORE GARCIA [address], [address], [place] [facility] 01/08/2025 11:21:38 01/02/20 25 Allergy Immunotherapy Injections completed KISHORE GARCIA [address], [place], [address], [place] [facility] 01/01/2025 11:04:59 09/19/19 25 Allergy Immunotherapy Injections completed TULIO HYDE RN [address], [place], [address], [place] [facility] 09/19/2024 13:09:48 09/11/19 25 Allergy Immunotherapy Injections completed KISHORE GARCIA [address], [place], [address], [place] [facility] 09/11/2024 16:26:25 09/05/20 24 Allergy Immunotherapy Injections completed TULIO HYDE RN [address], [place], [address], [place] [facility] 09/05/2024 11:35:54 08/21/20 24 Allergy Immunotherapy Injections completed KISHORE GARCIA [address], [address], [place] [facility] 08/21/2024 14:06:16 08/14/20 24 Allergy Immunotherapy Injections completed ROSA BUTTERFIELD RMA [address], [place], [address], [place] [facility] 08/14/2024 14:21:22 08/01/20 24 Allergy Immunotherapy Injections completed ROSA BUTTERFIELD RMCarlos [address], [place], [address], [place] [facility] 08/01/2024 12:27:05 07/24/20 24 Allergy Immunotherapy Injections completed TULIO HYDE RN [address] [place] [address], [address], [place] [facility] 07/24/2024 13:49:19 07/17/20 24 Allergy Immunotherapy Injections completed KISHORE GARCIA [address] [place] [address], [address], [place] [facility] 07/17/2024 11:15:01 07/10/20 24 Allergy Immunotherapy Injections completed KISHORE GARCIA [address] [place] [address], [address], [place] [facility] 07/10/2024 15:03:55 07/03/20 24 Allergy Immunotherapy Injections completed ROSA BUTTERFIELD RMA [address], [address], [place] [facility] 07/03/2024 13:16:15 06/26/20 24 Allergy Immunotherapy Injections completed KISHORE GARCIA [address], [address], [place] [facility] 2024 13:40:24 06/12/20 24 Allergy Immunotherapy Injections completed KISHORE GARCIA [address], [place], [address], [place] [facility] 06/12/2024 12:05:34 06/05/20 24 Allergy Immunotherapy Injections completed KISHORE GARCIA [address], [place], [address], [place] [facility] 06/05/2024 13:48:08 05/29/20 24 Allergy Immunotherapy Injections completed ROSA BUTTERFIELD RMA [address], [place], [address], [place] [facility] 05/29/2024 11:48:28 05/23/20 24 Allergy Immunotherapy Injections completed TULIO HYDE RN [address], [address], [place] [facility] 05/23/2024 15:43:37 05/16/20 24 Allergy Immunotherapy Injections completed GLADYS PATA [address], [place], [address], [place] [facility] 05/16/2024 14:12:21 05/09/20 24 Allergy Immunotherapy Injections completed KISHORE GARCIA [address], [place], [address], [place] [facility] 05/09/2024 14:23:57 04/18/20 24 Allergy Immunotherapy Injections completed KISHORE GARCIA [address], [place], [address], [place] [facility] 04/18/2024 14:58:29 04/08/20 24 Allergy Immunotherapy Injections completed TULIO HYDE RN [address], [place], [address], [place] [facility] 04/08/2024 14:53:53 03/25/20 24 Allergy Immunotherapy Injections completed KISHORE GARCIA [address], [place], [address], [place] [facility] 03/25/2024 14:50:22 03/14/20 24 Allergy Immunotherapy Injections completed ROSA BUTTERFIELD, RMA [address], [place], [address], [facility] - [facility] 03/14/2024 14:07:58 02/28/20 24 Allergy Immunotherapy Injections completed SAMANTHAGADIEL SMITH GLADYSA [address], [address], [facility] - [facility] 02/28/2024 13:06:11 02/21/20 24 Allergy Immunotherapy Injections completed SAMANTHA SMITH GLADYSA [address], [place], [address], [facility] - [facility] 02/21/2024 11:27:51 02/12/20 24 Allergy Immunotherapy Injections completed ROSA CELESTEKelsi, RMA [address], [place], [address], [facility] - [facility] 02/12/2024 14:32:23 02/01/20 24 Allergy Immunotherapy Injections completed SAMANTHA SMITH GLADYSA [address], [place], [address], [facility] - [facility] 02/01/2024 14:19:44 01/24/20 24 Allergy Immunotherapy Injections completed ROSA BURTCHAO, RMA [address], [place], [address], [facility] - [facility] 01/24/2024 14:21:37 Imaging Results None [...] HFA aerosol inhaler active Medicati on ID: [id number] rand Name: Haleytri Annalisephe re Send [...] ICD10 Code Diagnosis IMO Codes Diagnosis Note [id number] ROSA CELESTE, RMA Allergy 100 [facility] [address] [place] [address] 05/21/2025 10:19:21 05/21/2025 13:05:44 Perennial allergic rhinitis [id number] J30.89 [id number] ROSA CELESTE, RMA Allergy 100 [facility], [address] [place] [address] 06/11/2025 11:44:16 06/11/2025 12:09:05 Perennial allergic rhinitis [id number] J30.89 [id number] TULIO HYDE, cross tie cutter [address] [place] [address] 100 [place] [place] [address] 06/18/2025 09:54:49 06/18/2025 11:38:16 Perennial allergic rhinitis [id number] J30.89 Health Concerns Section Related Observation LastModified by Organization Detai ls LastModified Time None Recorded Concern Status LastModified by Organization Details LastModified Time None Recorded Payers Encounter Date Sequence Insurance Name Policy Number Policy Elizabeth Covered Member ID Elizabeth Member ID Guarantor Name 06/18/2025 1 Sandata (ZALPO) [id number] Shaw Vela [id number] Shaw Vela
--- OUTSIDE RECORDS SUMMARY | 2025-08-27 18:04 | XMS_ITS | Data Portability ---
Author Organization [place] - [facility], Allergy Address [address] [address] Care Team Providers Care Automobile Drivers Name Role Phone HERMELINDO JORGE Primary Care Provider Assessment Encounter Date Assessment Date Assessment LastModified by Organization Details LastModified Time 05/21/2025 05/21/2025 Visit With: KISHORE Sewell Use of Antihistamine s: No If yes: Vial Test Change in medications: No If yes Increase in asthma symptoms No If yes, inhaler use: Reaction to last injections: No If yes: Allergy Symptoms: Other: Missed: 1 week Dose Repeated Aware of Vial Test Aware: Notes: [email or web address] Not available 05/21/2025 13:05:27 06/11/2025 06/11/2025 Visit With: Giselle Pastrana Use of Antihistamine s: No If yes: Vial Test Change in medications: No If yes Increase in asthma symptoms No If yes, inhaler use: Reaction to last injections: If yes: Allergy Symptoms: Other: Missed: 2 weeks Dose Decreased Aware of Vial Test Aware: Notes: [email or web address] Not available 06/11/2025 12:08:49 06/18/2025 06/18/2025 Visit With: uTlio Hyde RN Use of Antihistamine s: Yes If yes: Vial Test Change in medications: No If yes Increase in asthma symptoms If yes, inhaler use: Reaction to last injections: No If yes: Allergy Symptoms: Other: Missed: Dose Aware of Vial Test Aware: Notes: [email or web address] Not available 06/18/2025 11:37:56 06/25/2025 06/25/2025 Visit With: Giselle Pastrana Use of Antihistamine s: No If yes: Vial Test Change in medications: No If yes Increase in asthma symptoms No Asthma Hx If yes, inhaler use: Reaction to last injections: No If yes: Allergy Symptoms: Other: Missed: Dose Aware of Vial Test Aware: Notes: [email or web address] Not available 06/25/2025 11:55:38 07/09/2025 07/09/2025 Visit With: KISHORE Sewell Use of Antihistamine s: No If yes: Vial Test Change in medications: No If yes Increase in asthma symptoms No If yes, inhaler use: Reaction to last injections: No If yes: Allergy Symptoms: Other: Missed: Dose Aware of Vial Test Aware: Notes: [email or web address] Not available 07/09/2025 10:41:32 Plan of Treatment [...] Address Organization Details Recorded Time Chronic rhinitis 73045096 Active 2022 Chronic rhinitis; Note: Date Diagnosed : 03/01/2023 6:05 PM (J31.0) Not Available [facility] 4 02:25:39 Allergic rhinitis 56879850 Active 2023 Allergic rhinitis: Due to other [...] Start Date : 3 Not Available [facility] 4 00:58:12 Perennial allergic rhinitis 541572387 Active 2023 ROSA BUTTERFIELD, A [facility] [place] [address], [place], [address] , [facility] - [facility] 11:37:20 Problem Notes None recorded. Procedures Surgical History Date Name Laterality Status Provider Name and Address Organization Details Recorded Time 07/09/20 25 Allergy Immunotherapy Injections completed Ankit Ata 100 [facility],AJ [facility], [place], [address], [facility] - [facility] 07/09/2025 10:41:19 06/25/20 25 [facility] 100 [facility],[address] [place] [address], [place], [address], [facility] - [facility] 06/25/2025 11:55:25 06/18/20 25 Allergy Immunotherapy Injections completed ROSA BUTTERFIELD A [facility] [place],[address], [address], [facility] - [facility] 06/18/2025 11:37:48 06/11/20 25 Allergy Immunotherapy Injections completed Ankit Ata 100 [facility],[address], [address], [facility] - [facility] 06/11/2025 12:08:33 05/21/20 25 Allergy Immunotherapy Injections completed ROSA BUTTERFIELD RMA [address] [facility] [address], [place], [address], [facility] - [facility] 05/21/2025 13:05:07 05/07/20 25 Allergy Immunotherapy Injections completed Ankit Greenbergos [address] [facility] [place],[address], [place], [address], [facility] - [facility] 05/07/2025 11:04:14 04/30/20 25 Allergy Immunotherapy Injections completed GISELLE PASTRANA A [address], [place], [address], [place] [facility] 04/30/2025 11:56:49 04/23/20 25 Allergy Immunotherapy Injections completed Ankit Berumen [address], [place], [address], [place] [facility] 04/23/2025 10:17:32 04/16/20 25 Allergy Immunotherapy Injections completed Ankit Berumen [address], [place], [address], [place] [facility] 04/16/2025 10:57:41 04/02/20 25 Allergy Immunotherapy Injections completed KISHORE GARCIA [address] [facility] [address], [place], [address], [place] [facility] 04/02/2025 10:24:45 03/26/20 25 Allergy Immunotherapy Injections completed TULIO HYDE RN 100 [facility] [place],[address], [address], [place] [facility] 03/26/2025 13:48:19 03/11/20 25 Allergy Immunotherapy Injections completed TULIO HYDE RN [address] [facility] [place] [address] [place] [address], [address], [place] [facility] 03/11/2025 11:20:55 03/05/20 25 Allergy Immunotherapy Injections completed ROSA BUTTERFIELD RMA [address], [place], [address], [place] [facility] 03/05/2025 10:41:19 02/20/20 25 Allergy Immunotherapy Injections completed KISHORE SEWELL [address] [facility] [address], [place], [address], [place] [facility] 02/19/2025 13:39:06 02/13/20 25 Allergy Immunotherapy Injections completed KISHORE GARCIA [address], [place], [address], [place] [facility] 02/12/2025 12:04:33 02/05/20 25 Allergy Immunotherapy Injections completed GISELLE SARAH, RMA [address], [place], [address], [place] [facility] 02/04/2025 13:04:44 01/23/20 25 Allergy Immunotherapy Injections completed TULIO HYDE RN [address] [facility] [address], [place], [address], [place] [facility] 01/22/2025 10:42:56 01/17/20 25 Allergy Immunotherapy Injections completed ROSA BUTTERFIELD RMCarlos [address], [place], [address], [place] [facility] 01/16/2025 10:25:11 01/09/20 25 Allergy Immunotherapy Injections completed KISHORE GARCIA [address] [facility] [address] [place] [address], [address], [place] [facility] 01/08/2025 11:21:38 01/02/20 25 Allergy Immunotherapy Injections completed KISHORE GARCIA [address] [facility] [place] [address] [place] [address], [address], [place] [facility] 01/01/2025 11:04:59 09/19/19 25 Allergy Immunotherapy Injections completed TULIO HYDE RN [address] [facility] [address] [place] [address], [address], [place] [facility] 09/19/2024 13:09:48 09/11/19 25 Allergy Immunotherapy Injections completed KISHORE GARCIA [address] [facility] [address] [place] [address], [address], [place] [facility] 09/11/2024 16:26:25 09/05/20 24 Allergy Immunotherapy Injections completed TULIO HYDE RN [address] [facility] [address], [place], [address], [place] [facility] 09/05/2024 11:35:54 08/21/20 24 Allergy Immunotherapy Injections completed KISHORE GARCIA [address], [place], [address], [place] [facility] 08/21/2024 14:06:16 08/14/20 24 Allergy Immunotherapy Injections completed ROSA KORZEC, RMA [address], [place], [address], [place] [facility] 08/14/2024 14:21:22 08/01/20 24 Allergy Immunotherapy Injections completed ROSA BUTTERFIELD, RMA [address], [place], [address], [place] [facility] 08/01/2024 12:27:05 07/24/20 24 Allergy Immunotherapy Injections completed TULIO HYDE RN [address], [place], [address], [place] [facility] 07/24/2024 13:49:19 07/17/20 24 Allergy Immunotherapy Injections completed KISHORE GARCIA [address], [place], [address], [place] [facility] 07/17/2024 11:15:01 07/10/20 24 Allergy Immunotherapy Injections completed KISHORE GARCIA [address], [place], [address], [place] [facility] 07/10/2024 15:03:55 07/03/20 24 Allergy Immunotherapy Injections completed ROSA BUTTERFIELD RMA [address], [place], [address], [place] [facility] 07/03/2024 13:16:15 06/26/20 24 Allergy Immunotherapy Injections completed KISHORE GARCIA [address], [place], [address], [place] [facility] 2024 13:40:24 06/12/20 24 Allergy Immunotherapy Injections completed KISHORE GARCIA [address], [place], [address], [place] [facility] 06/12/2024 12:05:34 06/05/20 24 Allergy Immunotherapy Injections completed GLADYS GARCIAA [address], [place], [address], [place] [facility] 06/05/2024 13:48:08 05/29/20 24 Allergy Immunotherapy Injections completed ROSA BUTTERFIELD RMCarlos [address], [place], [address], [place] [facility] 05/29/2024 11:48:28 05/23/20 24 Allergy Immunotherapy Injections completed TULIO HYDE RN [address], [place], [address], [place] [facility] 05/23/2024 15:43:37 05/16/20 24 Allergy Immunotherapy Injections completed ROSA BUTTERFIELD RMCarlos [address], [place], [address], [place] [facility] 05/16/2024 14:12:21 05/09/20 24 Allergy Immunotherapy Injections completed KISHORE GARCIA [address], [place], [address], [place] [facility] 05/09/2024 14:23:57 04/18/20 24 Allergy Immunotherapy Injections completed KISHORE GARCIA [address],AJ [facility], [place], [address], [place] [facility] 04/18/2024 14:58:29 04/08/20 24 Allergy Immunotherapy Injections completed TULIO HYDE RN [address] [facility] [place] [address], [address], [place] [facility] 04/08/2024 14:53:53 03/25/20 24 Allergy Immunotherapy Injections completed KISHORE GARCIA [address] [facility], [place], [address], [place] [facility] 03/25/2024 14:50:22 03/14/20 24 Allergy Immunotherapy Injections completed ROSA BUTTERFIELD RMA [address], [place], [address], [place] [facility] 03/14/2024 14:07:58 02/28/20 24 Allergy Immunotherapy Injections completed KISHORE GARCIA [address], [place], [address], [place] [facility] 02/28/2024 13:06:11 02/21/20 24 Allergy Immunotherapy Injections completed GISELLECarlos PASTRANA, GLADYSA [address], [place], [address], [facility] - [facility] 02/21/2024 11:27:51 02/12/20 24 Allergy Immunotherapy Injections completed ROSA BUTTERFIELD, RMA [address], [place], [address], [place] [facility] 02/12/2024 14:32:23 02/01/20 24 Allergy Immunotherapy Injections completed GISELLECarlos PASTRANA GLADYSA [address], [place], [address], [facility] - [facility] 02/01/2024 14:19:44 01/24/20 24 Allergy Immunotherapy Injections completed ROSA CELESTEKelsi, A [address] [facility], [place], [address], [facility] - [facility] 01/24/2024 14:21:37 Imaging Results None recorded. [...] HFA aerosol inhaler active Medicati on ID: [id number] B rand Name: Lorenzaztri Aerosphe re Send [...] Code Diagnosis IMO Codes Diagnosis Note 562 [facility], A Allergy [address] [place] [address] 01/24/2024 14:19:11 01/25/2024 12:36:37 Perennial allergic rhinitis [id number] J30.89 1526 [facility] Allergy [address] [place] [address] 02/01/2024 14:18:47 02/01/2024 14:32:52 Perennial allergic rhinitis [id number] J30.89 2723 GISELLE PASTRANA, [facility] Allergy [address] [place] [address] 02/12/2024 13:35:10 02/12/2024 16:19:08 Perennial allergic rhinitis [id number] J30.89 3173 BRIGITTE HANNA MD ENTS of [address] [address] 02/15/2024 16:05:12 02/15/2024 16:58:27 Allergic rhinitis 94311042 J30.89 53-year-ol d male with allergies and [...] some congested mucosa in his nasal cavity.Con casandra current regimen. Follow-up 6 months. 3934 GISELLE PASTRANA [facility] Allergy [address] [place] [address],[place] [address] [place] [address] 02/21/2024 10:37:54 02/21/2024 11:33:26 Perennial allergic rhinitis [id number] J30.89 4928 GISELLE PASTRANA [facility] Allergy [address] [place] [address],[place] [address] [place] [address] 02/28/2024 12:20:55 02/28/2024 12:26:50 Perennial allergic rhinitis [id number] J30.89 6692 [facility] Allergy [address] [place] [address],[place] [address] [place] [address] 03/14/2024 13:09:40 03/14/2024 15:30:28 Perennial allergic rhinitis [id number] J30.89 8107 GISELLE PASTRANA [facility] Allergy [address] [place] [address],[place] [address] [facility] [place] [address] 03/25/2024 14:43:48 03/26/2024 13:21:56 Perennial allergic rhinitis [id number] J30.89 14999 [facility] All[facility] [address] [place] [address],[place] [address] [place] [address] 04/08/2024 13:17:46 04/08/2024 14:54:36 Perennial allergic rhinitis [id number] J30.89 [id number] GISELLE PASTRANA [facility] Allergy 100 [facility],[place] [address] [place] [address] 04/18/2024 14:21:19 04/18/2024 15:35:40 Perennial allergic rhinitis [id number] J30.89 27073 GISELLE PASTRANA [facility] Allergy 100 [facility],[place] [address] [place] [address] 05/09/2024 14:15:20 05/09/2024 15:19:41 Perennial allergic rhinitis [id number] J30.89 33007 [facility] Allergy 100 [facility],[place] [address] [place] [address] 05/16/2024 14:06:07 05/16/2024 14:32:31 Perennial allergic rhinitis [id number] J30.89 21300 TULIO HYDE, chrome worker 100 [facility],[place] [address] [place] [address] 05/23/2024 14:49:32 05/23/2024 15:43:57 Perennial allergic rhinitis [id number] J30.89 [id number] [facility], [facility] Allergy 100 [facility],[place] [address] [place] [address] 05/29/2024 11:37:06 05/29/2024 11:49:49 Perennial allergic rhinitis [id number] J30.89 58099 GISELLE PASTRANA, [facility] Allergy 100 [facility],[place] [address] [place] [address] 06/05/2024 13:47:09 06/05/2024 13:50:45 Perennial allergic rhinitis [id number] J30.89 81294 GISELLE PASTRANA [facility] Allergy 100 [facility],[place] [address] [place] [address] 06/12/2024 12:04:31 06/12/2024 12:08:16 Perennial allergic rhinitis [id number] J30.89 71976 GISELLE PASTRANA [facility] Allergy 100 [facility],[place] [address] [place] [address] 2024 13:08:56 2024 13:40:46 Perennial allergic rhinitis [id number] J30.89 [id number] [facility] Allergy 100 [facility],[place] [address] [place] [address] 07/03/2024 12:28:14 07/03/2024 13:16:56 Perennial allergic rhinitis [id number] J30.89 42269 GISELLE PASTRANA [facility] Allergy [address] [place] [address],[place] [address] [place] [address] 07/10/2024 14:55:43 07/10/2024 16:16:17 Perennial allergic rhinitis [id number] J30.89 42693 GISELLE PASTRANA [facility] Allergy [address] [place] [address],[place] [address] [place] [address] 07/17/2024 10:59:58 07/17/2024 11:25:55 Perennial allergic rhinitis [id number] J30.89 44189 TULIO HYDE RN Allergy [address] [place] [address],[place] [address] [place] [address] 07/24/2024 13:28:27 07/24/2024 13:49:36 Perennial allergic rhinitis [id number] J30.89 12417 [facility] Allergy [address] [place] [address],[place] [address] [place] [address] 08/01/2024 12:25:52 08/01/2024 12:28:26 Perennial allergic rhinitis [id number] J30.89 28024 [facility] All[facility] [address] [place] [address],[place] [address] [place] [address] 08/14/2024 13:53:09 08/14/2024 14:24:50 Perennial allergic rhinitis [id number] J30.89 79430 GISELLE SARAH [facility] Allergy [address] [place] [address],[place] [address] [place] [address] 08/21/2024 13:24:53 08/21/2024 14:06:50 Perennial allergic rhinitis [id number] J30.89 65452 TULIO HYDE RN Allergy [address] [place] [address],[place] [address] [place] [address] 09/05/2024 11:35:17 09/05/2024 11:36:22 Perennial allergic rhinitis [id number] J30.89 99414 GISELLEGADIEL PASTRANA [facility] Allergy [address] [place] [address],[address] [address] [place] [address] 09/11/2024 14:29:00 09/11/2024 16:26:45 Perennial allergic rhinitis [id number] J30.89 [id number] BRIGITTE HANNA MD [facility] of [facility] - [place] [address] [place] [address] 09/19/2024 13:00:13 09/19/2024 13:29:53 Allergic rhinitis 49544501 J30.89 53-year-ol d male with allergies and asthma, clinically improving on IT. He is still using montelukas t and Zyrtec with decongesta nt. He does not tolerate nasal sprays. He does continue to have some congested mucosa in his nasal cavity. Continue current regimen. Follow-up 6 months. Will check hearing then; I removed some cerumen today. 87065 TULIO HYDE RN Allergy [address] [place] [address] [place] [address] 09/19/2024 13:09:08 09/19/2024 13:10:13 Perennial allergic rhinitis [id number] J30.89 [id number] GISELLE PASTRANA [facility] Allergy [address] [place] [address], [place] [address] 01/01/2025 10:32:15 01/01/2025 11:05:26 Perennial allergic rhinitis [id number] J30.89 [id number] GISELLE PASTRANA [facility] Allergy [address] [place] [address], [place] [address] 01/08/2025 11:20:07 01/08/2025 11:22:14 Perennial allergic rhinitis [id number] J30.89 78173 TULIO HYDE RN Allergy [address] [place] [address] 100 [place] [address] 01/16/2025 09:57:56 01/16/2025 10:25:37 Perennial allergic rhinitis [id number] J30.89 08026 ROSA BUTTERFIELD [facility] Allergy [address] [place], [place] [address] 100 [place] [address] 01/22/2025 10:18:48 01/22/2025 10:43:26 Perennial allergic rhinitis [id number] J30.89 [id number] GISELLE PASTRANA [facility] Allergy [address] [place] [address], [place] [address] 02/04/2025 12:54:13 02/04/2025 13:16:31 Perennial allergic rhinitis [id number] J30.89 77963 GISELLE PASTRANA [facility] Allergy [address] [place] [address],[address] [address] [place] [address] 02/12/2025 12:03:44 02/12/2025 12:05:06 Perennial allergic rhinitis [id number] J30.89 [id number] [facility] Allergy [address] [place] [address],[address] [address] [place] [address] 02/19/2025 13:38:02 02/19/2025 13:39:24 Perennial allergic rhinitis [id number] J30.89 79387 TULIO HYDE chrome worker [address] [place] [address], [address] [place] [address] 03/05/2025 10:15:37 03/05/2025 10:42:01 Perennial allergic rhinitis [id number] J30.89 33559 GISELLE PASTRANA [facility] Allergy [address] [place] [address],[place] [address] [place] [address] 03/11/2025 11:06:52 03/11/2025 11:21:55 Perennial allergic rhinitis [id number] J30.89 12571 GISELLE PASTRANA [facility] Allergy [address] [place] [address],[address] [address] [place] [address] 03/26/2025 13:38:24 03/26/2025 13:48:45 Perennial allergic rhinitis [id number] J30.89 [id number] GISELLE PASTRANA [facility] Allergy [address] [place] [address],[place] [address] [place] [address] 04/02/2025 10:03:50 04/02/2025 10:25:12 Perennial allergic rhinitis [id number] J30.89 [id number] [facility] Allergy 100 [facility],[place] [address] [place] [address] 04/16/2025 10:35:34 04/16/2025 10:58:19 Perennial allergic rhinitis [id number] J30.89 [id number] GISELLE PASTRANA [facility] Allergy [address] [place] [address],[address] [address] [place] [address] 04/23/2025 09:36:10 04/23/2025 10:18:20 Perennial allergic rhinitis [id number] J30.89 [id number] GISELLE SARAH, [facility] Allergy 100 [facility],[address] [place] [address] 04/30/2025 11:23:32 04/30/2025 11:57:20 Perennial allergic rhinitis [id number] J30.89 [id number] [facility] Allergy [address] [place] [address],[place] [address] [place] [address] 05/07/2025 10:39:54 05/07/2025 11:05:29 Perennial allergic rhinitis [id number] J30.89 [id number] [facility] A Allergy [address] [place] [address],[address] [place] [address] 05/21/2025 10:19:21 05/21/2025 13:05:44 Perennial allergic rhinitis [id number] J30.89 68977 [facility] Allergy [address] [place] [address],[address] [place] [address] 06/11/2025 11:44:16 06/11/2025 12:09:05 Perennial allergic rhinitis [id number] J30.89 48898 TULIO HYDE chrome worker [address] [place] [address],[address] [place] [address] 06/18/2025 09:54:49 06/18/2025 11:38:16 Perennial allergic rhinitis [id number] J30.89 [id number] GISELLE PASTRANA [facility] Allergy [address] [place] [address],[address] [address] [place] [address] 06/25/2025 10:09:37 06/25/2025 11:55:53 Perennial allergic rhinitis [id number] J30.89 [id number] [facility] A All[facility] [address] [facility],[address] [place] [address] 07/09/2025 09:53:22 07/09/2025 10:41:44 Perennial allergic rhinitis [id number] J30.89 Health Concerns Section Related Observation LastModified by Organization Detai ls LastModified Time None Recorded Concern Status LastModified by Organization Details LastModified Time None Recorded Advance Directives Directive None Recorded Payers Insurance Date Sequence Insurance Name Policy Number Policy Elizabeth Covered Member ID Elizabeth Member ID Guarantor Name 11/24/2024 2 [employer] ([facility] Shaw Vela [id number] Shaw Vela 11/24/2024 1 [employer] [id number] Shaw Vela [id number] Shaw Vela 08/10/2025 1 [employer] ([facility]) [id number] Shaw Vela [id number] Shaw Vela 11/24/2024 1 [employer] [facility] ([facility]) Shaw Vela [id number] Shaw Vela 11/24/2024 2 [employer] - [employer] [facility] Shaw Vela [id number] Shaw Vela
== END 2025-08-27 14:11 | disposition home or self-care (01) ==
LOC: HO.HPS 13:50
PROVIDERS: PCP Physician Assistant; Visit Provider Hospitalist
DX: J45.50 Severe persistent asthma, uncomplicated (principal); J30.89 Other allergic rhinitis; L20.9 Atopic dermatitis, unspecified; J34.2 Deviated nasal septum; R05.3 Chronic cough; J40 Bronchitis, not specified as acute or chronic
CPT/HCPCS: 99214

== ENCOUNTER 2025-08-27 13:49 | Outpatient (REF) | payer OTHER, SELFPAY ==
[2025-08-27 14:34] LABS: MANUAL DIFF FLAG NO
[2025-08-27 15:29] LABS: Hematocrit 39.8 % (42.0-52.0); Hemoglobin 13.1 g/dl (14.0-18.0); Imm Gran Abs Auto 0.01 X10*3/uL (0.00-0.03); Imm Gran Pct Auto 0.2 % (0.0-0.4); Lymphocytes Absolute Auto 1.7 X10*3/uL (1.2-4.9); Mean Corpuscular HGB Conc 32.9 g/dl (31.0-36.0); Mean Corpuscular Hemoglobin 31.0 pg (27.0-33.0); Mean Corpuscular Volume 94.1 fL (80.0-98.0); NRBC Abs Auto 0.000 X10*3/uL (0.0-0.012); NRBC Pct Auto 0.0 /100WBC (0.0-0.2); Platelet Count 337 X10*3/uL (160-400); Red Blood Count 4.23 X10*6/uL (4.60-5.80); White Blood Count 4.8 X10*3/uL (4.8-10.8)
[2025-08-28 14:03] LABS: Antibody to SS-A Antigen <1.0 NEG AI (<1.0 NEG); Antibody to SS-B Antigen <1.0 NEG AI (<1.0 NEG)
== END 2025-08-27 13:50 | disposition home or self-care (01) ==
LOC: HO.LAB 13:49
PROVIDERS: PCP Physician Assistant; Visit Provider Hospitalist
DX: T78.40XA Allergy, unspecified, initial encounter (principal); J40 Bronchitis, not specified as acute or chronic; J45.21 Mild intermittent asthma with (acute) exacerbation; R91.1 Solitary pulmonary nodule; R91.8 Other nonspecific abnormal finding of lung field; J45.50 Severe persistent asthma, uncomplicated; R05.3 Chronic cough; L20.9 Atopic dermatitis, unspecified; J34.2 Deviated nasal septum
CPT/HCPCS: 36415; 82164; 82785; 85025; 85652; 86003; 86038; 86200; 86235; 86331; 86606; 86609